=== PATIENT | female | born 1945 | race Caucasian/White ===

== ENCOUNTER 2021-01-21 18:52 | Emergency (ER) | payer OTHER, BC ==
[2021-01-21] MEDS ORDERED: ONDANSETRON 4 MG/2 ML VIAL ONE (20:16)
[2021-01-21] MEDS ORDERED: MORPHINE 4 MG/ML SYR ONE ×2 (20:16→21:05)
--- NOTE | 2021-01-21 20:55 | RAD REPORT ---
EXAM DESCRIPTION: RAD - Hip Left 2 View - 01/21/2021 8:44 pm CLINICAL HISTORY: PAIN COMPARISON: No comparisons FINDINGS: A left total hip arthroplasty is noted. No hardware loosening or infection. Several screws traverse the left SI joint.
--- NOTE | 2021-01-21 22:19 | EDPHYS ---
Physician Documentation [facility] Name: Catie Ojeda Age: 75 yrs Sex: Female : 1945 Arrival Date: 01/21/2021 Time: 18:53 Bed 18 Private MD: ED Physician Roly Collier HPI: 01/21 21:09 This 75 yrs old Female presents to ER via Wheelchair with complaints of Hip pm1 Pain. 21:09 The patient or guardian reports pain. sustained from recent surgery There is no obvious pm1 deformity, The patient is able to self ambulate. The patient is able to bear their full body weight. The complaints affect the left hip. Onset: The symptoms/episode began/occurred 8 day(s) ago. Modifying factors: The symptoms are alleviated by nothing, the symptoms are aggravated by any movement. Associated signs and symptoms: Pertinent positives: left lower leg pain. Severity of symptoms: in the emergency department the symptoms are actually worse. The patient has experienced similar episodes in the past, chronically, patient with history of chronic pain. The patient has been recently seen by a physician: with similar presenting complaints, surgery 8 days ago and has had follow up with visit with orthopedics. Patient is taking OxyContin for pain and patient is reporting concern for longer than allowed riding distance in vehicles. Historical: - Allergies: 19:31 No Known Allergies; lp1 - PMHx: 19:34 Hypertension; Chronic pain; Hyperlipidemia; GERD; lp1 - Immunization history:: Adult Immunizations. - Social history:: Smoking status: Patient denies any tobacco usage or history of. ROS: 21:09 Constitutional: Negative for fever, chills, and weight loss, Cardiovascular: Negative pm1 for chest pain, palpitations, and edema, Respiratory: Negative for shortness of breath, cough, wheezing, and pleuritic chest pain. 21:09 MS/extremity: Positive for pain, of the left leg and left hip, Negative for decreased range of motion, deformity. 21:09 All other systems are negative. Exam: 21:09 Constitutional: This is a well developed, well nourished patient who is awake, alert, pm1 and in no acute distress. Head/Face: Normocephalic, atraumatic. 21:09 Cardiovascular: 21:09 Cardiovascular: Rate: normal, Rhythm: regular, Pulses: no pulse deficits are appreciated, Edema: is not appreciated. 21:09 Respiratory: Exam negative for acute changes, respiratory distress, shortness of breath, Breath sounds: are clear throughout. 21:09 Abdomen/GI: Inspection: abdomen appears normal, Palpation: abdomen is soft and non-tender. 21:09 Back: pain, is absent, vertebral tenderness, is not appreciated, muscle spasm, is not present. 21:09 Musculoskeletal/extremity: Extremities: all appear grossly normal, with no appreciated pain with palpation, Calves: are non-tender, have equal circumference, left hip surgical site without any visible signs of infection. 21:09 Neuro: Exam negative for acute changes, Orientation: is normal, Mentation: is normal, Motor: is normal, moves all fours. Vital Signs: 19:21 BP 128 / 92; Pulse 100; Resp 20; Temp 98.4(TE); Pulse Ox 99% on R/A; Weight 63.5 kg lp1 (R); Height 5 ft. 6 in. (167.64 cm); Pain 9/10; 21:46 BP 152 / 73; Pulse 91; Resp 16; Pulse Ox 92% on R/A; Pain 7/10; fu 19:21 Body Mass Index 22.60 (63.50 kg, 167.64 cm) lp1 MDM: 19:49 Patient medically screened. pm1 22:16 ED course: Ultrasound negative for DVT. pm1 22:17 Data reviewed: vital signs. Data interpreted: Pulse oximetry: on room air is 99 %. pm1 Interpretation: normal. 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 01/21 19:49 Order name: Hip Left 2 View XRAY; Complete Time: 20:58 pm1 01/21 19:49 Order name: Extremity Venous Uni Ltd US; Complete Time: 23:02 pm1 01/21 19:49 Order name: IV Saline Lock; Complete Time: 20:06 pm1 Administered Medications: 20:06 Drug: Zofran (Ondansetron) 4 mg Route: IVP; Site: left forearm; fu 21:06 Follow up: Response: Nausea is decreased fu 20:06 Drug: morphine 4 mg Route: IVP; Site: left forearm; fu 20:36 Follow up: Response: Pain is unchanged, physician notified fu 21:19 Drug: morphine 4 mg Route: IVP; Site: right forearm; fu 21:49 Follow up: Response: Pain is decreased fu 22:38 Drug: fentaNYL (PF) 50 mcg Route: IVP; Site: right forearm; fu 23:08 Follow up: Response: Pain is decreased fu Disposition: 01/21/21 22:18 Discharged to Home. Impression: Pain in left hip. - Condition is Stable. - Discharge Instructions: Hip Pain. - Medication Reconciliation Form, Thank You Letter, Antibiotic Education, Prescription Opioid Use form. - Follow up: Emergency Department; When: As needed; Reason: Worsening of condition. Follow up: Private Physician; When: 2 - 3 days; Reason: Recheck today's complaints, Continuance of care, Re-evaluation by your physician. - Problem is new. - Symptoms have improved. Signatures: Dispatcher [employer] EDMS Catalina Warner RN RN lp1 Poncho Gardner NP GAS BLENDER pm1 Janes Arambula RN RN Chary Sosa mw2 Corrections: (The following items were deleted from the chart) 23:39 22:18 01/21/2021 22:18 Discharged to Home. Impression: Pain in left hip. Condition is mw2 Stable. Forms are Medication Reconciliation Form, Thank You Letter, Antibiotic Education, Prescription Opioid Use. Follow up: Emergency Department; When: As needed; Reason: Worsening of condition. Follow up: Private Physician; When: 2 - 3 days; Reason: Recheck today's complaints, Continuance of care, Re-evaluation by your physician. Problem is new. Symptoms have improved. pm1
--- NOTE | 2021-01-21 22:19 | ER ---
Nurse's Notes [facility] Name: Catie Ojeda Age: 75 yrs Sex: Female : 1945 Arrival Date: 01/21/2021 Time: 18:53 Bed 18 Private MD: Diagnosis: Pain in left hip Presentation: 01/21 19:21 Chief complaint: Patient states: Had left hip surgery about 8 days ago at [address] to reinforce some pins and screws; reports continued pain at 2 week check up; States she has been in a lot of long car drives recently and her doctor told her not to do that; No pain relief with Oxycodone prescribed by pain management; family member reports she is not able to walk very well since yesterday. Coronavirus screen: Client denies travel out of the [place] in the last 14 days. At this time, the client does not indicate any symptoms associated with coronavirus-19. Ebola Screen: No symptoms or risks identified at this time. Initial Sepsis Screen: Does the patient meet any 2 criteria? No. Patient's initial sepsis screen is negative. Does the patient have a suspected source of infection? No. Patient's initial sepsis screen is negative. Risk Assessment: Do you want to hurt yourself or someone else? Patient reports no desire to harm self or others. Onset of symptoms was January 21, 2021. 19:21 Method Of Arrival: Wheelchair lp1 19:21 Acuity: SAMANTHA 3 lp1 Historical: - Allergies: 19:31 No Known Allergies; lp1 - PMHx: 19:34 Hypertension; Chronic pain; Hyperlipidemia; GERD; lp1 - Immunization history:: Adult Immunizations. - Social history:: Smoking status: Patient denies any tobacco usage or history of. Screenin:31 Abuse screen: Denies threats or abuse. Denies injuries from another. Nutritional lp1 screening: No deficits noted. Tuberculosis screening: No symptoms or risk factors identified. 20:00 Fall Risk None identified. fu Assessment: 20:00 General: Appears uncomfortable, Behavior is crying. Pain: Complains of pain in left leg fu and left hip Pain radiates to left foot Pain currently is 10 out of 10 on a pain scale. Quality of pain is described as throbbing, Aggravated by movement. 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 Gait is unsteady, due to pain. Speech is normal, Facial symmetry appears normal. Cardiovascular: Denies. Respiratory: Respiratory effort is even, Respiratory pattern is regular. GI: No signs and/or symptoms were reported involving the gastrointestinal system. Derm: Bruising that is on left hip. Musculoskeletal: Reports Pain is 10 out of 10 on a pain scale. left hip surgery 8 days ago. 21:17 Reassessment: Patient complaining of pain, stating prior pain medication not effective, fu SOAKERS SUPERVISOR notified verbal order to give another dose of Morphine 4mg IVP now. 22:30 Reassessment: Patient and/or family updated on plan of care and expected duration. Pain fu level reassessed. Patient is alert, oriented x 3, equal unlabored respirations, skin warm/dry/pink. Patient states symptoms have improved. 23:00 Reassessment: patient for discharge, awaiting for her brother for the ride. fu 23:35 Reassessment: patient seen walking from bed to wheelchair. fu Vital Signs: 19:21 BP 128 / 92; Pulse 100; Resp 20; Temp 98.4(TE); Pulse Ox 99% on R/A; Weight 63.5 kg lp1 (R); Height 5 ft. 6 in. (167.64 cm); Pain 9/10; 21:46 BP 152 / 73; Pulse 91; Resp 16; Pulse Ox 92% on R/A; Pain 7/10; fu 19:21 Body Mass Index 22.60 (63.50 kg, 167.64 cm) lp1 ED Course: 18:53 Patient arrived in ED. am2 19:31 Triage completed. lp1 19:31 Arm band placed on left wrist. lp1 19:42 Poncho Gardner NP is PHCP. pm1 19:42 Roly Collier MD is Attending Physician. pm1 19:53 Janes Arambula RN is Primary Nurse. fu 20:00 Inserted saline lock: 22 gauge in right forearm, using aseptic technique. fu 20:44 Hip Left 2 View XRAY In Process Unspecified. EDMS 22:00 Patient has correct armband on for positive identification. Bed in low position. Side fu rails up X2. 22:17 Extremity Venous Uni Ltd US In Process Unspecified. EDMS 23:00 No provider procedures requiring assistance completed. fu 23:30 IV discontinued, bleeding controlled, Pressure dressing applied. fu Administered Medications: 20:06 Drug: Zofran (Ondansetron) 4 mg Route: IVP; Site: left forearm; fu 21:06 Follow up: Response: Nausea is decreased fu 20:06 Drug: morphine 4 mg Route: IVP; Site: left forearm; fu 20:36 Follow up: Response: Pain is unchanged, physician notified fu 21:19 Drug: morphine 4 mg Route: IVP; Site: right forearm; fu 21:49 Follow up: Response: Pain is decreased fu 22:38 Drug: fentaNYL (PF) 50 mcg Route: IVP; Site: right forearm; fu 23:08 Follow up: Response: Pain is decreased fu Outcome: 22:18 Discharge ordered by MD. pm1 23:30 Discharged to home via wheelchair. fu 23:30 Condition: stable 23:30 Discharge instructions given to patient, Instructed on discharge instructions, follow up and referral plans. Demonstrated understanding of instructions, Prescriptions given X 0 23:39 Patient left the ED. mw2 Signatures: Dispatcher [employer] EDMS Catalina Warner RN RN lp1 Poncho Gardner, MONIQUE SOAKERS SUPERVISOR pm1 Michelle Jackson am2 Janes Arambula RN RN fu [place], MyKena mw2
--- NOTE | 2021-01-21 22:38 | RAD REPORT ---
EXAM DESCRIPTION: US - Extremity Venous Uni Ltd - 01/21/2021 10:17 pm CLINICAL HISTORY: PAIN Leg swelling and edema. COMPARISON: No comparisons FINDINGS: Left lower extremity venous system was interrogated with Doppler technique. Normal flow, c ompressibility and augmentation was noted. There is no DVT present. IMPRESSION: No evidence of left lower extremity deep venous thrombosis.
[2021-01-21] MEDS ORDERED: FENTANYL CITR 100 MCG/2 ML ONE (22:54)
[2021-01-21 23:45] VITALS: TEMP 98.4
[2021-01-21 23:46] VITALS: BP 152/73; O2SAT 92
[2021-01-24] MEDS ORDERED: IBUPROFEN 200 MG TAB PO ONE (12:25)
== END 2021-01-21 23:39 | disposition home or self-care (01) ==
LOC: ER 18:52
DX: M25.552 Pain in left hip (principal); I10 Essential (primary) hypertension
CPT/HCPCS: 73502; 93971; J3010; J2405; 99284

== ENCOUNTER 2021-01-24 10:23 | Emergency (ER) | payer OTHER, BC ==
--- OUTSIDE RECORDS SUMMARY | 2021-01-24 10:27 | XMS REPORT | Continuity of Care Document ---
:1945 Author Organization [facility] t Address [address] [place] [address] Care Team Providers Name Role Phone Augie Cox Attending Clinician Roc Mart Attending Clinician Augie Cox Admitting Clinician Payers Payer Name Policy Type Policy Number Effective Date Expiration Date S ource Problems Condition Condition Condition Status Onset Resolution Last Treating Co mments Source Name Details Category Date Date Treatment Clinician Date BACK PAIN Diagnosis Active 2019-10-12 Memoria 3- 13:44:00 l BACK 08:00: Renan PAIN 00 Active 10/12/2019 [facility] [place] PAIN IN Diagnosis Active 2018-10-20 Me moria LEFT 3-11 10:35:00 l SHOULDER, PAIN IN 00:00: Herm bebo CERVICALGI LEFT 00 A SHOULDER, CERVICALGI A Active 10/19/2018 [facility] STENOSIS, Diagnosis Active 2017-09-01 Memoria SPONDYLOLI 1-03 15:16:00 l STHESIS 00:00: Renan STENOSIS, 00 SPONDYLOLI STHESIS Active 08/13/2017 [facility] Renan Anxiety Problem Active 2019-10-15 Gino barry (finding) 00:47:50 l Anxiety Renan (finding) Active Problem 10/15/2019 [facility] Constipati Problem Active 2019-10-15 M emoria on 00:47:50 l (disorder) Stephan n Constipati on (disorder) Active Problem 10/15/2019 [facility] Depressive Problem Active 2019-10-15 M emoria disorder 00:47:50 l (disorder) Stephan n Depressive disorder (disorder) Active Problem 10/15/2019 [facility] Hyperlipid Problem Active 2019-10-15 M emoria emia 00:47:50 l (disorder) Stephan n Hyperlipid emia (disorder) Active Problem 10/15/2019 [facility] Hypertensi Problem Active 2019-10-15 M emoria ve 00:47:50 l disorder, Renan systemic Hypertensi arterial ve (disorder) disorder, systemic arterial (disorder) Active Problem 10/15/2019 [facility] Osteoarthr Problem Active 2019-10-15 M emoria itis 00:47:50 l (disorder) Stephan n Osteoarthr itis (disorder) Active Problem 10/15/2019 [facility] Osteoporos Problem Active 2019-10-15 M emoria is 00:47:50 l (disorder) Stephan hsu Osteoporos is (disorder) Active Problem 10/15/2019 [facility] Pancreatic Problem Active 2019-10-15 M emoria insufficie 00:47:50 l ncy Renan (disorder) Pancreatic insufficie ncy (disorder) Active Problem 10/15/2019 [facility] Paresthesi Problem Active 2019-10-15 M emoria a of lower 00:47:50 l extremity [place] (finding) Paresthesi a of lower extremity (finding) Active Problem 10/15/2019 & BILATERAL FEET. [facility] Spinal Problem Active 2019-10-15 Memor ia stenosis 00:47:50 l of lumbar Spinal Ashley nn region stenosis (disorder) of lumbar region (disorder) Active Problem 10/15/2019 [facility] Spondyloli Problem Active 2019-10-15 M emoria sthesis 00:47:50 l (disorder) Stephan n Spondyloli sthesis (disorder) Active Problem 10/15/2019 [facility] PAIN IN Diagnosis Active 2018-10-20 Me moria LEFT 10:35:00 l SHOULDER PAIN IN Ashley nn LEFT SHOULDER Active [facility] CERVICALGI Diagnosis Active 2018-10-20 Memoria A 10:35:00 l [place] CERVICALGI A Active [facility] SPONDYLOLI Diagnosis Active 2019-10-12 Memoria STHESIS, 13:44:00 l LUMBAR [place] REGION SPONDYLOLI STHESIS, LUMBAR REGION Active [facility] SPINAL Diagnosis Active 2019-10-12 Mem oria STENOSIS, 13:44:00 l LUMBAR SPINAL [place] REGION STENOSIS, WITHOUT N LUMBAR REGION WITHOUT N Active [facility] Gastric Problem Resolve 2019-10-15 2019-10-15 Memoria ulcer d 08-11 00:47:50 00:47:50 l (disorder) Gastric 00:00: Her paz ulcer 00 (disorder) Resolved 08/11/2010 Problem 10/15/2019 [facility] Allergies, Adverse Reactions, Alerts Allergy Allergy Status Severity Reaction(s) Onset Inactive Treating Comm ents Source Name Type Date Date Clinician No Known DA Active [facility]ie 09[facility]01 [place] 00:[facility]: [facility] 00 [facility] No Known No Known Active Memori a Medicati Medicati l on on [place] Allergie Allergie s s Social History Social Habit Start Date Stop Date Quantity Comments Source Social History 2017-08-19 2017-08-19 [facility] Sil ermann 00:42:08 00:42:08 Medications This patient has no known medications. Procedures Procedure Date / Time Performed Performing Clinician Kirk mcnamara Hip arthroplasty 2013-08-11 00:00:00 [facility] Arik majano Discectomy for 1986-08-11 00:00:00 [facility] Her paz intervertebral herniated disc, nucleus pulposus Encounters Start End Encounter Admission Attending Care Care Encounter Source Date/Time Date/Time Type Type Clinicians Facility Department ID 2019-10-12 2019-10-12 Outpatient Kenny [facility] [id number] 11:09:00 23:59:00 [address] Augie 2019-10-12 2019-10-12 Outpatient [facility] [id number] 11:09:00 11:09:00 [facility] 2018-10-19 2018-10-19 Outpatient TESHA MartZaid [facility] [id number] 11:50:00 23:59:00 Saad 70 Roc Results Test Description Test Time Test Comments Results Result Tamar anders Comments - CT HEAD/BRAIN 2020-07-28 W/O CONT 14:46:00 [facility] 1945 Sex: F Jose sung Name: BRYANNA HERNANDEZ Unit No: [id number] EXAMS: CPT CODE: [id number] CT HEAD/BRAIN W/O CONT 79428 CT SCAN OF THE HEAD WITHOUT CONTRAST: DICTATION LOCATION: A1 HISTORY: Head injury. TECHNIQUE: Unenhanced axial images were obtained through the head. All CT scans are performed using radiation dose reduction techniques. Technical factors are evaluated and adjusted to ensure appropriate moderation of exposure. Automated dose management technology is applied to adjust the radiation dose to minimize exposure while achieving a diagnostic-quality image. No prior exams are available for comparison. FINDINGS: Mild to moderate chronic changes of cerebral atrophy and deep white matter small vessel ischemia are noted. No acute intra- or extraaxial mass, hemorrhage, fluid collection, midline shift, or evidence to suggest acute infarction is identified. The ventricular system is within normal limits. No acute soft tissue or bony calvarial abnormality is seen. IMPRESSION: Mild to moderate chronic changes of cerebral atrophy and deep white matter small vessel ischemia. No acute findings. at 1446 Reported and signed by: Moe Ambriz Jr, MD CC: Ankit Martin MD; Parvez Baez MD Technologist: KELBY Whiteside(Zaid)(CT) CTDI: 38.48 DLP: 707 [facility] Dt/Tm: 07/28/2020 (7229) by:Tanja Printed Date/Time: 07/28/2020 (4654) Name: BRYANNA HERNANDEZ [facility] Phys: Ankit Gibson MD [address] : 1945 Age: 75 Sex: [place] [id number] Loc: P.ERS Exam Date: 07/28/2020 Status: REG ER PH: FAX: PAGE 1 Signed Report - XR FOREARM 2 2020-07-28 VIEWS LT 14:32:00 [facility] : 1945 Sex: F Jose sung Name: BRYANNA HERNANDEZ Unit No: [id number] EXAMS: CPT CODE: [id number] XR [place] [address] [place] [address] Left forearm 2 views 07/28/2020 CLINICAL HISTORY: Trauma COMPARISON: None available LOCATION: W1 IMPRESSION: Cortical irregularity along the distal diaphysis of the left radius reflects an age-indeterminate buckle fracture. The remaining visualized cortices and joint spaces are intact. There are no osteolytic or osteoblastic lesions. There is soft tissue swelling about the wrist. at 1432 Reported and signed by: LOCO GUTIERREZ M.D. CC: Ankit Martin MD; Parvez Baez MD Technologist: Frederick Shay Time: DAP (Gy m2): Air Kerma (mGy): Trscr Dt/Tm: 07/28/2020 (1432) by:[email or web address] Printed Date/Time: 07/28/2020 (3415) Name: BRYANNA HERNANDEZ [facility] Phys: Ankit Gibson MD [address] : 1945 Age: 75 Sex: [place] [address] Loc: P.ERS Exam Date: 07/28/2020 Status: REG ER PH: FAX: PAGE 1 Signed Report CKMB 2020-06-28 16:20:00 Test Item Value Reference Range Interpretation Comme nts CKMB (test code = CKMBT) 1.21 ng/mL 0.97-3.77 N INT ERPRETATIVE DATA:Negative or inconclusive re sults do not exclude myocardialinfar ction. Serial tests at appropriate int ervals may benecessary. [id number] 12:44:00 Test Item Value Reference Range Interpretation Comments TROPONIN-I (test < 0.30 ng/mL 0.00-0.30 N INTERPRETAT VASU code = TROPI) DATA:Negative or inconclusive re uslts do not exclude myocardialinfar ction. Serial tests at appropriate int ervals may benecessary. - CTA CHEST FOR [id number] 21:15:00 [facility] : 1945 Sex: FPatient Name: BRYANNA HERNANDEZ Unit No: [id number] EXAMS: CPT CODE: [id number] [place] [address] LOCATION: R16 EXAM: CTA CHEST WITH CONTRAST, PE PROTOCOL INDICATION: chest pain COMPARISON: 06/27/2020 chest radiograph. TECHNIQUE: Helically acquired axial CT images of the chest were obtained with reconstructions in the coronal and sagittal planes without 3D reformations. Up-to-date CT equipment and radiation dose reduction techniques were utilized. Automatic exposure control was utilized. MIP coronal reformats provided. FINDINGS: Lines and Tubes: None Mediastinum and Vasculature: There are no intrathoracic lymph nodes meeting CT criteria for enlargement. The heart is not enlarged. There is no pericardial effusion.. The thoracic aorta and pulmonary artery are normal in size. No discrete filling defect is identified within the pulmonary arteries. Mild scattered arterial atherosclerotic calcifications are present. Airways/Pleura/Lungs: The trachea is patent.. The pleura is unremarkable.Linear atelectasis/scarring is appreciated at the lung bases. There is no focal consolidation. No pulmonary mass is present. There is no pleural effusion or pneumothorax.Bones: There is no acute osseous abnormality..There is a moderate anterosuperior compression deformity at T12 with 3.4 mm bony retropulsion. Abdomen: The visualized portions of the upper abdomen is unremarkable. IMPRESSION: No evidence for pulmonary artery embolism. Bibasilar subsegmental atelectasis/linear scarring. Chronic T12 compression deformity. at 2114 Reported and signed by: JOSE FELICIANO M.D. CC: Sang Figueroa MD; Parvez Baez MD Technologist: Stefanie Charlton (CT),(MR) CTDI: 19.54 DLP: 359.6 Trscr Dt/Tm: 06/27/2020 (2114) by:[email or web address] Printed Date/Time: 06/27/2020 (2118) Name: BRYANNA HERNANDEZ KELSIE [facility] Phys: Sang Martins MD [address] : 1945 Age: 75 Sex: F [place], [place] [id number] Loc: P.0733 1 Exam Date: 06/27/2020 Status: ADM IN PH: FAX: PAGE 1 Signed [id number] 19:54:00 Test Item Value Reference Range Interpretation Comments TROPONIN-I (test < 0.30 ng/mL 0.00-0.30 N INTERPRETAT VASU code = TROPI) DATA:Negative or inconclusive re uslts do not exclude myocardialinfar ction. Serial tests at appropriate int ervals may benecessary. [id number] 19:37:00 Test Item Value Reference Range Interpretation Comments D-DIMER (test 522 ng/mL 0-500 H THE DDIMER MET HOD IS USED IN code = DDIMER) THE EXCLUSION OF DEEP VEINTHROMBOSIS AND/OR PULMONARY EMBOL ISM AND THE CLINICAL CUT-OF F VALUE FOR EXCLUSION (500 NG/ML FEU) OF THESE CONDITION SIS VALIDATED BY THE MANUFACT URER OF THE METHOD. A NEGAT VASU DDIMER RESULT WHEN COM BINED WITH A CLINICALASSESSM ENT OF LOW PRETEST PROBABI LITY HAS BEEN SHOWN TO HAVEA HIGH NEGATIVE PREDICTIVE VALU E OF DVT OR PE. D-DIMER SERENITY UES >500 ng/mL ARE NOT DIAGNOS TIC FOR DVT,PEOR DIC WI THOUT OTHER CONFIRMATORY TE STS AND APPROPRIATECLIN ICAL EVALUATIONS. B-TYPE NATRIURETIC [id number] 19:27:00 Test Item Value Reference Range Interpretation Comments B-TYPE NATRIURETIC PEPTIDE (test 30.4 PG/ML 0-100 N code = BNP) COMPREHENSIVE METABOLIC [id number] 19:25:00 Test Item Value Reference Range Interpretation Comments SODIUM (test code = 138 MMOL/L 136-143 N NA) POTASSIUM (test 4.3 MMOL/L 3.5-5.1 N code = K) CHLORIDE (test code 97 MMOL/L 98-107 L = CL) CARBON DIOXIDE 29 mmol/L 24-31 N (test code = CO2) GLUCOSE (test code 106 mg/dL 70-104 H = GLU) BLOOD UREA NITROGEN 16.9 MG/DL 7.0-21.0 N (test code = BUN) GLOMERULAR >=60 max >60 The estimated FILTRATION RATE estimate glomerular (test code = GFR) filtration rate is computed usingpatient ra ce, age (>18), sex, and serum creatinin e. If anyof the ne eded data elements a re missing the Laboratory demetra ot compute an estimation of t he glomerular filtration rate . CREATININE (test 0.9 mg/dL 0.8-1.5 N code = CREAT) TOTAL PROTEIN (test 8.2 g/dL 6.3-8.3 N code = PROT) ALBUMIN (test code 5.2 G/DL 3.5-5.0 H = ALB) CALCIUM (test code 10.1 mg/dL 8.8-10.2 N = CA) BILIRUBIN TOTAL 0.5 mg/dL 0.2-1.0 N (test code = BILT) SGOT/AST (test code 19 IU/L 10-34 N = AST) SGPT/ALT (test code 9 U/L 10-36 L = ALT) ALKALINE 95 U/L 32-104 N PHOSPHATASE (test code = ALKP) CBC W/AUTO [id number] 18:57:00 Test Item Value Reference Range Interpretation Comments WHITE BLOOD CELL (test code = 10.3 x10 3/uL 4.8-10.8 N WBC) RED BLOOD CELL (test code = 4.70 x10 6/uL 4.20-5.40 N RBC) HEMOGLOBIN (test code = HGB) 14.0 g/dL 14.5-20 L HEMATOCRIT (test code = HCT) 44.5 % 37.0-47.0 N MEAN CELL VOLUME (test code = 94.7 fL 81.0-99.0 N MCV) MEAN CELL HGB (test code = MCH) 29.8 pg 27-31 N MEAN CELL HGB CONCENTRATION 31.5 G/DL 33-36.5 L (test code = MCHC) RED CELL DISTRIBUTION WIDTH 13.2 % 12.9-16.9 N (test code = RDW) PLATELET COUNT (test code = 428 150-440 N PLT) MEAN PLATELET VOLUME (test code 9.2 fL 8.9-12.4 N = MPV) NEUTROPHIL % (test code = NT%) 67.0 % 42.2-75.2 N LYMPHOCYTE % (test code = LY%) 24.8 % 20.5-51.1 N MONOCYTE % (test code = MO%) 7.3 % 1.7-9.3 N EOSINOPHIL % (test code = EO%) 0.4 % 0.0-7.0 N BASOPHIL % (test code = BA%) 0.3 % 0-2.5 N NEUTROPHIL # (test code = NT#) 6.94 x10 3/uL 1.80-7.70 N LYMPHOCYTE # (test code = LY#) 2.56 x10 3/uL 1.00-4.80 N MONOCYTE # (test code = MO#) 0.75 x10 3/uL 0.00-0.80 N EOSINOPHIL # (test code = EO#) 0.04 x10 3/uL 0.00-0.45 N BASOPHIL # (test code = BA#) 0.03 x10 3/uL 0.0-0.20 N - XR CHEST 1 [id number] 18:39:00 [facility] : 1945 Sex: FPatient Name: BRYANNA HERNANDEZ Unit No: [id number] EXAMS: CPT CODE: [id number] XR CHEST 1 V 19200 STUDY: Chest radiograph HISTORY: Chest pain COMPARISON: 1120 TECHNIQUE: Frontal view of the chest. SITE: R16 FINDINGS: The cardiac silhouette is unremarkable. The ascending aorta appears tortuous/ectatic. There is no focal consolidation, pleural effusion, or pneumothorax. No acute osseous abnormalities are identified. Plate and screw fixation of the right clavicle is noted. IMPRESSION: No radiographic evidence for acute pulmonary abnormality. at 1839 Reported and signed by: JOSE FELICIANO M.D. CC: Mina Del Valle MD; Parvez Baez MD Technologist: Jazmine Shay Time: DAP (Gy m2): Air Kerma (mGy): Trscr Dt/Tm: 06/27/2020 (183) by:Mercy [email or web address] Printed Date/Time: 06/27/2020 (184) Name: BRYANNA HERNANDEZ [facility] Phys: Mina Shah MD [address] : 1945 Age: 75 Sex: [place] [address] Loc: P.ERS Exam Date: 06/27/2020 Status: REG ER PH: FAX: PAGE 1 Signed Report- CT C-SPINE W/O [id number] 10:08:00Patient Name: BRYANNA HERNANDEZ Unit No: [id number] EXAMS: CPT CODE: [id number] CT C-SPINE W/O CONT 22681 CT cervical spine without contrast Location Code: B2 Clinicalhistory: fall, trauma COMPARISON: None. COMMENTS: Helical CT of the cervical spine was performed and submitted as thin section axial, coronal, and sagittally oriented images. CT imaging performed at this location utilizes radiation dose optimization techniques which include one or more of the following: - Automated exposure control -Adjustment of the mA and/or kV according to patient size -Use of iterative reconstruction technique CT Radiation Dose DLP mGy-cm FINDINGS: There is no acute fracture or malalignment of the cervical spine. The soft tissues are unremarkable. Multilevel degenerative disc, facet, and uncovertebral disease is noted throughout the cervical spine. Grade 1 anterolisthesis of C4 and C5. IMPRESSION: No acute abnormality. at 1008 Reported and signed by: QIANA OLMEDO M.D. CC: Sang Figueroa MD; Parvez Baez MD Technologist: Donny Acuna CTDI: 18.75 DLP: 423 Trscr Dt/Tm: 03/21/2020 (1008) by:[email or web address] Printed Date/Time: 03/21/2020 (1011) Name: BRYANNA HERNANDEZ [facility] Phys: Sang Martins MD [address] : 1945 Age: 74 Sex: [place] [address] Loc: P.ERS Exam Date: 03/21/2020 Status: REG ER PH: FAX: PAGE 1 Signed Report- XR SHOULDER 2 + V [id number] 09:45:00Patient Name: BRYANNA HERNANDEZ Unit No: [id number] EXAMS: CPT CODE: [id number] XR SHOULDER 2 + [place] [id number] Exam:Right shoulder x-rays 3 views Location: W1 Clinical Indication:74-year-old with fall injury and trauma Comparison:None Findings:3 views of the right shoulder were obtained. There is an acute displaced fracture through the mid right clavicle, with greater than a shaft width displacement. No shoulder dislocation. Soft tissues are unremarkable. Impression: Acute displaced fracture through the mid to distal right clavicle. at 0945 Reported and signed by: Jose Robb MD CC: Sang Figueroa MD; Parvez Baez MD Technologist: Gibbon Glade Isai Fluoro Time: DAP (Gy m2): Air Kerma (mGy): Trscr Dt/Tm: 03/21/2020 (0945) by:[email or web address] Printed Date/Time: 03/21/2020 (5349) Name: BRYANNA HERNANDEZ [facility] Phys: Sang Martins MD [address] DOB: 1945 Age: 74Sex: [place] [address] Loc: P.ERS Exam Date: 03/21/2020 Status: REG ER PH: FAX: PAGE 1 Signed Report- XR CHEST 1 [id number] 09:44:00Patient Name: BRYANNA HERNANDEZ Unit No: [id number] EXAMS: CPT CODE: [id number] XR CHEST 1 V [id number] EXAM: Portable chest one view. Location code:J9 HISTORY: Dyspnea COMPARISON: 09/26/2015 COMMENT: . The lungs and pleural spacesare clear. Lungs are normally expanded. The aorta, pulmonary vasculature and mediastinum are within normal limits. Cardiac silhouette is normal in size and contour. Visualized skeletal structures are unremarkable. IMPRESSION: No active disease in the chest. at 0944 Reported and signed by: QIANA OLMEDO M.D. CC: Sang Figueroa MD; Parvez Baez MD Te chnologist: Hipolito Alex Fluoro Time: DAP (Gy m2): Air Kerma (mGy): Trscr Dt/Tm: 03/21/2020 (44) by:[email or web address] Printed Date/Time: 03/21/2020 (1848) Name: BRYANNA HERNANDEZ [facility] Phys: Sang Martins MD [address] DOB: 1945 Age: 74 Sex: [place] [address] Loc: PBRYCE Exam Date: 03/21/2020 Status: REG ER PH: FAX: PAGE 1 Signed Report
--- NOTE | 2021-01-24 13:52 | RAD REPORT ---
EXAM DESCRIPTION: RAD - Ankle Left 3 View - 01/24/2021 1:44 pm CLINICAL HISTORY: PAIN COMPARISON: No comparisons FINDINGS: No acute fracture or dislocation seen. Small calcaneal spurs noted.
--- NOTE | 2021-01-24 14:06 | RAD REPORT ---
EXAM DESCRIPTION: RAD - Shoulder Right 2 View - 01/24/2021 1:59 pm CLINICAL HISTORY: PAIN COMPARISON: No comparisons FINDINGS: Right clavicular hardware is noted. Mild AC joint and glenohumeral joint arthritic changes are seen. No acute fracture evident.
--- NOTE | 2021-01-24 14:21 | EDPHYS ---
Physician Documentation [facility] Name: Catie Ojeda Age: 75 yrs Sex: Female : 1945 Arrival Date: 01/24/2021 Time: 10:25 Bed 17 Private MD: ED Physician Omega Morales Historical: - Allergies: 01/24 11:12 No Known Allergies; ca1 - PMHx: 11:12 Chronic pain; GERD; Hyperlipidemia; Hypertension; ca1 - PSHx: 11:12 Hip replacement; R shoulder surgery; ca1 - Immunization history:: Client reports receiving the 2nd dose of the Covid vaccine, Client reports receiving the 1st dose of the Covid vaccine, Pneumococcal vaccine is up to date, Flu vaccine is up to date. - Social history:: Smoking status: Patient denies any tobacco usage or history of. Vital Signs: 11:07 BP 152 / 92; Pulse 102; Resp 18 S; Temp 97.7(TE); Pulse Ox 100% on R/A; Weight 63.5 kg ca1 (R); Height 5 ft. 6 in. (167.64 cm) (R); Pain 9/10; 11:30 BP 137 / 69; Pulse 98; Resp 17; Pulse Ox 97% on R/A; Pain 8/10; ap3 12:23 BP 144 / 92; Pulse 102; Resp 16; Pulse Ox 98% on R/A; ap3 11:07 Body Mass Index 22.60 (63.50 kg, 167.64 cm) ca1 MDM: 14:20 Patient medically screened. kdr 01/24 12:01 Order name: Shoulder Right (2 View) XRAY; Complete Time: 14:18 kdr 01/24 12:01 Order name: Ankle Left 3 View XRAY; Complete Time: 14:18 kdr Administered Medications: 12:22 Drug: Ibuprofen 600 mg Route: PO; ap3 14:55 Follow up: Response: No adverse reaction; Pain is decreased ap3 Disposition: 01/24/21 14:20 Discharged to Home. Impression: Musculoskeletal Pain, Other slipping, tripping and stumbling and falls, Pain in right shoulder, Pain in ankle and joints of foot - left. - Condition is Stable. - Discharge Instructions: Joint Pain, Arthritis, Musculoskeletal Pain, Shoulder Pain, [id number]-[id number], Fall Prevention in the Home, [id number]. - Prescriptions for Ibuprofen 600 mg Oral Tablet - take 1 tablet by ORAL route every 6 hours As needed take with food; 15 tablet. - Medication Reconciliation Form, Thank You Letter form. - Follow up: Private Physician; When: 2 - 3 days; Reason: If symptoms return, Further diagnostic work-up, Recheck today's complaints, Continuance of care, Re-evaluation by your physician. - Problem is new. - Symptoms have improved. Signatures: Dispatcher [employer] EDWV Omega Morales MD MD kdr Michelle Lamb RN RN ap3 Gabi Howell RN RN ca1 Corrections: (The following items were deleted from the chart) 14:56 14:20 01/24/2021 14:20 Discharged to Home. Impression: Musculoskeletal Pain; Other ap3 slipping, tripping and stumbling and falls; Pain in right shoulder; Pain in ankle and joints of foot - left. Condition is Stable. Forms are Medication Reconciliation Form, Thank You Letter, Antibiotic Education, Prescription Opioid Use. Follow up: Private Physician; When: 2 - 3 days; Reason: If symptoms return, Further diagnostic work-up, Recheck today's complaints, Continuance of care, Re-evaluation by your physician. Problem is new. Symptoms have improved. kdr
--- NOTE | 2021-01-24 14:21 | ER ---
Nurse's Notes [facility] Name: Catie Ojeda Age: 75 yrs Sex: Female : 1945 Arrival Date: 01/24/2021 Time: 10:25 Bed 17 Private MD: Diagnosis: Musculoskeletal Pain;Other slipping, tripping and stumbling and falls;Pain in right shoulder;Pain in ankle and joints of foot-left Presentation: 01/24 11:07 Chief complaint: Patient states: Slipped and fell x 3x last night. Hit back of the ca1 head, denies LOC. Report pain on R shoulder, L leg, L hip. Coronavirus screen: Client denies travel out of the [place] in the last 14 days. At this time, the client does not indicate any symptoms associated with coronavirus-19. Ebola Screen: Patient negative for fever greater than or equal to 101.5 degrees Fahrenheit, and additional compatible Ebola Virus Disease symptoms Patient denies exposure to infectious person. Patient denies travel to an Ebola-affected area in the 21 days before illness onset. No symptoms or risks identified at this time. Initial Sepsis Screen: Does the patient meet any 2 criteria? No. Patient's initial sepsis screen is negative. Does the patient have a suspected source of infection? No. Patient's initial sepsis screen is negative. Risk Assessment: Do you want to hurt yourself or someone else? Patient reports no desire to harm self or others. Onset of symptoms was January 24, 2021. 11:07 Method Of Arrival: Wheelchair ca1 11:07 Acuity: SAMANTHA 4 ca1 Historical: - Allergies: 11:12 No Known Allergies; ca1 - PMHx: 11:12 Chronic pain; GERD; Hyperlipidemia; Hypertension; ca1 - PSHx: 11:12 Hip replacement; R shoulder surgery; ca1 - Immunization history:: Client reports receiving the 2nd dose of the Covid vaccine, Client reports receiving the 1st dose of the Covid vaccine, Pneumococcal vaccine is up to date, Flu vaccine is up to date. - Social history:: Smoking status: Patient denies any tobacco usage or history of. Screenin:17 Abuse screen: Denies threats or abuse. Nutritional screening: No deficits noted. tw2 Tuberculosis screening: No symptoms or risk factors identified. Fall Risk Secondary diagnosis (15 points) impaired mobility. Assessment: 11:23 Reassessment: pts son states "she is a what you call over the counter junkie, she takes tw2 muscle relaxers, hydrocodone and just whatever so that's probably why she is falling", provider and primary nurse notified. 11:28 General: Appears distressed, Behavior is cooperative, crying. General: patient states ap3 when she isn't having physical pain, she has "broken heart pain". Pain: Complains of pain in "all over". Neuro: Level of Consciousness is awake, alert, obeys commands, Oriented to person, place, time, situation, Speech is normal. Cardiovascular: Denies chest pain, shortness of breath, Capillary refill < 3 seconds. Respiratory: Airway is patent Respiratory effort is even, unlabored, Respiratory pattern is regular, symmetrical. GI: No signs and/or symptoms were reported involving the gastrointestinal system. : No signs and/or symptoms were reported regarding the genitourinary system. EENT: No signs and/or symptoms were reported regarding the EENT system. Derm: No signs and/or symptoms reported regarding the dermatologic system. Musculoskeletal: Reports pain in "all over". 12:24 Reassessment: Patient and/or family updated on plan of care and expected duration. Pain ap3 level reassessed. Patient is alert, oriented x 3, equal unlabored respirations, skin warm/dry/pink. Vital Signs: 11:07 BP 152 / 92; Pulse 102; Resp 18 S; Temp 97.7(TE); Pulse Ox 100% on R/A; Weight 63.5 kg ca1 (R); Height 5 ft. 6 in. (167.64 cm) (R); Pain 9/10; 11:30 BP 137 / 69; Pulse 98; Resp 17; Pulse Ox 97% on R/A; Pain 8/10; ap3 12:23 BP 144 / 92; Pulse 102; Resp 16; Pulse Ox 98% on R/A; ap3 11:07 Body Mass Index 22.60 (63.50 kg, 167.64 cm) ca1 ED Course: 10:25 Patient arrived in ED. as 10:47 Omega Morales MD is Attending Physician. kdr 11:11 Triage completed. ca1 11:12 Arm band placed on right wrist. ca1 11:15 Bed in low position. Call light in reach. Adult w/ patient. Pulse ox on. NIBP on. tw2 11:17 Michelle Lamb, RN is Primary Nurse. ap3 11:55 ED physician to see patient. ap3 13:43 Ankle Left 3 View XRAY In Process Unspecified. EDMS 13:58 Shoulder Right (2 View) XRAY In Process Unspecified. EDMS 14:54 No provider procedures requiring assistance completed. Patient did not have IV access ap3 during this emergency room visit. Administered Medications: 12:22 Drug: Ibuprofen 600 mg Route: PO; ap3 14:55 Follow up: Response: No adverse reaction; Pain is decreased ap3 Outcome: 14:20 Discharge ordered by . kdr 14:54 Discharged to home ambulatory, with family. ap3 14:54 Condition: good 14:54 Discharge instructions given to patient, Instructed on discharge instructions, follow up and referral plans. medication usage, Demonstrated understanding of instructions, follow-up care, medications, Prescriptions given X 1. 14:56 Patient left the ED. ap3 Signatures: Dispatcher [employer] EDNC Omega Morales MD MD kdr Martinez, Amelia as Wise, Tara, RN RN tw2 Michelle Lamb, RN RN ap3 Gabi Howell, RN RN ca1
[2021-01-24 15:12] VITALS: TEMP 97.7
[2021-01-24 15:15] VITALS: BP 144/92; O2SAT 98
== END 2021-01-24 14:56 | disposition home or self-care (01) ==
LOC: ER 10:23
DX: M25.572 Pain in left ankle and joints of left foot (principal); M79.18 Myalgia, other site; W01.0XXA Fall on same level from slipping, tripping and stumbling without subsequent striking against object, initial encounter; I10 Essential (primary) hypertension

== ENCOUNTER 2022-02-22 19:43 | Inpatient (IN) | payer OTHER, BC ==
--- NOTE | 2022-02-22 21:15 | RAD REPORT ---
EXAM DESCRIPTION: CT - Head C Spine Mpr Wo Con - 02/22/2022 9:04 pm CLINICAL HISTORY: Head and neck injury status post fall. Head and neck pain COMPARISON: None. TECHNIQUE: Computed axial tomography of the head and cervical spine was obtained. Sagittal and coronal reconstruction was performed. All CT scans are performed using dose optimization technique as appropriate and may include automated exposure control or mA/KV adjustment according to patient size. FINDINGS: An intracranial bleed is not seen. The ventricles are normal in caliber. An extra-axial fl uid collection is not noted.Fluid within the visualized sinuses and mastoids is not seen A cervical fracture is not visualized. No dislocation is noted. Mild posterior subluxation C2 on C3. Mild posterior subluxation C3 on C4 and C5 on C6. No significant soft tissue swelling seen. Presumably this is chronic IMPRESSION: No acute intracranial abnormality is seen. A cervical fracture is not visualized. If the patient continues to have symptoms to suggest intracranial /spinal cord/ligamentous pathology then MRI would be recommended
--- NOTE | 2022-02-22 21:41 | RAD REPORT ---
EXAM DESCRIPTION: Quinn Single View02/22/2022 9:32 pm CLINICAL HISTORY: Chest pain COMPARISON: none FINDINGS: Triangular opacities within lung bases may represent atelectasis or scarring. Upper lobes appear clear. Heart is normal size
--- NOTE | 2022-02-22 21:43 | RAD REPORT ---
EXAM DESCRIPTION: RAD - Pelvis - 02/22/2022 9:32 pm CLINICAL HISTORY: Pelvic pain status post injury FINDINGS: Screws fuse the left sacroiliac joint. Left hip arthroplasty is been performed. Bones are osteoporotic. No acute fracture or dislocation seen. Marked osteoarthritis right hip. If patient continues to have symptoms to suggest an occult fracture CT would be recommended
--- NOTE | 2022-02-22 21:47 | RAD REPORT ---
EXAM DESCRIPTION: RAD - Foot Left 3 View - 02/22/2022 9:32 pm CLINICAL HISTORY: Left Foot pain status post injury FINDINGS: Horizontal lucency is present within the medial malleolus. This may represent a the subacu te fracture and should be correlated clinically. Cortical regularity involving the base of metatarsal presumably a subacute or old fracture Osteoporosis No dislocation
[2022-02-22] MEDS ORDERED: NA CHLORIDE 0.9% 500 ML ONE (22:43)
[2022-02-22 23:18] LABS: Urine Blood Negative (Negative); Urine Glucose Negative (Negative); Urine Protein 1+ (Negative); Urine Specific Gravity 1.015 (1.005-1.030)
[2022-02-22 23:21] LABS: Absolute Lymphocytes (CBC) 1.9 K/uL (0.7-4.9); Hematocrit 23.3 % (36.0-45.0); Lymphocytes % 25.2 % (15.3-44.8); MCV 96.1 fL (80-100); MPV 7.7 fL (7.6-11.3); RBC Red Blood Cell Count 2.43 M/uL (3.86-4.86)
[2022-02-22 23:25] LABS: Protime INR 1.01
[2022-02-22 23:35] LABS: Barbiturates NEGATIVE (NEGATIVE); Benzodiazepines POSITIVE (NEGATIVE); Cocaine NEGATIVE (NEGATIVE); METHAMPHETAM NEGATIVE (NEGATIVE); Methadone NEGATIVE (NEGATIVE); Opiates NEGATIVE (NEGATIVE); Phencyclidine NEGATIVE (NEGATIVE); THC Cannibis NEGATIVE (NEGATIVE)
[2022-02-22 23:41] LABS: Albumin 3.2 g/dL (3.4-5.0); Bilirubin Direct 0.2 mg/dL (0-0.2); Magnesium 2.6 mg/dL (1.8-2.4); Potassium 4.2 mmol/L (3.5-5.1); Protein, Total 6.6 g/dL (6.4-8.2); Troponin High Sensitivity 6.7 pg/mL (<58.9)
--- NOTE | 2022-02-23 00:57 | ER ---
Nurse's Notes [facility] Name: Catie Ojeda Age: 76 yrs Sex: Female : 1945 Arrival Date: 02/22/2022 Time: 19:47 Bed 26 Private MD: Diagnosis: Syncope, multiple falls Presentation: 02/22 19:48 Chief complaint: EMS states: "She had surgery on Friday. Arthroplasty. She said she tw5 also broke her left foot three months ago. She said she had several falls and wants to be check. She is having pain everywhere." She report 3 falls today. 19:49 Care prior to arrival: IV initiated. 20 GA, in the left antecubital area. tw5 19:53 Coronavirus screen: Vaccine status: Patient reports receiving the 2nd dose of the covid tw5 vaccine. [employer] and [employer]. Ebola Screen: Patient negative for fever greater than or equal to 101.5 degrees Fahrenheit, and additional compatible Ebola Virus Disease symptoms Patient denies exposure to infectious person. Patient denies travel to an Ebola-affected area in the 21 days before illness onset. Initial Sepsis Screen: Does the patient meet any 2 criteria? No. Patient's initial sepsis screen is negative. Does the patient have a suspected source of infection? No. Patient's initial sepsis screen is negative. Risk Assessment: Do you want to hurt yourself or someone else? Patient reports no desire to harm self or others. Onset of symptoms is unknown. 19:53 Method Of Arrival: EMS: [facility] tw5 19:53 Acuity: SAMANTHA 3 tw5 19:59 Mechanism of Injury: Fall from standing position. Trauma event details: Injury occurred tw5 in the [facility], Injury occurred: at home. Injury occurred: February 22, 2022 Injury occurred at: 05:30. Historical: - Allergies: 19:49 No Known Allergies; tw5 - Home Meds: 19:49 amlodipine oral [Active]; "Several pillls for pain." [Active]; tw5 - PMHx: 19:49 Chronic pain; GERD; Hyperlipidemia; Hypertension; tw5 - Immunization history: Last tetanus immunization: - up to date. - Social history:: Smoking status: Patient denies any tobacco usage or history of. Screenin:56 Abuse screen: Denies threats or abuse. Denies injuries from another. Tuberculosis tw5 screening: No symptoms or risk factors identified. 22:44 Nutritional screening: No deficits noted. Fall Risk Fall in past 12 months (25 points). tw5 Primary Survey: 19:56 NO uncontrolled hemorrhage observed. A: The client responds to verbal stimuli. tw5 Breathing/Chest: Respiratory effort: spontaneous, Breath sounds: clear. Circulation: No external hemorrhage present. Regular and strong central pulse, skin warm/dry/normal color. Disability Pupils are equal, round, reactive to light and accommodation. Exposure/Environment: There is no evidence of uncontrolled external bleeding. Reassessment Alertness and Airway: Awake and alert. The airway is patent. Breathing: Spontaneous respiratory effort, equal unlabored respirations, breath sounds clear bilaterally, regular pattern with symmetrical chest rise and fall. Circulation: No external hemorrhage noted. Regular and strong central pulse, skin warm/dry/normal color. Disability: Pupils Pupils are equal, round, reactive to light and accomodation. Secondary Survey: 19:56 Gastrointestinal: No deficits noted. tw5 Assessment: 19:55 General: Appears in no apparent distress. Behavior is drowsy, Reports Patient falling tw5 alseep while answering questiosn. Pain: Pain currently is 7 out of 10 on a pain scale. 22:40 Reassessment: Patient appears in no apparent distress at this time. Patient and/or tw5 family updated on plan of care and expected duration. Pain level reassessed. Patient is alert, oriented x 3, equal unlabored respirations, skin warm/dry/pink. 22:44 Neuro: Level of Consciousness is awake, alert, obeys commands. tw5 02/23 00:30 Reassessment: Patient and/or family updated on plan of care and expected duration. Pain ll3 level reassessed. Patient is alert, oriented x 3, equal unlabored respirations, skin warm/dry/pink. 02:25 Reassessment: Patient and/or family updated on plan of care and expected duration. Pain ll3 level reassessed. Patient is alert, oriented x 3, equal unlabored respirations, skin warm/dry/pink. Vital Signs: 02/22 19:53 BP 105 / 52; Pulse 81; Resp 12; Temp 98; Pulse Ox 93% on R/A; Weight 64.41 kg; Height 5 tw5 ft. 6 in. (167.64 cm); Pain 7/10; 19:58 Pulse Ox 85% on R/A; tw5 22:44 Pulse 95; Resp 12; Pulse Ox 100% on R/A; Pain 8/10; tw5 02/23 00:29 BP 158 / 66; Pulse 99; Resp 13; Pulse Ox 97% ; ll3 02:25 BP 137 / 73; Pulse 103; Resp 12; Pulse Ox 100% ; ll3 02/22 19:53 Body Mass Index 22.92 (64.41 kg, 167.64 cm) tw5 Ihsan Coma Score: 02/22 19:56 Eye Response: spontaneous(4). Verbal Response: oriented(5). Motor Response: obeys tw5 commands(6). Total: 15. Trauma Score (Adult): 19:56 Eye Response: to voice(0); Verbal Response: oriented(1); Motor Response: obeys tw5 commands(2); Systolic BP: > 89 mm Hg(4); Respiratory Rate: 10 to 29 per min(4); Hayes Score: 14; Trauma Score: 11 ED Course: 19:47 Patient arrived in ED. tw5 19:53 Koki Langley is Primary Nurse. tw5 19:55 Triage completed. tw5 19:56 Side rails up X2. Oxygen administration via nasal cannula \\T\\ 2L/min. tw5 19:58 Response to oxygen therapy: symptoms improved. tw5 19:58 Arm band placed on. tw5 19:58 Maintain EMS IV. Dressing intact. Good blood return noted. Site clean \\T\\ dry. Gauge \\T\\ tw 5 site: 20 RAC. 19:59 Thermoregulation: warm blanket given to patient. tw5 20:05 Clive Bullock MD is Attending Physician. mh7 21:06 CT Head C Spine In Process Unspecified. EDMS 21:34 XRAY Chest (1 view) In Process Unspecified. EDMS 21:34 Pelvis XRAY In Process Unspecified. EDMS 21:34 Foot Left 3 View XRAY In Process Unspecified. EDMS 22:44 Pulse ox on. NIBP on. Door closed. Noise minimized. Moved to private room. Warm blanket tw5 given. Verbal reassurance given. 22:44 Initial lab(s) drawn, by me, sent to lab. Urine collected: straight cath specimen, tw5 clear, Amount Returned: 200mL COVID swab sent to lab. 23:10 UDS Sent. tw5 23:10 COVID-19 SARS RT PCR (Document "Date of Onset" if Symptomatic) Sent. tw5 23:10 Basic Metabolic Panel Sent. tw5 23:10 LFT's Sent. tw5 23:10 Magnesium Sent. tw5 23:10 CBC with Diff Sent. tw5 23:10 NT PRO-BNP Sent. tw5 23:10 Troponin HS Sent. tw5 23:10 PT-INR Sent. tw 23:30 Urine Dipstick-Ancillary Sent. tw5 23:30 COVID-19 SARS RT PCR (Document "Date of Onset" if Symptomatic) Sent. tw5 23:36 EKG done, by ED staff, reviewed by Clive Bullock MD. [facility] 02/23 00:56 Phuc Mcgee MD is Hospitalizing Provider[facility] Administered Medications: 02/22 23:09 Drug: NS 0.9% 500 ml Route: IV; Rate: bolus; Site: left antecubital; tw5 Medication: 19:59 VIS not applicable for this client. tw5 Intake: 19:56 PO: 0ml; Total: 0ml. tw5 Output: 19:56 Urine: 0ml; Total: 0ml. tw5 Outcome: 02/23 00:57 Decision to Hospitalize by Provider. [facility] 13:15 Patient left the ED. 6 Signatures: Dispatcher [employer] Rain Magallanes 5 Clive Bullock MD MD 7 Koki Langley 5 Terry Hernandez RN RN 3 Marlena Palacio RN RN 6 Corrections: (The following items were deleted from the chart) 02/22 19:50 19:48 Chief complaint: EMS states: "She had surgery on Friday. Arthroplasty. She said tw5 she also broke her left foot three months ago. She said she had several falls and wants to be check. She is having pain everywhere." tw5
--- NOTE | 2022-02-23 00:57 | EDPHYS ---
Physician Documentation [facility] Name: Catie Ojeda Age: 76 yrs Sex: Female : 1945 Arrival Date: 02/22/2022 Time: 19:47 Bed 26 Private MD: ED Physician Clive Bullock HPI: 02/22 20:15 This 76 yrs old Female presents to ER via EMS with complaints of Fall Injury. [facility] 20:15 Details of fall: The patient fell from an upright position, while standing. Onset: The [facility] symptoms/episode began/occurred today. 20:15 Associated injuries: The patient sustained injury to the head, contusion. [facility] 20:15 Severity of symptoms: At their worst the symptoms were moderate, earlier today, in the [facility] emergency department the symptoms have improved, mildly. Historical: - Allergies: 19:49 No Known Allergies; tw5 - Home Meds: 19:49 amlodipine oral [Active]; "Several pillls for pain." [Active]; tw5 - PMHx: 19:49 Chronic pain; GERD; Hyperlipidemia; Hypertension; tw5 - Immunization history: Last tetanus immunization: - up to date. - Social history:: Smoking status: Patient denies any tobacco usage or history of. ROS: 20:15 Constitutional: Negative for fever, chills, and weight loss, Eyes: Negative for injury, mh7 pain, redness, and discharge, ENT: Negative for injury, pain, and discharge, Neck: Negative for injury, pain, and swelling, Cardiovascular: Negative for chest pain, palpitations, and edema, Respiratory: Negative for shortness of breath, cough, wheezing, and pleuritic chest pain, Abdomen/GI: Negative for abdominal pain, nausea, vomiting, diarrhea, and constipation, Back: Negative for injury and pain, : Negative for injury, bleeding, discharge, and swelling, Skin: Negative for injury, rash, and discoloration, Neuro: Negative for headache, weakness, numbness, tingling, and seizure, Psych: Negative for depression, anxiety, suicide ideation, homicidal ideation, and hallucinations, Allergy/Immunology: Negative for hives, rash, and allergies, Endocrine: Negative for neck swelling, polydipsia, polyuria, polyphagia, and marked weight changes, Hematologic/Lymphatic: Negative for swollen nodes, abnormal bleeding, and unusual bruising. Exam: 20:15 Head/Face: Normocephalic, atraumatic. Eyes: Pupils equal round and reactive to light, mh7 extra-ocular motions intact. Lids and lashes normal. Conjunctiva and sclera are non-icteric and not injected. Cornea within normal limits. Periorbital areas with no swelling, redness, or edema. Neck: Trachea midline, no thyromegaly or masses palpated, and no cervical lymphadenopathy. Supple, full range of motion without nuchal rigidity, or vertebral point tenderness. No Meningismus. Chest/axilla: Normal chest wall appearance and motion. Nontender with no deformity. No lesions are appreciated. Cardiovascular: Regular rate and rhythm with a normal S1 and S2. No gallops, murmurs, or rubs. Normal PMI, no JVD. No pulse deficits. Respiratory: Lungs have equal breath sounds bilaterally, clear to auscultation and percussion. No rales, rhonchi or wheezes noted. No increased work of breathing, no retractions or nasal flaring. Abdomen/GI: Soft, non-tender, with normal bowel sounds. No distension or tympany. No guarding or rebound. No evidence of tenderness throughout. Back: No spinal tenderness. No costovertebral tenderness. Full range of motion. Skin: Warm, dry with normal turgor. Normal color with no rashes, no lesions, and no evidence of cellulitis. 20:15 Psych: Awake, alert, with orientation to person, place and time. Behavior, mood, and affect are within normal limits. 20:15 Constitutional: The patient appears in no acute distress, drowsy, but arousable 20:15 Musculoskeletal/extremity: Extremities: noted in the left shoulder: in post operative sling, noted in the left foot: swelling, ROM: no acute changes, Circulation is intact in all extremities. Sensation intact. Compartment Syndrome exam of affected extremity: is normal. no numbness, no tingling, no sensation deficit, no palor, no weak pulses, Tendon exam: specific tendon testing normal through active and passive range of motion 20:15 Neuro: Orientation: is normal, Mentation: is normal, Memory: is normal, Cranial nerves: grossly normal, Cerebellar function: is grossly normal, Motor: is normal, Sensation: is normal, Gait: not tested. seizure activity, is not displayed by the patient, Abnormal movements: there are no abnormal movements. Vital Signs: 19:53 BP 105 / 52; Pulse 81; Resp 12; Temp 98; Pulse Ox 93% on R/A; Weight 64.41 kg; Height 5 tw5 ft. 6 in. (167.64 cm); Pain 7/10; 19:58 Pulse Ox 85% on R/A; tw5 22:44 Pulse 95; Resp 12; Pulse Ox 100% on R/A; Pain 8/10; tw5 02/23 00:29 BP 158 / 66; Pulse 99; Resp 13; Pulse Ox 97% ; ll3 02:25 BP 137 / 73; Pulse 103; Resp 12; Pulse Ox 100% ; ll3 02/22 19:53 Body Mass Index 22.92 (64.41 kg, 167.64 cm) tw5 Ihsan Coma Score: 02/22 19:56 Eye Response: spontaneous(4). Verbal Response: oriented(5). Motor Response: obeys tw5 commands(6). Total: 15. Trauma Score (Adult): 19:56 Eye Response: to voice(0); Verbal Response: oriented(1); Motor Response: obeys tw5 commands(2); Systolic BP: > 89 mm Hg(4); Respiratory Rate: 10 to 29 per min(4); [place] Score: 14; Trauma Score: 11 MDM: 02/23 00:54 Differential diagnosis: abrasion, closed head injury, contusion, fracture, sprain, mh7 strain, syncope, near syncope. Data reviewed: vital signs, nurses notes, lab test result(s), cardiac enzymes, CBC, electrolytes, EKG, radiologic studies, CT scan, plain films. Data interpreted: Pulse oximetry: on room air is 97 %. Interpretation: normal. Counseling: I had a detailed discussion with the patient and/or guardian regarding: the historical points, exam findings, and any diagnostic results supporting the discharge/admit diagnosis, the presence of at least one elevated blood pressure reading (>120/80) during this emergency department visit, lab results, radiology results, the need for further work-up and treatment in the hospital. Response to treatment: the patient's symptoms have mildly improved after treatment. 00:57 Patient medically screened. [facility] 02/22 20:45 Order name: Basic Metabolic Panel; Complete Time: 00:04 [facility] 02/22 20:45 Order name: CBC with Diff; Complete Time: 00:04 [facility] 02/22 20:45 Order name: LFT's; Complete Time: 00:04 [facility] 02/22 20:45 Order name: Magnesium; Complete Time: 00:04 [facility] 02/22 20:45 Order name: NT PRO-BNP; Complete Time: 00:04 [facility] 02/22 20:45 Order name: PT-INR; Complete Time: 00:04 [facility] 02/22 20:45 Order name: Troponin HS; Complete Time: 00:04 [facility] 02/22 20:45 Order name: XRAY Chest (1 view); Complete Time: 22:43 [facility] 02/22 20:46 Order name: CT Head C Spine; Complete Time: 22:43 [facility] 02/22 20:47 Order name: UDS; Complete Time: 00:04 [facility] 02/22 21:10 Order name: COVID-19 SARS RT PCR (Document "Date of Onset" if Symptomatic); Complete [facility] Time: 00:13 02/22 23:20 Order name: Urine Dipstick-Ancillary EDMS 02/23 01:45 Order name: CBC with Automated Diff EDMS 02/23 01:45 Order name: CBC with Automated Diff EDMS 02/22 20:45 Order name: EKG; Complete Time: 20:46 02/22 20:45 Order name: Cardiac monitoring; Complete Time: 23:10 [facility] 02/22 20:45 Order name: EKG - Nurse/Tech; Complete Time: 23:30 [facility] 02/22 20:45 Order name: IV Saline Lock; Complete Time: 23:10 [facility] 02/22 20:45 Order name: Labs collected and sent; Complete Time: 23:10 [facility] 02/22 20:45 Order name: O2 Per Protocol; Complete Time: 23:10 [facility] 02/22 20:45 Order name: O2 Sat Monitoring; Complete Time: 23:10 02/22 20:45 Order name: Urine Dipstick-Ancillary (obtain specimen); Complete Time: 23:10 02/22 20:46 Order name: Pelvis XRAY; Complete Time: 22:43 [facility] 02/22 20:46 Order name: Foot Left 3 View XRAY; Complete Time: 22:43 02/23 01:45 Order name: Heart Healthy EDMS Administered Medications: 02/22 23:09 Drug: NS 0.9% 500 ml Route: IV; Rate: bolus; Site: left antecubital; tw5 Disposition Summary: 02/23/22 00:57 Hospitalization Ordered Hospitalization Status: Inpatient Admission [facility] Provider: Phuc Mcgee [facility] Condition: Stable [facility] Problem: new [facility] Symptoms: have improved [facility] Bed/Room Type: Standard [facility] Location: Telemetry/MedSurg (Inpatient)(02/23/22 12:37) dw Room Assignment: [facility](02/23/22 12:37) Diagnosis - Syncope, multiple falls [facility] Forms: - Medication Reconciliation Form [facility] - SBAR form [facility] Signatures: Dispatcher [employer] EDMS Briana Horn RN RN Denisha Granado RN RN Clive King MD MD Koki Brooks tw5 Corrections: (The following items were deleted from the chart) 02/23 01:10 00:57 Telemetry/MedSurg (Inpatient) [facility] mw 01:10 00:57 [facility] mw 12:37 01:10 [facility] ER HOLD mw dw 12:37 01:10 ERHOLD- mw dw
[2022-02-23] MEDS ORDERED: ONDANSETRON 4 MG/2 ML VIAL IV PRN (01:37)
--- NOTE | 2022-02-23 03:20 | P.HP ---
Certification for Inpatient Patient admitted to: Observation With expected LOS: <2 Midnights Practitioner: I am a practitioner with admitting privileges, knowledge of patient current condition, hospital course, and medical plan of care. Services: Services provided to patient in accordance with Admission requirements found in Title 42 Section 412.3 of the Code of Federal Regulations Patient History Date of Service: 02/23/22 Reason for admission: Fall, left foot pain. History of Present Illness: 76-year-old female patient with no significant medical history significant who also had issues with chronic falls and neck pain. She reported to the emergency room because she fell after she tripped due to pain in the left ankle. She had reported that she was injured while back and that she had significant issues with getting a left ankle injury taking care of by orthopedic surgeon/primary care doctor. She reported for today and which was snoring associated with dizzy spells or chest pain. 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 She denies overt episode of weakness in any lower extremity, inability to move any limb. She was admitted for observation and pain control. Allergies No Known Allergies Allergy (Unverified 02/23/22 01:25) Review of Systems General: Unremarkable Eyes: Unremarkable ENT: Unremarkable Respiratory: Unremarkable Cardiovascular: Unremarkable Gastrointestinal: Unremarkable Musculoskeletal: Neck Pain, Leg Pain Integumentary: Unremarkable Neurological: Unremarkable Physical Examination - Physical Exam General: Alert, Oriented x3 HEENT: Atraumatic, Normocephalic Neck: Supple Respiratory: Normal air movement Cardiovascular: Regular rate/rhythm, Normal S1 S2 Gastrointestinal: Soft and benign Musculoskeletal: Swelling (left ankle.) Neurological: Normal speech - Studies Laboratory Data (last 24 hrs) 02/22/22 22:51: PT 11.1, INR 1.01 02/22/22 22:51: WBC 7.5, Hgb 7.8 L, Hct 23.3 L, Plt Count 292 02/22/22 22:51: Sodium 137, Potassium 4.2, BUN 24 H, Creatinine 1.19, Glucose 87, Magnesium 2.6 H, Total Bilirubin 1.0, AST 26, ALT 19, Alkaline Phosphatase 69 Assessment and Plan - Plan Left ankle pain Neck pain Fall General body ache Plan: Patient had episode of fall secondary to a trip perhaps due to pain in the left ankle. Imaging study reviewed subacute fracture of malleolus of the left ankle but no new fracture. CT of the neck showed mild posterior subluxation of C2/C3 but no acute fractures. Will follow pain control and start on [place]. Will have patient evaluated for possible intervention. We will follow closely and evaluate for progression Prophylaxis: Lovenox for DVT prophylaxis. CODE STATUS: Full code Disposition: For possible discharge in next 24. - Advance Directives Does patient have a Living Will: No Does patient have a Durable POA for Healthcare: No
[2022-02-23 03:30] VITALS: BMI 24.2
[2022-02-23] MEDS ORDERED: HYDROCODONE/APAP 10/325 TAB ONE (03:48)
[2022-02-23] MEDS ORDERED: NA CHLORIDE 0.9% 1,000 ML ONE (03:49)
[2022-02-23] MEDS: NA CHLORIDE 0.9% 1,000 ML IV SCH ×3 (03:50→22:04)
[2022-02-23] MEDS: HYDROCODONE/APAP 10/325 TAB PO PRN ×4 (03:50→21:30)
[2022-02-23] MEDS ORDERED: ENOXAPARIN 40 MG/0.4 ML SQ ONE (07:40)
[2022-02-23] MEDS: ENOXAPARIN 40 MG/0.4 ML SQ SCH (08:22)
[2022-02-23 14:14] LABS: Absolute Lymphocytes (CBC) 2.2 K/uL (0.7-4.9); Lymphocytes % 27.8 % (15.3-44.8); MCV 94.7 fL (80-100); MPV 7.3 fL (7.6-11.3); RBC Red Blood Cell Count 2.96 M/uL (3.86-4.86)
--- NOTE | 2022-02-23 20:30 | P.PN ---
Subjective Date of Service: 02/23/22 Patient is still feeling really weak and lethargic. She still having episodes where she feels like she is going to fall. Will get physical therapy to work with her. Patient with some anemia but we will monitor her H&H. Review of Systems 10-point ROS is otherwise unremarkable Physical Examination - Vital Signs Temperature: 97.7 F Blood Pressure: 140/69 Pulse: 104 Respirations: 18 Pulse Ox (%): 99 - Physical Exam General: Alert, In no apparent distress HEENT: Atraumatic, PERRLA, EOMI Neck: Supple, JVD not distended Respiratory: Clear to auscultation bilaterally, Normal air movement Cardiovascular: Regular rate/rhythm, Normal S1 S2 Gastrointestinal: Normal bowel sounds, No tenderness Musculoskeletal: No tenderness Integumentary: No rashes Neurological: Normal speech, Normal tone, Normal affect Lymphatics: No axilla or inguinal lymphadenopathy - Studies Laboratory Data (last 24 hrs) 02/22/22 22:51: PT 11.1, INR 1.01 02/22/22 22:51: WBC 7.5, Hgb 7.8 L, Hct 23.3 L, Plt Count 292 02/22/22 22:51: Sodium 137, Potassium 4.2, BUN 24 H, Creatinine 1.19, Glucose 87, Magnesium 2.6 H, Total Bilirubin 1.0, AST 26, ALT 19, Alkaline Phosphatase 69 Medications List Reviewed: Yes Assessment & Plan - Problems (Diagnosis) (1) Status post fall Current Visit: Yes Status: Acute (2) Syncope Current Visit: Yes Status: Acute (3) Generalized weakness Current Visit: Yes Status: Acute - Plan Plan: 1. Continue working with physical therapy. Patient does not have the strength to stand at this time as she keeps falling. Work her up for a myopathy. 2. Anemia will be worked up; serial H and H 3. GI/DVT prophylaxis Discharge Plan: Home Plan to discharge in: Greater than 2 days - Advance Directives Does patient have a Living Will: No Does patient have a Durable POA for Healthcare: No - Code Status/Comfort Care Code Status Assessed: Yes Code Status: Full Code Critical Care: No Time Spent Managing PTS Care (In Minutes): 45
[2022-02-24] MEDS: HYDROCODONE/APAP 10/325 TAB PO PRN ×4 (04:02→21:10)
[2022-02-24 06:12] LABS: Absolute Lymphocytes (CBC) 2.2 K/uL (0.7-4.9); Hematocrit 25.2 % (36.0-45.0); MCV 95.1 fL (80-100); MPV 7.3 fL (7.6-11.3); RBC Red Blood Cell Count 2.66 M/uL (3.86-4.86)
[2022-02-24 06:51] LABS: Albumin 2.7 g/dL (3.4-5.0); Bilirubin Total 0.8 mg/dL (0.2-1.0); Folic Acid, (Folate) 18.4 ng/mL (3.1-17.5); Potassium 4.1 mmol/L (3.5-5.1)
[2022-02-24] MEDS: ENOXAPARIN 40 MG/0.4 ML SQ SCH (09:32)
[2022-02-24] MEDS: NA CHLORIDE 0.9% 1,000 ML IV SCH (09:32)
[2022-02-24] MEDS ORDERED: METOPROLOL TARTRATE 5 MG/5 ML INJ IV STA (12:09)
--- NOTE | 2022-02-24 12:11 | P.PN ---
Date of Service: 02/24/22 Subjective BP is still elevated; Still ambulating well. Occasionally getting lightheaded. Which his blood pressure medication. Awaiting for penitentiary facility placement. Review of Systems 10-point ROS is otherwise unremarkable Physical Examination - Vital Signs reviewed - Physical Exam General: Alert, In no apparent distress Respiratory: Clear to auscultation bilaterally, Normal air movement Cardiovascular: Regular rate/rhythm, Normal S1 S2 Gastrointestinal: Normal bowel sounds, No tenderness Neurological: Normal speech, Normal tone, Normal affect Assessment & Plan - Problems (Diagnosis) (1) Status post fall Current Visit: Yes Status: Acute (2) Syncope Current Visit: Yes Status: Acute (3) Generalized weakness Current Visit: Yes Status: Acute (4) Depression Current Visit: Yes Status: Acute - Plan Continue POC as mentioned below: 1. Continue working with physical therapy. Strength is with her. 2. Hemoglobin improved 3. Continue monitoring blood pressure 4. awaiting placement -penitentiary facility per patient request 5. GI/DVT prophylaxis Discharge Plan: SNF Plan to discharge in: Greater than 2 days - Advance Directives Does patient have a Living Will: No Does patient have a Durable POA for Healthcare: No - Code Status/Comfort Care Code Status Assessed: Yes Code Status: Full Code Critical Care: No Time Spent Managing PTS Care (In Minutes): 45
[2022-02-24] MEDS ORDERED: cloNIDine HCL 0.1 MG TAB PO ONE (16:34)
[2022-02-24] MEDS: METOPROLOL TARTRATE 5 MG/5 ML INJ IV PRN (16:56)
[2022-02-24] MEDS: METOPROLOL TAR 50 MG TAB PO SCH (18:00)
[2022-02-24] MEDS: LOSARTAN POTASSIUM 50 MG TABLET PO SCH (21:10)
[2022-02-25] MEDS: ZOLPIDEM TARTRATE 5 MG TABLET PO PRN ×2 (01:39→20:26)
[2022-02-25] MEDS: METOPROLOL TAR 50 MG TAB PO SCH ×2 (05:54→16:55)
[2022-02-25 07:49] LABS: Absolute Lymphocytes (CBC) 1.8 K/uL (0.7-4.9); Hematocrit 27.4 % (36.0-45.0); Lymphocytes % 17.6 % (15.3-44.8); MCV 94.2 fL (80-100); MPV 7.3 fL (7.6-11.3); RBC Red Blood Cell Count 2.91 M/uL (3.86-4.86)
--- NOTE | 2022-02-25 08:23 | P.PN ---
Date of Service: 02/24/22 Patient status post rotator cuff surgery on the left arm last week. she will give this for orthopedic surgeons information. May need to remove sutures. Also will get amount of mobility that we can do for her with physical therapy.
[2022-02-25] MEDS: HYDROCODONE/APAP 10/325 TAB PO PRN ×3 (08:54→20:26)
[2022-02-25] MEDS: LOSARTAN POTASSIUM 50 MG TABLET PO SCH ×2 (08:54→20:26)
[2022-02-25] MEDS: ESCITALOPRAM 20 MG TAB PO SCH (08:55)
[2022-02-25] MEDS: ENOXAPARIN 40 MG/0.4 ML SQ SCH (09:58)
--- NOTE | 2022-02-25 10:36 | P.PN ---
Subjective Date of Service: 02/25/22 Chief Complaint: Fall, left foot pain. This morning, she is very tearful. She states that she recently lost her and son, and this has caused her significant grief. She states that this has been particularly worse since her mobility and self-independence has been limited by her recent left shoulder surgery (performed by Dr. Lala in [place] on 02/18/2022). She states that she has had suicidal thoughts in the past following her 's , but currently denies any suicidal ideation, intention, or plan. Review of Systems Unremarkable General: Unremarkable Eyes: Unremarkable ENT: Unremarkable Respiratory: Unremarkable Cardiovascular: Unremarkable Gastrointestinal: Unremarkable Genitourinary: Unremarkable Musculoskeletal: Shoulder Pain (left shoulder - s/p surgery on 02/18/22), Foot Pain (left ) Integumentary: Unremarkable Neurological: Unremarkable Physical Examination - Vital Signs Temperature: 97.8 F Blood Pressure: 130/64 Pulse: 74 Respirations: 16 Pulse Ox (%): 96 - Physical Exam General: Alert, In no apparent distress, Oriented x3 HEENT: Atraumatic, Mucous membr. moist/pink, EOMI, Sclerae nonicteric Neck: Supple, JVD not distended Respiratory: Clear to auscultation bilaterally, Normal air movement Cardiovascular: Regular rate/rhythm, Normal S1 S2, Edema (trace, bilateral) Gastrointestinal: Normal bowel sounds, Soft and benign, No tenderness, No rebound, No guarding Musculoskeletal: Other (left shoulder in sling. left foot with FARSHAD wrap, tender to palpation.) Integumentary: No rashes Neurological: Normal speech, Normal affect - Studies Medications List Reviewed: Yes Assessment And Plan - Plan # Traumatic Ground-Level Fall with concern for Left Medial Malleolus Fracture # S/P Recent Left Rotator Cuff Surgery (02/18/[address] Lala in [place], [place]) # Osteoporosis # Deconditioning Although previously thought to have had a syncopal episode, she specifically reports enduring a mechanical ground-level fall due to limited mobility. She denies ever losing consciousness and denies any head trauma. - Evaluation thus far: - Left foot x-ray = "Horizontal lucency is present within the medial malleolus. This may represent a the subacute fracture and should be correlated clinically. Cortical regularity involving the base of metatarsal presumably a subacute or old fracture. Osteoporosis. No dislocation" - CT head/neck = "No acute intracranial abnormality is seen. A cervical fracture is not visualized." - Pelvic x-ray = "Screws fuse the left sacroiliac joint. Left hip arthroplasty is been performed. Bones are osteoporotic. No acute fracture or dislocation seen. Marked osteoarthritis right hip." - Management plan: - Consulted Orthopedic Surgery and spoke with Dr. Virgen's office staff - recommendations appreciated - Orthostatic vital signs Telemetry - For pain: - PRN acetaminophen, hydrocodone-acetaminophen - Appreciate PT/OT recs # Depression with Normal Grieving # History of Suicidal Ideation This morning, she was very tearful and endorsed that she has contemplated suicide in the past around the time of her 's . However, she reassures me that currently, she is not experiencing any suicidal ideation, intention, or plan. I offered a psychiatry consultation, and she was willing to speak with them. - Spoke with charge entry specialist, who has notified [facility] for Psychiatry evaluation - Continue escitalopram # Hypertension - Continue metoprolol, losartan Mikey Cornell MD
--- NOTE | 2022-02-25 12:47 | EKG ---
Test Date: 2022-02-22 Test Time: 23:25:34 Admission Specialist: KHOI MEASUREMENT RESULTS: Intervals: Rate: 87 FL: 154 QRSD: 80 QT: 314 QTc: 377 S[place]: P: 74 FL: 154 QRS: -19 T: 55 INTERPRETIVE STATEMENTS: Normal sinus rhythm Low voltage QRS Nonspecific T wave abnormality Abnormal ECG No previous ECG available for comparison Electronically Signed On 02-25-22 12:43:47 CDT by Raul Cristina
[2022-02-25] MEDS: ACETAMINOPHEN 500 MG TAB PO PRN ×2 (13:00→16:56)
[2022-02-26 04:00] LABS: Hematocrit 30.1 % (36.0-45.0); MCV 93.6 fL (80-100); MPV 7.5 fL (7.6-11.3); RBC Red Blood Cell Count 3.22 M/uL (3.86-4.86)
[2022-02-26 04:13] LABS: Potassium 4.1 mmol/L (3.5-5.1)
[2022-02-26] MEDS: METOPROLOL TAR 50 MG TAB PO SCH ×2 (06:20→17:14)
[2022-02-26] MEDS ORDERED: BUPROPION HCL XL 150 MG TAB PO SCH (09:00)
--- NOTE | 2022-02-26 09:55 | RAD REPORT ---
EXAM DESCRIPTION: RAD - Shoulder 1 View - 02/26/2022 9:49 am CLINICAL HISTORY: shoulder surgery FINDINGS: Frontal view of the shoulder was obtained. Left shoulder arthroplasty in good position. No fracture or dislocation
--- NOTE | 2022-02-26 09:58 | RAD REPORT ---
EXAM DESCRIPTION: RAD - Foot Left 3 View - 02/26/2022 9:49 am CLINICAL HISTORY: Left Foot pain FINDINGS: Cortical irregularity base of the fifth metatarsal unchanged from February 22, 2022. Presumabl y this is a subacute fracture. Avulsion fracture medial malleolus again demonstrated. The bones are osteoporotic. No dislocation
[2022-02-26] MEDS: ACETAMINOPHEN 500 MG TAB PO PRN (10:17)
[2022-02-26] MEDS: LOSARTAN POTASSIUM 50 MG TABLET PO SCH ×2 (10:19→21:23)
[2022-02-26] MEDS: ESCITALOPRAM 20 MG TAB PO SCH (10:20)
[2022-02-26] MEDS: ENOXAPARIN 40 MG/0.4 ML SQ SCH (10:20)
--- NOTE | 2022-02-26 12:45 | RAD REPORT ---
EXAM DESCRIPTION: RAD - Ankle Left 3 View - 02/26/2022 12:35 pm CLINICAL HISTORY: ankle fracture COMPARISON: Ankle Left 3 View dated 10/11/2021; Foot Left 3 View dated 02/26/2022 FINDINGS/IMPRESSION: Medial malleolar fracture which is better assessed on the left foot radiograph. No malalignment. No significant focal degenerative changes. Osteopenia.
[2022-02-26] MEDS: METOPROLOL TARTRATE 5 MG/5 ML INJ IV PRN (16:00)
--- NOTE | 2022-02-26 16:02 | P.PN ---
Subjective Date of Service: 02/26/22 Chief Complaint: Fall, left foot pain. This morning, she demonstrates tangential thoughts and delusions. It is unclear if she has a psychiatric condition at baseline, but it appears that she has been on aripiprazole and alprazolam at home. I have tried to reach her sister, Ms Cherry, three times today, without success. Will resume home medications and monitor her closely. Review of Systems is unable to be obtained Physical Examination - Vital Signs Temperature: 97.6 F Blood Pressure: 166/73 Pulse: 62 Respirations: 18 Pulse Ox (%): 97 - Physical Exam General: Alert, In no apparent distress, Oriented x1 HEENT: Atraumatic, Mucous membr. moist/pink, EOMI, Sclerae nonicteric Respiratory: Clear to auscultation bilaterally, Normal air movement Cardiovascular: Regular rate/rhythm, Normal S1 S2, No gallops, No rubs, No murmurs Gastrointestinal: Normal bowel sounds, Soft and benign, Non-distended, No tenderness, No rebound, No guarding Musculoskeletal: No clubbing Integumentary: No rashes Neurological: Other (Appears paranoid with delusions today (stating that we are recording her in the room)) - Studies Medications List Reviewed: Yes Assessment And Plan - Plan # Traumatic Ground-Level Fall with concern for Left Medial Malleolus Fracture # S/P Recent Left Rotator Cuff Surgery (02/18/[address] Lala in [place], [place]) # Osteoporosis # Deconditioning Although previously thought to have had a syncopal episode, she specifically reports enduring a mechanical ground-level fall due to limited mobility. She denies ever losing consciousness and denies any head trauma. - Evaluation thus far: - Left foot x-ray = "Horizontal lucency is present within the medial malleolus. This may represent a the subacute fracture and should be correlated clinically. Cortical regularity involving the base of metatarsal presumably a subacute or old fracture. Osteoporosis. No dislocation" - CT head/neck = "No acute intracranial abnormality is seen. A cervical fracture is not visualized." - Pelvic x-ray = "Screws fuse the left sacroiliac joint. Left hip arthroplasty is been performed. Bones are osteoporotic. No acute fracture or dislocation seen. Marked osteoarthritis right hip." - Repeat foot x-ray = "Cortical irregularity base of the fifth metatarsal unchanged from February 22, 2022. Presumably this is a subacute fracture. Avulsion fracture medial malleolus again demonstrated. The bones are osteoporotic. No dislocation." - Left shoulder x-ray = "Frontal view of the shoulder was obtained. Left shoulder arthroplasty in good position. No fracture or dislocation." - Left ankle x-ray = "Medial malleolar fracture which is better assessed on the left foot radiograph. No malalignment. No significant focal degenerative changes. Osteopenia." - Management plan: - Consulted Orthopedic Surgery and spoke with Dr. Virgen - recommendations appreciated - Orthostatic vital signs Telemetry - For pain: - PRN acetaminophen, hydrocodone-acetaminophen - Appreciate PT/OT recs # Paranoid Delusions, concern for Benzodiazepine Withdrawal # Depression with Grieving # History of Suicidal Ideation On 02/25/2022, she was very tearful and endorsed that she has contemplated suicide in the past around the time of her 's . However, she reassured me that, she was not experiencing any suicidal ideation, intention, or plan. I offered a psychiatry consultation, and she was willing to speak with them. - Dr. Lucio evaluated her and recommended buproprion + continue escitalopram This morning, she exhibited paranoid delusions. I have attempted to contact her sister, Ms. Cherry, three times without success. On review of previous records, it seems that she was on alprazolam and aripiprazole. Given that she tested positive for benzodiazepines on 02/22/2022, there is concern for medication withdrawal. Per [facility] aware, she was recently prescribed alprazolam 2 mg #30 tablets on 02/09/2022. - Will start clonazepam 1 mg PO BID for benzodiazepine withdrawal - Hold bupropion for now, appreciate Psychiatry recommendations - I have left a message with Dr. Lucio's office staff and am waiting for a call back # Hypertension - Continue metoprolol, losartan Mikey Cornell MD Plan to discharge in: Unknown
[2022-02-26] MEDS ORDERED: clonazePAM 1 MG TAB PO PRN (16:29)
[2022-02-26] MEDS: clonazePAM 1 MG TAB PO SCH ×2 (17:50→21:23)
[2022-02-26] MEDS ORDERED: BISACODYL E.C. 5 MG TAB PO PRN (20:41)
[2022-02-27] MEDS: ACETAMINOPHEN 500 MG TAB PO PRN ×3 (02:20→20:02)
[2022-02-27 05:14] LABS: Hematocrit 29.4 % (36.0-45.0); MCV 94.1 fL (80-100); MPV 7.6 fL (7.6-11.3); Potassium 3.6 mmol/L (3.5-5.1); RBC Red Blood Cell Count 3.12 M/uL (3.86-4.86)
[2022-02-27] MEDS: METOPROLOL TAR 50 MG TAB PO SCH ×2 (06:23→17:25)
--- NOTE | 2022-02-27 07:14 | CON ---
Date of Consultation: 02/25/2022 History Of Present Illness: I have seen this patient in the past, however, not for this problem. Grabiel mcnamara apparently is having issues with multiple falls and recently injured her left foot and ankle. She also has had a recent left shoulder reverse arthroplasty by another physician. She is admitted to [facility] for management under the care of the hospitalist. I am consulted to see her as she does h ave x-rays of her foot, which demonstrate, what appears to be, a healed fifth metatarsal fracture, al so appears to have a fracture of the medial malleolus, which is quite distal. On physical examination of her ankle and foot, which is what I am consulted, she has no pain at her f oot or metatarsals. She does have some bruising and pain at the medial aspect of the medial malleolu s. She says she has been up walking around and it is painful for her to do so. Yesterday, I spoke w ith the hospitalist and requested to go head and get some better x-rays of her left shoulder as she d oes have a history of falls, although I do not perform this procedure myself to see if there are any gross problems with it. I also asked for a three-view dedicated ankle view, which we did not have. Coming to the hospital today, she does have the x-ray of her shoulder, which does not demonstrate any gross abnormality to my visualization; however, I do not perform this procedure and probably be bett er followed up with her surgeon, who performed it or at least a surgeon who performs that particular procedure. With regard to her ankle, the x-rays were ordered again as a three-view foot and I await the three-view ankle x-rays and I have spoken with the hospitalist about this. It should also be not ed that today patient apparently had quite a bit of combativeness and delirium necessitating greater observation of her and I spoke with the hospitalist and he said seeing her today may possibly agitate her more, but at this point, it appears that we should continue with our plan, which is 3-view x-ray . The medial malleolus is most likely without operative intervention become a nonunion. However, is may become quite a bit less painful and given her state of confusion as well as her other issues, it may be better to have her mobilized as much as possible with a fracture boot to help with both her mentation as well as her overall recovery, taking her to the operating room for a formal open reduct ion and internal fixation of the medial malleolus and then placing her in a nonweightbearing splint o r cast could very well cause the significant problems with her recovery and hopefully the small media l malleolus fragment would not be continually painful. This was discussed with her daughter frank galdamez. However, this was prior to the episode of delirium and she said she understands things as present ed. 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 When she had her episode of delirium, the hospitalist attempted to contact her and was unfortunately not able to. I will continue to follow her, but I was supposed to discuss with the hospitalist and nurse the plan. I am definitely available if the sal y has any questions. SHILO Voice ID: [id number] Report ID: [id number]
[2022-02-27] MEDS ORDERED: POTASSIUM CL SA 10 MEQ TAB PO ONE (08:00)
[2022-02-27] MEDS: LOSARTAN POTASSIUM 50 MG TABLET PO SCH ×2 (08:14→20:02)
[2022-02-27] MEDS: ESCITALOPRAM 20 MG TAB PO SCH (08:14)
[2022-02-27] MEDS: ENOXAPARIN 40 MG/0.4 ML SQ SCH (08:15)
[2022-02-27] MEDS: clonazePAM 1 MG TAB PO SCH ×2 (08:15→20:03)
[2022-02-27] MEDS: HYDROCODONE/APAP 10/325 TAB PO PRN ×2 (15:26→21:31)
--- NOTE | 2022-02-27 18:37 | P.PN ---
Subjective Date of Service: 02/27/22 Chief Complaint: Fall, left foot pain. No acute events overnight. She is now alert and oriented x 4 to person, place, time, and situation. Orthopedic Surgery has recommended non-surgical management of her left ankle. Updated her and her brother, Mr. Albert Calvillo, on the plan of care. Review of Systems 10-point ROS is otherwise unremarkable Musculoskeletal: Shoulder Pain (left), Leg Pain (left ankle pain) Physical Examination - Vital Signs Temperature: 97.6 F Blood Pressure: 121/64 Pulse: 73 Respirations: 16 Pulse Ox (%): 92 - Studies Medications List Reviewed: Yes Assessment And Plan - Plan PHYSICAL EXAMINATION: General: Alert, In no apparent distress, Oriented x3 HEENT: Atraumatic, Mucous membr. moist/pink, EOMI, Sclerae nonicteric Neck: Supple, JVD not distended Respiratory: Clear to auscultation bilaterally, Normal air movement Cardiovascular: Regular rate/rhythm, Normal S1 S2, Edema (trace, bilateral) Gastrointestinal: Normal bowel sounds, Soft and benign, No tenderness, No rebound, No guarding Musculoskeletal: Other (left shoulder in sling. left foot with FARSHAD wrap, tender to palpation.) Integumentary: No rashes Neurological: Normal speech, Normal affect ASSESSMENT AND PLAN: # Traumatic Ground-Level Fall with concern for Left Medial Malleolus Fracture # Recurrent Falls suspect secondary to Polypharmacy # S/P Recent Left Rotator Cuff Surgery (02/18/[address] Lala in [place], [place]) # Osteoporosis # Deconditioning Although previously thought to have had a syncopal episode, she specifically reports enduring a mechanical ground-level fall due to limited mobility. She denies ever losing consciousness and denies any head trauma. - Evaluation thus far: - Left foot x-ray = "Horizontal lucency is present within the medial malleolus. This may represent a the subacute fracture and should be correlated clinically. Cortical regularity involving the base of metatarsal presumably a s ubacute or old fracture. Osteoporosis. No dislocation" - CT head/neck = "No acute intracranial abnormality is seen. A cervical fracture is not visualized." - Pelvic x-ray = "Screws fuse the left sacroiliac joint. Left hip arthroplasty is been performed. Bones are osteoporotic. No acute fracture or dislocation seen. Marked osteoarthritis right hip." - Repeat foot x-ray = "Cortical irregularity base of the fifth metatarsal unchanged from February 22, 2022. Presumably this is a subacute fracture. Avulsion fracture medial malleolus again demonstrated. The bones are osteoporotic. No dislocation." - Left shoulder x-ray = "Frontal view of the shoulder was obtained. Left shoulder arthroplasty in good position. No fracture or dislocation." - Left ankle x-ray = "Medial malleolar fracture which is better assessed on the left foot radiograph. No malalignment. No significant focal degenerative changes. Osteopenia." - Management plan: - Consulted Orthopedic Surgery and spoke with Dr. Virgen - recommendations appreciated - Recommends non-surgical management - Orthostatic vital signs Telemetry - For pain: - PRN acetaminophen, hydrocodone-acetaminophen - Appreciate PT/OT recs # Paranoid Delusions, concern for Benzodiazepine Withdrawal, Resolved # Depression with Grieving # History of Suicidal Ideation - Delusions have completely resolved with clonazepam # Hypertension - Continue metoprolol, losartan Mikey Cornell MD
[2022-02-28] MEDS: ZOLPIDEM TARTRATE 5 MG TABLET PO PRN (00:26)
[2022-02-28] MEDS: ACETAMINOPHEN 500 MG TAB PO PRN (00:28)
--- NOTE | 2022-02-28 04:08 | PN ---
Date of Progress Note: 02/27/2022 Subjective: I see Ms. Ojeda today and she is doing apparently, quite a bit better. She seems defini tely appropriate and seems to understand what I am explaining to her. Imaging: We have gotten x-rays, which were dedicated to her ankle, which demonstrate essentially chepe y difficult visualization of any medial malleolar pathology. I believe that the x-rays she had of he r foot do demonstrate a fracture of the medial malleolus; however, this fragment is very, very small. Assessment: Fracture of the medial malleolus, which has a very, very small fragment. Plan: Possible plan could be open reduction and internal fixation of this small fragment, perhaps us ing K-wires or screw, however, may not even be large enough for a screw fixation. There is a definit e drawback to this, in that most likely require nonweightbearing and casting as this heal. Given the patient's relative immobility as well as need for immobilization, I think it is a better option to a llow weightbearing as tolerated with a fracture boot. This has been explained to the patient. Hopef ully, she will understand things as presented. Hospitalist knows that I am available for any further explanation or discussion with him or the family. Otherwise, recommendation is a fracture boot, amado ghtbearing as tolerated and follow up with the physician who performed her reverse shoulder arthropla sty for care of that. /SYDNEY Voice ID: [id number] Report ID: [id number]
[2022-02-28] MEDS: METOPROLOL TAR 50 MG TAB PO SCH ×2 (06:10→17:54)
[2022-02-28 06:16] LABS: Hematocrit 29.1 % (36.0-45.0); MPV 7.2 fL (7.6-11.3); RBC Red Blood Cell Count 3.07 M/uL (3.86-4.86)
[2022-02-28] MEDS: HYDROCODONE/APAP 10/325 TAB PO PRN ×3 (06:28→17:54)
[2022-02-28 06:32] LABS: Potassium 3.5 mmol/L (3.5-5.1)
--- OUTSIDE RECORDS SUMMARY | 2022-02-28 07:37 | XMS REPORT | Continuity of Care Document ---
:1945 Author Organization [facility] t Address [address] [place] [address] Care Team Providers Name Role Phone GARLAND Attending Clinician Unavailable ANDRE CALDERÓN Attending Clinician Unavailable RECHTER Attending Clinician Unavailable Anna Gutierrez Attending Clinician NADIR SANTIAGO Attending Clinician Unavailable PETRONA Baez Admitting Clinician Unavailable RECHTER Admitting Clinician Unavailable NADIR SANTIAGO Admitting Clinician Unavailable Payers Payer Name Policy Type Policy Number Effective Date Expiration Date S richard MEDICARE PART A [id number] 2011 AND B 00:00:00 Problems This patient has no known problems. Allergies, Adverse Reactions, Alerts Allergy Allergy Status Severity Reaction(s) Onset Inactive Treating Comm ents Source Name Type Date Date Clinician No Known DA Active U 2018-0 [facility] 09[facility]01 [facility] 00:00: Health 00 [facility] No Known DA Active U 2019-0 [facility] Allergie 09-01 [facility] 00:00: Health 00 [facility] NO KNOWN Drug Active Univers ALLERGIE Class ity [facility] Social History Social Habit Start Date Stop Date Quantity Comments Source Exposure to Not sure [facility] SARS-CoV-2 (event) Medica l Branch Sex Assigned At [address] 1945 [facility] 00:00:00 00:00:00 Medical Branch Smoking Status Start Date Stop Date Source Unknown if ever smoked [facility] Medications Ordered Filled Start Stop Current Ordering Indication Dosage Frequency Signature Comments Components Source Medication Medication Date Date Medication? Clinician (SIG) Name Name predniSONE 40mg 40 mg, Univ ers (DELTASONE) 02-12 Oral, ity of tablet 40 21:15: 20:12 [place]CE, [place]00 dose, [facility] Medical 02/12/21 at Branch 1615, BALJINDER methylPREDN Yes [id number] Take by [facility] 02-12 mouth ity of (MEDROL, 00:00: SEE-INSTRU Roman as LISBET,) 4 mg 00 CTIONS. Medica l tablets follow Emmons package directions Vital Signs Vital Name Observation Time Observation Value Comments Source Systolic blood 2021-02-12 20:00:00 126 [facility] Diastolic blood 2021-02-12 20:00:00 64 mm[facility]Hg[facility] Heart rate 2021-02-12 20:00:00 88 /min [facility] Respiratory rate 2021-02-12 20:00:00 20 /min [facility] Oxygen saturation in 2021-02-12 20:00:00 94 /min [facility] Arterial blood by [facility] Pulse oximetry [facility] Body temperature 2021-02-12 17:38:00 36.67 Ember [facility] Body weight 2021-02-12 17:38:00 58.968 kg [facility] Procedures Procedure Date / Time Performed Performing Clinician Kirk e XR HIPS 3 VW LEFT 2021-02-12 18:33:20 Florentin Vo [facility] XR SHOULDER 2+ VW 2021-02-12 18:33:20 Florentin Vo [facility] RIGHT [facility] XR ANKLE 3+ VW LEFT 2021-02-12 18:33:20 Florentin Vo [facility] Encounters Start End Encounter Admission Attending Care Care Encounter Source Date/Time Date/Time Type Type Clinicians Facility Department ID 2022-02-20 Outpatient GARLAND [facility] [id number] [place] 10:23:56 CJ [id number] [facility] 2022-02-07 Outpatient [facility] [id number] [place] 11:19:32 [id number] [facility] 2022-01-04 Outpatient GARLAND [facility] [id number] [place] 09:44:27 CJ [id number] [facility] 2021-12-20 Outpatient STEPHANE [facility] [id number] [place] 16:31:51 , TOMASA [id number] [facility] 2021-11-20 Outpatient STLMLC [facility] [id number] Common 09:26:03 [facility] 2021-11-09 Outpatient [facility] [id number] [place] 11:58:18 [id number] [facility] 2021-11-05 Outpatient [facility]MLC [facility] [id number] Common 10:46:03 [facility] 2020-07-28 Inpatient [facility] J[facility]JO [id number] 13:32:00 [id number] [facility] 2020-06-27 Inpatient [facility] [id number] 18:06:00 [id number] [facility] 2020-03-21 Inpatient [facility] [id number] 08:57:00 [id number] [facility] 2022-02-18 2022-02-18 Outpatient RECHTER, [facility] [id number] [place] 00:00:00 00:00:00 JAMIL 819 Method i 2022-02-13 2022-02-13 Outpatient RECHTER, [facility] [id number] [place] 00:00:00 00:00:00 JAMIL 269 Method i 2022-01-17 2022-01-17 Outpatient RECHTER, [facility] [id number] [place] 00:00:00 00:00:00 JAMIL 137 Method i 2021-02-12 2021-02-12 Emergency Velma Loaiza [facility] [id number] [facility] 12:29:00 15:26:00 Anna Olmstead [id number] i ty of [place] [id number] [facility] [id number] [facility] akin 084 Branch 2021-02-12 2021-02-12 Emergency X [facility] ERT [id number] Univers 12:29:00 12[facility]29[facility]-10[facility]12 2019-10-12 Outpatient GISELA SANTIAGO [facility] [id number] 11:09:00 11:09:00 [facility] Results Test Description Test Time Test Comments Results Result Comments Source SARS-CoV-2 (COVID-19) RNA [Presence] in Respiratory sp ecimen by 2022-01-17 08:47:48 MARGARITA with probe detection Test Item Value Reference Range Interpretation Comme nts SARS-CoV-2 (COVID-19) RNA [Presence] in Respiratory specimen by MARGARITA Detected with probe detection (test code = 18790-9) Whether patient is employed in a healthcare setting (test code = Un known 58803-8) Whether the patient has symptoms related to condition of interest U nknown (test code = 95143-1) Whether the patient was hospitalized for condition of interest (yoselin t Unknown code = 44702-9) Whether the patient was admitted to intensive care unit (ICU) for U nknown condition of interest (test code = 93427-2) Whether patient resides in a congregate care setting (test code = U nknown 12572-0) status (test code = 85432-4) Unknown Date and time of symptom onset (test code = 04056-3) Unknown XR HIPS 3 VW [id number] 20:02:35 No acute bony abnormality. Total left hip arthroplasty changes as well as screw fixation at the leftsacroiliac joint without definite hardware complication. Severe right hip osteoarthrosis. Preliminary Report Dictated by Resident: Odette Flor MD., have reviewed this study and agree with the abovereport.EXAM: XR HIPS 3 VW LEFT HISTORY: hip pain COMPARISON: None. FINDINGS: Radiographs of the left hip demonstrate total hip arthroplasty changes aswell as screw fixation at the sa croiliac joint. Alignment of the hardwareappears appropriate without paralleling lucencies. No definite hardwarecomplication is seen. Severe right hip osteoarthrosis is partiallyvisualized. Diffuse osteopenia is seen. [facility], Radiant Results Inft User - 02/12/2021 3:03 PM CDT EXAM: XR HIPS 3 VW LEFTHISTORY: hip pain COMPARISON: None.FINDINGS:Radiographs of the left hip demonstrate total hip arthroplasty changes aswell as screw fixation at the sacroiliac joint. Alignment of the hardwareappears appropriate without paralleling lucencies. No definite hardwarecomplication is seen. Severe right hip osteoarthrosis is partiallyvisualized. Diffuseosteopenia is seen. IMPRESSIONNo acute bony abnormality.Total left hip arthroplasty changes as well as screw fixation at the leftsacroiliac joint without definite hardware complication.Severe right hip osteoarthrosis.Preliminary Report Dictated by Resident: Odette Tuttle MD., havereviewed this study and agree with the abovereport. [facility] VW [id number] 19:28:15 No acute fracture or malalignment of the left ankle. RL: 84976SHI: 24703 End of Report ORDERING PROVIDER: JERSEY VO HISTORY: ?ankle pain TECHNIQUE: AP, oblique, and lateral views left ankle Technical Quality: Adequate COMPARISON: None FINDINGS: Anatomic alignment is maintained. No acute fracture is identified. Thetalar dome appears intact. Soft tissues are within normal limits. Noevidence of tibiotalar joint effusion. [facility], Radiant Results Inft User - 02/12/2021 2:29 PM CDT ORDERING PROVIDER: FLORENTIN VOHISTORY: ankle pain TECHNIQUE: AP, oblique, and lateralviews left ankle Technical Quality: AdequateCOMPARISON: NoneFINDINGS: Anatomic alignment is maintained. No acute fracture is identified. Thetalar dome appears intact. Soft tissues are within normal limits. Noevidence of tibiotalar joint effusion.IMPRESSIONNo acute fracture or malalignment of the left a nkle.RL: 65998JWO: 56937Elc of Report [facility]+ VW RIGHT 2021-02-12 19:22:34 1. ?Degenerative changes. RL: 1105 HISTORY: ?shoulder pain COMPARISON: ?None FINDINGS: 2 views right shoulder. Prior screw and plate fixation of a mid clavicular fracture noted. The acromioclavicular joint shows osteophyte formation. Degenerative changes seen in the glenohumeral joint. There is narrowing ofsubacromial space consistent with a rotator cuff tear. [facility], Radiant Results Inft User - 02/12/2021 2:23 PM CDT HISTORY: shoulder pain COMPARISON: NoneFINDINGS:2 views right shoulder.Prior screw and plate fixation of a mid clavicular fracture noted.The acromioclavicular joint shows osteophyte formation.Degenerative changes seen in the glenohumeral joint. There is narrowing ofsubacromial space consistent with a rotator cuff tear.IMPRESSION1. Degenerative changes.RL: 1105 [facility] HEAD/BRAIN W/O [id number] 14:46:00 [facility] : 1945 Sex: FPatient Name: BRYANNA HERNANDEZ Unit No: [id number] EXAMS: CPT CODE: [id number] CT HEAD/BRAIN W/O CONT 53847 CT SCAN OF THE HEAD WITHOUT CONTRAST: DICTATION LOCATION: A1 HISTORY: Head injury. TECHNIQUE: Unenhanced axial images were obtained through the head. All CT scans areperformed using radiation dose reduction techniques. Technical factors are evaluated and adjusted to ensure appropriate moderation of exposure. Automated dose management technology isapplied to adjust the radiation dose to minimize exposure while achieving a diagnostic-qualityimage. No prior exams are available for comparison. FINDINGS: Mild to moderate chronic changes of cerebral atrophy and deep white matter small vessel ischemia arenoted. No acute intra- or extraaxial mass, hemorrhage, fluid collection, midline shift, or evidence to suggest acute infarction is identified. The ventricular system is within normal limits. No acute soft tissue or bony calvarial ab normality is seen.IMPRESSION: Mild to moderate chronic changes of cerebral atrophy and deep white matter smallvessel ischemia. No acute findings. at 1446 Reported and signed by: Moe Ambriz Jr, MD CC: Ankit Martin MD; Parvez Baez MD Technologist: KELBY Whiteside(R)(CT) CTDI: 38.48 DLP: 707 Trscr Dt/Tm: 07/28/2020 (0871) by:[facility] Printed Date/Time: 07/28/2020 (6307) Name: BRYANNA HERNANDEZ [facility] Phys: Ankit Gibson MD [address] : 1945 Age: 75 Sex: [place] [address] Loc: P.ERS Exam Date: 07/28/2020 Status: REG ER PH: FAX: PAGE 1 Signed Report- XR FOREARM 2 VIEWS [id number] 14:32:00 [facility] : 1945 Sex: FPatient Name: BRYANNA HERNANDEZ Unit No: [id number] EXAMS: CPT CODE: [id number] XR [place] [address] [place] [address] Left forearm 2 views 07/28/2020 CLINICAL HISTORY: Trauma COMPARISON: None available LOCATION: W1 IMPRESSION: Cortical irregularity along the distal diaphysis of the left radius r eflects an age-indeterminate buckle fracture. The remaining visualized cortices and joint spaces are intact. There are no osteolytic or osteoblastic lesions. There is soft tissue swelling about the wrist. at 1432 Reported and signed by: LOCO GUTIERREZ M.D. CC: Ankit Martin MD; Parvez Baez MD Technologist: Frederick Owens Fluoro Time: DAP (Gy m2): Air Kerma (mGy): Trscr Dt/Tm: 07/28/2020 (143) by:[email or web address] Printed Date/Time: 07/28/2020 (143) Name: BRYANNA HERNANDEZ [facility] Phys: Ankit Gibson MD [address] DOB: 1945 Age: 75 Sex: [place] [id number] Loc:P.ERS Exam Date: 07/28/2020 Status: REG ER PH: FAX: PAGE 1 Signed [id number] 16:20:00 Test Item Value Reference Range Interpretation Comments CKMB (test code = 1.21 ng/mL 0.97-3.77 N INTERPRETA TIVE CKMBT) DATA:Negative o r inconclusive re sults do not exclude myocardialinfar ction. Serial tests at appropriate int ervals may benecessary. [id number] 12:44:00 Test Item Value Reference Range Interpretation Comments TROPONIN-I (test < 0.30 ng/mL 0.00-0.30 N INTERPRETAT VASU code = TROPI) DATA:Negative or inconclusive re uslts do not exclude myocardialinfar ction. Serial tests at appropriate int ervals may benecessary. - CTA CHEST FOR [id number] 21:15:00 [facility] : 1945 Sex: FPatient Name: BRYANNA HERNANDEZ Unit No: [id number] EXAMS: CPT CODE: [id number] [place] [address] LOCATION: R16 EXAM: CTA CHEST WITH CONTRAST, [...] atelectasis/linear scarring. Chronic T12 compression deformity. at 2115 Reported and signed by: JOSE FELICIANO M.D. CC: Sang Figueroa MD; Parvez Baez MD Technologist: Stefanie Charlton (CT),(MR) CTDI: 19.54 DLP: 359.6 Trscr Dt/Tm: 06/27/2020 (2114) by:[email or web address] Printed Date/Time: 06/27/2020 (2118) Name: BRYANNA HERNANDEZ [facility] Phys: Sang Martins MD [address] : 1945 Age: 75 Sex: [place] [id number] Loc: P.0733 1 Exam Date: 06/27/2020 Status: ADM IN PH: FAX: PAGE 1 Signed [id number] 19:54:00 Test Item Value Reference Range Interpretation Comments TROPONIN-I (test < 0.30 ng/mL 0.00-0.30 N INTERPRETAT VASU code = TROPI) DATA:Negative or inconclusive re uslts do not exclude myocardialinfar ction. Serial tests at appropriate int ervals may benecessary. [id number] 19:37:00 Test Item Value Reference Range Interpretation [...] STS AND APPROPRIATECLIN ICAL EVALUATIONS. B-TYPE NATRIURETIC [id number] 19:27:00 Test Item Value Reference Range Interpretation Comments B-TYPE NATRIURETIC PEPTIDE (test 30.4 PG/ML 0-100 N code = BNP) COMPREHENSIVE METABOLIC [id number] 19:25:00 Test Item Value Reference Range Interpretation [...] PHOSPHATASE (test code = ALKP) CBC W/AUTO [id number] 18:57:00 Test Item Value Reference Range Interpretation [...] 3/uL 0.0-0.20 N - XR CHEST 1 [id number] 18:39:00 [facility] : 1945 Sex: FPatient Name: RBYANNA HERNANDEZ Unit No: [id number] EXAMS: CPT CODE: [id number] XR CHEST 1 V 02633 STUDY: Chest radiograph HISTORY: Chest pain COMPARISON: [...] Del Valle MD; Parvez Baez MD Technologist: Cj Shay Time: DAP (Gy m2): Air Kerma (mGy): Trscr Dt/Tm: 06/27/2020 (183) by:Mercy [email or web address] Printed Date/Time: 06/27/2020 (184) Name: BRYANNA HERNANDEZ Catina [facility] Phys: CHECH.Mina Brar MD [address] : 1945 Age: 75 Sex: [place] [id number] Loc: P.ERS Exam Date: 06/27/2020 Status: REG ER PH: FAX: PAGE 1 Signed Report- CT C-SPINE W/O [id number] 10:08:00Patient Name: BRYANNA HERNANEDZ Unit No: [id number] EXAMS: CPT CODE: [id number] CT C-SPINE W/O CONT 70489 CT cervical spine without contrast Location Code: B2 Clinicalhistory: fall, trauma COMPARISON: None. COMMENTS: Helical CT of the cervical spine was performed and submitted as thin section axial, coronal, and sagittally oriented images. CT imaging performed at this location utilizes radiation dose optimization techniques which include one or more of the following: -Automated exposure control -Adjustment of the mA and/or kV according to patient size -Use of iterative reconstruction technique CT Radiation Dose DLP mGy-cm FINDINGS: There is no acute fracture or malalignment of the cervical spine. The soft tissues are unremarkable. Multilevel degenerative disc, facet, and uncovertebral disease is noted throughout the cervical spine. Grade 1 anterolisthesis of C4 and C5. IMPRESSION: No acute abnormality. El ectronically Signed by QIANA OLMEDO M.D. on 03/21/2020 at 1008 Reported and signed by: QIANA OLMEDO M.D. CC: Sang Figueroa MD; Parvez Baez MD Technologist: Donny Acuna CTDI: 18.75 DLP: 423 [facility] Dt/Tm: (1008) by:[email or web address] Printed Date/Time: 03/21/2020 (1011) Name: BRYANNA HERNANDEZ [facility] Phys: Sang Martins MD [address] : 1945 Age: 74 Sex: F [place] [address] Loc: P.ERS Exam Date: 03/21/2020 Status: REG ER PH: FAX: PAGE 1 Signed Report- XR SHOULDER 2 + V [id number] 09:45:00Patient Name: BRYANNA HERNANDEZ Unit No: [id number] EXAMS: CPT CODE: [id number] XR SHOULDER 2 + V RT [id number] Exam:Right shoulder x-rays 3 views Location: W1 [...] Sang Figueroa MD; Parvez Baez MD Technologist: Hipolito Shay Time: DAP (Gy m2): Air Kerma (mGy): [facility] Dt/Tm: 03/21/2020 (0945) by:[email or web address] Printed Date/Time: 03/21/2020 (0949) Name: GERALDINE HERNANDEZTHIA Catina [facility] Phys: Sang Martins MD [address] : 1945 Age: 74Sex: F [place] [address] Loc: P.ERS Exam Date: 03/21/2020 Status: REG ER PH: FAX: PAGE 1 Signed Report- XR CHEST 1 [id number] 09:44:00Patient Name: BRYANNA HERNANDEZ Unit No: [id number] EXAMS: CPT CODE: [id number] XR CHEST 1 V 78794 EXAM: Portable chest one view. Location code:J9 [...] Sang Figueroa MD; Parvez Baez MD Technologist: Hipolito Shay Time: DAP (Gy m2): Air Kerma (mGy): Trscr Dt/Tm: 03/21/2020 (0944) by:[email or web address] Printed Date/Time: 03/21/2020 (0948) Name: DAVIDBRYANNA W [facility] Phys: Sang Martins MD [address] : 1945 Age: 74 Sex: [place] [address] Loc: P.ERS Exam Date: 03/21/2020 Status: REG ER PH: FAX: PAGE 1 Signed Report
[2022-02-28] MEDS ORDERED: POTASSIUM CL SA 10 MEQ TAB PO ONE (09:00)
[2022-02-28] MEDS: LOSARTAN POTASSIUM 50 MG TABLET PO SCH ×2 (10:16→20:56)
[2022-02-28] MEDS: ENOXAPARIN 40 MG/0.4 ML SQ SCH (10:16)
[2022-02-28] MEDS: ESCITALOPRAM 20 MG TAB PO SCH (10:16)
[2022-02-28] MEDS: clonazePAM 1 MG TAB PO SCH ×2 (10:16→20:56)
--- NOTE | 2022-02-28 18:24 | P.PN ---
Subjective Date of Service: 02/28/22 Chief Complaint: Fall, left foot pain. No acute events overnight. Doing well today. PT evaluated and recommended inpatient rehab. Awaiting placement. Review of Systems 10-point ROS is otherwise unremarkable Musculoskeletal: Shoulder Pain (left), Foot Pain (left) Physical Examination - Vital Signs Temperature: 97.9 F Blood Pressure: 135/62 Pulse: 64 Respirations: 16 Pulse Ox (%): 95 - Studies Medications List Reviewed: Yes Assessment And Plan - Plan PHYSICAL EXAMINATION: General: Alert, In no apparent distress, Oriented x3 HEENT: Atraumatic, Mucous membr. moist/pink, EOMI, Sclerae nonicteric Neck: Supple, JVD not distended Respiratory: Clear to auscultation bilaterally, Normal air movement Cardiovascular: Regular rate/rhythm, Normal S1 S2, Edema (trace, bilateral) Gastrointestinal: Normal bowel sounds, Soft and benign, No tenderness, No rebound, No guarding Musculoskeletal: Other (left shoulder in sling. left foot in boot, tender to palpation.) Integumentary: No rashes Neurological: Normal speech, Normal affect ASSESSMENT AND PLAN: # Traumatic Ground-Level Fall with concern for Left Medial Malleolus Fracture # Recurrent Falls suspect secondary to Polypharmacy # S/P Recent Left Rotator Cuff Surgery (02/18/[address] Lala in [place], [place]) # Osteoporosis # Deconditioning Although previously thought to have had a syncopal episode, she specifically reports enduring a mechanical ground-level fall due to limited mobility. She denies ever losing consciousness and denies any head trauma. - Evaluation thus far: - Left foot x-ray = "Horizontal lucency is present within the medial malleolus. This may represent a the subacute fracture and should be correlated clinically. Cortical regularity involving the base of metatarsal presumably a subacute or old fracture. Osteoporosis. No dislocation" - CT head/neck = "No acute intracranial abnormality is seen. A cervical fracture is not visualized." - Pelvic x-ray = "Screws fuse the left sacroiliac joint. Left hip arthroplasty is been performed. Bones are osteoporotic. No acute fracture or dislocation seen. Marked osteoarthritis right hip." - Repeat foot x-ray = "Cortical irregularity base of the fifth metatarsal unchanged from February 22, 2022. Presumably this is a subacute fracture. Avulsion fracture medial malleolus again demonstrated. The bones are osteoporotic. No dislocation." - Left shoulder x-ray = "Frontal view of the shoulder was obtained. Left shoulder arthroplasty in good position. No fracture or dislocation." - Left ankle x-ray = "Medial malleolar fracture which is better assessed on the left foot radiograph. No malalignment. No significant focal degenerative changes. Osteopenia." - Management plan: - Consulted Orthopedic Surgery and spoke with Dr. Virgen - recommendations appreciated - Recommends non-surgical management - Orthostatic vital signs Telemetry - For pain: - PRN acetaminophen, hydrocodone-acetaminophen - Appreciate PT/OT recs - recommended inpatient rehab - Appreciate case management assistance with placement # Paranoid Delusions, concern for Benzodiazepine Withdrawal, Resolved # Depression with Grieving # History of Suicidal Ideation - Delusions have completely resolved with clonazepam # Hypertension - Continue metoprolol, losartan Mikey Cornell MD
[2022-02-28] MEDS ORDERED: DIPHENHYDRAMINE 25 MG TAB/CAP PO ONE (21:15)
[2022-03-01 00:38] VITALS: O2SAT 96
[2022-03-01] MEDS: ACETAMINOPHEN 500 MG TAB PO PRN (04:44)
[2022-03-01] MEDS ORDERED: HYDROCODONE/APAP 5/325 MG TAB PO ONE (05:59)
[2022-03-01] MEDS: METOPROLOL TAR 50 MG TAB PO SCH ×2 (06:17→17:34)
[2022-03-01 08:11] LABS: Albumin 3.2 g/dL (3.4-5.0); Bilirubin Total 0.6 mg/dL (0.2-1.0); Potassium 3.9 mmol/L (3.5-5.1); Protein, Total 6.3 g/dL (6.4-8.2)
[2022-03-01] MEDS: clonazePAM 1 MG TAB PO SCH ×2 (08:41→19:43)
[2022-03-01] MEDS: ENOXAPARIN 40 MG/0.4 ML SQ SCH (08:41)
[2022-03-01] MEDS: LOSARTAN POTASSIUM 50 MG TABLET PO SCH ×2 (08:41→19:43)
[2022-03-01] MEDS: ESCITALOPRAM 20 MG TAB PO SCH (08:41)
[2022-03-01] MEDS: HYDROCODONE/APAP 5/325 MG TAB PO PRN ×2 (14:11→19:41)
--- NOTE | 2022-03-01 19:53 | P.PN ---
Subjective Date of Service: 03/01/22 Chief Complaint: Fall, left foot pain. No acute events overnight. Doing well today. No concerns this morning. Awaiting placement into acute rehab. Review of Systems 10-point ROS is otherwise unremarkable Musculoskeletal: Shoulder Pain (left), Foot Pain (left) Physical Examination - Vital Signs Temperature: 98.1 F Blood Pressure: 136/62 Pulse: 72 Respirations: 16 Pulse Ox (%): 97 - Studies Medications List Reviewed: Yes Assessment And Plan - Plan PHYSICAL EXAMINATION: General: Alert, In no apparent distress, Oriented x3 HEENT: Atraumatic, Mucous membr. moist/pink, EOMI, Sclerae nonicteric Neck: Supple, JVD not distended Respiratory: Clear to auscultation bilaterally, Normal air movement Cardiovascular: Regular rate/rhythm, Normal S1 S2, Edema (trace, bilateral) Gastrointestinal: Normal bowel sounds, Soft and benign, No tenderness, No rebound, No guarding Musculoskeletal: Other (left shoulder in sling. left foot in boot, tender to palpation.) Integumentary: No rashes Neurological: Normal speech, Normal affect ASSESSMENT AND PLAN: # Traumatic Ground-Level Fall with concern for Left Medial Malleolus Fracture # Recurrent Falls suspect secondary to Polypharmacy # S/P Recent Left Rotator Cuff Surgery (02/18/[address] Lala in [place], [place]) # Osteoporosis # Deconditioning Although previously thought to have had a syncopal episode, she specifically reports enduring a mechanical ground-level fall due to limited mobility. She denies ever losing consciousness and denies any head trauma. - Evaluation thus far: - Left foot x-ray = "Horizontal lucency is present within the medial malleolus. This may represent a the subacute fracture and should be correlated clinically. Cortical regularity involving the base of metatarsal presumably a subacute or old fracture. Osteoporosis. No dislocation" - CT head/neck = "No acute intracranial abnormality is seen. A cervical fracture is not visualized." - Pelvic x-ray = "Screws fuse the left sacroiliac joint. Left hip arthroplasty is been performed. Bones are osteoporotic. No acute fracture or dislocation seen. Marked osteoarthritis right hip." - Repeat foot x-ray = "Cortical irregularity base of the fifth metatarsal unchanged from February 22, 2022. Presumably this is a subacute fracture. Avulsion fracture medial malleolus again demonstrated. The bones are osteoporotic. No dislocation." - Left shoulder x-ray = "Frontal view of the shoulder was obtained. Left shoulder arthroplasty in good position. No fracture or dislocation." - Left ankle x-ray = "Medial malleolar fracture which is better assessed on the left foot radiograph. No malalignment. No significant focal degenerative changes. Osteopenia." - Management plan: - Consulted Orthopedic Surgery and spoke with Dr. Virgen - recommendations appreciated - Recommends non-surgical management - Orthostatic vital signs Telemetry - For pain: - PRN acetaminophen, hydrocodone-acetaminophen - Appreciate PT/OT recs - recommended inpatient rehab - Appreciate case management assistance with placement - Continue with current plan of care # Paranoid Delusions, concern for Benzodiazepine Withdrawal, Resolved # Depression with Grieving # History of Suicidal Ideation - Delusions have completely resolved with clonazepam # Hypertension - Continue metoprolol, losartan Mikey Cornell MD
[2022-03-02] MEDS: ZOLPIDEM TARTRATE 5 MG TABLET PO PRN (00:28)
[2022-03-02] MEDS: HYDROCODONE/APAP 5/325 MG TAB PO PRN ×2 (02:00→10:41)
[2022-03-02] MEDS: METOPROLOL TAR 50 MG TAB PO SCH (05:13)
--- NOTE | 2022-03-02 08:31 | P.DS ---
Admission Date: 02/23/22 Discharge Date: 03/02/22 Disposition: TRANSFER TO INPATIENT REHAB Discharge Condition: GOOD Reason for Admission: Fall, left foot pain. Consultations: 1. Orthopedic Surgery Hospital Course: DIAGNOSES: # Traumatic Ground-Level Fall with concern for Left Medial Malleolus Fracture # Suspected Acute Benzodiazepine Withdrawal, Resolved # Recurrent Falls suspect secondary to Polypharmacy # S/P Recent Left Rotator Cuff Surgery (02/18/[address] Lala in [place], [place]) # Osteoporosis # Deconditioning # Depression with Grieving # History of Suicidal Ideation # Hypertension HOSPITAL COURSE: Ms. Catie Ojeda is a pleasant 76-year-old female with a past medical history significant for hypertension, osteoporosis, and benzodiazepine dependence who was admitted to the [facility] on 02/23/2022 for recurrent falls. Upon further evaluation, she was found to have significant weakness and was requesting to be placed in a longterm facility for physical therapy. Initially, it was not known to the admitting team that she took benzodiazepines at home. Several days into her admission, she began experiencing paranoid delusions. PDMP search was completed which revealed that she took alprazolam at home. She was started on clonazepam, and within 24 to 48 hours, her mental status returned completely to baseline. In regards to the evaluation of her traumatic ground-level fall, she had several radiology studies. She had a left foot x-ray that revealed, "horizontal lucency is present within the medial malleolus. This may represent a the subacute fracture and should be correlated clinically. Cortical regularity involving the base of metatarsal presumably a subacute or old fracture. Osteoporosis. No dislocation," a CT head/neck that revealed, "no acute intracranial abnormality is seen. A cervical fracture is not visualized," a pelvic x-ray that revealed, "screws fuse the left sacroiliac joint. Left hip arthroplasty is been performed. Bones are osteoporotic. No acute fracture or dislocation seen. Marked osteoarthritis right hip," a repeat foot x- ray that revealed, "cortical irregularity base of the fifth metatarsal unchanged from February 22, 2022. Presumably this is a subacute fracture. Avulsion fracture medial malleolus again demonstrated. The bones are osteoporotic. No dislocation," a left shoulder x-ray that revealed, "frontal view of the shoulder was obtained. Left shoulder arthroplasty in good position. No fracture or dislocation," and a left ankle x-ray that revealed, "medial malleolar fracture which is better assessed on the left foot radiograph. No malalignment. No significant focal degenerative changes. Osteopenia." Orthopedic Surgery was cons ulted and she was evaluated by Dr. Virgen. He recommended non-surgical management with a boot on her left ankle. She was evaluated by Physical Therapy, and they recommended placement to an inpatient rehabilitation facility. With the assistance of Case Management, she was approved to go to [facility]. On 03/02/2022, she was seen on morning rounds and deemed medically stable for discharge. She was given the opportunity to ask questions and reported no further questions. Furthermore, all questions were answered to the best of my ability. Today, I personally spent 20 minutes on her case, of which greater than 50% of the time was spent in patient education, counseling, and coordination of care as described above. PHYSICAL EXAMINATION: General: Alert, In no apparent distress, Oriented x3 HEENT: Atraumatic, Mucous membr. moist/pink, EOMI, Sclerae nonicteric Neck: Supple, JVD not distended Respiratory: Clear to auscultation bilaterally, Normal air movement Cardiovascular: Regular rate/rhythm, Normal S1 S2, Edema (trace, bilateral) Gastrointestinal: Normal bowel sounds, Soft and benign, No tenderness, No rebound, No guarding Musculoskeletal: Other (left shoulder in sling. left foot in boot, slightly tender to palpation.) Integumentary: No rashes Neurological: Normal speech, Normal affect Vital Signs/Physical Exam: Temp Pulse Resp BP Pulse Ox 97.4 F 66 19 139/83 96 03/02/22 04:00 03/02/22 05:13 03/02/22 04:00 03/02/22 05:13 03/02/22 04:00 Laboratory Data at Discharge: WBC 10.1 K/uL (4.3-10.9) 02/28/22 05:33 Hgb 9.9 g/dL (12.0-15.0) L 02/28/22 05:33 Hct 29.1 % (36.0-45.0) L 02/28/22 05:33 Plt Count 557 K/uL (152-406) H 02/28/22 05:33 PT 11.1 SECONDS (9.5-12.5) 02/22/22 22:51 INR 1.01 02/22/22 22:51 Sodium 140 mmol/L (136-145) 03/01/22 07:42 Potassium 3.9 mmol/L (3.5-5.1) 03/01/22 07:42 BUN 22 mg/dL (7-18) H 03/01/22 07:42 Creatinine 0.82 mg/dL (0.55-1.3) 03/01/22 07:42 Glucose 115 mg/dL (74-106) H 03/01/22 07:42 Phosphorus 2.7 mg/dL (2.5-4.9) 02/24/22 05:37 Magnesium 2.0 mg/dL (1.8-2.4) D 02/24/22 05:37 Total Bilirubin 0.6 mg/dL (0.2-1.0) 03/01/22 07:42 AST 10 U/L (15-37) L 03/01/22 07:42 ALT 15 U/L (12-78) 03/01/22 07:42 Alkaline Phosphatase 77 U/L (45-117) 03/01/22 07:42 Home Medications: Alprazolam 0.5 tab PO TID 02/24/22 Omeprazole [Prilosec] 40 mg PO ACB 02/24/22 Oxycodone HCl/Acetaminophen [Oxycodone-Acetaminophn 7.5-325] 1 tab PO TIDP PRN 02/24/22 Rosuvastatin Calcium 20 mg PO DAILY 02/24/22 Zolpidem Tartrate 5 mg PO BEDTIME 02/24/22 Bisacodyl [Dulcolax] 1 tab PO BEDTIME 02/25/22 Escitalopram [Lexapro*] 10 mg PO DAILY tab 03/02/22 Losartan Potassium [Cozaar*] 50 mg PO BID tablet 03/02/22 Physician Discharge Instructions: - You are being discharged to [facility] After discharge from [facility]: 1. Please schedule a follow-up appointment with your PCP 3-5 days 2. Please schedule a follow-up with Orthopedic Surgery (Dr. Lala or Dr. Doan) in 1-2 weeks Diet: Regular Activity: Per PT Followup: Clark Virgen MD [ACTIVE - CAN ADMIT] - (Call to [facility] appointment ) Time spent managing pt's care (in minutes): 20
[2022-03-02] MEDS: LOSARTAN POTASSIUM 50 MG TABLET PO SCH (10:28)
[2022-03-02] MEDS: clonazePAM 1 MG TAB PO SCH (10:28)
[2022-03-02] MEDS: ESCITALOPRAM 20 MG TAB PO SCH (10:28)
[2022-03-02] MEDS: ENOXAPARIN 40 MG/0.4 ML SQ SCH (10:28)
[2022-03-02 13:20] VITALS: BP 123/72; TEMP 97
--- NOTE | 2022-03-05 15:20 | CON ---
Date of Consultation: 02/23/2022 Type Of Service: Psychiatric consult. Location: Med/surg floor. Reason For Consultation: Evaluate the patient for significant depression and make recommendations. History Of Present Illness: Mrs. Ojeda is a 76-year-old female who was admitted via the em ergency department following a fall, to which she fractured her left ankle and also her left shoulder . The patient was seen in the room with the presence of her niece whom she lives with who states that she has a chronic history of depression and anxiety, stated her current anxiety and depr ession are triggered by her recent fall and injuries. She states she always gets significantly depre ssed when she is in a situation where she becomes a burden on others and unable to care for herself. The patient describes her depressive symptoms are depressed mood for most part of the day, frequent crying spells, anhedonia and no motivation, poor appetite, and difficulty with sleep. she ever denies suicidal ideation. She said that she ruminates the loss about her late who 3 years ago and her only son who who is here for further evaluation. Her symone ce states that the patient that surgery is not always a solution. The patient admits to h ave anxiety, which she describes as excessive worrying, mostly about her medical issues and her late and son. She admits to racing thoughts, but denies panic attacks. No history of psychosis. No history of bipolar disorder. No history of chronic alcohol or substance abuse. No history of on going or past physical or emotional abuse. She states that prior to her medical challenges, she used to be very active, but now she daily ambulates with the aid of a walker mostly bedridden. Objective: Vital Signs: Blood pressure , temperature 96 degrees Fahrenheit, pulse rate is 60, respiratory rate . Mental Status Examination: The patient is clinically ill looking female, lying in bed, in hospital gown with left shoulder in a sling. The patient was tearful for most part of the interview. She is alert and oriented to person, place, and time. Not in any acute cardiorespiratory distress. Speech spontaneous. Normal rate, rhythm, and volume. thought process: Line ar, at times circumstantial. Thought content: Ruminates about her late and son. No suicida l ideation noted. No auditory or visual hallucination observed. Patient is not entirely preoccupied. Insight, judgment, impulse control are fair. Memory and concentration are limited. Fu nd of knowledge average. Language skills, fair. Impression: 76-year-old female with chronic history of depression, anxiety, chr onic pain syndrome, recent fall, and ruminates about the of her and son. no t suicidal. 1.Major depressive disorder, recurrent, severe without psychotic features. 2.Anxiety disorder, unspecified. 3.Insomnia. Recommendations: 1.Continue Lexapro 10 mg p.o. daily for depressive and anxiety symptoms. 2.We will recommend starting Wellbutrin 150 mg SR p.o. daily, take in the morning. 3.We will start Ambien 5 mg p.o. at bedtime for sleep. The patient does not meet criteria for psychiatric patient discharge from the hospital and also psychotherapist. JANET Voice ID: [id number] Report ID: [id number]
== END 2022-03-02 13:52 | DRG 563 ==
LOC: ER 19:43 → ERHOLD 02-23 01:46 → 2ND 02-23 12:54 → OBSVTOIN 02-23 13:33
PROVIDERS: ADMIT Internal Medicine Nephrology; ATTEND Internal Medicine
DX: S82.52XA Displaced fracture of medial malleolus of left tibia, initial encounter for closed fracture (principal); F13.239 Sedative, hypnotic or anxiolytic dependence with withdrawal, unspecified; F33.9 Major depressive disorder, recurrent, unspecified; M81.0 Age-related osteoporosis without current pathological fracture; R53.81 Other malaise; F43.21 Adjustment disorder with depressed mood; I10 Essential (primary) hypertension; K21.9 Gastro-esophageal reflux disease without esophagitis; E78.5 Hyperlipidemia, unspecified; F22 Delusional disorders; M43.5X2 Other recurrent vertebral dislocation, cervical region; R55 Syncope and collapse; Z91.81 History of falling; W18.30XA Fall on same level, unspecified, initial encounter; Y92.009 Unspecified place in unspecified non-institutional (private) residence as the place of occurrence of the external cause; Z91.51 Personal history of suicidal behavior; Z20.822 Contact with and (suspected) exposure to COVID-19; G47.00 Insomnia, unspecified
CPT/HCPCS: 36415; 70450; 71045; 72125; 72170; 73020; 80048; 80053; 80076; 80307; 81003; 82533; 82607; 82746; 82947; 83540; 83735; 83880; 84100; 84484; 85025; 85027; 85044; 85610; 93005; 97110; 97116; 97161; 97530; 99284; G0378; J1650; J2405; J7030; J7040; U0003

== ENCOUNTER 2022-12-27 12:52 | Emergency (ER) | payer OTHER, BC ==
--- OUTSIDE RECORDS SUMMARY | 2022-12-27 12:57 | XMS REPORT | Continuity of Care Document ---
:1945 Author Organization [facility] t Address [address] García. [address] [place] [address] Care Team Providers Name Role Phone Parvez Baez MD Primary Care Physician Whitney Resendiz Attending Clinician Unavailable ALFONZO DYE NATASHA Attending Clinician Unavailable JAZMINE HAQUE Attending Clinician Unavailable TOMASA CALDERÓN Attending Clinician Unavailable Parvez Baez X Attending Clinician Unavailable Raeann Canales RN Attending Clinician [phone] Leila Escalera RN Attending Clinician Unavailable Jamil Palacio MD Attending Clinician Bambi Cristina MD Attending Clinician Sherrie Velázquez Attending Clinician Provider, Unknown Attending Clinician Unavailable Marlena Morgan RN Attending Clinician Unavailable Matt Cheung MD Attending Clinician Velma Gutierrez Attending Clinician Pérez Santiago Attending Clinician PÉREZ SANTIAGO Attending Clinician Unavailable Saad Mart Attending Clinician ALFONZO DYE NATASHA Admitting Clinician Unavailable Parvez Baez Admitting Clinician Unavailable JAMIL PALACIO Admitting Clinician Unavailable Pérez Santiago Admitting Clinician PÉREZ SANTIAGO Admitting Clinician Unavailable Payers Payer Name Policy Type Policy Number Effective Date Expiration Date S richard [facility] M[facility] [id number] MEDICARE PART A [id number] 2011 AND B 00:00:00 Problems Condition Condition Condition Status Onset Resolution Last Treating Co mments Source Name Details Category Date Date Treatment Clinician Date BACK PAIN BACK PAIN Diagnosis Active 2019-10-12 Memoria Active 10-11 13:44:00 l 10/12/2019 08:00: Stephan hsu [facility] 00 Renan PAIN IN PAIN IN Diagnosis Active 2018-10-20 Memoria LEFT LEFT 10-19 10:35:00 l SHOULDER, SHOULDER, 00:00: Herm bebo CERVICALGI CERVICALGI 00 A A Active 10/19/2018 [facility] [place] STENOSIS, STENOSIS, Diagnosis Active 2017-09-01 Memoria SPONDYLOLI SPONDYLOLI 08-13 15:16:00 l STHESIS STHESIS 00:00: [place] Active 00 08/13/2017 [facility] Anxiety Anxiety Problem Active 2019-10-15 M emoria (finding) (finding) 00:47:50 l Active [place] Problem 10/15/2019 [facility] [place] Constipati Constipat Problem Active 2019-10-15 Memoria on ion 00:47:50 l (disorder) (disorder) [place] Active Problem 10/15/2019 [facility] [place] Depressive Depressiv Problem Active 2019-10-15 Memoria disorder e disorder 00:47:50 l (disorder) (disorder) He rmann Active Problem 10/15/2019 [facility] [place] Hyperlipid Hyperlipi Problem Active 2019-10-15 Memoria emia demia 00:47:50 l (disorder) (disorder) He [place] Active Problem 10/15/2019 [facility] [place] Hypertensi Hypertens Problem Active 2019-10-15 Memoria ve vasu 00:47:50 l disorder, disorder, Herm bebo systemic systemic arterial arterial (disorder) (disorder) Active Problem 10/15/2019 [facility] [place] Osteoarthr Osteoarth Problem Active 2019-10-15 Memoria itis ritis 00:47:50 l (disorder) (disorder) He rmann Active Problem 10/15/2019 [facility] [place] Osteoporos Problem Active 2019-10-15 M emoria is Osteoporos 00:47:50 l (disorder) is Stephan n (disorder) Active Problem 10/15/2019 [facility] [place] Pancreatic Pancreati Problem Active 2019-10-15 Memoria insufficie c 00:47:50 l ncy insufficie Stephan n (disorder) ncy (disorder) Active Problem 10/15/2019 [facility] Paresthesi Paresthes Problem Active 2019-10-15 Memoria a of lower [place] of 00:47:50 l extremity lower [place] (finding) extremity (finding) Active Problem 10/15/2019 & BILATERAL FEET. [facility] Spinal Spinal Problem Active 2019-10-15 Gino barry stenosis stenosis 00:47:50 l of lumbar of lumbar Herm bebo region region (disorder) (disorder) Active Problem 10/15/2019 [facility] Spondyloli Spondylol Problem Active 2019-10-15 Memoria sthesis isthesis 00:47:50 l (disorder) (disorder) He [place]mann Active Problem 10/15/2019 [facility] SPONDYLOLI SPONDYLOL Diagnosis Active 2019-10-12 Memoria STHESIS, ISTHESIS, 13:44:00 l LUMBAR LUMBAR Ren[facility] REGION REGION Active [facility] SPINAL SPINAL Diagnosis Active 2019-10-12 Me moria STENOSIS, STENOSIS, 13:44:00 l LUMBAR LUMBAR [place] REGION REGION WITHOUT N WITHOUT N Active [facility] PAIN IN PAIN IN Diagnosis Active 2018-10-20 Memoria LEFT LEFT 10:35:00 l SHOULDER SHOULDER Stephan n Active [facility] CERVICALGI CERVICALG Diagnosis Active 2018-10-20 Memoria A IA Active 10:35:00 l [facility] Gastric Gastric Problem Resolve 2019-10-15 2019-10-15 Memoria ulcer ulcer d 08-11 00:47:50 00:47:50 l (disorder) (disorder) 00:00: [place] Resolved 00 08/11/2010 Problem 10/15/2019 [facility] Allergies, Adverse Reactions, Alerts Allergy Allergy Status Severity Reaction(s) Onset Inactive Treating Comm ents Source Name Type Date Date Clinician No Known DA Active [facility] 09[facility]01 [facility] No Known DA Active [facility] Allergie 09-01 [facility] 00:[facility] NO KNOWN Drug Active Univers ALLERGIE Class ity of S [facility] No Known No Known Active Memori a Medicati Medicati l on on Renan Allergie Allergie s s Family History Family Member Diagnosis Comments Start Date Stop Date Source Natural father Old age [facility] Natural mother Old age [facility] Social History Social Habit Start Date Stop Date Quantity Comments Source Exposure to Not sure University of SARS-CoV-2 (event) [facility] Gender identity [facility] Alcohol intake 2022-02-20 2022-02-20 Ex-drinker [facility] 00:00:00 00:00:00 (finding) Hospital History of Social 2022-02-20 2022-02-[address] function 00:00:00 00:00:00 Hospital Tobacco use and 2022-01-16 2022-01-16 Smokeless [facility] exposure 00:00:00 00:00:00 tobacco non-user Hospital Social History 2017-08-19 2017-08-19 [facility] marshal 00:42:08 00:42:08 Sex Ass[birth year] [facility] 00:00:00 00:00:00 Hospital Smoking Status Start Date Stop Date Source Unknown if ever smoked [facility] Never smoked tobacco [facility] ospital Medications Ordered Filled Start Stop Current Ordering Indication Dosage Frequency Signature Comments Components Source Medication Medication Date Date Medication? Clinician (SIG) Name Name omeprazole Yes 40mg QD Take 40 mg M ethodi (PriLOSEC) 7-[address] 40 MG 18:35: daily. Hospita capsule 01 l acetaminoph 2022-0 Yes 500mg Q6H Take 500 M ethodi en 7-[address] (TYLENOL) 18:35: mouth Hospita 500 MG 01 every 6 l tablet (six) hours as needed for mild pain. melatonin 0 Yes 10mg QD Take 10 mg Me thodi 10 mg 7-[address] capsule 18:35: nightly. Hospit a 01 l senna Yes 1{tbl} QD Take 1 Methodi (SENOKOT) 7-[address] 8.6 mg 18:35: mouth Hospita tablet 01 nightly. l sennosides- Yes 1{tbl} QD Take 1 Me thodi docusate 7-[address] sodium 18:35: mouth Hospita (SENOKOT-S) 01 nightly. l 8.6-50 mg per tablet rosuvastati Yes 20mg QD Take 20 mg Methodi n (CRESTOR) 7-[address] 20 mg 18:35: every Hospita tablet 01 morning. l ARIPiprazol 0 Yes 5mg QD Take 5 mg M ethodi e (ABILIFY) 7-[address] 5 MG tablet 18:35: daily. Hosp luciana 01 l losartan 0 Yes 100mg QD Take 100 Meth vicenta (COZAAR) 7-[address] 100 MG 18:45: mouth Hospita tablet 55 daily. l esomeprazol 0 Yes 40mg QD Take 40 mg Methodi e (NexIUM) 7-[address] 40 MG 18:45: daily Hospita capsule 55 before l breakfast. ondansetron 0 Yes 4mg Q8H Take 4 mg M ethodi (ZOFRAN) 4 7-[address] MG tablet 18:45: every 8 Hospi ta 55 (eight) l hours as needed for nausea or vomiting. promethazin 0 Yes 25mg Q6H Take 25 mg Methodi e 7-[address] (PHENERGAN) 18:45: every 6 Hos shreyas 25 MG 55 (six) l tablet hours as needed for nausea or vomiting. tiZANidine 0 Yes 4mg Q8H Take 4 mg Me thodi (ZANAFLEX) 7-[address] 4 MG tablet 18:45: every 8 Hos shreyas 55 (eight) l hours as needed for muscle spasms. zolpidem Yes 5mg QD Take 5 mg Meth vicenta (AMBIEN) 5 7-[address] MG tablet 18:45: nightly as Ho spita 55 needed for l sleep. ALPRAZolam Yes 1mg Q.5D Take 1 mg Me thodi (XANAX) 2 7-[address] MG tablet 18:45: (two) Hospita 55 times a l day. oxyCODone-a Yes 1{tbl} Q4H Take 1 M ethodi cetaminophe 7-[address] n 18:45: mouth Hospita (PERCOCET) 55 every 4 l 7.5-325 mg (four) per tablet hours as needed for moderate pain .acute pain. amLODIPine Yes 10mg QD Take 10 mg M ethodi (NORVASC) [address] 10 mg 18:45: daily. Hospita tablet 55 l DULoxetine Yes 60mg QD Take 60 mg M ethodi (CYMBALTA) [address] 60 MG 18:45: daily. Hospita capsule 55 l lisinopriL 2021- No 10mg QD Take 10 mg Methodi (PRINIVIL) 01-[address] 10 mg 03:06: 00:00 daily. Hospita tablet 35 :00 l predniSONE 2020- No 40mg 40 mg, Univ ers (DELTASONE) 02-12 Oral, ity of tablet 40 21:15: 20:12 ONCE, [place] :00 dose, [facility] 02/12/21 at [facility] 1615, BALJINDER methylPREDN Yes [id number] Take by [facility] 02-12 mouth ity of (MEDROL, 00:00: SEE-INSTRU Roman as LISBET,) 4 mg 00 CTIONS. Medica l tablets follow [facility] package directions Immunizations Ordered Immunization Filled Immunization Date Status Commen ts Source Name Name [employer] READY TO USE 2022-01-24 Completed [facility] COVID-19 MRNA 00:00:00 Hospital VACCINATION MODERNA COVID-19 2020-11-15 Completed [facility] MRNA VACCINATION 00:00:00 Hospital MODERNA COVID-19 2020-10-16 Completed [facility] MRNA VACCINATION 00:00:00 Hospital Hx pneumococcal 2017-08-19 Completed [facility] vaccine<sup>1</sup> 00:55:00 Hx influenza 2017-05-17 Completed [facility] vaccine-unspecified 23:54:00 Vital Signs Vital Name Observation Time Observation Value Comments Source Systolic blood 2021-02-12 20:00:00 126 mm[Hg] [facility] Diastolic blood 2021-02-12 20:00:00 64 mm[Hg] [facility] Heart rate 2021-02-12 20:00:00 88 /min [facility] Respiratory rate 2021-02-12 20:00:00 20 /min [facility] O[facility] saturation in 2021-02-12 20:00:00 94 /min [facility] Arterial blood by [facility] [place] Pulse oximetry [place] Body temperature 2021-02-12 17:38:00 36.67 Ember [facility] Body weight 2021-02-12 17:38:00 58.968 kg [facility] Systolic blood 2022-02-18 22:55:00 151 mm[Hg] Method [facility] pressure Diastolic blood 2022-02-18 22:55:00 85 mm[Hg] [facility] pressure Heart rate 2022-02-18 22:55:00 99 /min [facility] Respiratory rate 2022-02-18 22:55:00 18 /min [facility] Oxygen saturation in 2022-02-18 22:55:00 92 /min [facility] Arterial blood by Pulse oximetry Body temperature 2022-02-18 22:25:00 36.61 Ember [facility] Body height 2022-02-18 17:16:00 167.6 cm [facility] Body weight 2022-02-18 17:16:00 69.4 kg [facility] BMI 2022-02-18 17:16:00 24.69 kg/m2 [facility] Procedures Procedure Date / Time Performing Clinician Source Performed SURGICAL PATHOLOGY 2022-02-18 19:48:00 Jamil Palacio [facility] REQUEST Tony AL AN ELECTIVE 2022-02-18 18:56:00 Bambi Cristina spital ENDOTRACHEAL AIRWAY Bituin ARTHROPLASTY, SHOULDER, 2022-02-18 18:42:00 [facility] TOTAL Tony HC NERVE BLOCK, 2022-02-18 17:45:34 Sherrie Magaña spital INTERSCALENE W IMG GUID ABO AND RH CONFIRMATION 2022-02-18 17:37:00 [facility] BY PROTOCOL URINE CULTURE 2022-02-13 19:24:00 [facility] spital TYPE AND SCREEN 2022-02-13 18:19:00 [facility] Orthodoxy Ho spital CBC WITH PLATELET AND 2022-02-13 18:19:00 [facility] DIFFERENTIAL URINALYSIS SCREEN AND 2022-02-13 18:19:00 [facility] MICROSCOPY, WITH REFLEX TO CULTURE BASIC METABOLIC PANEL 2022-02-13 18:19:00 [facility] ESTIMATED GFR 2022-02-13 18:19:00 [facility] Orthodoxy spital ECG 12-LEAD 2022-02-13 18:18:46 [facility] spital COVID-19 QUALITATIVE 2022-01-17 12:36:00 [facility] RT-PCR Tony COVID-19 OMICRON VARIANT 2022-01-17 12:36:00 [facility] QUALITATIVE RT-PCR Tony XR ANKLE 3+ VW LEFT 2021-02-12 18:33:20 Florentin Vo [facility] XR HIPS 3 VW LEFT 2021-02-12 18:33:20 Florentin Vo [facility] XR SHOULDER 2+ VW RIGHT 2021-02-12 18:33:20 Florentin Vo [facility] Hip arthroplasty 2013-08-11 00:00:00 Ryan majano Discectomy for 1986-08-11 00:00:00 [facility] Her paz intervertebral herniated disc, nucleus pulposus Plan of Care Planned Activity Planned Date Details Comments Source Future Scheduled 2022-12-27 Hepatitis C screening [facility] Test 09:11:24 (procedure) [code = 807434357] Future Scheduled 2022-12-27 COLONOSCOPY SCREENING [facility] Test 09:11:24 [code = COLONOSCOPY SCREENING] Future Scheduled 2022-12-27 SHINGLES VACCINES (1 [facility] Test 09:11:24 of 2) [code = SHINGLES VACCINES (1 of 2)] Future Scheduled 2022-12-27 65+ PNEUMOCOCCAL [facility] Test 09:11:24 VACCINE (1 - PCV) [code = 65+ PNEUMOCOCCAL VACCINE (1 - PCV)] Future Scheduled 2022-12-27 COVID-19 VACCINE (4 - Me [facility] Test 09:11:24 Booster for Moderna series) [code = COVID-19 VACCINE (4 - Booster for Moderna series)] Future Scheduled 2022-12-27 INFLUENZA VACCINE [facility] Test 09:11:24 [code = INFLUENZA VACCINE] Encounters Start End Encounter Admission Attending Care Care Encounter Source Date/Time Date/Time Type Type Clinicians Facility Department ID 2022-11-22 Outpatient Resendiz, [facility]ED[facility] [id number] Common 13:35:01 Avnee [id number] [facility] 2022-11-19 [facility] [id number] Common 10:48:00 Avnee [id number] [facility] 2022-11-14 Outpatient [facility] [id number] Common 13:57:01 [id number] [facility] 2022-11-13 Outpatient [facility] [id number] Common 13:22:01 [id number] [facility] 2022-03-01 Outpatient 3 HARDIK, ENCPL HEDY [id number] [facility] 14:35:12 ALFONZO 0722 [facility] [place] 2022-02-20 Outpatient [facility] [id number] [id number] [place] 10:23:56 JAZMINE [id number] [facility] 2022-02-07 Outpatient [facility] [id number] [place] 11:19:32 [id number] [facility] 2022-01-04 Outpatient [facility] [id number] 67-2 [place] 09:44:27 JAZMINE [id number] [facility] 2021-12-20 Outpatient MCALEXANDER [facility] [id number] 67-2 [place] 16:31:51 , TOMASA [id number] [facility] 2021-11-20 [facility] [id number] Common 09:26:03 [facility] 2021-11-09 Outpatient [facility] [id number] [place] 11:58:18 [id number] [facility] 2021-11-05 [facility] [id number] Common 10:46:03 [facility] 2020-07-28 Inpatient [facility] JUANJO [id number] H[facility] 13:32:00 66 [facility] 2020-06-27 Inpatient [facility] JUANJO [id number] [facility] 18:06:00 33 [facility] 2020-03-21 Inpatient [facility] JUANJO [id number] [facility] 08:57:00 79 [facility] 2022-12-27 2022-12-27 Travel 1.2.840.1 [id number] [id number] Methodi 00:00:00 00:00:[address] 3.430.2.7 0.2.7.3.698 Ho spita .3.785358 084.8 l .8 2022-11-02 2022-11-04 Inpatient LO Baez [facility] MED [id number] [facility] 14:42:00 12:41:00 Parvez Ernandez [facility] 2022-03-02 2022-03-15 Inpatient 3 HARDIK, ENCPL LISETH [id number] [facility] 15:08:00 14:30:00 ALFONZO 0723 ss [facility] [place] 2022-02-25 2022-02-25 Outpatient [facility] PDPFEQP [facility]JM [facility] 00:00:00 00:00:00 [id number] 2022-02-21 2022-02-21 Telephone Parker 1.2.840.1 [id number] [id number] Methodi 00:00:00 00:00:[address] Allysse 3.430.2.7 Hospit a .3.159935 l .8 2022-02-19 2022-02-19 Telephone Escalera, 1.2.840.1 [id number] Methodi 00:00:00 00:00:[address] 3.430.2.7 Hospit a .3.189896 l .8 2022-02-18 2022-02-18 Hospital Rechter, 1.2.840.1 [id number] 2100 [id number] Methodi 10:56:00 18:35:00 Encounter Jamil 10847.1.[address] Tony 3.430.2.7 Hospit a .3.185741 l .8 2022-02-18 2022-02-18 Anesthesia Bambi Cristina 1.2.840.1 [id number] Methodi 13:42:00 15:49:00 Event Sherrie Magaña 27867.1.1 779 s t 3.430.2.7 Hospit a .3.962031 l .8 2022-02-18 2022-02-18 Surgery Rechter, 1.2.840.1 [id number] Methodi 13:05:00 14:35:[address] Tony 3.430.2.7 Hospit a .3.972309 l .8 2022-02-18 2022-02-18 Outpatient RECHTER, [place] [id number] [place] 00:00:00 00:00:[address] JAMIL [address] 2022-02-13 2022-02-13 Pre-Admiss Rechter, 1.2.840.1 [id number] Methodi 12:30:00 13:00:00 ion Jamil 68613.1.[address] Testing Tony 3.430.2.7 Hospit a .3.144424 l .8 2022-02-13 2022-02-13 Outpatient RECHTER, [facility] [id number] Rosser 00:00:00 00:00:00 JAMIL [address] 2022-02-13 2022-02-13 Documentat Provider, 1.2.840.1 [id number] Methodi 00:00:00 00:00:00 ion Unknown 78385.1.[address] 3.430.2.7 Hospit a .3.452267 l .8 2022-02-13 2022-02-13 Orders [facility][Note 3]zhang, 1.2.840.1 [id number] Methodi 00:00:00 00:00:00 Only Marlena 80603.1.[address] 3.430.2.7 Hospit a .3.552391 l .8 2022-02-13 2022-02-13 Travel 1.2.840.1 1.2.089.200 [id number] Methodi 00:00:00 00:00:[address] 3.430.2.7 0.2.7.3.698 Ho spita .3.796178 084.8 l .8 2022-01-17 2022-01-17 [facility] 1.2.840.1 [id number] 2100 [id number] Methodi 06:25:00 23:59:00 Encounter Jamil 01357.1.[address] [place] 3.430.2.7 Hospit a .3.004307 l .8 2022-01-17 2022-01-17 Anesthesia Matt Cheung 1.2.840.1 [id number] Methodi 09:20:00 09:20:00 Event Sherrie Magaña 03589.1.1 280 s t 3.430.2.7 Hospit a .3.366839 l .8 2022-01-17 2022-01-17 [facility] 021 [id number] Ross[place] 00:00:00 00:00:00 JAMIL [address] 2022-01-17 2022-01-17 Travel 1.2.840.1 1.2.129.890 [id number] Methodi 00:00:00 00:00:[address] 3.430.2.7 0.2.7.3.698 Ho spita .3.201767 084.8 l .8 2021-02-12 2021-02-12 Emergency Josse, K RUST 1.2.840.114 [id number] Univers 12:29:00 15:26:00 Anna [place] 350.1.13.10 i [place] 4.2.7.2.686 [facility] [id number] [place] [id number] [place] 2021-02-12 2021-02-12 Emergency X [place] ERT [id number] Univers 12:29:00 12:29:00 ity of [facility] 2019-10-12 2019-10-13 Outpatient [facility] [id number] Memoria 17:09:00 05:59:00 jonh Urrutia 64 l Orthopedic [facility] 2019-10-12 2019-10-12 Outpatient Kenny [facility] [id number] 11:09:00 23:59:00 Pérez 64 Augie 2019-10-12 2019-10-12 Outpatient KENNY [facility] [id number] 11:09:00 11:09:00 PÉREZ [facility] 2018-10-19 2018-10-20 Outpatient [facility] [id number] Memoria 16:50:00 04:59:00 jonh Urrutia 71 l [facility] 2018-10-19 2018-10-19 [facility] [id number] 11:50:00 23:59:00 Saadreta Brian Results Test Description Test Time Test Comments Results Result Comments Source IRON 2022-11-03 11:12:00 Test Item Value Reference Range Interpretation Comme nts IRON (test code = IRON) 43 mcg/dL 50-175 L [id number] 11:12:00 Test Item Value Reference Range Interpretation Comments FERRITIN (test code = JULIET) 18.9 ng/mL 10.0-291.0 N BASIC METABOLIC [id number] 11:09:00 Test Item Value Reference Range Interpretation Comments SODIUM (test code 142 mmol/L 136-145 N = NA) POTASSIUM (test 3.7 mmol/L 3.5-5.1 code = K) CHLORIDE (test 106 code = CL) CARBON DIOXIDE 30 mmol/L 20-31 N (test code = CO2) GLUCOSE (test code 104 ng/dL 74-106 N = GLU) BLOOD UREA 9 mg/dL 9-23 N NITROGEN (test code = BUN) GLOMERULAR >=60 max >60 The Glomerular FILTRATION RATE estimate mL/min Filtratio n Rate is a (test code = GFR) calculated parameterbased on serum Creatinin e, patient age and sex. GFR valuesless than 60 mL/min/1.73 square meters are lisette cative ofChronic Kidne y Disease. Values less than 15 mL/min/1.73squa re meters indicate Kidney failure. The calculation for GFR is based on the CK D-EPI (2020) calculat ion. This formulais race indifferent and is the recommended formula for GFR by the National Kidney Foundation for Adults.The GFR will not calculate i f the sex is unknown or if thepatient's ag e is <18 years. CREATININE (test 0.70 mg/dL 0.55-1.02 N code = CREAT) CALCIUM (test code 9.1 mg/dL 8.7-10.4 N = CA) [id number] 11:09:00 Test Item Value Reference Range Interpretation Comments PHOSPHOROUS (test code = PHOS) 3.5 mg/dL 2.4-5.1 N CBC W/AUTO [id number] 10:54:00 Test Item Value Reference Range Interpretation Comments WHITE BLOOD CELL (test code = 6.1 x10 3/uL 4.8-10.8 N WBC) RED BLOOD CELL (test code = 4.26 x10 6/uL 4.20-5.40 N RBC) HEMOGLOBIN (test code = HGB) 13.0 g/dL 12.0-16.0 N HEMATOCRIT (test code = HCT) 41.3 % 37.0-47.0 N MEAN CELL VOLUME (test code = 96.9 fL 81.0-99.0 N MCV) MEAN CELL HGB (test code = MCH) 30.5 pg 27-31 N MEAN CELL HGB CONCENTRATION 31.5 G/DL 33-36.5 L (test code = MCHC) RED CELL DISTRIBUTION WIDTH 13.1 % 12.9-16.9 N (test code = RDW) PLATELET COUNT (test code = 313 x10 3/uL 150-440 N PLT) MEAN PLATELET VOLUME (test code 9.4 fL 8.9-12.4 N = MPV) NEUTROPHIL % (test code = NT%) 57.2 % 42.2-75.2 N LYMPHOCYTE % (test code = LY%) 30.0 % 20.5-51.1 N MONOCYTE % (test code = MO%) 9.0 % 1.7-9.3 N EOSINOPHIL % (test code = EO%) 3.3 % 0.0-7.0 N BASOPHIL % (test code = BA%) 0.5 % 0-2.5 N NEUTROPHIL # (test code = NT#) 3.52 x10 3/uL 1.80-7.70 N LYMPHOCYTE # (test code = LY#) 1.84 x10 3/uL 1.00-4.80 N MONOCYTE # (test code = MO#) 0.55 x10 3/uL 0.00-0.80 N EOSINOPHIL # (test code = EO#) 0.20 x10 3/uL 0.00-0.45 N BASOPHIL # (test code = BA#) 0.03 x10 3/uL 0.0-0.20 N CBC W/AUTO [id number] 16:37:00 Test Item Value Reference Range Interpretation Comments WHITE BLOOD CELL (test code = 7.3 x10 3/uL 4.8-10.8 N WBC) RED BLOOD CELL (test code = 4.14 x10 6/uL 4.20-5.40 L RBC) HEMOGLOBIN (test code = HGB) 12.9 g/dL 12.0-16.0 N HEMATOCRIT (test code = HCT) 39.9 % 37.0-47.0 N MEAN CELL VOLUME (test code = 96.4 fL 81.0-99.0 N MCV) MEAN CELL HGB (test code = MCH) 31.2 pg 27-31 H MEAN CELL HGB CONCENTRATION 32.3 G/DL 33-36.5 L (test code = MCHC) RED CELL DISTRIBUTION WIDTH 13.1 % 12.9-16.9 N (test code = RDW) PLATELET COUNT (test code = 304 x10 3/uL 150-440 N PLT) MEAN PLATELET VOLUME (test code 10.5 fL 8.9-12.4 N = MPV) NEUTROPHIL % (test code = NT%) 59.0 % 42.2-75.2 N LYMPHOCYTE % (test code = LY%) 28.5 % 20.5-51.1 N MONOCYTE % (test code = MO%) 9.8 % 1.7-9.3 H EOSINOPHIL % (test code = EO%) 1.9 % 0.0-7.0 N BASOPHIL % (test code = BA%) 0.5 % 0-2.5 N NEUTROPHIL # (test code = NT#) 4.31 x10 3/uL 1.80-7.70 N LYMPHOCYTE # (test code = LY#) 2.08 x10 3/uL 1.00-4.80 N MONOCYTE # (test code = MO#) 0.72 x10 3/uL 0.00-0.80 N EOSINOPHIL # (test code = EO#) 0.14 x10 3/uL 0.00-0.45 N BASOPHIL # (test code = BA#) 0.04 x10 3/uL 0.0-0.20 N BASIC METABOLIC [id number] 16:10:00 Test Item Value Reference Range Interpretation Comments SODIUM (test code 140 mmol/L 136-145 N = NA) POTASSIUM (test 5.4 mmol/L 3.5-5.1 H code = K) CHLORIDE (test 105 code = CL) CARBON DIOXIDE 27 mmol/L 20-31 N (test code = CO2) GLUCOSE (test code 100 ng/dL 74-106 N = GLU) BLOOD UREA 8 mg/dL 9-23 L NITROGEN (test code = BUN) GLOMERULAR >=60 max >60 The Glomerular FILTRATION RATE estimate mL/min Filtratio n Rate is a (test code = GFR) calculated parameterbased on serum Creatinin e, patient age and sex. GFR valuesless than 60 mL/min/1.73 square meters are lisette cative ofChronic Kidne y Disease. Values less than 15 mL/min/1.73squa re meters indicate Kidney failure. The calculation for GFR is based on the CK D-EPI (2020) calculat ion. This formulais race indifferent and is the recommended formula for GFR by the National Kidney Foundation for Adults.The GFR will not calculate i f the sex is unknown or if thepatient's ag e is <18 years. CREATININE (test 0.70 mg/dL 0.55-1.02 N code = CREAT) CALCIUM (test code 8.9 mg/dL 8.7-10.4 N = CA) - XR ABDOMEN [id number] 15:25:00 [facility] : 1945 Sex: FPatient Name: BRYANNA HERNANDEZ Unit No: [id number] EXAMS: CPT CODE: [id number] XR ABDOM EN 1V 57795 EXAMINATION: - XR ABDOMEN 1V. LOCATION: H39. HISTORY: constipation, discomfort. COMPARISON: None. TECHNIQUE: Single AP view of the abdomen was obtained. FINDINGS: Bowel gas pattern is normal. Multiple pelvic phleboliths are present. Left hip arthroplasty is seen. There has been prior left SI joint fusion. Severe joint space narrowing and marginal osteophyte formation are seen at the right femoroacetabular joint. Remote T12 compression fracture is present. IMPRESSION: No acute abdominalabnormality is identified. at 1525 Reported and signed by: MEME CASTILLO M.D. CC: Sang Figueroa MD; Parvez Baez MD Technologist: Reza Shay Time: DAP (Gy m2): Air Kerma (mGy): Trscr Dt/Tm: 11/02/2022 (1525) by:[email or web address] Printed Date/Time: 11/02/2022 (1528) Name: BRYANNA HERNANDEZ [facility] Phys: COFST - Sang Figueroa MD [address] : 1945 Age: 77 Sex: [place] [address] Loc: P.ERS Exam Date: 11/02/2022 Status: REG ER PH: FAX: PAGE 1 Signed ReportSurgical pathology [id number] 22:44:49 Test Item Value Reference Range Interpretation Comments Case number (test code = [id number]) Surgical pathology See link below for report (test code = PDF Lab Report [id number]) Result status (test code This is Final Report = [id number]) [id number] [facility] [id number] 02:26:00 Test Item Value Reference Range Interpretation Comments Urine culture Mixed moira Specimen isolate (test <=10-3 col/cc InformationSp ecimen code = 21461-6) Source: Urin eSpecimen Site: Clean cat [facility] [id number] 22:46:25 Test Item Value Reference Range Interpretation Comments Ventricular rate (test 84 code = 253) Atrial rate (test code = 84 255) AL interval (test code = 176 266) QRSD interval (test code 86 = 260) QT interval (test code = 378 264) QTC interval (test code 446 = 265) P axis 1 (test code = 60 267) QRS axis 1 (test code = -43 268) T wave axis (test code = 41 270) EKG impression (test Normal sinus code = 273) rhythm-Left axis deviation-Low voltage QRS-RSR' pattern in V1--No previous ECGs available-Electronica lly Signed By Alka Gregory MD ([id number]) on 02/13/2022 5:46:22 PM [facility] ([facility]OVID-19) RNA [Presence] in Respiratory specimen by MARGARITA with probe [id number] 08:47:48 Test Item Value Reference Range Interpretation Comments SARS-CoV-2 (COVID-19) RNA [Presence] Detected in Respiratory specimen by MARGARITA with probe detection (test code = 71060-3) Whether patient is employed in a Unknown healthcare setting (test code = 08297-5) Whether the patient has symptoms Unknown related to condition of interest (test code = 66567-6) Whether the patient was hospitalized Unknown for condition of interest (test code = 35756-2) Whether the patient was admitted to Unknown intensive care unit (ICU) for condition of interest (test code = 03685-8) Whether patient resides in a Unknown congregate care setting (test code = 61341-3) status (test code = Unknown 89520-9) Date and time of symptom onset (test Unknown code = 89534-5) [facility] H[facility] 3 VW [id number] 20:02:35 No acute bony abnormality. Total left [...] Results Inft User - 02/12/2021 3:03 PM CDTFormatting of this note mightbe different from the original.EXAM: XR HIPS 3 VW LEFTHISTORY: hip pain COMPARISON: None.FINDINGS:Rad iographs of the left hip demonstrate total hip arthroplasty changes aswell as screw fixation at the sacroiliac joint. Alignment of the hardwareappears appropriate without paralleling lucencies. No definite hardwarecomplication is seen. Severe right hip osteoarthrosis is partiallyvisualized. Diffuse osteopenia is seen. IMPRESSIONNo acute bony abnormality.Total left hip arthroplasty changes as well as screw fixation at the leftsacroiliac joint without definite hardware complication.Severe right hip osteoarthrosis.Preliminary Report Dictated by Resident: Odette Tuttle MD., have reviewed this study and agree with the abovereport.[facility]LE 3+ VW [id number] 19:28:15 No acute fracture or malalignment of the left ankle. RL: 53094UUJ: 06574 End of Report ORDERING PROVIDER: JERSEY VO HISTORY: ?anklepain TECHNIQUE: AP, oblique, and lateral views left ankle Technical Quality: Adequate COMPARISON: None FINDINGS: Anatomic alignment is maintained. No acute fracture is identified. Thetalar dome appearsintact. Soft tissues are within normal limits. Noevidence of tibiotalar joint effusion. [facility], Radiant Results Inft User - 02/12/2021 2:29 PM CDT ORDERING PROVIDER: FLORENTIN VOHISTORY: ankle pain TECHNIQUE: AP, oblique, and lateral views left ankle Technical Quality: AdequateCOMPARISON: NoneFINDINGS: Anatomic alignment is maintained. No acute fracture is identified. Thetalar dome appears intact. Soft tissues are within normal limits. Noevidence of tibiotalar joint effusion.IMPRESSIONNo acute fracture or malalignment of the left ankle.RL:44157HHQ: 81055Xth of Report UnCHRISTUS [facility] BeevilleXR SHOULDER 2+ VW [id number] 19:22:34 1. ?Degenerative changes. RL: 1105 HISTORY: ?shoulder pain COMPARISON: ?None FINDINGS: 2 views right shoulder. Prior screw and plate fixationof a mid clavicular fracture noted. The acromioclavicular joint shows osteophyte formation. Degenerative changes seen in the glenohumeral joint. There is narrowing ofsubacromial space consistent with arotator cuff tear. [facility], Radiant Results Inft User - 02/12/2021 2:23 PM CDT HISTORY: shoulder pain COMPARISON: NoneFINDINGS:2 views right shou lder.Prior screw and plate fixation of a mid clavicular fracture noted.The acromioclavicular joint shows osteophyte formation.Degenerative changes seen in the glenohumeral joint. There is narrowing ofsubacromial space consistent with a rotator cuff tear.IMPRESSION1. Degenerative changes.RL: 1105 [facility] HEAD/BRAIN W/O [id number] 14:46:00 [facility] : 1945 Sex: FPatient Name: BRYANNA HERNANDEZ Unit No: [id number] EXAMS: CPT CODE: [id number] CT HEAD/ BRAIN W/O CONT 10922 CT SCAN OF THE HEAD WITHOUT CONTRAST: DICTATION LOCATION: A1 HISTORY: Head injury. TECHNIQUE: Unenhanced axial images were obtained through the head. All CT scans are performed using radiation dose reduction techniques. Technical factors are evaluated and adjusted to ensure appropriate moderation of exposure. Automated dose management technology is applied to adjust the radiationdose to minimize exposure while achieving a diagnostic- quality image. No prior exams are available for [...] CTDI: 38.48 DLP: 707 Trscr Dt/Tm: 07/28/2020 (8476) by:Tanja Printed Date/Time: 07/28/2020 (6596) Name: BRYANNA HERNANDEZ [facility] Phys: Ankit Gibson MD [address] : 1945 Age: 75 Sex: [place] [address] Loc: P.ERS Exam Date: 07/28/2020 Status: REG ER PH: FAX: PAGE 1 Signed Report- XR FOREARM 2 VIEWS [id number] 14:32:00 [facility] : 1945 Sex: FPatient Name: BRYANNA HERNANDEZ Unit No: [id number] EXAMS: CPT CODE: [id number] XR FOREA RM [address] [place] [address] Left forearm 2 views 07/28/2020 CLINICAL HISTORY: [...] Trscr Dt/Tm: 07/28/2020 (1432) by:[email or web address] Printed Date/Time: 07/11 (4814) Name: BRYANNA HERNANDEZ [facility] Phys: Ankit Gibson MD [address] : 1945 Age: 75 Sex: [place] [address] Loc: P.ERS Exam Date: 07/28/2020 Status: REG ER PH: FAX: PAGE 1 Signed [id number] 16:20:00 Test Item Value Reference Range Interpretation Comments CKMB (test code = 1.21 ng/mL 0.97-3.77 N INTERPRETA TIVE CKMBT) DATA:Negative o r inconclusive re sults do not exclude myocardialinfar ction. Serial tests at appropriate int ervals may benecessary. [id number] 12:44:00 Test Item Value Reference Range Interpretation Comments TROPONIN-I (test < 0.30 ng/mL 0.00-0.30 N INTERPRETAT VASU code = TROPI) DATA:Negative or inconclusive re uslts do not exclude myocardialinfar ction. Serial tests at appropriate int ervals may benecessary. - CTA CHEST FOR [id number] 21:15:00 [facility] : 1945 Sex: FPatient Name: BRYANNA HERNANDEZ Unit No: [id number] EXAMS: CPT CODE: [id number] [place] [address] LOCATION: R16 EXAM: CTA CHEST WITH CONTRAST, [...] The trachea is patent.. The pleura is unremar kable. Linear atelectasis/scarring is appreciated at the lung bases. There is no focal consolidation. No pulmonary mass is present. There is no pleural effusion or pneumothorax. Bones: There is no acute osseous abnormality..There is a moderate anterosuperior compression deformity at T12 with 3.4 mm bony retropulsion. Abdomen: The visualized portions of the upper abdomen is unremarkable. IMPRESSION: No evidence for pulmonary artery embolism. Bibasilar subsegmental atelectasis/linear scarring. FfoawyiS81 compression deformity. at 2114 Reported and signed by: JOSE FELICIANO M.D. CC: Sang Figueroa MD; Parvez Baez MD Technologist: Stefanie Charlton (CT),(MR) CTDI: 19.54 DLP: 359.6 Trscr Dt/Tm: 06/27/2020 (2114) by:[email or web address] Printed Date/Time: 06/27/2020 (2118) Name: DAVIDBRYANNA KELSIE [facility] Phys: Sagn Martins MD [address] : 1945 Age: 75 Sex: [place] [address] Loc: P.0733 1 Exam Date: 06/27/2020 Status: ADM IN PH: FAX: PAGE 1 Signed [id number] 19:54:00 Test Item Value Reference Range Interpretation Comments TROPONIN-I (test < 0.30 ng/mL 0.00-0.30 N INTERPRETAT VASU code = TROPI) DATA:Negative or inconclusive re uslts do not exclude myocardialinfar ction. Serial tests at appropriate int ervals may benecessary. [id number] 19:37:00 Test Item Value Reference Range Interpretation [...] STS AND APPROPRIATECLIN ICAL EVALUATIONS. B-TYPE NATRIURETIC [id number] 19:27:00 Test Item Value Reference Range Interpretation Comments B-TYPE NATRIURETIC PEPTIDE (test 30.4 PG/ML 0-100 N code = BNP) COMPREHENSIVE METABOLIC [id number] 19:25:00 Test Item Value Reference Range Interpretation [...] PHOSPHATASE (test code = ALKP) CBC W/AUTO [id number] 18:57:00 Test Item Value Reference Range Interpretation [...] 3/uL 0.0-0.20 N - XR CHEST 1 [id number] 18:39:00 [facility] : 1945 Sex: FPatient Name: BRYANNA HERNANDEZ Unit No: [id number] EXAMS: CPT CODE: [id number] XR CHEST 1 V 70930 STUDY: Chest radiograph HISTORY: Chest pain COMPARISON: 1120 TECHNIQUE: Frontal view of the chest. SITE: R16 FINDINGS: The cardiac silhouette is unremarkable. The ascending aorta appears tortuous/ectatic.There is no focal consolidation, pleural effusion, or pneumothorax. No acute osseous abnormalities are identified. Plate and screw fixation of the right clavicle is noted. IMPRESSION: No radiographic evidence for acute pulmonary abnormality. at 1839 Reported and signed by: JOSE FELICIANO M.D. CC: Mina Del Valle MD; Parvez Baez MD Technolo gist: Jazmine Monterroso Fluoro Time: DAP (Gy m2): Air Kerma (mGy): Trscr Dt/Tm: 06/27/2020 (183) by:[email or web address] Printed Date/Time: 06/27/2020 (184) Name: BRYANNA HERNANDEZ [facility] Phys: CHECH.Mina Brar MD [address] : 1945 Age: 75 Sex: [place] [address] Acct No: [id number] Loc: P.ERS Exam Date: 06/27/2020 Status: REG ER PH: FAX: PAGE 1 Signed Report- CT C-SPINE W/O [id number] 10:08:00Patient Name: BRYANNA HERNANDEZ Unit No: [id number] EXAMS: CPT CODE: [id number] CT C-SPINE W/O CONT 72235 CT cervical spine without contrast Location Code: B2 Clinical history: fall, trauma COMPARISON: None. COMMENTS: Helical CT of the cervical spine was performed and submitted as thin section axial, coronal, and sagittally oriented images. CT imaging performed at this location utilizes radiation doseoptimization techniques which include one or more of [...] Printed Date/Time: 03/21/2020 (1011) Name: BRYANNA HERNANDEZ [facility] Phys: Sang Martins MD [address] : 1945 Age: 74 Sex: [place] [address] Loc: P.ERS Exam Date: 03/21/2020 Status: REG ER PH: FAX: PAGE 1 Signed Report- XR SHOULDER 2 + V [id number] 09:45:00Patient Name: BRYANNA HERNANDEZ Unit No: [id number] EXAMS: CPT CODE: [id number] XR SHOULDER 2 + V RT [address]679 Exam:Right shoulder x-rays 3 views Location: W1 Clinical Indication:74-year-old with fall injuryand trauma Comparison:None Findings:3 views of the right [...] Air Kerma (mGy): Trscr Dt/Tm: 03/21/2020 (0945) by:[email or web address] Date/Time: 03/21/2020 (49) Name: DAVIDBRYANNA [facility] Phys: WEN Sang Figueroa MD [address] : 1945 Age: 74 Sex: [place] [address] : P.ERS Exam Date: 03/21/2020 Status: REG ER PH: FAX: PAGE 1 Signed Report- XR CHEST 1 V 2020-03-21 09:44:00Patient Name: BRYANNA HERNANDEZ Unit No: [id number] EXAMS: CPT CODE: [id number] XR CHEST 1 V 95088 EXAM: Portable chest one view. Location code:J9 HISTORY: Dyspnea COMPARISON: 09/26/2015 COMMENT: . The lungs and pleural spaces are clear. Lungs are normally expanded. The aorta, pulmonary vasculature and mediastinum are within normal limits. Cardiac silhouette is normal in size and contour. Visualized skeletal structures are unremarkable. IMPRESSION: No active disease in the chest. at 0944 Reported and signed by: QIANA OLMEDO M.D. CC: Sang augustin MD; Parvez Baez MD Technologist: Hipolito Shay Time: DAP (Gy m2): Air Kerma (mGy): Trscr Dt/Tm: 03/21/2020 (0944) by:[email or web address] Printed Date/Time: 03/21/2020 (48) Name: MINESH HERNANDEZ [facility] Phys: Sang Martins MD [address] : 1945 Age: 74 Sex: [place] [address] Loc: HerlindaERS Exam Date: 03/21/2020 Status: REG ER PH: FAX:PAGE 1 Signed Report Notes Date/Time Note Provider Source 2022-11-04 11:00:00-00:00 [facility] ([facility]) Internal Med. D/C Summary REPORT #: [id number] REPORT STATUS: Signed DATE: 11/04/22 TIME: 1100 PATIENT: BRYANNA HERNANDEZ UNIT #: [id number] ROOM #: P.0618 BED: 1 : 46 AGE: 77 SEX: F ATTEND: Galileo Baez MD ADM AUTHOR: Parvez Baez MD ATTENTION *EDITS and/or ADDENDA must be made in Patient Ke eper for this note. * * Edits and ammendments created in [facility] are not visible * * in Patient Keeper or the legal medical record (HPF). * -- PROBLEMS/PROCEDURES -- ADMISSION DATE: 11/02/22 ADMITTING DIAGNOSES: - Constipation - Gait instability - GERD (gastroesophageal reflux disease) - Hyperkalemia - Iron deficiency - Lumbar stenosis DISCHARGE DATE: 11/04/22 DISCHARGE DIAGNOSES: - Constipation - Gait instability - GERD (gastroesophageal reflux disease) - Hyperkalemia - Iron deficiency - Lumbar stenosis -- HOSPITAL COURSE -- HOSPITAL COURSE: Patient reports of severe ab dominal pain. She has not had a bowel movement in a week time. History of back/ hip pain on chronic opiod therapy. She feels mildly nauseated, poor appetite. Patient was admitted, enema was performed and patient nausea subsided. Patient was noted to have low iron levels and wa s given IV iron infusion. -- DISCHARGE MEDICATIONS -- ALLERGIES: No Known Allergies (UNKNOWN - Allergy) DISCHARGE MEDICATIONS: Please refer to Discharge Medication list for a complete list of discharge medications Aller-Chlor tablet (chlorpheniramine maleate) 4 MG PO Q6H PRN allergies HYDROmorphone tablet 4 MG PO Q8H PRN pain Losartan Tab (Cozaar Tab) 100 MG PO DAILY Nystatin Powder (Mycostatin Powder) 1 APPLIC Top ical BID Omeprazole 20 MG PO DAILY Pravastatin Tab (Pravachol Tab) 40 MG PO DAILY Senna/Docusate Tab (Senokot S Tab) 1TAB PO BID, Disp: 60 tablet, Refills: 0 tiZANidine tablet 4 MG PO Q6H Xanax tablet (alprazolam) 2 MG PO BEDTIME Zolpidem Tab (Ambien Tab) 5 MG PO BEDTIME -- DISCHARGE INSTRUCTIONS -- PK DISCHARGE ORDERS: DC - ALL eCQMS Details: Order number: [id number] Category: PKDC - PK DISCHARGE ORDERS Order status: Transmitted Details: Does patient have any of the following condition s at discharge? None Ordered by: Parvez Baez MD Nov 03, 2022 5:00 pm Entered by: Parvez Baez MD Service date: Nov 03, 2022 4:59pm Details: Order number: [id number] Category: PKDC - PK DISCHARGE ORDERS Order status: Transmitted Details: Discharge Parameters: Procedures Procedure: Therapy complete/arranged Discharge order with parameter: Yes Notify attending when discharge parameter met: N o Discharge to: Home Health wPlan of Care Diet: Resume Home Diet/Feeds PCP: VIJAY:Parvez Baez MD PCP follow up timeframe: In 1-2 weeks Additional Discharge Routines: PCP Follow-Up Ordered by: Parvez Baez MD Nov 03, 2022 5:00 pm Entered by: Parvez Baez MD Service date: Nov 03, 2022 4:59pm Discharge Sd w/instruction:PKDC - PK DISCHARG E ORDERS ADDTIONAL DISCHARGE INSTRUCTIONS: Emergency Instructions: The patient was instruct ed to present to the nearest Emergency Department or call 911 should their sy mptoms return or worsen.; -- OBJECTIVE -- VITALS (11/04 07:48 - 11/05 07:48): Temperature C: 37.1 Temperature source: Oral Pulse Rate 86 (84 - 86) Respiratory rate: 18 BP: 147/81 I/Os (11/04 07:00 - 11/05 07:00): Net 420 Intake 420 -EXAM- GENERAL: chronically ill looking HEAD: Normocephalic, atraumatic. NOSE: No deformity, no discharge, no inflammatio n, no lesions. MOUTH: Oropharynx without deformities or lesions , normal mucosa.. LUNGS: Clear bilaterally with normal respirator y effort. HEART: Regular rate and rhythm, normal S1, S2, n o murmurs, no rubs, no gallops, no clicks. ABDOMEN: Soft, non-tender, no organomegaly, no m asses noted. MUSCULOSKELETAL: tender back EXTREMITIES: No clubbing, no cyanosis, no edema. NEUROLOGICAL: gait poor, slow -- ATTESTATION -- TIME SPENT ON PATIENT CARE: - Direct 35 minutes - Coordination of care - > 50% of time spent on Counseling/Care Coordi nation CARE ACTIVITIES / CARE COORDINATION: - I have seen and examined this patient - I have reviewed the progress in the clinical course since the last examination - I have discussed the cody ent's condition with other members of the care team Signed in PatientKeeper by Parvez Baez MD o n 11/05/22 at 07:50 at 0750 ATTENTION *EDITS and/or ADDENDA must be made in Patient Ke eper for this note. * * Edits and ammendments created in [facility] are not visible * * in Patient Keeper or the legal medical record (HPF). * [facility] #: [id number] END OF REPORT 2022-11-03 16:59:00-00:00 [facility] ([facility]) Med Order Sheet REPORT #: [id number] REPORT STATUS: Signed DATE: 11/03/22 TIME: 1658 PATIENT: BRYANNA HERNANDEZ UNIT #: [id number] ROOM #: P.0618 BED: 1 : 46 AGE: 77 SEX: F ATTEND: Galileo Baez in Albert HINDS ADM AUTHOR: Parvez Baez MD ATTENTION *EDITS and/or ADDENDA must be made in Patient Ke eper for this note. * * Edits and ammendments created in [facility] are not visible * * in Patient Keeper or the legal medical record (HPF). * Discharge Medication Reconciliation DISCHARGE MEDICATION LIST Aller-Chlor tablet (chlorpheniramine maleate) Dose: 4 MG PO Q6H PRN allergies HYDROmorphone tablet Dose: 4 MG PO Q8H PRN pain Losartan Tab (Cozaar Tab) Dose: 100 MG PO DAILY Nystatin Powder (Mycostatin Powder) Dose: 1 APPLIC Topical BID Omeprazole Dose: 20 MG PO DAILY Pravastatin Tab (Pravachol Tab) Dose: 40 MG PO DAILY tiZANidine tablet Dose: 4 MG PO Q6H Xanax tablet (alprazolam) Dose: 2 MG PO BEDTIME Zolpidem Tab (Ambien Tab) Dose: 5 MG PO BEDTIME Senna/Docusate Tab (Senokot S Tab) Dose: 1TAB PO BID, Disp: 60 tablet, Refills: 0 STOPPED HOSPITAL MEDICATIONS Dc'd: Acetaminophen Tab (Tylenol Tab) 650MG PO Q 6H PRN temp greater than 100.5f/38.1cDc'd: DULoxetine DR Cap (Cymbalta Ca p) 30MG PO BEDTIMEDc'd: DULoxetine DR Cap (Cymbalta Cap) 60MG PO DAILYDc 'd: guaiFENesin Oral Liquid (Robitussin Oral Liquid) 100MG PO Q4H PRN coughD c'd: hydrALAZINE Inj (Apresoline Inj) 5MG IV Q2H PRN sbp greater than 150Dc'd: Mag/Al/Simeth Oral Liquid (Maalox Max Oral Liquid) 30ML PO Q4H PRN indigestion/heartburnDc'd: Nitroglycerin SL Tab (Nitrostat SL Tab) 0.4MG SL Q5M PRN chest painDc'd: Ondansetron Inj (Zofran Inj) 4MG IV Q6H PRN naus ea and vomitingDc'd: Psyllium Packet (Metamucil Packet) 1PKT PO BIDDc'd: Simet hicone Chew Tab (Mylanta Gas Chew Tab) 160MG PO Q6H PRN gasDc'd: Sodium Kaushik c Gluconate Inj (Nulecit Inj) 250MG 125 MLS/HR IV DAILY X 1 dosesin sodiu m chloride 0.9 % intravenous solution 250ML at 1659 ATTENTION *EDITS and/or ADDENDA must be made in Patient Ke [facility] for this note. * * Edits and ammendments created in [facility] are not visible * * in Patient Keeper or the legal medical record ([facility]). * RPT #: [id number] END OF REPORT 2022-11-03 16:54:00-00:00 [facility] ([facility]) Internal Med. Progress Note REPORT #: [id number] REPORT STATUS: Signed DATE: 11/03/22 TIME: 1653 PATIENT: BRYANNA HERNANDEZ UNIT #: [id number] ROOM #: P.[id number] BED: 1 : 46 AGE: 77 SEX: F ATTEND: Galileo Baez MD ADM AUTHOR: Parvez Baez MD ATTENTION *EDITS and/or ADDENDA must be made in Patient [facility] for this note. * * Edits and ammendments created in [facility] are not visible * * in Patient Keeper or the legal medical record ([facility]). * -- ASSESSMENT AND PLAN -- PROBLEMS: 1: Iron deficiency A/P: ferrlicit infusion 2: Gait instability A/P: PT home health SN 3: Constipation A/P: better 4: Hyperkalemia A/P: recheck is better d/c IV hydration 5: Lumbar stenosis A/P: PT/ OT oxycodone 6: GERD (gastroesophageal reflux disease) A/P: PPI -- SUBJECTIVE -- HPI: iron low PATIENT NARRATIVE: + BM -- OBJECTIVE -- VITALS (11/02 16:54 - 11/03 16:54): Temperature F: 98.8 Temperature C: 36.7 (36.4 - 37.0) Temperature source: Oral Pulse Rate 83 (67 - 96) Respiratory rate: 17 (12 - 17) BP: 131/79 (123/70 - 162/86) -EXAM- GENERAL: chronically ill looking HEAD: Normocephalic, atraumatic. NOSE: No deformity, no discharge, no inflammatio n, no lesions. MOUTH: Oropharynx without deformities or lesions , normal mucosa.. LUNGS: Clear bilaterally with normal respiratory effort. HEART: Regular rate and rhythm, normal S1, S2, n o murmurs, no rubs, no gallops, no clicks. ABDOMEN: Soft, non-tender, no organomegaly, no m asses noted. MUSCULOSKELETAL: tender back EXTREMITIES: No clubbing, no cyanosis, no edema. NEUROLOGICAL: gait poor, slow REASON RAYMOND CONTINUED: to facilitate nursing care -- DATA -- MEDICATIONS NITROGLYCERIN 0.4 MG SL Q5M PRN diphenhydrAMINE HCL 25 MG IV Q6H PRN hydrALAZINE HCL 5 MG IV Q2H PRN ONDANSETRON HCL/PF 4 MG IV Q6H PRN PSYLLIUM 1 PKT PO BID PRAVASTATIN SODIUM 40 MG PO DAILY guaiFENesin 100 MG PO Q4H PRN ZOLPIDEM TARTRATE 5 MG PO BEDTIME SENNA/DOCUSATE SODIUM 1 TAB PO BID LOSARTAN POTASSIUM 50 MG PO DAILY HYDROmorphone HCL 4 MG PO Q4H PRN MAG HYDROX/AL HYDROX/SIMETH 30 ML PO Q4H PRN SIMETHICONE 160 MG PO Q6H PRN ACETAMINOPHEN 650 MG PO Q6H PRN PANTOPRAZOLE 40 MG PO DAILY CYCLOBENZAPRINE HCL 10 MG PO TID (PRN) ALPRAZolam 1 MG PO BID PRN DULoxetine HCL 60 MG PO DAILY SOD FERRIC GLUC COMPLX/SUCROSE with/in SODIUM CH LORIDE 0.9% 250 MG IV DAILY DULoxetine HCL 30 MG PO BEDTIME LABS CBC W/AUTO DIFF (11/03/22 10:18) WHITE BLOOD CELL 6.1 RED BLOOD CELL 4.26 HEMOGLOBIN 13.0 HEMATOCRIT 41.3 MEAN CELL VOLUME 96.9 MEAN CELL HGB 30.5 MEAN CELL HGB CONCENTRATION 31.5 L RED CELL DISTRIBUTION WIDTH 13.1 PLATELET COUNT 313 MEAN PLATELET VOLUME 9.4 NEUTROPHIL % 57.2 LYMPHOCYTE % 30.0 MONOCYTE % 9.0 EOSINOPHIL % 3.3 BASOPHIL % 0.5 NEUTROPHIL # 3.52 LYMPHOCYTE # 1.84 MONOCYTE # 0.55 EOSINOPHIL # 0.20 BASOPHIL # 0.03 BASIC METABOLIC PANEL (11/03/22 10:18) SODIUM 142 POTASSIUM 3.7D D CHLORIDE 106 CARBON DIOXIDE 30 GLUCOSE 104 BLOOD UREA NITROGEN 9 GLOMERULAR FILTRATION RATE >=60 max estimate CREATININE 0.70 CALCIUM 9.1 PHOS (11/03/22 10:18) PHOSPHOROUS 3.5 IRON (11/03/22 10:18) IRON 43 L FERRITIN (11/03/22 10:18) FERRITIN 18.9 -- ATTESTATION -- TIME SPENT ON PATIENT CARE: - Direct 35 minutes - Coordination of Care - > 50% of time spent on Counseling/Care Coordi nation CARE ACTIVITIES / CARE COORDINATION: - I have seen and examined this patient - I have reviewed the progress in the clinical course since the last examination - I have discussed the cody ent's condition with other members of the care team Signed in PatientKeeper by Parvez Baez MD 11/03/22 at 16:57 at 1657 ATTENTION *EDITS and/or ADDENDA must be made in Patient Ke eper for this note. * * Edits and ammendments created in Leo are not visible * * in Patient Keeper or the legal medical record (HPF). * [facility] #: [id number] END OF REPORT 2022-11-02 21:32:00-00:00 [facility] ([facility]) Med Order Sheet REPORT #: [id number] REPORT STATUS: Signed DATE: 11/02/22 TIME: 2131 PATIENT: BRYANNA HERNANDEZ UNIT #: [id number] ROOM #: [facility] BED: 3 : 46 AGE: 77 SEX: F ATTEND: Galileo Baez MD ADM AUTHOR: Parvez Baez MD ATTENTION *EDITS and/or ADDENDA must be made in Patient Ke eper for this note. * * Edits and ammendments created in Leo are not visible * * in Patient Keeper or the legal medical record (HPF). * Admission Medication Reconciliation -- CONTINUED / CHANGED HOME MEDICATIONS -- Home: HYDROmorphone tablet 4 MG PO Q4H PRN pain Hosp: HYDROmorphone Tab (Dilaudid Tab) 4 MG PO Q 4H PRN pain 7-10 FOLLOWING MEDICATIONS WERE PREVIOUSLY RECONC ILED ON 11/02/22 17:34 by Parvez Baez MD -- CONTINUED / CHANGED HOME MEDICATIONS -- Home: DULoxetine Cap.DR (Cymbalta Cap) 60 MG PO DAILY (30 MG BEDTIME) Hosp: Existing: DULoxetine DR Cap (Cymbalta Cap) 60 MG PO DAILY - 30 MG BEDTIME Home: Losartan Tab (Cozaar Tab) 50 MG PO DAILY Hosp: Existing: Losartan Tab (Cozaar Tab) 50 MG PO DAILY Home: Nexium cpDR (esomeprazole magnesium) 40 MG PO DAILY Hosp: Existing: Nexium cpDR (esomeprazole magnes ium) 40 MG PO DAILY Home: oxyCODONE/APAP 5/325 Tab (Percocet 5/325 T ab) 2 TAB PO Q6H PRN pain Hosp: Existing: oxyCODONE/APAP 5/325 Tab (Percoc et 5/325 Tab) 1 TAB PO Q6H PRN pain 7-10 Home: Pravastatin Tab (Pravachol Tab) 40 MG PO D AILY Hosp: Existing: Pravastatin Tab (Pravachol Tab) 40 MG PO DAILY Home: tiZANidine tablet 4 MG PO Q6H Hosp: Existing: tiZANidine tablet 4 MG PO Q6H AL N muscle spasms Home: Xanax tablet (alprazolam) 2 MG PO BEDTIME Hosp: Existing: ALPRAZolam Tab (Xanax Tab) 1MG P O BID PRN anxiety Home: Zolpidem Tab (Ambien Tab) 5 MG PO BEDTIME Hosp: Existing: Zolpidem Tab (Ambien Tab) 5 MG P O BEDTIME at 2132 ATTENTION *EDITS and/or ADDENDA must be made in Patient Ke eper for this note. * * Edits and ammendments created in [facility] are not visible * * in Patient Keeper or the legal medical record (HPF). * RPT #: [id number] END OF REPORT 2022-11-02 17:37:00-00:00 [facility] ([facility]) Med Order Sheet REPORT #: [id number] REPORT STATUS: Signed DATE: 11/02/22 TIME: 1737 PATIENT: BRYANNA HERNANDEZ UNIT #: [id number] [facility] : 46 AGE: 77 SEX: F ATTEND: Galileo Baez in X ADM AUTHOR: Parvez Baez MD ATTENTION *EDITS and/or ADDENDA must be made in Patient Ke eper for this note. * * Edits and ammendments created in Leo are not visible * * in Patient Keeper or the legal medical record (HPF). * Admission Medication Reconciliation -- CONTINUED / CHANGED HOME MEDICATIONS -- Home: DULoxetine Cap.DR (Cymbalta Cap) 60 MG PO DAILY (30 MG BEDTIME) Hosp: DULoxetine DR Cap (Cymbalta Cap) 60 MG PO DAILY - 30 MG BEDTIME Home: Losartan Tab (Cozaar Tab) 50 MG PO DAILY Hosp: Losartan Tab (Cozaar Tab) 50 MG PO DAILY Home: Nexium cpDR (esomeprazole magnesium) 40 MG PO DAILY Hosp: Nexium cpDR (esomeprazole magnesium) 40 MG PO DAILY Home: oxyCODONE/APAP 5/325 Tab (Percocet 5/325 T ab) 2 TAB PO Q6H PRN pain Hosp: oxyCODONE/APAP 5/325 Tab (Percocet 5/325 T ab) 1 TAB PO Q6H PRN pain 7-10 Home: Pravastatin Tab (Pravachol Tab) 40 MG PO D AILY Hosp: Pravastatin Tab (Pravachol Tab) 40 MG PO D AILY Home: tiZANidine tablet 4 MG PO Q6H Hosp: tiZANidine tablet 4 MG PO Q6H PRN muscle s pasms Home: Xanax tablet (alprazolam) 2 MG PO BEDTIME Hosp: ALPRAZolam Tab (Xanax Tab) 1MG PO BID PRN anxiety Home: Zolpidem Tab (Ambien Tab) 5 MG PO BEDTIME Hosp: Zolpidem Tab (Ambien Tab) 5 MG PO BEDTIME at 1737 ATTENTION *EDITS and/or ADDENDA must be made in Patient Ke eper for this note. * * Edits and ammendments created in [facility] are not visible * * in Patient Keeper or the legal medical record (HPF). * RPT #: [id number] END OF REPORT 2022-11-02 17:37:00-00:00 [facility] ([facility] Internal Med. H P REPORT #: [id number] REPORT STATUS: Signed DATE: 11/02/22 TIME: 1736 PATIENT: BRYANNA HERNANDEZ UNIT #: [id number] ROOM #: [facility] BED: 3 : 46 AGE: 77 SEX: F ATTEND: Galileo Baez MD ADM AUTHOR: Parvez Baez MD ATTENTION *EDITS and/or ADDENDA must be made in Patient Ke eper for this note. * * Edits and ammendments created in [facility] are not visible * * in Patient Keeper or the legal medical record (HPF). * -- HISTORY -- ADMISSION DATE: 2022-11-02 PRIMARY CARE PROVIDER: Parvez Baez MD CHIEF COMPLAINT: abdominal pain HPI: Patient reports of severe abdominal pain. She mendez s not had a bowel movement in a week time. History of back/ hip pain on chroni c opiod therapy. She feels mildly nauseated, poor appetite. On OP labs she had low iron stores and we starte d PO iron which she says is constitpating for her. PAST MEDICAL HISTORY: 1. Hypertension. 2. Hypercholesterolemia. 3. Gastroesophageal reflux disease. 4. Chronic back pain. 5. Anxiety and depression. 6. Arthritis. 7. anemia 8. iron deficiency PAST SURGICAL HISTORY: Lower back surgery. hip surgery FAMILY HISTORY: NC -SOCIAL HISTORY- ADDITIONAL SOCIAL HISTORY: Nonsmoker, nonalcoholic beverage drinker. -- ALLERGIES/HOME MEDS -- ALLERGIES: No Known Allergies (UNKNOWN - Allergy) HOME MEDICATIONS: DULoxetine Cap.DR (Cymbalta Cap) 60 MG PO DAILY Losartan Tab (Cozaar Tab) 50 MG PO DAILY Nexium cpDR (esomeprazole magnesium) 40 MG PO DA KATY oxyCODONE/APAP 5/325 Tab (Percocet 5/325 Tab) 2 TAB PO Q6H Pravastatin Tab (Pravachol Tab) 40 MG PO DAILY tiZANidine tablet 4 MG PO Q6H Xanax tablet (alprazolam) 2 MG PO BEDTIME Zolpidem Tab (Ambien Tab) 5 MG PO BEDTIME -- SUBJECTIVE -- -REVIEW OF SYSTEMS- GENERAL: frail, old EYES: Negative for blurry vision. No diplopia. RESPIRATORY: Negative for dyspnea or wheeze. No cough. CARDIOVASCULAR: Negative for chest pain or palpi tations. No extremity swelling. MUSCULOSKELETAL: Negative for joint stiffness, p ain, or arthralgias. SKIN: Negative for rashes. No pruritus. NEUROLOGICAL: Negative for headache. No vertigo. Denies paresthesias. PSYCHIATRIC: Negative for specific complaints. ENDOCRINE: Negative for cold intolerance, heat i ntolerance, polyphagia, polydipsia, polyuria, weight change , fatigue. -- OBJECTIVE -- VITALS (11/01 17:37 - 11/02 17:37): Temperature F: 98.2 Temperature source: Oral Pulse Rate 78 (78 - 94) Respiratory rate: 18 BP: 146/71 (137/71 - 146/85) Blood pressure source: Monitor -EXAM- GENERAL: chronically ill looking HEAD: Normocephalic, atraumatic. NOSE: No deformity, no discharge, no inflammatio n, no lesions. MOUTH: Oropharynx without deformities or lesions , normal mucosa.. LUNGS: Clear bilaterally with normal respiratory effort. HEART: Regular rate and rhythm, normal S1, S2, n o murmurs, no rubs, no gallops, no clicks. ABDOMEN: Soft, non-tender, no organomegaly, no m asses noted. MUSCULOSKELETAL: tender back EXTREMITIES: No clubbing, no cyanosis, no edema. NEUROLOGICAL: gait poor, slow -- DATA -- LABS CBC W/AUTO DIFF (11/02/22 15:35) WHITE BLOOD CELL 7.3 RED BLOOD CELL 4.14 L HEMOGLOBIN 12.9 HEMATOCRIT 39.9 MEAN CELL VOLUME 96.4 MEAN CELL HGB 31.2 H MEAN CELL HGB CONCENTRATION 32.3 L RED CELL DISTRIBUTION WIDTH 13.1 PLATELET COUNT 304 MEAN PLATELET VOLUME 10.5 NEUTROPHIL % 59.0 LYMPHOCYTE % 28.5 MONOCYTE % 9.8 H EOSINOPHIL % 1.9 BASOPHIL % 0.5 NEUTROPHIL # 4.31 LYMPHOCYTE # 2.08 MONOCYTE # 0.72 EOSINOPHIL # 0.14 BASOPHIL # 0.04 BASIC METABOLIC PANEL (11/02/22 15:35) SODIUM 140 POTASSIUM 5.4H H CHLORIDE 105 CARBON DIOXIDE 27 GLUCOSE 100 BLOOD UREA NITROGEN 8L L GLOMERULAR FILTRATION RATE >=60 max estimate CREATININE 0.70 CALCIUM 8.9 -- ASSESSMENT AND PLAN -- PROBLEMS: 1: Constipation A/P: fleet enema tap water enema 2: Hyperkalemia A/P: recheck in am IV hydration for now 3: Iron deficiency A/P: recheck iron levels in am 4: Lumbar stenosis A/P: PT/ OT oxycodone 5: GERD (gastroesophageal reflux disease) A/P: PPI 6: Gait instability A/P: PT -- ATTESTATION -- TIME SPENT ON PATIENT CARE: - Coordination of Care - > 50% of time spent on Counseling/Care Coordi nation CARE ACTIVITIES / CARE COORDINATION: - I have discussed the cody ent's condition with other members of the care team Signed in PatientKeeper by Parvez Baez MD o n 11/02/22 at 17:44 at 1744 ATTENTION *EDITS and/or ADDENDA must be made in Patient Ke eper for this note. * * Edits and ammendments created in [facility] are not visible * * in Patient Keeper or the legal medical record (HPF). * [facility] #: [id number] END OF REPORT 2022-11-02 15:53:00-00:00 [facility] EMERGENCY PROVIDER REPORT REPORT#:[id number] REPORT STATUS: Signed DATE:11/02/22 TIME: 1553 PATIENT: BRYANNA HERNANDEZ UNIT #: [id number] ROOM: [facility] BED: 3 AGE: 77 SEX: F PCP PHYS: Parvez Baez MD SERVICE AUTHOR: Sang Figueroa * ALL edits or amendments must be made on the el ectronic/computer document * HPI-General Illness Free Text HPI Notes Free Text HPI Notes PMH as documented. Includes anemia (on iron supplementation) and chronic pain ( prescribed hydromorphone). Referred to the ED by Dr. Baez, her PCP. Evaluation for anemia with need for iron transfu michelle and constipation. States her last good BM was one week ago. No reported a bdominal pain. General Initial Greet Date/Time 11/02/[address] Parvez Baez Presentation Chief Complaint __ (Need iron transfusion) Hx Obtained From Patient Review of Systems ROS Statements All systems rev neg except as marked. Past Medical History - Adult Stated Complaint "SENT BY [facility] TO GET AN INFU MICHELLE" Allergies Coded Allergies: No Known Allergies (09/01/18) Home Medications Reported Medications Pravastatin (Pravachol) 40 MG PO DAILY Esomeprazole Mag Dr (Nexium) 40 MG PO DAILY Tizanidine 4 MG PO Q6H Oxycodone Hcl/Acetaminophen (Percocet 5/325 Mg) 2 TAB PO Q6H PRN PAIN Alprazolam (Xanax) 2 MG PO BEDTIME Losartan (Cozaar) 50 MG PO DAILY Duloxetine Dr (Cymbalta) 60 MG PO DAILY Zolpidem (Ambien) 5 MG PO BEDTIME Past Medical History: Reports: Arthritis (osteo), Hypertension, Dyslip idemia. Additional Surgical History Hip surgery, lower back surgery Pt reports no Fam Hx pert to chief complaint. Alcohol Use Denies EtOH use Drug Use Denies recreational drugs Smoking status for patients 13 years old or olde r: Unknown,if ever smoked Physical Exam Vital Signs Vital Signs First Documented: Result Date Time Pulse Ox 95 11/02 1443 B/P 137/85 11/02 1443 B/P Mean 102 11/02 144 O2 Delivery Room air 11/02 1442 Temp 36.8 11/02 144 Pulse 94 11/02 1442 Resp 18 11/02 1442 Last Documented: Result Date Time Pulse Ox 95 11/02 144 B/P 137/85 11/02 1442 B/P Mean 102 11/02 144 O2 Delivery Room air 11/02 1442 Temp 36.8 11/02 1442 Pulse 94 11/02 144 Resp 18 11/02 144 Review of Vital Signs Reviewed Physical Exam General/Const General/Const Awake, Alert, No acute distress, Cooperative, Not toxic appearing Ears/Nose/Throat Ears/Nose/Throat Airway patent MS Neck Neck Supple Resp/Chest Respiratory/Chest No respiratory distress Cardiovascular Cardiovascular Regular rhythm, Peripheral circu lation NL Abdomen/GI Abdomen/GI Soft, Non-tender, No distention Skin Skin Color NL, Warm, Dry Neurologic Neurologic Oriented X3, Speech NL, No motor def icits, No sensory deficits Interpretation Diagnostics Lab Results Interpretation Results Laboratory Tests 11/02/22 153: [Embedded Image Not Available] Laboratory Tests: 11/02 1534 Chemistry Sodium (136 - 145 mmol/L) 140 Potassium (3.5 - 5.1 mmol/L) 5.4 H Chloride 105 Carbon Dioxide (20 - 31 mmol/L) 27 BUN (9 - 23 mg/dL) 8 L Creatinine (0.55 - 1.02 mg/dL) 0.70 Glomerular Filtr Rate (>60 mL/min) >=60 max est imate Glucose (74 - 106 ng/dL) 100 Calcium (8.7 - 10.4 mg/dL) 8.9 Hematology WBC (4.8 - 10.8 x10 3/uL) 7.3 RBC (4.20 - 5.40 x10 6/uL) 4.14 L Hgb (12.0 - 16.0 g/dL) 12.9 Hct (37.0 - 47.0 %) 39.9 MCV (81.0 - 99.0 fL) 96.4 MCH (27 - 31 pg) 31.2 H MCHC (33 - 36.5 G/DL) 32.3 L RDW (12.9 - 16.9 %) 13.1 Plt Count (150 - 440 x10 3/uL) 304 MPV (8.9 - 12.4 fL) 10.5 Neut % (Auto) (42.2 - 75.2 %) 59.0 Lymph % (Auto) (20.5 - 51.1 %) 28.5 [place] % (Auto) (1.7 - 9.3 %) 9.8 H Eos % (Auto) (0.0 - 7.0 %) 1.9 Baso % (Auto) (0 - 2.5 %) 0.5 Neut # (Auto) (1.80 - 7.70 x10 3/uL) 4.31 Lymph # (Auto) (1.00 - 4.80 x10 3/uL) 2.08 [place] # (Auto) (0.00 - 0.80 x10 3/uL) 0.72 Eos # (Auto) (0.00 - 0.45 x10 3/uL) 0.14 Baso # (Auto) (0.0 - 0.20 x10 3/uL) 0.04 Recent Impressions: RADIOLOGY - XR ABDOMEN 1V 11/02 1430 Report Impression - Status: SIGNED Entered: 11/02/2022 1528 IMPRESSION: No acute abdominal abnormality is identified. Impression By: Teri CASTILLO M.D. Lab Imaging Statement Laboratory radiographic studies reviewed and con sidered in the medical decision-making. Re-Evaluation MDM Free Text MDM Notes Free Text MDM Notes Case d/w Dr. Baez. Will place in observation to manage her anemia and for inpatient bowel regimen give n concern for worsening constipation and history of chronic pain with significant opiate prescriptio ns. Patient Discharge Departure Vital Signs/Condition Vital Signs First Documented: Result Date Time Pulse Ox 95 11/02 144 B/P 137/85 11/02 1443 B/P Mean 102 11/02 144 O2 Delivery Room air 11/02 1442 Temp 36.8 11/02 144 Pulse 94 11/02 144 Resp 11/02 144 Last Documented: Result Date Time Pulse Ox 95 11/02 1443 B/P 137/85 11/02 144 B/P Mean 102 11/02 1442 O2 Delivery Room air 11/02 1442 Temp 36.8 11/02 144 Pulse 94 11/02 144 Resp 18 11/02 1443 All vital signs available at the time of this en try have been reviewed. Clinical Impression Clinical Impression Primary Impression: Symptomatic anemia Secondary Impressions: Constipation Disposition Decision Admit Admit Physician Name Parvez Baez MD Request Time 1557 Request Date 11/02/22 )( Admission Accepts Yes )( Accepted Time 1557 )( Accepted Date 11/02/22 Discharge/Care Plan Counseled Regarding Diagnosi s, Lab results, Imaging studies, Need for admission at 1807 RPT #:[id number] END OF REPORT 2022-11-02 14:58:00-00:00 [id number] [place] [address] PATIENT NAME: BRYANNA HERNANDEZ ADMIT DATE : 11/02/22 ACCOUNT NO: [id number] ROOM NO: 0618 AGE: 77 REPORT TYPE: eELECTROCARDIOGRAM SEX: F ADMITTING PHYSICIAN: Parvez Baez MD ATTENDING PHYSICIAN: Parvez Baez MD Order: [id number] Test Reason : EVALU Test Date/Time Stamp: FriNov 02 2022 14:58:36 Blood Pressure : / mmHG Vent. Rate : 085 BPM Atrial Rate : 085 BPM P-R Int : 158 ms QRS Dur : 082 ms QT Int : 362 ms P-R-T Axes : 055 -32 056 degree s QTc Int : 430 ms Normal sinus rhythm Left axis deviation Low voltage QRS Nonspecific T wave abnormality Abnormal ECG When compared with ECG of 28-JUN-2020 14:36, Vent. rate has decreased BY 43 BPM Confirmed by EDY VEGA MD ([id number]) on 11/06/19 6:03:48 PM Referred By: Parvez Baez Confirmed by:EDY VEGA MD Electronically Signed by Edy Vega MD on 0 11/05/22 at 1803 PATIENT NAME: BRYANNA HERNANDEZ 2019-07-28 15:28:00-00:00 [id number] [place] [address] PATIENT NAME: BRYANNA HERNANDEZ ADMIT DATE : 07/28/20 ACCOUNT NO: [id number] ROOM NO: AGE: 75 REPORT TYPE: CONSULTATION SEX: F ADMITTING PHYSICIAN: ATTENDING PHYSICIAN: CONSULTATION DATE: 07/28/2020 CONSULTING PHYSICIAN: Parvez Baez MD REASON FOR CONSULTATION: ER visit. HISTORY OF PRESENT ILLNESS: The patient is a 75-year-old female who was trying to move a garbage can last week and had trouble. She fell back causing her to injure her back and the back of her head and lef t forearm. She did not loose any consciousness or vomiting. Her headache was persistent for the past week, prompting concerned, came to the Emergency Room for further management. PAST MEDICAL HISTORY: 1. Hypertension. 2. Hypercholesterolemia. 3. Gastroesophageal reflux disease. 4. Chronic back pain. 5. Anxiety and depression. 6. Arthritis. PAST SURGICAL HISTORY: Lower back surgery. PERSONAL AND SOCIAL HISTORY: Alcohol history, de nies alcohol abuse. Previous smoker. FAMILY HISTORY: Noncontributory. ALLERGIES: NO KNOWN DRUG ALLERGIES. MEDICATIONS: See MAR. REVIEW OF SYSTEMS: Denies fever, cough, cold, ch est pain, palpitations, PND, orthopnea, abdominal pain, d iarrhea, constipation, polydipsia, polyphagia, heat or cold intolerance, bleedin g tendencies, hearing impairment, vision impairment, loss of consciousness, depression, prior to admi ssion. PHYSICAL EXAMINATION: GENERAL: The patient is awake, alert, oriented x 3, not in acute distress. VITAL SIGNS: Blood pressure 116/43, RR 20, pulse 98, and temperature 98.4. HEENT: Normocephalic. [place] conjunctivae. Anicter ic sclerae. Nasal septum midline. Moist buccal mucosa. NECK: Supple. No thyromegaly. CHEST: Symmetric expansion. Clear breath sounds. PATIENT NAME: BRYANNA HERNANDEZ CARDIOVASCULAR: S1, S2. No gallop noted. ABDOMEN: Flat, soft, nontender. EXTREMITIES: No clubbing, cyanosis. NEUROLOGIC: Cranial nerves II through XI I intact. Able to move all extremities equally. Romberg test is negative. IMPRESSION: 1. Head contusion secondary to fall. Continue mo nitoring. Request for CT scan of the head; if this is negative, can continue o utpatient management. 2. Hypercholesterolemia. Continue pravastatin. 3. Gastroesophageal reflux disease, Nexium 40 mg daily. 4. Plan of care discussed with the patient and E R doctor. We will see our patient as outpatient. Dictated By: Parvez Baez MD WT: CON:P.HIM/ТАТЬЯНАIR/NTS Conf#: [id number]#: [id number] Authenticated by Parvez Baez MD On 07/30/2020 10:43:29 PM at 2243 PATIENT NAME: BRYANNA HERNANDEZ 2019-07-28 13:42:00-00:00 [facility] ([facility]) EMERGENCY PROVIDER REPORT REPORT#:[id number] REPORT STATUS: Signed DATE:07/28/20 TIME: 1341 PATIENT: BRYANNA HERNANDEZ UNIT #: [id number] ROOM: BED: AGE: 75 SEX: F PCP PHYS: Parvez Baez MD SERVICE AUTHOR: Ankit Martin MD * ALL edits or amendments must be made on the el [employer]/computer document * HPI-General Illness Free Text HPI Notes Free Text HPI Notes Patient was trying to push a garbage can last week in the garbage can was having fell back into her causing her to injure the amparo k of her head and her left forearm. She denies any loss of consciousness na usea or vomiting but her head is still hurting so she came here. She denies an y other complaints. General Initial Greet Date/Time 07/28/20 1342 Presentation Chief Complaint Trauma Review of Systems Free Text ROS Notes Free Text ROS Notes Review of Systems All systems reviewed and negative except as grant ed. GEN: Reports no fever, reports no malaise, repor ts no gen weakness EYES: Reports no blurred vision, reports no eye pain, reports no visual loss EAR: Reports no ear pain, reports no hearing los s, reports no tinnitus NOSE: Reports no bleeding, reports no nasal jaye estion THROAT: Reports no pain, reports no swelling, re ports no toothache RESP: Reports no cough, reports no SOB, reports no wheezing CV: Reports no CP, reports no SA[place]RIA, reports no pa lpitations GI: Reports no abd pain, reports no diarrhea, re ports no vomiting : Reports no dysuria, reports no lesions, repo rts no discharge MS: Reports no back pain, reports no neck pain, reports extremity pain HEME: Reports no bleeding, reports no bruising ENDO: Reports no wt change, reports no polyuria, reports no polydipsia SKIN: Reports no abrasions, reports no contusion s, reports no rash ALLERGY: Reports no itching, reports no allergic reaction NEURO: Reports no focal weakness, reports MENDEZ, re ports no SZ PSYCH: Reports no anxiety, reports no delusions, reports no hallucinations Past Medical History - Adult Stated Complaint INJURY-ACCIDENT Allergies Coded Allergies: No Known Allergies (09/01/18) Home Medications Reported Medications Pravastatin (Pravachol) 40 MG PO DAILY Esomeprazole Mag Dr (Nexium) 40 MG PO DAILY Tizanidine 4 MG PO Q6H Oxycodone Hcl/Acetaminophen (Percocet 5/325 Mg) 2 TAB PO Q6H PRN PAIN Alprazolam (Xanax) 2 MG PO BEDTIME Losartan (Cozaar) 50 MG PO DAILY Duloxetine Dr (Cymbalta) 60 MG PO DAILY Zolpidem (Ambien) 5 MG PO BEDTIME Past Medical History: Reports: Arthritis (osteo), Hypertension, Dyslip idemia. Additional Surgical History Hip surgery, lower back surgery Alcohol Use Denies EtOH use Drug Use Denies recreational drugs Physical Exam Vital Signs Vital Signs First Documented: Result Date Time Pulse Ox 99 07/28 1340 B/P 145/92 07/28 1340 B/P Mean 109 07/28 1340 O2 Delivery Room air 07/28 1340 Temp 36.6 07/28 1340 Pulse 89 07/28 1340 Resp 16 07/28 1340 Last Documented: Result Date Time Pulse Ox 97 07/28 1538 B/P 143/83 07/28 1538 B/P Mean 103 07/28 1538 O2 Delivery Room air 07/28 1538 Pulse 74 07/28 1538 Resp 16 07/28 1538 Temp 36.6 07/28 1340 General: Well-appearing, well-nourished no appar ent distress Head: Normocephalic tenderness to palpat ion back of head otherwise no evidence of head trauma Eyes: EOMI, PERRLA, normal conjunctiva, no scler al icterus, HEENT: Airway patent, mucous membranes moist, ph arynx normal. Respiratory/chest: Breath sounds normal, breath sounds equal bilaterally, no respiratory distress, no rales, no rhonchi, no w heezing Cardiovascular: Heart rate normal, regular rhyth m, heart sounds normal, peripheral circulation normal Abdomen/GI: Soft, no guardin g, no rebound, no distention, no hernia, no palpable mass, no pulsatile mass, nontender, MS back: Normal inspection, non-tender, no costo vertebral angle tenderness. Skin: Color normal, warm, dry, normal turgor. Extremities: No edema, full range of motion, neurovascularly intact. left distal forearm tendnerness and mild swelling Neuro: Alert and oriented x3, cranial ne rves II through XII grossly intact, no motor deficit, no sensory deficit, no cerebellar signs, normal gait. Psych: Normal affect, normal mood, normal concen tration, normal insight, Review of Vital Signs Reviewed Interpretation Diagnostics Lab Results Interpretation Results Recent Impressions: RADIOLOGY - XR FOREARM 2 VIEWS LT 07/28 1400 Report Impression - Status: SIGNED Entered: 07/28/2020 1435 IMPRESSION: Cortical irregularity along the distal diaphysis of the left radius reflects an age-indeterminate buckle fracture. T he remaining visualized cortices and joint spaces are intact. There are no osteolytic or osteoblastic lesions. There is sof t tissue swelling about the wrist. Impression By: [email or web address] - LOCO GUTIERREZ M.D. CAT SCAN - CT HEAD/BRAIN W/O CONT 07/28 1430 Report Impression - Status: SIGNED Entered: 07/28/2020 1449 IMPRESSION: Mild to moderate chronic changes of cerebral atrophy and deep white matter small vessel ischemia. No acut e findings. Impression By: Tanja - Moe Ambriz Jr, MD Re-Evaluation MDM Re-Evaluation/Progress #1 Text/Dict Note Stable NAD, aware of results will follow up with orthopedics and PCP and return immediately if worse. Re-Eval Status Unchanged ED Course Medication(s) Ordered Medication(s) Ordered: Serums, Toxoids, And Vaccines Sig/Delvin Start time Last Medication Dose Route Stop Time Status Admin Tetanus/Diphtheria 0.5 ML X1ED STA 07/28 1351 D C 07/28 Toxoids IM 07/28 1352 1409 Patient Discharge Departure Vital Signs/Condition Vital Signs First Documented: Result Date Time Pulse Ox 99 07/28 1340 B/P 145/92 07/28 1340 B/P Mean 109 07/28 1340 O2 Delivery Room air 07/28 1340 Temp 36.6 07/28 1340 Pulse 89 07/28 1340 Resp 16 07/28 1340 Last Documented: Result Date Time Pulse Ox 97 07/28 1538 B/P 143/83 07/28 1538 B/P Mean 103 07/28 1538 O2 Delivery Room air 07/28 1538 Pulse 74 07/28 1538 Resp 16 07/28 1538 Temp 36.6 07/28 1340 All vital signs available at the time of this en try have been reviewed. Clinical Impression Clinical Impression Primary Impression: Concussion Secondary Impressions: Buckle fracture of radius Disposition Decision Discharge )( Discharged to Home Yes )( Time 1508 )( Date 07/28/20 Discharge/Care Plan Patient Instructions ED Concussion, ED Torus Fra cture, Upper Extremity Additional Instructions Return immediately for any new or worsening symp chetna Referrals Yajaira Celis MD Electronically Signed by Ankit Martin MD on 07/12 08/30 at 2104 RPT #:[id number] END OF REPORT 2020-06-28 14:36:00-00:00 [id number] [address] PATIENT NAME: BRYANNA HERNANDEZ ADMIT DATE : 06/27/20 ACCOUNT NO: [id number] ROOM NO: P.[id number] AGE: 75 REPORT TYPE: eELECTROCARDIOGRAM SEX: F ADMITTING PHYSICIAN: Parvez Baez MD ATTENDING PHYSICIAN: Parvez Baez MD Order: [id number] Test Reason : EKG Test Date/Time Stamp: FriJun 28 2020 14:36:51 Blood Pressure : / mmHG Vent. Rate : 128 BPM Atrial Rate : 128 BPM P-R Int : 142 ms QRS Dur : 078 ms QT Int : 318 ms P-R-T Axes : 068 -50 067 degree s QTc Int : 464 ms Sinus tachycardia Possible Left atrial enlargement Left anterior fascicular block Cannot rule out Anterior infarct (cited on or be fore 27-JUN-2020) Abnormal ECG When compared with ECG of 27-JUN-2020 18:16, (Un confirmed) Vent. rate has increased BY 46 BPM Left anterior fascicular block is now present Questionable change in initial forces of Septal leads Confirmed by ESTHER GONZALES ([id number]) on 07/14/2020 1 0:33:57 AM Referred By: Self Referred Confirmed by:ESTHER MENEZES Electronically Signed by Esther Gonzales MD on at 1034 PATIENT NAME: BRYANNA HERNANDEZ 2020-06-27 21:28:00-00:00 [id number] [place] [address] PATIENT NAME: BRYANNA HERNANDEZ ADMIT DATE : 06/27/20 ACCOUNT NO: [id number] ROOM NO: P.[id number] AGE: 75 REPORT TYPE: HISTORY AND PHYSICAL SEX: F ADMITTING PHYSICIAN:Parvez Baez MD ATTENDING PHYSICIAN:Parvez Baez MD ADMISSION DATE: 06/27/2020 CHIEF COMPLAINT: Chest pain. HISTORY OF PRESENT ILLNESS: The patient is a 75-year-old female who is known to me. She reports that one day prior to admission at 6:00 in the morning, she woke up with chest pain with radiation of pain t owards her shoulders and left arm. She described it as dull and accomp anied by shortness of breath. She says that the pain has been worse with exerti on over the past 24 hours. The patient has had persistent pain throughout the next 24 h ours and subsequently came to [facility] for furthe r evaluation and management. The patient does admit to a lot of stress lately as her has just passed in April. The patient also had history of he art disease in the family. Father of a massive heart attack. The patient does report of some leg discomfort o n the left side. PAST MEDICAL HISTORY: Biliary dyskinesia, cervic al radiculopathy, major depression, bronchial asthma, allergic rhinitis, osteoporosis, vitamin D deficiency, insomnia, atopic vaginitis, hypercholesterolemia, chronic back pain, midline cystocele prolapse, H. pylori infection, hypertension. PAST SURGICAL HISTORY: Multiple back surgeries. FAMILY HISTORY: Father of heart attack. PERSONAL AND SOCIAL HISTORY: Denies smoking. Den ies illegal drug use. ALLERGIES: NO KNOWN DRUG ALLERGIES. MEDICATIONS: See MAR. REVIEW OF SYSTEMS: Denies fever, cough, colds, a bdominal pain, diarrhea, constipation, polydipsia, polyphagia, heat or co ld intolerance, bleeding tendencies, hearing impairment, vision i mpairment, loss of consciousness, skin rash, depression, prior to admission. PHYSICAL EXAMINATION: GENERAL: The patient is awake, alert, oriented x 3, not in acute distress. VITAL SIGNS: Blood pressure 118/63, RR 22, pulse 79, and temperature 98.4. HEENT: Normocephalic. [place] conjunctivae. Anicter ic sclerae. Nasal septum midline. Moist buccal mucosa. NECK: Supple. No thyromegaly. PATIENT NAME: BRYANNA HERNANDEZ CHEST: Symmetric expansion. Clear breath sounds. CARDIOVASCULAR: S1, S2. No gallop noted. ABDOMEN: Mildly obese, soft, and nontender. EXTREMITIES: No clubbing, cyanosis. IMPRESSION: 1. Chest pain, rule out acute coronary syndrome, serial CK-MB, troponin. Rule out pulmonary embolism, check for D-dimer, monit or on telemetry. 2. Hypertension. Losartan 50 mg tablet daily. 3. Hypercholesterolemia, Pravachol 40 mg daily. 4. Depression, Cymbalta 60 mg daily. 5. Gastroesophageal reflux disease, Nexium 40 mg tablet daily. 6. Chronic back pain. Percocet 5/325 mg tab 2 ta bs p.o. q. 6 hours p.r.n. for pain. 7. Deep breathing exercise to prevent atelectasi s. 8. Lovenox 40 mg subcutaneous daily for DVT prop hylaxis. Dictated By: Parvez Baez MD WT: HP:VIKAS/VIJAY/HAILEE Conf#: [id number]/DID#: [id number] Authenticated by Parvez Baez MD On 06/29/2020 12:50:14 AM at 0050 PATIENT NAME: BRYANNA HERNANDEZ 2020-06-27 18:22:00-00:00 [facility] ([facility]) EMERGENCY PROVIDER REPORT REPORT#:[id number] REPORT STATUS: Signed DATE:06/27/20 TIME: 1821 PATIENT: BRYANNA HERNANDEZ UNIT #: [id number] ROOM: [facility] BED: 2 AGE: 75 SEX: F PCP PHYS: Parvez Baez MD SERVICE AUTHOR: Mina Del Valle MD * ALL edits or amendments must be made on the [employer]/computer document * HPI-General Illness Free Text HPI Notes Free Text HPI Notes 75-year-old female with prior medical history hy pertension, hyperlipidemia, family history of cardiac disease presen ts to the the [facility] emergency department for evaluation of chest pain. Patient states kristal t she has noticed a dull, currently 4/10, substernal chest pain with radia tion to her shoulders since waking up yesterday at 6 AM. She states that varinder etimes the pain is associated with "light sweating" as well as shortne ss of breath. She states that the pain is worse with exertion. She states that she typically does not call ambulance, but was concerned due to the persistent pain. Grabiel mcnamara has been under increased stress recently due to her passing in [facility], as well as her son passing last year. She denies any rhinorrhea, co ngestion, fevers, abdominal pain, leg pain, or other com plaints at this. She did take 325 mg of ASA at home this morning. General Initial Greet Date/Time 06/27/201815 Presentation Chief Complaint Chest pain Review of Systems ROS Statements All systems rev neg except as marked. Free Text ROS Notes Free Text ROS Notes Constitutional: Denies: Chills, Fatigue. Eyes: Denies: Blurry Vision ENT: Denies: Sinus problem, Sore throat. Respiratory: Denies: Cough, non-productive, Shortness of hero th. Cardiovascular: + Chest pain. GI: Denies: Abdominal pain, Nausea, Vomiting. : Denies: Dysuria, Flank pain. Musculoskeletal: Denies: Extremity Pain. Hematologic Denies: Bleeding Neurologic Denies: Change LOC, Confusion, Slurred speech. Past Medical History - Adult Stated Complaint CHEST PAIN Allergies Coded Allergies: No Known Allergies (09/01/18) Home Medications Reported Medications Pravastatin (Pravachol) 40 MG PO DAILY Esomeprazole Mag Dr (Nexium) 40 MG PO DAILY Duloxetine Dr (Cymbalta) 60 MG PO DAILY Tizanidine 4 MG PO Q6H Oxycodone Hcl/Acetaminophen (Percocet 5/325 Mg) 2 TAB PO Q6H PRN PRN PAIN Duloxetine Dr 30 MG PO DAILY Alprazolam (Xanax) 2 MG PO BEDTIME Zolpidem (Ambien) 10 MG PO BEDTIME Losartan (Cozaar) 50 MG PO DAILY Past Medical History: Reports: Arthritis (osteo), Hypertension, Dyslip idemia. Additional Surgical History Hip surgery, lower back surgery Alcohol Use Denies EtOH use Drug Use Denies recreational drugs Smoking status for patients 13 years old or olde r: Never Smoker Physical Exam Vital Signs Vital Signs First Documented: Result Date Time Pulse Ox 98 06/27 1814 B/P 116/43 06/27 181 B/P Mean 67 06/27 1814 O2 Delivery Room air 06/27 1814 Temp 36.9 06/27 1814 Pulse 98 06/27 181 Resp 24 06/27 1814 Last Documented: Result Date Time Pulse Ox 98 06/27 181 B/P 116/43 06/27 181 B/P Mean 67 06/27 1814 O2 Delivery Room air 06/27 1814 Temp 36.9 06/27 1814 Pulse 98 06/27 181 Resp 24 06/27 1814 Review of Vital Signs Reviewed Free Text PE Notes Free Text PE Notes General/Const: Awake, Alert, No acute distress Head: Atrauamtic, Normocephalic Eyes: EOMI. Anicteric sclerae. ENT: Airway patent. Atraumatic. Resp/Chest: Breath sounds normal. Good air movement bilater ally. Normal respiratory effort. No acute respiratory distress. Cardiovascular: Heart rate NL, Regular rhythm, No gallops/rubs appreciated. Abdomen/GI: Non-tender in all abdominal quadrants. No guard ing, No rebound, BS normoactive. No distention Skin: Warm, Dry Extremities: No significant erythema, swelling, or tendernes s to palpation of bilateral lower extremities which appear symmetric Neurologic: Alert Oriented X3, Speech normal. Interpretation Diagnostics Lab Results Interpretation Results Laboratory Tests 06/27/201831: [Embedded Image Not Available] Laboratory Tests: 06/27 Chemistry Sodium (136 - 143 MMOL/L) 138 Potassium (3.5 - 5.1 MMOL/L) 4.3 Chloride (98 - 107 MMOL/L) 97 L Carbon Dioxide (24 - 31 mmol/L) 29 BUN (7.0 - 21.0 MG/DL) 16.9 Creatinine (0.8 - 1.5 mg/dL) 0.9 Glomerular Filtr Rate (>60) >=60 max estimate Glucose (70 - 104 mg/dL) 106 H Calcium (8.8 - 10.2 mg/dL) 10.1 Total Bilirubin (0.2 - 1.0 mg/dL) 0.5 AST (10 - 34 IU/L) 19 ALT (10 - 36 U/L) 9 L Total Alk Phosphatase (32 - 104 U/L) 95 B-Natriuretic Peptide (0 - 100 PG/ML) 30.4 Total Protein (6.3 - 8.3 g/dL) 8.2 Albumin (3.5 - 5.0 G/DL) 5.2 H Hematology WBC (4.8 - 10.8 x10 3/uL) 10.3 RBC (4.20 - 5.40 x10 6/uL) 4.70 Hgb (14.5 - 20 g/dL) 14.0 L Hct (37.0 - 47.0 %) 44.5 MCV (81.0 - 99.0 fL) 94.7 MCH (27 - 31 pg) 29.8 MCHC (33 - 36.5 G/DL) 31.5 L RDW (12.9 - 16.9 %) 13.2 Plt Count (150 - 440) 428 MPV (8.9 - 12.4 fL) 9.2 Neut % (Auto) (42.2 - 75.2 %) 67.0 Lymph % (Auto) (20.5 - 51.1 %) 24.8 [place] % (Auto) (1.7 - 9.3 %) 7.3 Eos % (Auto) (0.0 - 7.0 %) 0.4 Baso % (Auto) (0 - 2.5 %) 0.3 Neut # (Auto) (1.80 - 7.70 x10 3/uL) 6.94 Lymph # (Auto) (1.00 - 4.80 x10 3/uL) 2.56 [place] # (Auto) (0.00 - 0.80 x10 3/uL) 0.75 Eos # (Auto) (0.00 - 0.45 x10 3/uL) 0.04 Baso # (Auto) (0.0 - 0.20 x10 3/uL) 0.03 Recent Impressions: RADIOLOGY - XR CHEST 1 V 06/27 1825 Report Impression - Status: SIGNED Entered: 06/27/20201841 IMPRESSION: No radiographic evidence for acute pulmonary abn ormality. Impression By: [email or web address] - JOSE FELICIANO M.D. ECG #1 Interpretation Text/Dict Note EKG interpretation performed at 1817: Rate 82, normal sinus rhythm, normal axis, normal intervals, no signifi cant ST segment or T wave abnormality concerning for acute ischemia Re-Evaluation MDM Free Text MDM Notes Free Text MDM Notes Physical examination as above. The patient's HEART Score is 5 with troponin sti ll pending. The patient receives: 1 point for history. 0 point for EKG. 2 point for age. 2 point for risk factors. Pending point for the initial troponin. Admitted to Dr. Baze for further management/w ork-up. He did request a D- dimer, which I did order on his behalf. Signed o ut to oncoming ED physician, Dr. Figueroa, regarding patient and pending labs. ED Course Medication(s) Ordered Medication(s) Ordered: Cardiovascular Drugs Sig/Delvin Start time Last Medication Dose Route Stop Time Status Admin Nitroglycerin 0.4 MG X1ED PRN PRN 06/27 1830 AC 06/27 SL 07/27 1831 184 Central Nervous System Agents Sig/Delvin Start time Last Medication Dose Route Stop Time Status Admin Aspirin 324 MG X1ED STA 06/27 1817 CAN PO 06/27 1818 Patient Discharge Departure Vital Signs/Condition Vital Signs First Documented: Result Date Time Pulse Ox 98 06/27 1814 B/P 116/43 06/27 1814 B/P Mean 67 06/27 1814 O2 Delivery Room air 06/27 1814 Temp 36.9 06/27 1814 Pulse 98 06/27 1814 Resp 24 06/27 1814 Last Documented: Result Date Time Pulse Ox 98 06/27 1814 B/P 116/43 06/27 1814 B/P Mean 67 06/27 1814 O2 Delivery Room air 06/27 1814 Temp 36.9 06/27 1814 Pulse 98 06/27 1814 Resp 24 06/27 1814 All vital signs available at the time of this en try have been reviewed. Clinical Impression Clinical Impression Primary Impression: Chest pain Disposition Decision Admit Admit Physician Name Parvez Baez MD )( Admission Accepts Yes )( Accepted Time 1854 )( Accepted Date 06/27/20 Electronically Signed by Mina Del Valle MD on at 1935 RPT #:[id number] END OF REPORT 2020-06-27 18:16:00-00:00 [id number] [place] [address] PATIENT NAME: BRYANNA HERNANDEZ ADMIT DATE : 06/27/20 ACCOUNT NO: [id number] ROOM NO: P.0733 AGE: 75 REPORT TYPE: eELECTROCARDIOGRAM SEX: F ADMITTING PHYSICIAN: Parvez Baez MD ATTENDING PHYSICIAN: Parvez Baez MD Order: [id number] Test Reason : Test Date/Time Stamp: FriJun 27 2020 18:16:56 Blood Pressure : / mmHG Vent. Rate : 082 BPM Atrial Rate : 082 BPM P-R Int : 152 ms QRS Dur : 086 ms QT Int : 368 ms P-R-T Axes : 075 000 064 degree s QTc Int : 429 ms Normal sinus rhythm Normal ECG No previous ECGs available Confirmed by MAURO GIBBS MD ([id number]) on 06/11 7:31:18 PM Referred By: Self Referred Confirmed by:MAURO GIBBS MD at 1931 PATIENT NAME: BRYANNA HERNANDEZ 2020-03-21 09:13:00-00:00 [facility] ([facility]) EMERGENCY PROVIDER REPORT REPORT#:[id number] REPORT STATUS: Signed DATE:03/21/20 TIME: 912 PATIENT: BRYANNA HERNANDEZ UNIT #: [id number] ROOM: BED: AGE: 74 SEX: F PCP PHYS: Parvez Baez MD SERVICE AUTHOR: Sang Figueroa * ALL edits or amendments must be made on the [employer]/computer document * HPI-Trauma Minor/Fall General Initial Greet Date/Time 03/21/[address] Baez Presentation Chief Complaint Fall, right shoulder pain Hx Obtained From Patient, EMS Free Text HPI Notes Free Text HPI Notes PMH of HTN, HLD, arthritis, and chronic pain. Br ought to the ED by EMS for evaluation of right shoulder pain s/p reported f all. Patient states she fell around 03:00 am this morning while trying to get out of bed. States she does not recall exactly what caused her to fall but think s she tripped on the carpet. Reports she hit her right sh oulder on the bed. Reported immediated pain that was worse with movement of her right shoulder. Also noted mild neck pain but that has been ongoing for several years. Note s she was able to stand and walk after her fall. Denies head injury or LOC. Denies chest pain, sob. Denies hip/leg pain , focal numbness/weakness/paresthesias. Of note patient states she takes ambien sometime s to help her sleep, took one last night. Also has prescriptions for alprazola m and oxycodone. Risk-Trauma Minor/Fall Risk Stratification [place] Coma Score > Age 5 [place] Coma Score > Age 5 Response Value Eye Opening Open spontaneously (4) 4 Verbal Response Oriented (5) 5 Motor Response Obeys commands (6) 6 Total 15 Review of Systems ROS Statements All systems rev neg except as marked. Past Medical History - Adult Stated Complaint RIGHT SHOULDER PAIN, POSTFALL T HIS AM Allergies Coded Allergies: No Known Allergies (09/01/18) Home Medications Reported Medications Pravastatin (Pravachol) 40 MG PO DAILY Esomeprazole Mag Dr (Nexium) 40 MG PO DAILY Duloxetine Dr (Cymbalta) 60 MG PO DAILY Tizanidine (Zanaflex) 4 MG PO Q6H Oxycodone Hcl/Acetaminophen (Percocet 5/325 Mg) 2 TAB PO Q6H PRN PRN PAIN Duloxetine Dr (Cymbalta) 30 MG PO DAILY Alprazolam (Xanax) 2 MG PO BEDTIME Zolpidem (Ambien) 10 MG PO BEDTIME Losartan (Cozaar) 50 MG PO DAILY Past Medical History: Reports: Arthritis (osteo), Hypertension, Dyslip idemia. Additional Surgical History Hip surgery, lower back surgery Smoking status for patients 13 years old or olde r: Never Smoker Physical Exam Vital Signs Vital Signs First Documented: Result Date Time Pulse Ox 98 03/21 0900 B/P 190/86 03/21 0900 B/P Mean 120 03/21 0900 O2 Delivery Room air 03/21 0900 Temp 36.6 03/21 0900 Pulse 88 03/21 0900 Resp 18 03/21 0900 Last Documented: Result Date Time Pulse Ox 98 03/21 1010 B/P 179/80 / 1010 B/P Mean 113 / 1010 O2 Delivery Room air 03/21 1010 Pulse 80 08/ 1010 Resp 18 03/21 1010 Temp 36.6 03/21 0900 Review of Vital Signs Reviewed Focused PE General/Const General/Const Awake, Alert, Cooperative, Not to xic appearing, in mild distress due to right shoulder pain MS Head Head Atraumatic, Normocephalic Eyes Eyes Atraumatic, PERRL (5mm b/l), EOMI MS Neck Neck Supple, Non-tender, No midline vertebral t end, No crepitus, no stepoffs or deformities noted Resp/Chest Respiratory/Chest No respiratory distre ss, No chest tenderness, No chest wall deformity, palpable deformity mid right clavicle with overlying TTP and mild ecchymosis Cardiovascular Cardiovascular Heart rate NL, Regular rhythm, C ap refill not delayed, Peripheral circulation NL Abdomen/GI Abdomen/GI Soft, Non-tender, No distention MS Back Back Non-tender, No midline vertebral tend, No paraspinal tenderness MS Upper Extrem Upper Extremity/MS weakness in abducting right shoulder due to pain, no apparent dislocation based on palpation and exam . RUE NV intact distally MS Lower Extrem Lower Ext/Pelvis/MS Pelvis stable, Pelvis non-t timothy Skin Skin Warm, Dry, Intact Neurologic Neurologic Oriented X3, Speech NL, No motor def icits, No sensory deficits Interpretation Diagnostics Lab Results Interpretation Results Recent Impressions: RADIOLOGY - XR CHEST 1 V 03/21 930 Report Impression - Status: SIGNED Entered: 03/21/2020 0948 IMPRESSION: No active disease in the chest. Impression By: Mary OLMEDO M.D. RADIOLOGY - XR SHOULDER 2 + V RT 03/21 930 Report Impression - Status: SIGNED Entered: 03/21/2020 0949 Impression: Acute displaced fracture through the mid to dist al right clavicle. Impression By: [email or web address] Jose Kaplan MD CAT SCAN - CT C-SPINE W/O CONT 03/21 945 Report Impression - Status: SIGNED Entered: 03/21/2020 1011 IMPRESSION: No acute abnormality. Impression By: Mary OLMEDO M.D. Imaging Statement Radiographic studies reviewed and considered in the medical decision-making. Point of Care Testing Pulse Oximetry Pulse Ox % 98 On: Room air Interpretation Interpreted by , Pulse oximet ry normal Time 0900 Re-Evaluation MDM Free Text MDM Notes Free Text MDM Notes Imaging revealed a right mid /distal clavicular fracture, closed. No skin tenting noted. Patient given IM dose of morphine, report ed significant improvement in pain. Placed in sling for co mfort. Called patient's orthopedic surgeon's office. Spoke with school psychologist assistant and advised patient can f/u in 2 days in clinic (03/23/20, at 10:100am). Patient states that should be fine. Arranging transportation home. ED Course Medication(s) Ordered Medication(s) Ordered: Central Nervous System Agents Sig/Delvin Start time Last Medication Dose Route Stop Time Status Admin Morphine Sulfate 4 MG X1ED STA 03/21 911 DC IM 03/21 912 0916 Patient Discharge Departure Vital Signs/Condition Vital Signs First Documented: Result Date Time Pulse Ox 98 03/21 900 B/P 190/86 03/21 900 B/P Mean 120 03/21 900 O2 Delivery Room air 03/21 900 Temp 36.6 03/21 0900 Pulse 88 03/21 0900 Resp 18 03/21 0900 Last Documented: Result Date Time Pulse Ox 98 03/21 1010 B/P 179/80 03/21 1010 B/P Mean 113 03/21 1010 O2 Delivery Room air 03/21 1010 Pulse 80 03/21 1010 Resp 18 03/21 1010 Temp 36.6 03/21 0900 All vital signs available at the time of this en try have been reviewed. Clinical Impression Clinical Impression Primary Impression: Fall from standing Secondary Impressions: Closed right clavicular f racture Disposition Decision Discharge )( Discharged to Home Yes )( Time 1041 )( Date 03/21/20 Discharge/Care Plan Rx Drug Database Reviewed Yes, OD risk score 620 . Patient with recurrent prescriptions for oxycodone, ambien, and alprazo pr[place] by pain management specialists. Referrals Parvez Baez MD (PCP/Family) at [address] [facility] #:[id number] END OF REPORT
[2022-12-27 15:18] LABS: Hematocrit 43.6 % (36.0-45.0); Lymphocytes % 25.1 % (15.3-44.8); MCV 94.4 fL (80-100); MPV 7.8 fL (7.6-11.3); RBC Red Blood Cell Count 4.62 M/uL (3.86-4.86)
[2022-12-27 15:21] LABS: Specific Gravity 1.013 (1.005-1.030); Urine Bacteria <20 /HPF (<20); Urine Bilirubin NEGATIVE (Negative); Urine Blood Negative (Negative); Urine Clarity Clear (Clear); Urine Color Light-Yellow (Yellow); Urine Glucose NEGATIVE (Negative); Urine Mucus Slight /HPF (None Seen); Urine Protein NEGATIVE (Negative); Urine RBC <5 /HPF (None Seen); Urine Urobilinogen Normal (Normal); Urine pH 5.5 (5.0-7.0)
[2022-12-27 16:36] LABS: Bilirubin Total 0.5 mg/dL (0.2-1.0); Potassium 3.8 mEq/L (3.5-5.1); Protein, Total 7.5 g/dL (6.4-8.2)
--- NOTE | 2022-12-27 17:12 | ER ---
Nurse's Notes [facility] Name: Catie Ojeda Age: 77 yrs Sex: Female : 1945 Arrival Date: 12/27/2022 Time: 12:52 Bed 20 Private MD: Diagnosis: Myalgia Presentation: 12/27 13:08 Chief complaint: EMS states: Toned out for pain all over, pt requested transport to [address] and EMS unable to go that far out of the area. Pt requesting to be transferred from this facility to [facility] for testing from chronic pain all over. Coronavirus screen: At this time, the client does not indicate any symptoms associated with coronavirus-19. Ebola Screen: No symptoms or risks identified at this time. Initial Sepsis Screen: Does the patient meet any 2 criteria? No. Patient's initial sepsis screen is negative. Does the patient have a suspected source of infection? No. Patient's initial sepsis screen is negative. Risk Assessment: Do you want to hurt yourself or someone else? Patient reports no desire to harm self or others. Onset of symptoms is unknown. Care prior to arrival: None. 13:08 Method Of Arrival: EMS: [place] [address] 13:08 Acuity: SAMANTHA 3 [facility] Triage Assessment: 13:14 General: Appears in no apparent distress. uncomfortable, Behavior is anxious. Pain: [facility] Complains of pain in "Everything". Neuro: Level of Consciousness is awake, alert, obeys commands, Oriented to person, place, time, situation. Cardiovascular: Patient's skin is warm and dry. Respiratory: Airway is patent Respiratory effort is even, unlabored, Respiratory pattern is regular, symmetrical. Derm: Skin is pink, warm \\T\\ dry. Historical: - Allergies: 13:14 No Known Allergies; jl7 - PMHx: 13:14 Chronic pain; GERD; Hyperlipidemia; Hypertension; jl7 - Immunization history:: Adult Immunizations unknown. - Social history:: Smoking status: Patient denies any tobacco usage or history of. Screenin:15 [facility] ED Fall Risk Assessment (Adult) History of falling in the last 3 months, ld1 including since admission No falls in past 3 months (0 pts). Abuse screen: Denies threats or abuse. Denies injuries from another. Nutritional screening: No deficits noted. Tuberculosis screening: No symptoms or risk factors identified. Assessment: 16:15 General: Appears in no apparent distress. comfortable, Behavior is calm, cooperative, ld1 appropriate for age. Pain: Pain does not radiate. Pain currently is 8 out of 10 on a pain scale. Quality of pain is described as throbbing. Neuro: Level of Consciousness is awake, alert, obeys commands, Oriented to person, place, time, situation. Cardiovascular: Capillary refill < 3 seconds Patient's skin is warm and dry. Respiratory: Airway is patent Respiratory effort is even, unlabored. GI: Abdomen is flat, non-distended. : No signs and/or symptoms were reported regarding the genitourinary system. EENT: No signs and/or symptoms were reported regarding the EENT system. Derm: No signs and/or symptoms reported regarding the dermatologic system. Musculoskeletal: No signs and/or symptoms reported regarding the musculoskeletal system. 17:44 Reassessment: Patient appears in no apparent distress at this time. No changes from ld1 previously documented assessment. Patient and/or family updated on plan of care and expected duration. Pain level reassessed. Patient is alert, oriented x 3, equal unlabored respirations, skin warm/dry/pink. Vital Signs: 13:08 BP 141 / 80; Pulse 110; Resp 15; Temp 98.7; Pulse Ox 100% ; jl7 16:15 BP 95 / 65; Pulse 85; Resp 14; Pulse Ox 96% on R/A; ld1 ED Course: 12:54 Patient arrived in ED. mr 12:57 Haylee Rivera FNP-C [facility]. kb 12:57 Kevyn Landaverde MD is Attending Physician. kb 13:14 Triage completed. jl7 13:14 Arm band placed on right wrist. jl7 15:06 CMP Sent. rs5 15:06 CBC with Diff Sent. rs5 15:06 Urinalysis w/ reflexes Sent. rs5 15:06 CK Sent. rs5 16:04 Miroslava Do, ALEXIS is Primary Nurse. ld1 16:15 Patient has correct armband on for positive identification. Placed in gown. Bed in low ld1 position. Call light in reach. Side rails up X2. manager monitoring on. Pulse ox on. NIBP on. Door closed. Noise minimized. Warm blanket given. 16:15 No provider procedures requiring assistance completed. ld1 16:15 Inserted saline lock:. ld1 16:16 Inserted saline lock: 22 gauge in right in left antecubital area, using aseptic rs5 technique. 17:44 IV discontinued, intact, bleeding controlled, No redness/swelling at site. ld1 Administered Medications: No medications were administered Medication: 16:15 VIS not applicable for this client. ld1 Outcome: 17:11 Discharge ordered by MD. rivas 17:44 Discharged to home via wheelchair, with family. ld1 17:44 Condition: stable 17:44 Discharge instructions given to patient, family, Instructed on discharge instructions, follow up and referral plans. Demonstrated understanding of instructions, follow-up care. 17:44 Patient left the ED. ld1 Signatures: Haylee Rivera, MSW-C MSW-Roseanne Ochoa Jahala RN RN jl7 Miroslava Do RN RN ld1 Chepe Lynn rs5
--- NOTE | 2022-12-27 17:12 | EDPHYS ---
Physician Documentation [facility] Name: Catie Ojeda Age: 77 yrs Sex: Female : 1945 Arrival Date: 12/27/2022 Time: 12:52 Bed 20 Private MD: ED Physician Kevyn Landaverde HPI: 12/27 17:27 This 77 yrs old Female presents to ER via EMS with complaints of Pain All Over. kb 17:27 Pt reports she has been having increased pain to joints for the past 2 months. States kb she stopped driving and can only walk for a few minutes before having to take a break. Called her dr today and was told to come to the [facility] at [facility] so he could run some tests. States she did not have a ride there so they told her she could call an ambulance to bring her to [place]. She called 911 and was brought here because they wouldn't take her up there. States she wants to be transferred to [facility] to be seen by her PCP.. Onset: The symptoms/episode began/occurred 2 month(s) ago. Severity of symptoms: At their worst the symptoms were moderate in the emergency department the symptoms are unchanged. The patient has not experienced similar symptoms in the past. The patient has not recently seen a physician. Historical: - Allergies: 13:14 No Known Allergies; jl7 - PMHx: 13:14 Chronic pain; GERD; Hyperlipidemia; Hypertension; jl7 - Immunization history:: Adult Immunizations unknown. - Social history:: Smoking status: Patient denies any tobacco usage or history of. ROS: 17:26 Respiratory: Negative for shortness of breath, cough, wheezing, and pleuritic chest kb pain. 17:26 Constitutional: Positive for malaise. 17:26 MS/extremity: Positive for pain. 17:26 All other systems are negative. Exam: 17:26 Constitutional: This is a well developed, well nourished patient who is awake, alert, kb and in no acute distress. Head/Face: Normocephalic, atraumatic. ENT: Moist Mucous membranes Cardiovascular: Regular rate and rhythm with a normal S1 and S2. No gallops, murmurs, or rubs. No pulse deficits. Respiratory: Respirations even and unlabored. No increased work of breathing. Talking in full sentences Abdomen/GI: Soft, non-tender. No distention Skin: Warm, dry with normal turgor. Normal color. MS/ Extremity: Pulses equal, no cyanosis. Neurovascular intact. Full, normal range of motion. Neuro: Awake and alert, GCS 15, oriented to person, place, time, and situation. Moves all extremities. Vital Signs: 13:08 BP 141 / 80; Pulse 110; Resp 15; Temp 98.7; Pulse Ox 100% ; jl7 16:15 BP 95 / 65; Pulse 85; Resp 14; Pulse Ox 96% on R/A; ld1 MDM: 12:59 Patient medically screened. kb 13:38 Management of patient was discussed with the following: Primary Care Provider: Dr rob Baez MD in [place]. Recommends basic blood work with CK. If normal, discharge home to follow up in his office. 17:26 Data reviewed: vital signs, nurses notes. kb 17:26 Differential Diagnosis arthritis, malaise, myopathy. Historians other than the Patient: rob EMS: [facility]. Counseling: I had a detailed discussion with the patient and/or guardian regarding: the historical points, exam findings, and any diagnostic results supporting the discharge/admit diagnosis, lab results, the need for outpatient follow up, a family practitioner, to return to the emergency department if symptoms worsen or persist or if there are any questions or concerns that arise at home. 12/27 13:21 Order name: CBC with Diff; Complete Time: 15:24 kb 12/27 13:21 Order name: CMP; Complete Time: 16:37 kb 12/27 13:21 Order name: Urinalysis w/ reflexes; Complete Time: 15:24 kb 12/27 13:21 Order name: CK; Complete Time: 16:37 kb 12/27 13:21 Order name: IV Start; Complete Time: 15:09 kb 12/27 15:19 Order name: Labs - recollect needed: recollect labs hemolyzed per Jurgen; Complete Time: eb 16:06 Administered Medications: No medications were administered Disposition Summary: 12/27/22 17:11 Discharge Ordered Location: Home kb Condition: Stable kb Diagnosis - Myalgia kb Followup: kb - With: Emergency Department - When: As needed - Reason: Worsening of condition Followup: kb - With: Private Physician - When: 2 - 3 days - Reason: Recheck today's complaints, Continuance of care, Re-evaluation by your physician Discharge Instructions: - Discharge Summary Sheet kb - Musculoskeletal Pain kb Forms: - Medication Reconciliation Form kb - Thank You Letter kb - Antibiotic Education kb - Prescription Opioid Use kb Signatures: Dispatcher [employer] EDHaylee Lmab, GLORIA CAGE-Oneida Gusman, RN RN jl7 Sarah Galvan
[2022-12-27 18:02] VITALS: TEMP 98.7
[2022-12-27 18:08] VITALS: BP 95/65; O2SAT 96
== END 2022-12-27 17:44 | disposition home or self-care (01) ==
LOC: ER 12:52
DX: M79.10 Myalgia, unspecified site (principal); I10 Essential (primary) hypertension
CPT/HCPCS: 36415; 80053; 81001; 82550; 85025

== ENCOUNTER 2023-05-28 06:30 | Day surgery (SDC) | payer OTHER, BC ==
[2023-05-27 13:36] LABS: Absolute Lymphocytes (CBC) 2.4 K/uL (0.7-4.9); Hematocrit 42.1 % (36.0-45.0); Lymphocytes % 35.6 % (15.3-44.8); MCV 98.1 fL (80-100); MPV 7.8 fL (7.6-11.3); Platelets 367 thou/uL (152-406); RBC Red Blood Cell Count 4.29 M/uL (3.86-4.86)
[2023-05-27 13:47] LABS: Protime INR 0.93
--- NOTE | 2023-05-27 14:24 | RAD REPORT ---
EXAM DESCRIPTION: RAD - Chest Pa And Lat (2 Views) - 05/27/2023 1:38 pm CLINICAL HISTORY: preprocedure screening. Hypertension COMPARISON: Chest Single View dated 02/22/2022 TECHNIQUE: PA and lateral views of the chest were obtained. FINDINGS: The lungs are clear. Mild left basilar atelectasis is stable. Heart size is normal and michael tral vasculature is within normal limits. No pleural effusion or pneumothorax seen. Lower thoracic, p robably T12, moderate anterior wedge compression deformity, of indeterminate age. IMPRESSION: No acute cardiopulmonary process. Lower thoracic mild anterior wedge compression deformity of indeterminate age.
[2023-05-28] MEDS ORDERED: HEPA 1000U/500MLS 2,000 UNIT/1,000 ML BAG IV ONE (07:17)
[2023-05-28] MEDS ORDERED: LIDOCAINE 1% 20 ML MDV ONE (07:17)
[2023-05-28] MEDS ORDERED: NA CHLORIDE 0.9% 500 ML ONE (07:22)
[2023-05-28] MEDS ORDERED: FENTANYL CITR 100 MCG/2 ML ONE (07:36)
[2023-05-28] MEDS ORDERED: ATROPINE SULF 1 MG/10 ML SYR IV ONE (07:37)
[2023-05-28] MEDS ORDERED: NITROGLYCERIN 100 MCG/ML SYR (for cath lab use only) IV ONE (07:37)
[2023-05-28] MEDS ORDERED: VERAPAMIL HCL 10 MG/4 ML VIAL IV ONE (07:37)
[2023-05-28] MEDS ORDERED: MIDAZOLAM HCL 2 MG/2 ML INJ ONE (07:37)
[2023-05-28] MEDS ORDERED: HEPARIN 10,000 UNIT/10 ML VIAL IV ONE (07:38)
[2023-05-28] MEDS ORDERED: HEPARIN 5000 UNIT/ML 1 ML VIAL ONE (07:38)
[2023-05-28] MEDS ORDERED: HEPA 1000U/500MLS 1,000 UNIT/500 ML BAG IV ONE (08:04)
[2023-05-28] MEDS ORDERED: REGADENOSON 0.4 MG/5 ML SYR IV ONE (08:06)
--- NOTE | 2023-05-28 09:35 | OP ---
Date of Procedure: 05/28/2023 Surgeon: LUDA BROUSSARD Procedure Performed: 1.Selective coronary angiogram. 2.Left heart catheterization. 3.FFR of distal RCA moderate stenosis, insignificant value of 0.97. Indication: Abnormal stress test and preop cardiac risk stratification. Access: Right femoral artery 6-Argentine, closed with 6-Argentine Angio-Seal. Complications: None. Bleeding: Less than 20 mL. Anesthesia: Total sedation time was 30 minutes. Description Of Procedure: After risks, benefits, and symptoms were explained, patient agreed to proc edure and signed informal consent. Patient was brought into the cardiac catheterization laboratory, prepped and draped in usual sterile fashion. Accessed right femoral artery using the micropuncture k it, ultrasound guidance and fluoroscopy and placed a 6-Argentine [place] sheath, took 6-Argentine JL4 cath eter into the aortic root, engaged the left main and took standard views and then exchanged for a 6-F rench JR4 catheter across the aortic valve over the wire and measured LVEDP. Pullback not recorded. Gradient engaged RCA, took standard views, and then gave systemic heparin to assure ACT level above 250 and then took the FFR wire into the aortic root. Pressures were equalized. Then, I send the FFR wire to the RCA distally and performed FFR using Lexiscan and it was insignificant at 0.97. Pullbac k did not show any drift. Final angiogram was satisfactory, and then removed the wire and the cathet er and the sheath, and then 6-Argentine Angio-Seal with good hemostasis. Findings: 1.Left main; it is normal. 2.LAD; large, proximal 20%, mid 10% to 20%, and distal 30%. Diagonal branches are normal. 3.Left circumflex is normal. 4.RCA; large and dominant with distal 60% and negative FFR of 0.97. 5.LVEDP borderline at 11 mmHg. Conclusion: Moderate coronary artery disease. Plan: Proceed with surgery as planned. SR/MODL Voice ID: [id number] Report ID: [id number]
[2023-05-28 11:16] VITALS: BP 133/77; O2SAT 99
== END 2023-05-28 11:10 | disposition home or self-care (01) ==
LOC: CCL 06:30
PROVIDERS: ATTEND Internal Medicine
DX: I25.10 Atherosclerotic heart disease of native coronary artery without angina pectoris (principal); I10 Essential (primary) hypertension; E78.5 Hyperlipidemia, unspecified; Z79.899 Other long term (current) drug therapy; Z01.810 Encounter for preprocedural cardiovascular examination
CPT/HCPCS: 85025; 80048; 36415; 83721; 85610; 85730; 71046; 93458; 76937; 93571; C1893; Q9966; C1760; G0269; J2785; J2001; J7040; J0461; J1644; J2250; J3010

== ENCOUNTER 2023-06-28 14:01 | Emergency (ER) | payer OTHER, BC ==
--- OUTSIDE RECORDS SUMMARY | 2023-06-28 14:06 | XMS REPORT | Continuity of Care Document ---
:1945 Author Organization [facility] t Address [address] [facility]. [address] [place] [address] Care Team Providers Name Role Phone Parvez Baez MD Primary Care Physician Lillie Reeves Attending Clinician Unavailable Whitney Resendiz Attending Clinician Unavailable ALFONZO DYE NATASHA Attending Clinician Unavailable JAZMINE HAQUE Attending Clinician Unavailable TOMASA CALDERÓN Attending Clinician Unavailable ANN BOGGS Attending Clinician Unavailable Ambrose HINDS, Ann Calvin Attending Clinician [phone] Dai HINDS, Jamil Jimenez Attending Clinician Terry Montoya MD Attending Clinician [phone] Sherrie Velázquez Attending Clinician Provider, Unknown Attending Clinician Unavailable Doctor Unassigned, [place] Attending Clinician Unavailable Parvez Baez X Attending Clinician Unavailable Parker ESPINOZA, Raeann Dickerson Attending Clinician [phone] Jw ESPINOZA, Leila Attending Clinician Unavailable Jonnie HINDS, Bambi Giles Attending Clinician Marlena Morgan RN Attending Clinician Unavailable Matt Cheung MD Attending Clinician Velma Gutierrez Attending Clinician Pérez Cox Attending Clinician Saad Mart Attending Clinician LILLIE REEVES Admitting Clinician Unavailable ALFONZO DYE NATASHA Admitting Clinician Unavailable Parvez Baez Admitting Clinician Unavailable JAMIL PALACIO Admitting Clinician Unavailable ANN BOGGS Admitting Clinician Unavailable Ann Boggs MD Admitting Clinician [phone] Pérez Cox Admitting Clinician Payers Payer Name Policy Type Policy Number Effective Date Expiration Date 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-relate age[place]rel[place] cataract d cataract 00 Me dical of both of both Branch eyes eyes Pain of Pain of Disease Active Univers right hip right hip 1-30 ity of joint joint 00:00: [place] 00 Medical Branch Pain in Pain in Disease Active 2022-0 Univers left foot left foot 9-06 ity of 00:00: [place] 00 Medical Branch Arthralgia Arthralgia Disease Active U nivers of left of left 8-08 ity of ankle ankle 00:00: [place] 00 Medical Branch Osteoarthr Osteoarthr Disease Active U nivers itis of itis of 6-08 ity of left left 00:00: [place] shoulder shoulder 00 Medica l Branch Pain in Pain in Disease Active Univers joint of joint of 5-12 ity of right right 00:00: [place] shoulder shoulder 00 Medica l Branch Pain in Pain in Disease Active Univers joint of joint of 5-12 ity of left left 00:00: [place] shoulder shoulder 00 Medica l Branch Inflammati Inflammati Disease Active Overview : Univers on of on of 16 Formattin ity of sacroiliac sacroiliac 00:00: g of this [place] joint joint 00 note Medical might be Branch different from the original. Sacroilii tis BACK PAIN BACK PAIN Diagnosis Active 2019-10-12 Memoria Active 10-11 13:44:00 l 10/12/2019 08:00: Stephan hsu [facility] 00 [place] Spinal Spinal Disease Active Overview: Univer s stenosis stenosis 10-10 Formattin ity of in in 00:00: g of this [place] cervical cervical 00 note Medica l region region might be Branch different from the original. Cervical spine stenosis PAIN IN PAIN IN Diagnosis Active 2018-10-20 Memoria LEFT LEFT 3-11 10:35:00 l SHOULDER, SHOULDER, 00:00: Herm bebo CERVICALGI CERVICALGI 00 A A Active 10/19/2018 [facility] STENOSIS, STENOSIS, Diagnosis Active 2017-09-01 Memoria SPONDYLOLI SPONDYLOLI 1- 15:16:00 l STHESIS STHESIS 00:00: Renan Active 00 08/13/2017 [facility] Sprain of Sprain of Disease Active Overview: Univers rotator rotator 08-11 Formattin ity o f cuff cuff 00:00: g of this [place] capsule capsule 00 note Medical might be Branch different from the original. Sprain of left rotator cuff capsule, initial encounter Spondyloli Spondyloli Disease Active Overview : Univers sthesis of sthesis of 08-11 Formattin ity of lumbar lumbar 00:00: g of this [facility] region 00 note Medical might be Branch different from the original. Acquired lumbar spondylol isthesis Spinal Spinal Disease Active 2016-08 Overview: Univer s stenosis stenosis 2-04 Formattin ity of of lumbar of lumbar 00:00: g of this [facility] region region 00 note Medical might be Branch different from the original. Spinal stenosis, lumbar region (not billable after 05/11/2017 ) Recorded Date: 7 | Recorded by: Manuela Thomas | Signed On: 7 | Signed By: Manuela Thomas | Status: Inactive | Stop Reason: ChangedSp inal stenosis, lumbar region (not billable after 05/11/2017 ) | Stop Reason: Changed Iron Iron Disease Active Univers deficiency deficiency 12-12 it y of anemia anemia 00:00: [place] 00 Medical Branch Anxiety Anxiety Problem Active 2019-10-15 Me moria (finding) (finding) 00:47:50 l Active [place] Problem 10/15/2019 [facility] [place] [facility] Constipati Constipat Problem Active 2019-10-15 Memoria on ion 00:47:50 l (disorder) (disorder) He rmann Active Problem 10/15/2019 [facility] Depressive Depressiv Problem Active 2019-10-15 Memoria disorder e disorder 00:47:50 l (disorder) (disorder) [place] Active Problem 10/15/2019 [facility] Hyperlipid Hyperlipi Problem Active 2019-10-15 Memoria emia demia 00:47:50 l (disorder) (disorder) [place] Active Problem 10/15/2019 [facility] [place] [facility] Hypertensi Hypertens Problem Active 2019-10-15 Memoria ve vasu 00:47:50 l disorder, disorder, Herm bebo systemic systemic arterial arterial (disorder) (disorder) Active Problem 10/15/2019 [facility] [place] [facility] Osteoarthr Osteoarth Problem Active 2019-10-15 Memoria itis ritis 00:47:50 l (disorder) (disorder) [place] r[place] Active Problem 10/15/2019 [facility] [place] [facility] Osteoporos Osteoporo Problem Active 2019-10-15 Memoria is sis 00:47:50 l (disorder) (disorder) [place] Active Problem 10/15/2019 [facility] Pancreatic Pancreati Problem Active 2019-10-15 Memoria insufficie c 00:47:50 l ncy insufficie Stephan n (disorder) ncy (disorder) Active Problem 10/15/2019 [facility] Paresthesi Problem Active 2019-10-15 M emoria a of lower Paresthesi 00:47:50 l extremity a of lower Her paz (finding) extremity (finding) Active Problem 10/15/2019 & BILATERAL FEET. [facility] Spondyloli Problem Active 2019-10-15 M emoria sthesis Spondyloli 00:47:50 l (disorder) sthesis Ashley nn (disorder) Active Problem 10/15/2019 [facility] SPONDYLOLI SPONDYLOL Diagnosis Active 2019-10-12 Memoria STHESIS, ISTHESIS, 13:44:00 l LUMBAR LUMBAR [place] [facility]ION REGION Active [facility] SPINAL SPINAL Diagnosis Active 2019-10-12 Me moria STENOSIS, STENOSIS, 13:44:00 l LUMBAR LUMBAR [place] [facility] REGION WITHOUT N WITHOUT N Active [facility] PAIN IN PAIN IN Diagnosis Active 2018-10-20 Memoria LEFT LEFT 10:35:00 l SHOULDER SHOULDER Stephan n Active [facility] CERVICALGI CERVICALG Diagnosis Active 2018-10-20 Memoria A IA Active 10:35:[address] [facility] [place], [place] [id number] Primary Problem Common insomnia Spirit - [facility] Mixed Hyperlipem Problem Commo n hyperlipid ia, mixed Spi rit emia - [facility] Essential Essential Problem Com mon hypertensi hypertensi Sp masha on on - [facility] [id number] Closed Problem Common nondisplac Spirit ed - [facility] fracture [facility] metatarsal Medica l bone of Center left foot, initial encounter [id number] Moderate Problem Comm on recurrent Spirit major - [facility] depression [facility] [id number] Pain in Problem Comm on 9108 left ankle Spirit and joints - [facility] of left [facility] [id number] Primary Problem Comm on osteoarthr Spirit itis of - [facility] right hip [facility] [id number] Other Problem Common chronic Spirit pain - [facility] [id number] Anxiety Problem Commo n with Spirit depression - [facility] [id number] Gastroesop Problem Co mmon hageal Spirit reflux - CH[facility] disease [facility] esophagiti Medica [facility] [id number] Benzodiaze Problem Co mmon pine Spirit dependence - [facility] [id number] Opiate Problem Common dependence Spirit , - [facility] continuous [facility] Gastric Gastric Problem Resolve 2019-10-15 2019-10-15 Memoria ulcer ulcer d 08-11 00:47:50 00:47:50 l (disorder) (disorder) 00:00: [place] Resolved 00 08/11/2010 Problem 10/15/2019 [facility] Allergies, Adverse Reactions, Alerts Allergy Allergy Status Severity Reaction(s) Onset Inactive Treating Comm ents Source Name Type Date Date Clinician No Known DA Active [facility]01 [facility] No Known DA Active [facility] Allergie 09-01 [facility]: [facility] No Known No Known Active Memori a Medicati Medicati l on on [place] Allergie Allergie s s NO KNOWN Drug Active Univers ALLERGIE Class ity of S [facility] Family History Family Member Diagnosis Comments Start Date Stop Date Source Natural father Old age Spiritism [facility] Natural mother Old age Spiritism [facility] Social History Social Habit Start Date Stop Date Quantity Comments Source Sexual orientation [facility] Hospital History of Tobacco Common Spirit - Use [facility] Exposure to Not sure University of SARS-CoV-2 (event) [facility] Gender identity Universit y of [facility] Alcohol intake 2023-06-04 2023-06-04 Lifetime Spiritism 00:00:00 00:00:00 non-drinker Hospital (finding) History of Social 2023-06-04 2023-06-[address] function 00:00:00 00:00:00 Hospital Tobacco use and 2023-05-28 2023-05-28 Smokeless Spiritism exposure 00:00:00 00:00:00 tobacco non-user Hospital Social History 2017-08-19 2017-08-19 [facility] 00:42:08 00:42:08 Sex [birth year] Spiritism 00:00:00 00:00:00 Hospital Smoking Status Start Date Stop Date Source Unknown if ever smoked [facility] Never Smoker Common [facility] Medications Ordered Filled Start Stop Current Ordering Indication Dosage Frequency Signature Comments Components Source Medication Medication Date Date Medication? Clinician (SIG) Name Name zolpidem 2022-08 Yes 5mg QD Take 1 Methodi (AMBIEN) 5 0-24 tablet (5 st MG tablet 22:02: mg total) Hos shreyas 09 by mouth l nightly as needed for sleep. ALPRAZolam 2022-08 Yes 1mg Q.5D Take 0.5 Met hodi (XANAX) 2 0-24 tablets (1 st MG tablet 22:02: mg total) Hos shreyas 09 by mouth 2 l (two) times a day. oxyCODone-a 2022-08 Yes 1{tbl} Q4H Take 1 M ethodi cetaminophe 0-[address] n 22:02: mouth Hospita (PERCOCET) 09 every 4 l 7.5-325 mg (four) per tablet hours as needed for moderate pain .acute pain. amLODIPine 2022-08 Yes 10mg QD Take 1 Metho di (NORVASC) 0-24 tablet (10 st 10 mg 22:02: mg total) Hospita tablet 09 by mouth l daily. duloxetine 2022-08 Yes 120mg QD Take 120 Me thodi HCl 0-[address] (DULOXETINE 22:02: mouth Hospi ta ORAL) 09 daily. l omeprazole 2022-08 Yes 40mg QD Take 1 Metho di (PriLOSEC) 0-[address] 40 MG 22:02: (40 mg Hospita capsule 09 total) by l mouth daily. acetaminoph 2022-08 Yes 500mg Q6H Take 1 Met hodi en 0-[address] (TYLENOL) 22:02: (500 mg Hospi ta 500 MG 09 total) by l tablet mouth every 6 (six) hours as needed for mild pain. melatonin 2022-08 Yes 10mg QD Take 1 Method i 10 mg 0-[address] capsule 22:02: (10 mg Hospita 09 total) by l mouth nightly. senna 2022-08 Yes 1{tbl} QD Take 1 Methodi (SENOKOT) 0-[address] 8.6 mg 22:02: mouth Hospita tablet 09 nightly. l sennosides- 2022-08 Yes 1{tbl} QD Take 1 Me thodi docusate 0-[address] sodium 22:02: mouth Hospita (SENOKOT-S) 09 nightly. l 8.6-50 mg per tablet rosuvastati 2022-08 Yes 20mg QD Take 1 Meth vicenta n (CRESTOR) 0-24 tablet (20 st 20 mg 22:02: mg total) Hospita tablet 09 by mouth l every morning. losartan 2022-08 Yes 100mg QD Take 1 Method i (COZAAR) 0-[address] 100 MG 22:02: (100 mg Hospita tablet 09 total) by l mouth daily. tiZANidine 2022-08 Yes 4mg Q8H Take 1 Metho di (ZANAFLEX) 0-24 tablet (4 st 4 MG tablet 22:02: mg total) H ospita 09 by mouth l every 8 (eight) hours as needed for muscle spasms. promethazin 2022-08- No 25mg Q6H Take 25 mg Methodi e 0-23 10-[address] (PHENERGAN) 11:03: 00:00 every 6 Ho spita 25 MG 41 :00 (six) l tablet hours as needed for nausea or vomiting. ondansetron 2022-08 No 4mg Q8H Take 4 mg Methodi (ZOFRAN) 4 0-23 10-[address] MG tablet 11:03: 00:00 every 8 Hosp luciana 09 :00 (eight) l hours as needed for nausea or vomiting. esomeprazol 2022-08 No 40mg QD Take 1 Met hodi e (NexIUM) 0-23 10-[address] 40 MG 11:03: 00:00 (40 mg Hospita capsule 01 :00 total) by l mouth daily before breakfast. ARIPiprazol 2022-08 No 5mg QD Take 5 mg Methodi e (ABILIFY) 0-23 10-[address] 5 MG tablet 11:01: 00:00 daily. Hos shreyas 28 :00 l lactated Yes 1000mL at 75 Univer s ringers IV 9-19 mL/hr, ity of infusion 18:30: 1,000 [place] 1[place]000 [place] 00 IV Medical Infusion, Branch CONTINUOUS , Starting on Fri04/29/23 at 1330, Until Discontinu ed, Routine, PACU lactated 2022- No 1000mL at 75 Unive rs ringers IV 04-29 mL/hr, ity of infusion 18:30: 21:18 1,000 mL, Roman as 1,000 mL 00 :17 IV Medical Infusion, Branch CONTINUOUS , Starting on Fri04/29/23 at 1330, Until Fri04/29/23 at 1618, Routine, PACU HYDROcodone 2022-0 Yes 1{tbl} 1 tablet, Univers -acetaminop 04-29 Oral, PRN, it y of hen (NORCO 18:25: 1 dose, [place] 5) 5-325 mg 39 Starting Medi akin tablet 1 on Fri Branch tablet 04/29/23 at 1325, Until Discontinu ed, Routine, Pain (scale 7-10), DSU Recovery acetaminoph Yes 1{tbl} 1 tablet, Univers en-codeine 04-29 Oral, PRN, ity of (TYLENOL 18:25: 1 dose, [place] #3) 300-30 39 Starting Medic al mg tablet 1 on Fri Branch tablet 04/29/23 at 1325, Until Discontinu ed, Routine, Pain (scale 4-6), DSU Recovery HYDROcodone 2022- No 1{tbl} 1 tablet, Univers -acetaminop 04-29 Oral, PRN, i ty of hen (NORCO 18:25: 21:18 1 dose, Roman as 5) 5-325 mg 39 :17 Starting Medi akin tablet 1 on e Branch tablet 04/29/23 at 1325, Until Fri04/29/23 at 1618, Routine, Pain (scale 7-10), DSU Recovery acetaminoph 2022- No 1{tbl} 1 tablet, Univers en-codeine 04-29 Oral, PRN, it y of (TYLENOL 18:25: 21:18 1 dose, [place] #3) 300-30 39 :17 Starting Medic al mg tablet 1 on e Branch tablet 04/29/23 at 1325, Until Fri04/29/23 at 1618, Routine, Pain (scale 4-6), DSU Recovery acetaminoph 2022-0 Yes 500mg 500 mg, Un misty en 04-29 Oral, PRN, ity of (TYLENOL) 18:25: 1 dose, [place] tablet 500 38 Starting Medic al mg on Fri Branch 04/29/23 at 1325, Until Discontinu ed, Routine, Pain (scale 1-3), DSU Recovery acetaminoph 0 2022- No 500mg 500 mg, U nivers en 04-29 Oral, PRN, ity of (TYLENOL) 18:25: 21:18 1 dose, [place] tablet 500 38 :17 Starting Medic al mg on Fri04/29/23 at 1325, Until Fri04/29/23 at 1618, Routine, Pain (scale 1-3), DSU Recovery meperidine 2022-0 Yes 12.5mg 12.5 mg, U nivers (DEMEROL) 04-29 Slow IV ity of injection 18:25: Push, [place]N, [place] 12.5 mg 34 1 dose, Medical Starting Branch on Fri04/29/23 at 1325, Until Discontinu ed, Routine, Shivering, PACU
En ter indication for use: Reduce postoperat vasu shivering< br>geology faculty member approving Restricted medication : ANESTHESIO LOGY ondansetron 2022-0 Yes 4mg 4 mg, Slow Univers (ZOFRAN 04-29 IV Push, ity of (PF)) 18:25: PRN, 1 [place] injection 4 34 dose, Medical mg Starting Branch on Fri04/29/23 at 1325, Until Discontinu ed, Routine, Nausea and Vomiting (N/V), PACU meperidine 0 2022- No 12.5mg 12.5 mg, Univers (DEMEROL) 04-29 Slow IV ity of injection 18:25: 21:18 Push, PRN, [place] 12.5 mg 34 :17 1 dose, Medical Starting Branch on Fri04/29/23 at 1325, Until Fri04/29/23 at 1618, Routine, Shivering, PACU
En ter indication for use: Reduce postoperat vasu shivering< br>geology faculty member approving Restricted medication : ANESTHESIO LOGY ondansetron 2022- No 4mg 4 mg, Slow Univers (ZOFRAN 04-29 IV Push, ity of (PF)) 18:25: 21:18 PRN, 1 [place] injection 4 34 :17 dose, Medical mg Starting Branch on Fri04/29/23 at 1325, Until Fri04/29/23 at 1618, Routine, Nausea and Vomiting (N/V), PACU timolol 2022- No PRN, Univers (TIMOPTIC) 04-29 Starting ity of 0.5 % 17:30: 18:25 on Fri [place] ophthalmic 00 :22 04/29/23 at [facility] ical solution 1230, Branch Until Fri04/29/23 at 1325, Routine, Intra-op tetracaine 2022- No PRN, Univer s (PONTOCAINE 04-29 Starting ity of ) 0.5 % 17:30: 18:25 on [facility] ophthalmic 00 :22 04/29/23 at [facility] ical drops 1230, Branch Until Fri04/29/23 at 1325, Routine, Intra-op prednisoLON 2022- No PRN, Unive rs E acetate 04-29 Starting ity o f (PRED-FORTE 17:30: 18:25 on Fri [facility] as ) 1 % 00 :22 04/29/23 at [facility] ophthalmic [facility], Branch suspension Until Fri drops 04/29/23 at 1325, Routine, Intra-op povidone-io 2022- No PRN, Unive rs dine 04-29 Starting ity of (BETADINE) 17:30: [facility] 04/29/23 at [facility] ophthalmic 1230, Branch drops Until Fri04/29/23 at 1325, Routine, Intra-op moxifloxaci 2022- No PRN, Unive rs n (VIGAMOX) 04-29 Starting ity of 0.5 % 17:30: 18:25 on Tue [place] ophthalmic 00 :22 04/29/23 at Med ical drops 1230, Branch Until 04/29/23 at 1325, Routine, Intra-op lidocaine 2022- No PRN, Univers 1% (PF) 04-29 Starting ity of (XYLOCAINE) 17:30: 18:25 on Tue [place] as injection 00 :22 04/29/23 at [facility] akin 1230, Branch Until 04/29/23 at 1325, Routine, Intra-op EPINEPHrine 2022- No PRN, Unive rs (PF) 04-29 Starting ity of 1:1,000 (1 17:30: 18:25 on Tue [place] mg/mL) 00 :22 04/29/23 at [facility] (ADRENALIN 1230, Branch (PF)) Until Tue injection 04/29/23 at 1325, Routine, Intra-op Lidocaine 2022- No PRN, Univers (PF) (AKTEN 04-29 Starting ity of (PF)) 3.5 % 17:30: 18:25 on Tue [place] as ophthalmic 00 :22 04/29/23 at [facility] ica gel 1230, Branch Until 04/29/23 at 1325, Routine, Intra-op chondroitin 2022- No PRN, Univ rs sulf-sod 04-29 Starting ity of hyaluronate 17:30: 18:25 on Tue [place] as (DUOVISC 00 :22 04/29/23 at Medic al VISCO 1230, Branch ELASTIC) Until Tue intraocular 04/29/23 at injection 1325, Routine, Intra-op balanced 2022- No PRN, Univers salt irrig 04-29 Starting ity of soln comb1 17:30: 18:25 on e [place] (BSS PLUS) 00 :22 04/29/23 at Med ica ophthalmic 1230, Branch solution Until Tue 500 mL bag 04/29/23 at 1325, Routine, Intra-op lactated 2022- No 1000mL at 42 [facility] rs ringers IV 04-29 mL/hr, ity of infusion 17:15: 17:39 1,000 mL, [place] as 1,000 mL 00 :00 IV Medical Infusion, Branch ONCE, 1 dose, On Fri04/29/23 at 1215, Routine, DSU Pre-op lactated 2022- No 1000mL at 42 Unive rs ringers IV 04-29 mL/hr, ity of infusion 17:15: 17:39 1,000 mL, Roman as 1,000 mL 00 :00 IV Medical Infusion, Branch ONCE, 1 dose, On Fri04/29/23 at 1215, Routine, DSU Pre-op tetracaine 2022- No 1[drp] 1 Drop, U nivers (PONTOCAINE 04-29 Right Eye, i ty of ) 0.5 % 17:07: 18:00 PRN - [place] ophthalmic 02 :39 INSTRUCTIO Med ical drops 1 NS, Branch Drop Starting on Fri04/29/23 at 1207, Until Fri04/29/23 at 1300, Routine, Surgery/Pr ocedure, DSU Pre-op cyclopent 2022- No .25mL 0.25 mL, Un misty 1%-tropic 04-29 Right Eye, ity of 1%-phenyl 17:07: 17:30 [place]N [place] 2.5%-ketor 02 :00 INSTRUCTIO Med ical 0.5% NS, 2 Branch (MYDRIATIC doses, #5) Starting ophthalmic on Fri04/29/23 at syringe 1207, 0.25 mL Until Fri04/29/23 at 1230, Routine, Surgery/Pr ocedure, DSU Pre-op tetracaine 2022- No 1[drp] 1 Drop, U nivers (PONTOCAINE 04-29 Right Eye, i ty of ) 0.5 % 17:07: 18:00 PRN - [place] ophthalmic 02 :39 INSTRUCTIO Med ical drops 1 NS, Branch Drop Starting on Fri04/29/23 at 1207, Until Fri04/29/23 at 1300, Routine, Surgery/Pr ocedure, DSU Pre-op cyclopent 2022- No .25mL 0.25 mL, Un misty 1%-tropic 04-29 Right Eye, ity of 1%-phenyl 17:07: 17:30 PRN - [place] 2.5%-ketor 02 :00 INSTRUCTIO Med ical 0.5% NS, 2 Branch (MYDRIATIC doses, #5) Starting ophthalmic on Tue solution 04/29/23 at syringe 1207, 0.25 mL Until 04/29/23 at 1230, Routine, Surgery/Pr ocedure, DSU Pre-op amLODIPine Yes TAKE 1 Unive rs 10 mg 9-19 TABLET BY ity of tablet 14:18: MOUTH [place] 15 EVERY DAY Medical FOR 90 Branch DAYS losartan 0 Yes 100mg Take 1 Univer s 100 mg 9-19 tablet by ity of tablet 14:18: mouth in [place] 15 the Medical morning. Branch ARIPiprazol Yes TAKE 1 Univ ers e 5 mg 9-19 TABLET BY ity of tablet 14:18: MOUTH [place] 15 EVERY DAY Medical FOR 90 Branch DAYS rosuvastati Yes TAKE 1 Univ ers n 20 mg 9-19 TABLET BY ity of tablet 14:18: MOUTH [place] 15 EVERY DAY Medical FOR 90 Branch DAYS ORALLY ONCE A DAY 90 DAYS DULoxetine 0 Yes Univers 30 mg 9-19 ity of capsule 14:18: [place] 15 Medical Branch ALPRAZolam Yes TAKE 1 Unive rs 0.5 mg 9-19 TABLET BY ity of tablet 14:18: MOUTH [place] 15 TWICE Medical DAILY Branch NEEDED acetaminoph 0 Yes 500mg Take 1 Uni vers en 500 mg 9-19 tablet by ity o f tablet 14:18: mouth. [place] 15 Medical Branch omeprazole Yes TAKE 1 Unive rs 40 mg 9-19 CAPSULE BY ity of capsule 14:18: MOUTH 30 [place] 15 MINUTES Medical BEFORE Branch MORNING MEAL nystatin Yes APPLY Univers (NYSTOP) 9-19 POWDER ity of 100,000 14:18: TOPICALLY [place] unit/gram 15 TO Medical powder AFFECTED Branch AREA TWICE DAILY 30 DAYS ondansetron Yes TAKE 1 Univ ers 4 mg tablet 9-19 TABLET BY ity of 14:18: MOUTH [place] 15 EVERY 4 Medical HOURS Branch NEEDED FOR NAUSEA AND VOMITING melatonin Yes 10mg Take 10 mg Un misty 10 mg Cap 9-19 by mouth. ity o f 14:18: [place] [address] Medical Branch lactulose Yes 30mL Take 30 mL Un misty 10 gram/15 9-19 by mouth. ity of mL solution 14:18: [address] Branch sennosides Yes 8.6mg Take 1 Univ ers 8.6 mg 9-19 tablet by ity of tablet 14:18: mouth. [address] Branch amLODIPine Yes TAKE 1 Unive rs 10 mg 9-19 TABLET BY ity of tablet 14:18: MOUTH [place] 15 EVERY DAY Medical FOR 90 Branch DAYS losartan 0 Yes 100mg Take 1 Univer s 100 mg 9-19 tablet by ity of tablet 14:18: mouth in [place] 15 the Medical morning. Branch ARIPiprazol Yes TAKE 1 Univ ers e 5 mg 9-19 TABLET BY ity of tablet 14:18: MOUTH [place] 15 EVERY DAY Medical FOR 90 Branch DAYS rosuvastati Yes TAKE 1 Univ ers n 20 mg 9-19 TABLET BY ity of tablet 14:18: MOUTH [place] 15 EVERY DAY Medical FOR 90 Branch DAYS ORALLY ONCE A DAY 90 DAYS DULoxetine 0 Yes Univers 30 mg 9-19 ity of capsule 14:18: [address] Branch ALPRAZolam Yes TAKE 1 Unive rs 0.5 mg 9-19 TABLET BY ity of tablet 14:18: MOUTH [place] 15 TWICE Medical DAILY Branch NEEDED acetaminoph 0 Yes 500mg Take 1 Uni vers en 500 mg 9-19 tablet by ity o f tablet 14:18: mouth. [address] Branch omeprazole Yes TAKE 1 Unive rs 40 mg 9-19 CAPSULE BY ity of capsule 14:18: MOUTH 30 [place] 15 MINUTES Medical BEFORE Branch MORNING MEAL nystatin Yes APPLY Univers (NYSTOP) 9-19 POWDER ity of 100,000 14:18: TOPICALLY [place] unit/gram 15 TO Medical powder AFFECTED Branch AREA TWICE DAILY 30 DAYS ondansetron 0 Yes TAKE 1 Univ ers 4 mg tablet 9-19 TABLET BY ity of 14:18: MOUTH [place] 15 EVERY 4 Medical HOURS Branch NEEDED FOR NAUSEA AND VOMITING melatonin 2023-0 Yes 10mg Take 10 mg Un misty 10 mg Cap 9-19 by mouth. ity o f 14:18: [place] [address] Medical Branch lactulose 0 Yes 30mL Take 30 mL Un misty 10 gram/15 9-19 by mouth. ity of mL solution 14:18: [address] Branch sennosides 0 Yes 8.6mg Take 1 Univ ers 8.6 mg 9-19 tablet by ity of tablet 14:18: mouth. [address] Branch amLODIPine Yes TAKE 1 Unive rs 10 mg 9-19 TABLET BY ity of tablet 14:18: MOUTH [place] 15 EVERY DAY Medical FOR 90 Branch DAYS losartan 0 Yes 100mg Take 1 Univer s 100 mg 9-19 tablet by ity of tablet 14:18: mouth in [place] 15 the Medical morning. Branch ARIPiprazol Yes TAKE 1 Univ ers e 5 mg 9-19 TABLET BY ity of tablet 14:18: MOUTH [place] 15 EVERY DAY Medical FOR 90 Branch DAYS rosuvastati Yes TAKE 1 Univ ers n 20 mg 9-19 TABLET BY ity of tablet 14:18: MOUTH [place] 15 EVERY DAY Medical FOR 90 Branch DAYS ORALLY ONCE A DAY 90 DAYS DULoxetine 0 Yes [facility] 30 mg 9-19 ity of capsule 14:18: [address] Branch ALPRAZolam Yes TAKE 1 Unive rs 0.5 mg 9-19 TABLET BY ity of tablet 14:18: MOUTH [place] 15 TWICE Medical DAILY Branch NEEDED acetaminoph 0 Yes 500mg Take 1 Uni vers en 500 mg 9-19 tablet by ity o f tablet 14:18: mouth. [address] Branch omeprazole Yes TAKE 1 Unive rs 40 mg 9-19 CAPSULE BY ity of capsule 14:18: MOUTH 30 [place] 15 MINUTES Medical BEFORE Branch MORNING MEAL nystatin Yes APPLY Univers (NYSTOP) 9-19 POWDER ity of 100,000 14:18: TOPICALLY [place] unit/gram 15 TO Medical powder AFFECTED Branch AREA TWICE DAILY 30 DAYS ondansetron 0 Yes TAKE 1 Univ ers 4 mg tablet 9-19 TABLET BY ity of 14:18: MOUTH [place] 15 EVERY 4 Medical HOURS Branch NEEDED FOR NAUSEA AND VOMITING melatonin 2023-0 Yes 10mg Take 10 mg Un misty 10 mg Cap 9-19 by mouth. ity o f 14:18: [place] [address] Medical Branch lactulose Yes 30mL Take 30 mL Un misty 10 gram/15 9-19 by mouth. ity of mL solution 14:18: [address] Branch sennosides 0 Yes 8.6mg Take 1 Univ ers 8.6 mg 9-19 tablet by ity of tablet 14:18: mouth. [address] Branch amLODIPine Yes TAKE 1 Unive rs 10 mg 9-19 TABLET BY ity of tablet 14:18: MOUTH [place] 15 EVERY DAY Medical FOR 90 Branch DAYS losartan 0 Yes 100mg Take 1 Univer s 100 mg 9-19 tablet by ity of tablet 14:18: mouth in [place] 15 the Medical morning. Branch ARIPiprazol Yes TAKE 1 Univ ers e 5 mg 9-19 TABLET BY ity of tablet 14:18: MOUTH [place] 15 EVERY DAY Medical FOR 90 Branch DAYS rosuvastati Yes TAKE 1 [facility] ers n 20 mg 9-19 TABLET BY ity of tablet 14:18: MOUTH [place] 15 EVERY DAY Medical FOR 90 Branch DAYS ORALLY ONCE A DAY 90 DAYS DULoxetine 0 Yes [facility] 30 mg 9-19 ity of capsule 14:18: [address] Branch ALPRAZolam Yes TAKE 1 Unive rs 0.5 mg 9-19 TABLET BY ity of tablet 14:18: MOUTH [place] 15 TWICE Medical DAILY Branch NEEDED acetaminoph 0 Yes 500mg Take 1 Uni vers en 500 mg 9-19 tablet by ity o f tablet 14:18: mouth. [address] Branch omeprazole Yes TAKE 1 Unive rs 40 mg 9-19 CAPSULE BY ity of capsule 14:18: MOUTH 30 [place] 15 MINUTES Medical BEFORE Branch MORNING MEAL nystatin 0 Yes APPLY [facility] (NYSTOP) 9-19 POWDER ity of 100,000 14:18: TOPICALLY [place] unit/gram 15 TO Medical powder AFFECTED Branch AREA TWICE DAILY 30 DAYS ondansetron 0 Yes TAKE 1 Univ ers 4 mg tablet 9-19 TABLET BY ity of 14:18: MOUTH [place] 15 EVERY 4 Medical HOURS Branch NEEDED FOR NAUSEA AND VOMITING melatonin Yes 10mg Take 10 mg Un misty 10 mg Cap 9-19 by mouth. ity o f 14:18: [place] 15 Medical Branch lactulose 0 Yes 30mL Take 30 mL Un misty 10 gram/15 9-19 by mouth. ity of mL solution 14:18: [place] 15 Medical Branch sennosides 0 Yes 8.6mg Take 1 [facility] ers 8.6 mg 9-19 tablet by ity of tablet 14:18: mouth. [place] [address] Medical Branch amLODIPine Yes TAKE 1 Unive rs 10 mg 9-19 TABLET BY ity of tablet 14:18: MOUTH [place] 15 EVERY DAY Medical FOR 90 Branch DAYS losartan 0 Yes 100mg Take 1 Univer s 100 mg 9-19 tablet by ity of tablet 14:18: mouth in [place] 15 the Medical morning. Branch ARIPiprazol Yes TAKE 1 Univ ers e 5 mg 9-19 TABLET BY ity of tablet 14:18: MOUTH [place] 15 EVERY DAY Medical FOR 90 Branch DAYS rosuvastati Yes TAKE 1 [facility] ers n 20 mg 9-19 TABLET BY ity of tablet 14:18: MOUTH [place] 15 EVERY DAY Medical FOR 90 Branch DAYS ORALLY ONCE A DAY 90 DAYS DULoxetine 0 Yes [facility] 30 mg 9-19 ity of capsule 14:18: [address] Branch ALPRAZolam Yes TAKE 1 Unive rs 0.5 mg 9-19 TABLET BY ity of tablet 14:18: MOUTH [place] 15 TWICE Medical DAILY Branch NEEDED acetaminoph 0 Yes 500mg Take 1 Uni vers en 500 mg 9-19 tablet by ity o f tablet 14:18: mouth. [place] [address] Medical Branch omeprazole Yes TAKE 1 Unive rs 40 mg 9-19 CAPSULE BY ity of capsule 14:18: MOUTH 30 [place] 15 MINUTES Medical BEFORE Branch MORNING MEAL nystatin Yes APPLY [facility] (NYSTOP) 9-19 POWDER ity of 100,000 14:18: TOPICALLY [place] unit/gram 15 TO Medical powder AFFECTED Branch AREA TWICE DAILY 30 DAYS ondansetron 0 Yes TAKE 1 Univ ers 4 mg tablet 9-19 TABLET BY ity of 14:18: MOUTH [place] 15 EVERY 4 Medical HOURS Branch NEEDED FOR NAUSEA AND VOMITING melatonin Yes 10mg Take 10 mg Un misty 10 mg Cap 9-19 by mouth. ity o f 14:18: [place] [address] Medical Branch lactulose 0 Yes 30mL Take 30 mL Un misty 10 gram/15 9-19 by mouth. ity of mL solution 14:18: [place] [address] Medical Branch sennosides Yes 8.6mg Take 1 Univ ers 8.6 mg 9-19 tablet by ity of tablet 14:18: mouth. [place] [address] Medical Branch amLODIPine Yes TAKE 1 Unive rs 10 mg 9-19 TABLET BY ity of tablet 14:18: MOUTH [place] 15 EVERY DAY Medical FOR 90 Branch DAYS losartan 0 Yes 100mg Take 1 Univer s 100 mg 9-19 tablet by ity of tablet 14:18: mouth in [place] 15 the Medical morning. Branch ARIPiprazol Yes TAKE 1 Univ ers e 5 mg 9-19 TABLET BY ity of tablet 14:18: MOUTH [place] 15 EVERY DAY Medical FOR 90 Branch DAYS rosuvastati Yes TAKE 1 [facility] ers n 20 mg 9-19 TABLET BY ity of tablet 14:18: MOUTH [place] 15 EVERY DAY Medical FOR 90 Branch DAYS ORALLY ONCE A DAY 90 DAYS DULoxetine 0 Yes [facility] 30 mg 9-19 ity of capsule 14:18: [address] Branch ALPRAZolam Yes TAKE 1 Unive rs 0.5 mg 9-19 TABLET BY ity of tablet 14:18: MOUTH [place] 15 TWICE Medical DAILY Branch NEEDED acetaminoph 2022-0 Yes 500mg Take 1 Uni vers en 500 mg 9-19 tablet by ity o f tablet 14:18: mouth. [place] [address] Medical Branch omeprazole Yes TAKE 1 Unive rs 40 mg 9-19 CAPSULE BY ity of capsule 14:18: MOUTH 30 [place] 15 MINUTES Medical BEFORE Branch MORNING MEAL nystatin Yes APPLY [facility] (NYSTOP) 9-19 POWDER ity of 100,000 14:18: TOPICALLY [place] unit/gram 15 TO Medical powder AFFECTED Branch AREA TWICE DAILY 30 DAYS ondansetron 0 Yes TAKE 1 [facility] ers 4 mg tablet 9-19 TABLET BY ity of 14:18: MOUTH [place] 15 EVERY 4 Medical HOURS Branch NEEDED FOR NAUSEA AND VOMITING melatonin Yes 10mg Take 10 mg Un misty 10 mg Cap 9-19 by mouth. ity o f 14:18: [place] [address] Medical Branch lactulose Yes 30mL Take 30 mL Un misty 10 gram/15 9-19 by mouth. ity of mL solution 14:18: [address] Branch sennosides Yes 8.6mg Take 1 Univ ers 8.6 mg 9-19 tablet by ity of tablet 14:18: mouth. [place] [address] Medical Branch amLODIPine Yes TAKE 1 Unive rs 10 mg 9-19 TABLET BY ity of tablet 14:18: MOUTH [place] 15 EVERY DAY Medical FOR 90 Branch DAYS losartan 0 Yes 100mg Take 1 Univer s 100 mg 9-19 tablet by ity of tablet 14:18: mouth in [place] 15 the Medical morning. Branch ARIPiprazol Yes TAKE 1 Univ ers e 5 mg 9-19 TABLET BY ity of tablet 14:18: MOUTH [place] 15 EVERY DAY Medical FOR 90 Branch DAYS rosuvastati Yes TAKE 1 [facility] ers n 20 mg 9-19 TABLET BY ity of tablet 14:18: MOUTH [place] 15 EVERY DAY Medical FOR 90 Branch DAYS ORALLY ONCE A DAY 90 DAYS DULoxetine 0 Yes [facility] 30 mg 9-19 ity of capsule 14:18: [address] Branch ALPRAZolam Yes TAKE 1 Unive rs 0.5 mg 9-19 TABLET BY ity of tablet 14:18: MOUTH [place] 15 TWICE Medical DAILY Branch NEEDED acetaminoph 0 Yes 500mg Take 1 Uni vers en 500 mg 9-19 tablet by ity o f tablet 14:18: mouth. [address] Branch omeprazole Yes TAKE 1 Unive rs 40 mg 9-19 CAPSULE BY ity of capsule 14:18: MOUTH 30 [place] 15 MINUTES Medical BEFORE Branch MORNING MEAL nystatin Yes APPLY [facility] (NYSTOP) 9-19 POWDER ity of 100,000 14:18: TOPICALLY [place] unit/gram 15 TO Medical powder AFFECTED Branch AREA TWICE DAILY 30 DAYS ondansetron 0 Yes TAKE 1 [facility] ers 4 mg tablet 9-19 TABLET BY ity of 14:18: MOUTH [place] 15 EVERY 4 Medical HOURS Branch NEEDED FOR NAUSEA AND VOMITING melatonin Yes 10mg Take 10 mg Un misty 10 mg Cap 9-19 by mouth. ity o f 14:18: [place] 15 [facility] Branch lactulose 0 Yes 30mL Take 30 mL Un misty 10 gram/15 9-19 by mouth. ity of mL solution 14:18: [place] [facility] sennosides 0 Yes 8.6mg Take 1 Univ ers 8.6 mg 9-19 tablet by ity of tablet 14:18: mouth. [place] [facility] sennosides Yes 8.6mg Take 1 Univ ers 8.6 mg 9-14 tablet by ity of tablet 10:08: mouth. [address] ARIPiprazol Yes TAKE 1 Univ ers e 5 mg 9-14 TABLET BY ity of tablet 10:07: MOUTH [place] [address] EVERY DAY Medical FOR 90 Branch DAYS rosuvastati Yes TAKE 1 Univ ers n 20 mg 9-14 TABLET BY ity of tablet 10:07: MOUTH [place] [address] EVERY DAY Medical FOR 90 Branch DAYS ORALLY ONCE A DAY 90 DAYS DULoxetine Yes [facility] 30 mg 9-14 ity of capsule 10:07: [address] ALPRAZolam Yes TAKE 1 Unive rs 0.5 mg 9-14 TABLET BY ity of tablet 10:07: MOUTH [place] TWICE Medical DAILY Branch NEEDED acetaminoph Yes 500mg Take 1 Uni vers en 500 mg 9-14 tablet by ity o f tablet 10:07: mouth. [address] omeprazole Yes TAKE 1 Unive rs 40 mg 9-14 CAPSULE BY ity of capsule 10:07: MOUTH 30 [place] 23 MINUTES Medical BEFORE Branch MORNING MEAL nystatin Yes APPLY [facility] (NYSTOP) 9-14 POWDER ity of 100,000 10:07: TOPICALLY [place] unit/gram 23 TO Medical powder AFFECTED Branch AREA TWICE DAILY 30 DAYS ondansetron Yes TAKE 1 Univ ers 4 mg tablet 9-14 TABLET BY ity of 10:07: MOUTH [place] 23 EVERY 4 Medical HOURS Branch NEEDED FOR NAUSEA AND VOMITING melatonin Yes 10mg Take 10 mg Un misty 10 mg Cap 9-14 by mouth. ity o f 10:07: [address] lactulose Yes 30mL Take 30 mL Un misty 10 gram/15 9-14 by mouth. ity of mL solution 10:07: [place] 23 Medical Branch amLODIPine 3-0 Yes TAKE 1 Unive rs 10 mg 9-14 TABLET BY ity of tablet 09:55: MOUTH [place] 47 EVERY DAY Medical FOR 90 Branch DAYS losartan 2023-0 Yes 100mg Take 1 Univer s 100 mg 9-14 tablet by ity of tablet 09:55: mouth in [place] [address] the Medical morning. Branch losartan 2023-0 Yes 100mg Take 1 Univer s 100 mg 8-28 tablet by ity of tablet 11:35: mouth in [place] [address] the Medical morning. Branch losartan 2023-0 Yes 100mg Take 1 Univer s 100 mg 8-28 tablet by ity of tablet 11:35: mouth in [place] [address] the Medical morning. Branch losartan 2023-0 Yes 100mg Take 1 Univer s 100 mg 8-28 tablet by ity of tablet 11:35: mouth in [place] [address] the Medical morning. Branch losartan 2023-0 Yes 100mg Take 1 Univer s 100 mg 8-28 tablet by ity of tablet 11:35: mouth in [place] [address] the Medical morning. Branch losartan 2023-0 Yes 100mg Take 1 Univer s 100 mg 8-28 tablet by ity of tablet 11:35: mouth in [place] [address] the Medical morning. Branch amLODIPine 3-0 Yes TAKE 1 Unive rs 10 mg 8-28 TABLET BY ity of tablet 11:35: MOUTH [place] 33 EVERY DAY Medical FOR 90 Branch DAYS amLODIPine 3-0 Yes TAKE 1 Unive rs 10 mg 8-28 TABLET BY ity of tablet 11:35: MOUTH [place] 33 EVERY DAY Medical FOR 90 Branch DAYS amLODIPine 2023-0 Yes TAKE 1 Unive rs 10 mg 8-28 TABLET BY ity of tablet 11:35: MOUTH [place] 33 EVERY DAY Medical FOR 90 Branch DAYS amLODIPine 3-0 Yes TAKE 1 Unive rs 10 mg 8-28 TABLET BY ity of tablet 11:35: MOUTH [place] 33 EVERY DAY Medical FOR 90 Branch DAYS amLODIPine 3-0 Yes TAKE 1 Unive rs 10 mg 8-28 TABLET BY ity of tablet 11:35: MOUTH [place] 33 EVERY DAY Medical FOR 90 Branch DAYS prednisoLON 3-0 Yes [id number] 1[drp] Place 1 Univers E acetate 1 8- 9108 Drop in ity o f % 00:00: right eye [place] ophthalmic 00 4 (four) Medic al suspension times Branch drops daily. ketorolac 3-0 Yes [id number] 1[drp] Place 1 Univers (ACULAR) 8-28 9108 Drop in ity of 0.5 % 00:00: right eye [place] ophthalmic 00 4 (four) Medic al solution times Branch daily. moxifloxaci 2022-0 Yes [id number] 1[drp] Place 1 Univers n (VIGAMOX) 8-28 9108 Drop in ity o f 0.5 % 00:00: right eye [place] ophthalmic 00 4 (four) Medic al drops times Branch daily. prednisoLON 2022-0 Yes [id number] 1[drp] Place 1 Univers E acetate 1 8-28 9108 Drop in ity o f % 00:00: right eye [place] ophthalmic 00 4 (four) Medic al suspension times Branch drops daily. ketorolac 3-0 Yes [id number] 1[drp] Place 1 Univers (ACULAR) 8-28 9108 Drop in ity of 0.5 % 00:00: right eye [place] ophthalmic 00 4 (four) Medic al solution times Branch daily. moxifloxaci 2022-0 Yes [id number] 1[drp] Place 1 Univers n (VIGAMOX) 8-28 9108 Drop in ity o f 0.5 % 00:00: right eye [place] ophthalmic 00 4 (four) Medic al drops times Branch daily. prednisoLON 2022-0 Yes [id number] 1[drp] Place 1 Univers E acetate 1 8-28 9108 Drop in ity o f % 00:00: right eye [place] ophthalmic 00 4 (four) Medic al suspension times Branch drops daily. ketorolac 3-0 Yes [id number] 1[drp] Place 1 Univers (ACULAR) 8-28 9108 Drop in ity of 0.5 % 00:00: right eye [place] ophthalmic 00 4 (four) Medic al solution times Branch daily. moxifloxaci 3-0 Yes [id number] 1[drp] Place 1 Univers n (VIGAMOX) 8-28 9108 Drop in ity o f 0.5 % 00:00: right eye [place] ophthalmic 00 4 (four) Medic al drops times Branch daily. prednisoLON 3-0 Yes [id number] 1[drp] Place 1 [facility] E acetate 1 8-28 9108 Drop in ity o f % 00:00: right eye [place] ophthalmic 00 4 (four) Medic al suspension times Branch drops daily. ketorolac 2022-0 Yes [id number] 1[drp] Place 1 Univers (ACULAR) 8-28 9108 Drop in ity of 0.5 % 00:00: right eye [place] ophthalmic 00 4 (four) Medic al solution times Branch daily. moxifloxaci 2022-0 Yes [id number] 1[drp] Place 1 Univers n (VIGAMOX) 8-28 9108 Drop in ity o f 0.5 % 00:00: right eye [place] ophthalmic 00 4 (four) Medic al drops times Branch daily. prednisoLON 2022-0 Yes [id number] 1[drp] Place 1 [facility] E acetate 1 8-28 9108 Drop in ity o f % 00:00: right eye [place] ophthalmic 00 4 (four) Medic al suspension times Branch drops daily. ketorolac 2022-0 Yes [id number] 1[drp] Place 1 Univers (ACULAR) 8-28 9108 Drop in ity of 0.5 % 00:00: right eye [place] ophthalmic 00 4 (four) Medic al solution times Branch daily. moxifloxaci 2022-0 Yes [id number] 1[drp] Place 1 Univers n (VIGAMOX) 8-28 9108 Drop in ity o f 0.5 % 00:00: right eye [place] ophthalmic 00 4 (four) Medic al drops times Branch daily. prednisoLON 2022-0 Yes [id number] 1[drp] Place 1 [facility] E acetate 1 8-28 9108 Drop in ity o f % 00:00: right eye [place] ophthalmic 00 4 (four) Medic al suspension times Branch drops daily. ketorolac 2022-0 Yes [id number] 1[drp] Place 1 Univers (ACULAR) 8-28 9108 Drop in ity of 0.5 % 00:00: right eye [place] ophthalmic 00 4 (four) Medic al solution times Branch daily. moxifloxaci 2022-0 Yes [id number] 1[drp] Place 1 Univers n (VIGAMOX) 8-28 9108 Drop in ity o f 0.5 % 00:00: right eye [place] ophthalmic 00 4 (four) Medic al drops times Branch daily. prednisoLON 3-0 Yes [id number] 1[drp] Place 1 [facility] E acetate 1 8-28 9108 Drop in ity o f % 00:00: right eye [place] ophthalmic 00 4 (four) Medic al suspension times Branch drops daily. ketorolac 3-0 Yes [id number] 1[drp] Place 1 Univers (ACULAR) 8-28 9108 Drop in ity of 0.5 % 00:00: right eye [place] ophthalmic 00 4 (four) Medic al solution times Branch daily. moxifloxaci 2022-0 Yes [id number] 1[drp] Place 1 Univers n (VIGAMOX) 8-28 9108 Drop in ity o f 0.5 % 00:00: right eye [place] ophthalmic 00 4 (four) Medic al drops times Branch daily. prednisoLON 3-0 Yes [id number] 1[drp] Place 1 Univers E acetate 1 8-28 9108 Drop in ity o f % 00:00: right eye [place] ophthalmic 00 4 (four) Medic al suspension times Branch drops daily. ketorolac 3-0 Yes [id number] 1[drp] Place 1 Univers (ACULAR) 8-28 9108 Drop in ity of 0.5 % 00:00: right eye [place] ophthalmic 00 4 (four) Medic al solution times Branch daily. moxifloxaci 2022-0 Yes [id number] 1[drp] Place 1 Univers n (VIGAMOX) 8-28 9108 Drop in ity o f 0.5 % 00:00: right eye [place] ophthalmic 00 4 (four) Medic al drops times Branch daily. prednisoLON 3-0 Yes [id number] 1[drp] Place 1 [facility] E acetate 1 8-28 9108 Drop in ity o f % 00:00: right eye [place] ophthalmic 00 4 (four) Medic al suspension times Branch drops daily. ketorolac 2023-0 Yes [id number] 1[drp] Place 1 Univers (ACULAR) 8-28 9108 Drop in ity of 0.5 % 00:00: right eye [place] ophthalmic 00 4 (four) Medic al solution times Branch daily. moxifloxaci 2022-0 Yes [id number] 1[drp] Place 1 Univers n (VIGAMOX) 8-28 9108 Drop in ity o f 0.5 % 00:00: right eye [place] ophthalmic 00 4 (four) Medic al drops times Branch daily. prednisoLON 2022-0 Yes [id number] 1[drp] Place 1 Univers E acetate 1 8-28 9108 Drop in ity o f % 00:00: right eye [place] ophthalmic 00 4 (four) Medic al suspension times Branch drops daily. ketorolac 2022-0 Yes [id number] 1[drp] Place 1 Univers (ACULAR) 8-28 9108 Drop in ity of 0.5 % 00:00: right eye [place] ophthalmic 00 4 (four) Medic al solution times Branch daily. moxifloxaci 2022-0 Yes [id number] 1[drp] Place 1 Univers n (VIGAMOX) 8-28 9108 Drop in ity o f 0.5 % 00:00: right eye [place] ophthalmic 00 4 (four) Medic al drops times Branch daily. prednisoLON 2022-0 Yes [id number] 1[drp] Place 1 Univers E acetate 1 8-28 9108 Drop in ity o f % 00:00: right eye [place] ophthalmic 00 4 (four) Medic al suspension times Branch drops daily. ketorolac 2022-0 Yes [id number] 1[drp] Place 1 Univers (ACULAR) 8-28 9108 Drop in ity of 0.5 % 00:00: right eye [place] ophthalmic 00 4 (four) Medic al solution times Branch daily. moxifloxaci 2022-0 Yes [id number] 1[drp] Place 1 Univers n (VIGAMOX) 8-28 9108 Drop in ity o f 0.5 % 00:00: right eye [place] ophthalmic 00 4 (four) Medic al drops times Branch daily. prednisoLON 2022-0 Yes [id number] 1[drp] Place 1 Univers E acetate 1 8-28 9108 Drop in ity o f % 00:00: right eye [place] ophthalmic 00 4 (four) Medic al suspension times Branch drops daily. ketorolac 2022-0 Yes [id number] 1[drp] Place 1 Univers (ACULAR) 8-28 9108 Drop in ity of 0.5 % 00:00: right eye [place] ophthalmic 00 4 (four) Medic al solution times Branch daily. moxifloxaci 2023-0 Yes [id number] 1[drp] Place 1 Univers n (VIGAMOX) 8-28 9108 Drop in ity o f 0.5 % 00:00: right eye [place] ophthalmic 00 4 (four) Medic al drops times Branch daily. prednisoLON 2023-0 Yes [id number] 1[drp] Place 1 Univers E acetate 1 8- 9108 Drop in ity o f % 00:00: right eye [place] ophthalmic 00 4 (four) Medic al suspension times Branch drops daily. ketorolac 3-0 Yes [id number] 1[drp] Place 1 Univers (ACULAR) 8- 9108 Drop in ity of 0.5 % 00:00: right eye [place] ophthalmic 00 4 (four) Medic al solution times Branch daily. moxifloxaci 2022-0 Yes [id number] 1[drp] Place 1 Univers n (VIGAMOX) 8- 9108 Drop in ity o f 0.5 % 00:00: right eye [place] ophthalmic 00 4 (four) Medic al drops times Branch daily. busPIRone 2023-0 Yes 7.5mg Take 1 Unive rs 7.5 mg 8-24 tablet by ity of tablet 00:00: mouth in [place] [address] the Medical morning Branch and 1 tablet in the evening. busPIRone 2023-0 Yes 7.5mg Take 1 Unive rs 7.5 mg 8-24 tablet by ity of tablet 00:00: mouth in [place] [address] the Medical morning Branch and 1 tablet in the evening. busPIRone 2023-0 Yes 7.5mg Take 1 Unive rs 7.5 mg 8-24 tablet by ity of tablet 00:00: mouth in [place] [address] the Medical morning Branch and 1 tablet in the evening. busPIRone 2023-0 Yes 7.5mg Take 1 Unive rs 7.5 mg 8-24 tablet by ity of tablet 00:00: mouth in [place] [address] the Medical morning Branch and 1 tablet in the evening. busPIRone 2023-0 Yes 7.5mg Take 1 Unive rs 7.5 mg 8-24 tablet by ity of tablet 00:00: mouth in [place] [address] the Medical morning Branch and 1 tablet in the evening. busPIRone 2023-0 Yes 7.5mg Take 1 Unive rs 7.5 mg 8-24 tablet by ity of tablet 00:00: mouth in [place] 00 the Medical morning Branch and 1 tablet in the evening. busPIRone 0 Yes 7.5mg Take 1 Unive rs 7.5 mg 8-24 tablet by ity of tablet 00:00: mouth in [place] 00 the Medical morning Branch and 1 tablet in the evening. busPIRone 0 Yes 7.5mg Take 1 Unive rs 7.5 mg 8-24 tablet by ity of tablet 00:00: mouth in [place] 00 the Medical morning Branch and 1 tablet in the evening. oxyCODONE-a Yes 1{tbl} Take 1 Un misty cetaminophe 8-23 tablet by ity of n 10-325 mg 00:00: mouth in [place] per tablet 00 the Medical morning Branch and 1 tablet at noon and 1 tablet in the evening. oxyCODONE-a Yes 1{tbl} Take 1 Un misty cetaminophe 8-23 tablet by ity of n 10-325 mg 00:00: mouth in [place] per tablet 00 the Medical morning Branch and 1 tablet at noon and 1 tablet in the evening. oxyCODONE-a Yes 1{tbl} Take 1 Un [place] cetaminophe 8-23 tablet by ity of n 10-325 mg 00:00: mouth in [place] per tablet 00 the Medical morning Branch and 1 tablet at noon and 1 tablet in the evening. oxyCODONE-a Yes 1{tbl} Take 1 Un misty cetaminophe 8-23 tablet by ity of n 10-325 mg 00:00: mouth in [place] per tablet 00 the Medical morning Branch and 1 tablet at noon and 1 tablet in the evening. oxyCODONE-a Yes 1{tbl} Take 1 Un misty cetaminophe 8-23 tablet by ity of n 10-325 mg 00:00: mouth in [place] per tablet 00 the Medical morning Branch and 1 tablet at noon and 1 tablet in the evening. oxyCODONE-a Yes 1{tbl} Take 1 Un misty cetaminophe 8-23 tablet by ity of n 10-325 mg 00:00: mouth in [place] per tablet 00 the Medical morning Branch and 1 tablet at noon and 1 tablet in the evening. oxyCODONE-a 3-0 Yes 1{tbl} Take 1 Un misty cetaminophe 8-23 tablet by ity of n 10-325 mg 00:00: mouth in [place] per tablet 00 the Medical morning Branch and 1 tablet at noon and 1 tablet in the evening. oxyCODONE-a 3-0 Yes 1{tbl} Take 1 Un misty cetaminophe 8-23 tablet by ity of n 10-325 mg 00:00: mouth in [place] per tablet 00 the Medical morning Branch and 1 tablet at noon and 1 tablet in the evening. zolpidem 2022-0 Yes TAKE ONE Unive rs 12.5 mg CR 8-22 (1) ity of tablet 00:00: TABLET(S) [place] 00 BY MOUTH Medical AT BEDTIME [place] NEEDED. zolpidem 3-0 Yes TAKE ONE Unive rs 12.5 mg CR 8-22 (1) ity of tablet 00:00: TABLET(S) [place] 00 BY MOUTH Medical AT BEDTIME [place] NEEDED. zolpidem 3-0 Yes TAKE ONE Unive rs 12.5 mg CR 8-22 (1) ity of tablet 00:00: TABLET(S) [place] 00 BY MOUTH Medical AT BEDTIME [place] NEEDED. zolpidem 3-0 Yes TAKE ONE Unive rs 12.5 mg CR 8-22 (1) ity of tablet 00:00: TABLET(S) [place] 00 BY MOUTH Medical AT BEDTIME [place] NEEDED. zolpidem 3-0 Yes TAKE ONE Unive rs 12.5 mg CR 8-22 (1) ity of tablet 00:00: TABLET(S) [place] 00 BY MOUTH Medical AT BEDTIME [place] NEEDED. zolpidem 2023-0 Yes TAKE ONE Unive rs 12.5 mg CR 8-22 (1) ity of tablet 00:00: TABLET(S) [place] 00 BY MOUTH Medical AT BEDTIME [place] NEEDED. zolpidem 3-0 Yes TAKE ONE Unive rs 12.5 mg CR 8-22 (1) ity of tablet 00:00: TABLET(S) [place] 00 BY [facility] Medical AT BEDTIME Branch NEEDED. zolpidem 3-0 Yes TAKE ONE Unive rs 12.5 mg CR 8-22 (1) ity of tablet 00:00: TABLET(S) BY [facility] Medical AT BEDTIME Branch NEEDED. tiZANidine 3-0 Yes TAKE 1 Unive rs 4 mg tablet 7-12 TABLET BY ity of 00:00: [facility] THREE Medical TIMES A Branch DAY NEEDED tiZANidine 2023-0 Yes TAKE 1 Unive rs 4 mg tablet 7-12 TABLET BY ity of 00:00: [facility] THREE Medical TIMES A Branch DAY NEEDED tiZANidine 3-0 Yes TAKE 1 Unive rs 4 mg tablet 7-12 TABLET BY ity of 00:00: [facility] THREE Medical TIMES A Branch DAY NEEDED tiZANidine 2023-0 Yes TAKE 1 Unive rs 4 mg tablet 7-12 TABLET BY ity of 00:00: THREE Medical TIMES A Branch DAY NEEDED tiZANidine 3-0 Yes TAKE 1 Unive rs 4 mg tablet 7-12 TABLET BY ity of 00:00: THREE Medical TIMES A Branch DAY NEEDED tiZANidine 3-0 Yes TAKE 1 Unive rs 4 mg tablet 7-12 TABLET BY ity of 00:00: [facility] THREE Medical TIMES A Branch DAY NEEDED tiZANidine 2023-0 Yes TAKE 1 Unive rs 4 mg tablet 7-12 TABLET BY ity of 00:00: THREE Medical TIMES A Branch DAY NEEDED tiZANidine 3-0 Yes TAKE 1 Unive rs 4 mg tablet 7-12 TABLET BY ity of 00:00: THREE Medical TIMES A Branch DAY NEEDED omeprazole 2-0 Yes 40mg QD Take 40 mg M ethodi (PriLOSEC) 7-[address] 40 MG 18:35: [facility]. [facility] capsule 01 l acetaminoph 2-0 Yes 500mg Q6H Take 500 M ethodi en 7-[address] (TYLENOL) 18:35: mouth Hospita 500 MG 01 every 6 l tablet (six) hours as needed for mild pain. melatonin 2-0 Yes 10mg QD Take 10 mg Me thodi 10 mg 7-[address] capsule 18:35: nightly. Hospit a 01 l senna 2021-0 Yes 1{tbl} QD Take 1 Methodi (SENOKOT) 7-[address] 8.6 mg 18:35: mouth Hospita tablet 01 nightly. l sennosides- 2021-0 Yes 1{tbl} QD Take 1 Me thodi docusate 7-[address] sodium 18:35: mouth Hospita (SENOKOT-S) 01 nightly. l 8.6-50 mg per tablet rosuvastati 2021-0 Yes 20mg QD Take 20 mg Methodi n (CRESTOR) 7-[address] 20 mg 18:35: every Hospita tablet 01 morning. l ARIPiprazol 2021-0 Yes 5mg QD Take 5 mg M ethodi e (ABILIFY) 7-[address] 5 MG tablet 18:35: daily. Hosp luciana l losartan 0 Yes 100mg QD Take 100 Meth vicenta (COZAAR) 7-[address] 100 MG 18:45: mouth Hospita tablet 55 daily. l esomeprazol 0 Yes 40mg QD Take 40 mg Methodi e (NexIUM) 7-[address] 40 MG 18:45: daily Hospita capsule 55 before l breakfast. ondansetron 2021-0 Yes 4mg Q8H Take 4 mg M ethodi (ZOFRAN) 4 7-[address] MG tablet 18:45: every 8 Hospi ta 55 (eight) l hours as needed for nausea or vomiting. promethazin 2-0 Yes 25mg Q6H Take 25 mg Methodi e 7-[address] (PHENERGAN) 18:45: every 6 Hos shreyas 25 MG 55 (six) l tablet hours as needed for nausea or vomiting. tiZANidine 2021-0 Yes 4mg Q8H Take 4 mg Me thodi (ZANAFLEX) 7-[address] 4 MG tablet 18:45: every 8 Hos shreyas 55 (eight) l hours as needed for muscle spasms. zolpidem 2-0 Yes 5mg QD Take 5 mg Meth vicenta (AMBIEN) 5 7-[address] MG tablet 18:45: nightly as Ho spita 55 needed for l sleep. ALPRAZolam Yes 1mg Q.5D Take 1 mg Me thodi (XANAX) 2 7-[address] MG tablet 18:45: (two) Hospita 55 times a l day. oxyCODone-a Yes [id number] 1{tbl} Q4H Take 1 M ethodi cetaminophe [...] QD Take 60 mg M ethodi (CYMBALTA) [address] 60 MG 18:45: daily. Hospita capsule 55 l lisinopriL 2021- No 10mg QD Take 10 mg Methodi (PRINIVIL) 01-[address] 10 mg 03:06: 00:00 daily. Hospita tablet 35 :00 l predniSONE 2020-2020- No 40mg 40 mg, Univ ers (DELTASONE) 02-12 0705 Oral, ity of tablet 40 21:15: 20:12 ONCE, 1 [place] mg [place] :00 dose, [facility] 02/12/21 at Branch 1615, BALJINDER methylPREDN 2020-0 Yes [id number] Take by [facility] 02-12 mouth ity of (MEDROL, 00:00: SEE-INSTRU [place] LISBET,) 4 mg 00 CTIONS. Medica l tablets follow Branch package directions methylPREDN 2020-0 Yes [id number] Take by [facility] 02-12 mouth ity of (MEDROL, 00:00: SEE-INSTRU [place] as LISBET,) 4 mg 00 CTIONS. Medica l tablets follow Branch package directions methylPREDN 2020-0 Yes [id number] Take by [facility] 02-12 mouth ity of (MEDROL, 00:00: SEE-INSTRU [place] as LISBET,) 4 mg 00 CTIONS. Medica l tablets follow Branch package directions methylPREDN 2020-0 [id number] Take by [facility] 02-12 mouth ity of (MEDROL, 00:00: SEE-INSTRU [place] LISBET,) 4 mg 00 CTIONS. Medica l tablets follow Branch package directions methylPREDN 2020-0 Yes [id number] Take by [facility] 02-12 mouth ity of (MEDROL, 00:00: SEE-INSTRU [place] LISBET,) 4 mg 00 CTIONS. Medica l tablets follow Branch package directions methylPREDN 2020-0 Yes [id number] Take by [facility] 02-12 mouth ity of (MEDROL, 00:00: SEE-INSTRU [place] LISBET,) 4 mg 00 CTIONS. Medica l tablets follow Branch package directions methylPREDN 0 3- No [id number] Take by [place] [id number] mouth ity of (MEDROL, 00:00: [place]ET[place] 4 mg 00 :00 CTIONS. Medica l tablets follow Branch package directions methylPREDN 2022- No [id number] Take by [place] [address] 04-24 mouth ity of (MEDROL, 00:00: 00:00 [place] LIS[place]ET,) 4 mg 00 :00 CTIONS. Medica l tablets follow Branch package directions Zolpidem Zolpidem No 1{table QD Zolpidem Tartrate ER Tartrate ER t_at_be Tartrate 12.5 MG 12.5 MG dtime_a ER 12.5 MG s_neede d} HYDROmorpho HYDROmorpho No 1{table QID HYDROmorph ne HCl 4 MG ne HCl 4 MG t_as_ne one HCl 4 eded} MG Rosuvastati Rosuvastati No 1{table QD Rosuvastat n Calcium n Calcium t} in Calcium 20 MG 20 MG 20 MG DULoxetine DULoxetine No 1{capsu QD DULoxetine HCl 30 MG HCl 30 MG le} HCl 30 MG busPIRone busPIRone No busPIRone HCl HCl HCl tiZANidine tiZANidine No 1{table TID tiZANidine HCl 4 MG HCl 4 MG t_as_ne HCl 4 MG eded} Omeprazole Omeprazole No QD Omeprazole 40 MG 40 MG 40 MG Losartan Losartan No 1{table QD Losartan Potassium Potassium t} Potassium 100 MG 100 MG 100 MG DULoxetine DULoxetine No 1{capsu QD DULoxetine HCl 60 MG HCl 60 MG le} HCl 60 MG Vitamin D3 Vitamin D3 No 1{table QD Vitamin D3 25 MCG 25 MCG t} 25 MCG (1000 UT) (1000 UT) (1000 UT) Docusate Docusate No 1{capsu QD Docusate Sodium 100 Sodium 100 le_as_n Sodium 100 MG MG eeded} MG Multivitami Multivitami No Multivitam n Adults n Adults in Adults 50+ - 50+ - 50+ - Omeprazole Omeprazole No QD Omeprazole 40 MG 40 MG 40 MG ARIPiprazol ARIPiprazol No ARIPiprazo e e le oxyCODONE oxyCODONE No 1{table QID oxyCODONE HCl 10 MG HCl 10 MG t_as_ne HCl 10 MG eded} ALPRAZolam ALPRAZolam No 1{table BID ALPRAZolam 0.5 MG 0.5 MG t} 0.5 MG Immunizations Ordered Filled Immunization Date Status Comments Sour e Immunization Name Name PFIZER READY TO USE 2022-01-24 Completed [facility]o dist COVID-19 MRNA 00:00:00 Hospital [facility] Completed Methodis t [facility] 00:00[facility] 2020-[facility]16 Completed Methodis t MRNA VACCINATION 00:00:00 [place] [address] Unknown Completed Methodis t MRNA VACCINATION Hospital [place] [address] Unknown Completed Methodis t MRNA VACCINATION Hospital [facility] READY TO USE Unknown Completed [facility] dist COVID-19 MRNA Hospital VACCINATION Hx pneumococcal Unknown Completed [facility] vaccine<sup>1</sup> [facility] nn Hx influenza Unknown Completed [facility] vaccine-unspecified [place] nn Vital Signs Vital Name Observation Time Observation Value Comments Source Body weight 2023-04-30 15:43:00 66.679 kg [facility] BMI 2023-04-30 15:43:00 26.04 kg/m2 [facility] Heart rate 2023-04-29 18:35:00 71 /min [facility] Oxygen saturation in 2023-04-29 18:35:00 98 /min [facility] blood by [facility] Pulse oximetry Branch Systolic blood 2023-04-29 18:30:00 139 mm[Hg] Univer sity of pressure [facility] Diastolic blood 2023-04-29 18:30:00 76 mm[Hg] Unive rsity of pressure [facility] Respiratory rate 2023-04-29 18:30:00 19 /min [facility] Body temperature 2023-04-29 18:22:00 36.33 Ember [facility] Body height 2023-04-29 17:01:00 160 cm [facility] Body weight 2023-04-29 17:01:00 66.679 kg [facility] BMI 2023-04-29 17:01:00 26.04 kg/m2 [facility] Systolic blood 2023-04-29 17:40:00 121 mm[Hg] Univer sity of pressure [facility] Diastolic blood 2023-04-29 17:40:00 77 mm[Hg] Unive rsity of pressure [facility] Heart rate 2023-04-29 17:40:00 88 /min [facility] Body temperature 2023-04-29 17:01:00 36.06 Ember [facility] Respiratory rate 2023-04-29 17:01:00 14 /min [facility] Body height 2023-04-29 17:01:00 160 cm [facility] Body weight 2023-04-29 17:01:00 66.679 kg [facility] BMI 2023-04-29 17:01:00 26.04 kg/m2 [facility] Oxygen saturation in 2023-04-29 17:01:00 97 /min [facility] Arterial blood by [facility] Pulse oximetry Branch Body weight 2023-04-07 16:02:00 58.968 kg [facility] Systolic blood 2021-02-12 20:00:00 126 mm[Hg] Univer sity of pressure [facility] Diastolic blood 2021-02-12 20:00:00 64 mm[Hg] Unive rsity of pressure [facility] Heart rate 2021-02-12 20:00:00 88 /min [facility] Respiratory rate 2021-02-12 20:00:00 20 /min [facility] Oxygen saturation in 2021-02-12 20:00:00 94 /min University of Arterial blood by [facility] Pulse oximetry Branch Body temperature 2021-02-12 17:38:00 36.67 Ember [facility] Body weight 2021-02-12 17:38:00 58.968 kg [facility] Systolic blood 2023-06-04 00:43:08 136 mm[Hg] Method ist Hospital pressure Diastolic blood 2023-06-04 00:43:08 67 mm[Hg] [facility] Hospital pressure Heart rate 2023-06-04 00:43:08 91 /min [facility] Body temperature 2023-06-04 00:43:08 37.06 Ember [facility] Respiratory rate 2023-06-04 00:43:08 18 /min [facility] Oxygen saturation in 2023-06-04 00:43:08 93 /min [facility] Arterial blood by Pulse oximetry Body height 2023-06-02 16:08:00 165.1 cm [facility] Body weight 2023-06-02 16:08:00 64.864 kg [facility] BMI 2023-06-02 16:08:00 23.80 kg/m2 [facility] Systolic blood 2022-02-18 22:55:00 151 mm[Hg] Method [facility] pressure Diastolic blood 2022-02-18 22:55:00 85 mm[Hg] [facility] Hospital pressure Heart rate 2022-02-18 22:55:00 99 /min [facility] Respiratory rate 2022-02-18 22:55:00 18 /min [facility] Oxygen saturation in 2022-02-18 22:55:00 92 /min [facility] Arterial blood by Pulse oximetry Body temperature 2022-02-18 22:25:00 36.61 Ember [facility] Body height 2022-02-18 17:16:00 167.6 cm [facility] Body weight 2022-02-18 17:16:00 69.4 kg [facility] BMI 2022-02-18 17:16:00 24.69 kg/m2 [facility] Procedures Procedure Date / Time Performing Source Performed Clinician CBC WITH PLATELET AND 2023-06-03 [facility] DIFFERENTIAL 22:37:00 Tony BASIC METABOLIC PANEL 2023-06-03 [facility] 22:37:00 Tony ESTIMATED GFR 2023-06-03 [facility] 22:37:00 Tony XR PELVIS 1 OR 2 VW [facility]23[facility]06-[facility] 20:06:04 Tony NC AN ELECTIVE ENDOTRACHEAL 2023-06-02 Javi Oreilly Brice [facility] AIRWAY 18:51:00 ARTHROPLASTY, HIP, TOTAL, 2023-06-02 [facility] ANTERIOR APPROACH 18:43:00 Tony HC NERVE BLOCK INJ OTHER 2023-06-02 [facility] PERIPHERAL 18:30:46 Gintel TYPE AND SCREEN 2023-06-02 [facility] 16:34:00 Tony POC GLUCOSE [facility]23[facility]06-[facility] 16:28:00 Tony IOL BIOMETRY - OS - LEFT EYE 2023-04-30 [facility] 15:59:08 [facility] DSU PRE-OP 2023-04-30 Doctor Unassigned, [facility] 05:01:00 [facility] PHACOEMULSIFICATION OF 2023-04-29 [facility] CATARACT WITH INTRAOCULAR 17:55:00 [facility] Medica Branch LENS IMPLANT CONSENT/REFUSAL FOR DIAGNOSIS 2023-04-29 Doctor Unassigned, [facility] AND TREATMENT 16:48:33 [facility] IOL BIOMETRY - OU - BOTH EYES 2023-04-07 [facility] 16:44:05 [facility] OPHTHALMOLOGY DIAGNOSTIC TEST 2023-04-07 Doctor Unassigned, [facility] 05:01:00 [facility] SURGICAL PATHOLOGY REQUEST 2022-02-18 Jamil Palacio [facility] 19:48:00 Tony NC AN ELECTIVE ENDOTRACHEAL 2022-02-18 Bambi Cristina [facility] AIRWAY 18:56:00 Bituin ARTHROPLASTY, SHOULDER, TOTAL 2022-02-18 Jamil [facility] 18:42:00 Tony HC NERVE BLOCK, INTERSCALENE 2022-02-18 Sherrie Magaña [facility] W IMG GUID 17:45:34 ABO AND RH CONFIRMATION BY 2022-02-18 [facility] PROTOCOL 17:37:00 URINE CULTURE 2022-02-13 [facility] 19[facility]00 TYPE AND SCREEN 2022-02-13 [facility] 18:19:00 CBC WITH PLATELET AND 2022-02-13 [facility] DIFFERENTIAL 18:19:00 URINALYSIS SCREEN AND 2022-02-13 [facility] MICROSCOPY, WITH REFLEX TO 18:19:00 CULTURE BASIC METABOLIC PANEL 2022-02-13 [facility] 18:19:00 ESTIMATED GFR 2022-02-13 [facility] 18:19:00 ECG 12-LEAD 2022-02-13 [facility] 18:18:46 COVID-19 QUALITATIVE RT-PCR 2022-01-17 [facility] 12:36:00 Tony COVID-19 OMICRON VARIANT 2022-01-17 [facility] QUALITATIVE RT-PCR 12:36:00 Tony XR ANKLE 3+ VW LEFT 2021-02-12 Florentin Vo [facility] 18:33:20 Medical Branch XR HIPS 3 VW LEFT 2021-02-12 Tavo [facility] 18:33:20 Medical Branch XR SHOULDER 2+ VW RIGHT 2021-02-12 Florentin Vo [facility] 18:33:20 Medical Branch Hip arthroplasty 2013-08-11 Ryan Rothman n 00:00:00 Discectomy for intervertebral 1986-08-11 [facility] herniated disc, nucleus 00:00:00 pulposus Plan of Care Planned Activity Planned Date Details Comments Source Future Scheduled 2023-06-23 [facility] Test 12:00:05 (procedure) [code = 263310744] Future Scheduled 2023-06-23 SHINGLES VACCINES (1 [facility] Test 12:00:05 of 2) [code = SHINGLES VACCINES (1 of 2)] Future Scheduled 2023-06-23 65+ PNEUMOCOCCAL Methodi [facility] Test 12:00:05 VACCINE (1 - PCV) [code = 65+ PNEUMOCOCCAL VACCINE (1 - PCV)] Future Scheduled 2023-06-23 COVID-19 VACCINE (4 - [facility] Test 12:00:05 season) [code = COVID-19 VACCINE (4 - season)] Future Scheduled 2023-06-23 INFLUENZA VACCINE (#1) M [facility] Test 12:00:05 [code = INFLUENZA VACCINE (#1)] Future Scheduled 2022-12-27 [facility] Test 09:11:24 (procedure) [code = 395876425] Future Scheduled 2022-12-27 COLONOSCOPY SCREENING [facility] Test 09:11:24 [code = COLONOSCOPY SCREENING] Future Scheduled 2022-12-27 SHINGLES VACCINES (1 Met [facility] Hospital Test 09:11:24 of 2) [code = SHINGLES VACCINES (1 of 2)] Future Scheduled 2022-12-27 65+ PNEUMOCOCCAL Methodi [facility] Test 09:11:24 VACCINE (1 - PCV) [code = 65+ PNEUMOCOCCAL VACCINE (1 - PCV)] Future Scheduled 2022-12-27 COVID-19 VACCINE (4 - [facility] Test 09:11:24 Booster for Moderna series) [code = COVID-19 VACCINE (4 - Booster for Moderna series)] Future Scheduled 2022-12-27 INFLUENZA VACCINE Method [facility] Hospital Test 09:11:24 [code = INFLUENZA VACCINE] Encounters Start End Encounter Admission Attending Care Care Encounter Source Date/Time Date/Time Type Type Clinicians Facility Department ID 2023-06-17 Outpatient Reeves, [facility] [id number] Common 14:37:01 Lillie [id number] [facility] 2023-05-22 Outpatient Reeves, [facility] [id number] Common 09:41:00 Lillie [id number] [facility] 2023-04-10 Outpatient Reeves, [facility] [id number] Common 16:36:00 Lillie [id number] [facility] 2023-04-09 Outpatient Reeves, STLMLC STLMLC [id number] Common 10:45:00 [facility] [id number] [facility] 2023-03-26 Outpatient Reeves, STLMLC STLMLC [id number] Common 14:21:00 [facility] [id number] [facility] 2023-02-20 Outpatient Reeves, STLMLC STLMLC [id number] Common 09:33:01 [facility] [id number] [facility] 2022-11-22 Outpatient Resendiz, STLMLC STLMLC [id number] Common 13:35:01 Avnee [id number] [facility] 2022-11-19 Outpatient Ersendiz, STLMLC STLMLC [id number] Common 10:48:00 Avnee 90044 [facility] 2022-11-14 Outpatient STLMLC STLMLC [id number] Common 13:57:01 [id number] [facility] 2022-11-13 Outpatient STLMLC STLMLC [id number] Common 13:22:01 [id number] [facility] 2022-03-01 Outpatient 3 HARDIK, ENCPL HEDY [id number] [facility] 14:35:12 ALFONZO 0722 [facility] [place] 2022-02-20 Outpatient [place] [facility] [id number] MS 10:23:56 JAZMINE [id number] [facility] 2022-02-07 Outpatient [facility] [id number] MS 11:19:32 [id number] [facility] 2022-01-04 Outpatient [place] [facility] [id number] [place] 09:44:27 JAZMINE [id number] [facility] 2021-12-20 Outpatient STEPHANE [facility] [id number] [place] 16:31:51 , TOMASA [id number] [facility] 2021-11-20 Outpatient STLMLC STLMLC [id number] Common 09:26:03 [facility] 2021-11-09 Outpatient [facility] [id number] [place] 11:58:18 [id number] [facility] 2021-11-05 Outpatient STLMLC STLMLC [id number] Common 10:46:03 [id number] [facility] 2020-07-28 Inpatient [facility] JUANJO [id number] [facility] 13:32:00 66 [facility] 2020-06-27 Inpatient [facility] JUANJO [id number] [facility] 18:06:[address] [facility] [place] are [facility] 2020-03-21 Inpatient [facility] JUANJO [id number] [facility] 08:57:00 79 [facility] 2023-06-03 2023-06-17 Inpatient 3 DONNA DYE ORMaribel [id number] [facility] 22:40:00 11:50:00 ALFONZO 1024 ss [facility] [place] 2023-06-10 2023-06-10 Refill Ambrose [facility] 1.2.840.114 [id number] Univers 00:00:00 00:00:00 Aishat MULTISPEC 350.1.13.10 ity of [place] IALTY 4.2.7.2.686 Roman as CENTER [id number] [address] [facility] 2023-06-02 2023-06-03 [facility], 1.2.840.1 [id number] Methodi 10:10:00 21:58:00 Encounter Jamil [id number] Tony 3.430.2.7 Hospit a .3.947950 l .8 2023-06-02 2023-06-03 Outpatient [facility] [id number] [place] 00:00:00 00:00:00 JAMIL [address] 2023-06-02 2023-06-02 Anesthesia Terry Motnoya 1.2.840. 1 [id number] Methodi 13:43:00 15:48:00 Event Sherrie Magaña 23578.1.1 425 s t 3.430.2.7 Hospit a .3.999412 l .8 2023-06-02 2023-06-02 Surgery [facility], 1.2.840.1 [id number] Methodi 13:00:00 14:30:[address] Tony 3.430.2.7 Hospit a .3.359639 l .8 2023-06-02 2023-06-02 Hospital Rechter, 1.2.840.1 [id number] 2100 [id number] Methodi 07:06:28 10:09:00 Encounter Jamil [id number] [facility] 3.430.2.7 Hospit a .3.749736 l .8 2023-06-02 2023-06-02 Outpatient [facility] [id number] [place] 00:00:00 00:00:[address]AMIL [address] 2023-05-27 2023-05-27 Documentat Provider, 1.2.840.1 [id number] Methodi 00:00:00 00:00:00 ion Unknown 03424.1.1 628 3.430.2.7 Hospit a .3.561335 l .8 2023-05-23 2023-05-23 Telephone [facility] 1.2.840.114 [id number] Univers 00:00:00 00:00:00 Aist MULTISPEC 350.1.13.10 ity of [place] 4.2.7.2.686 Roman as CENTER [id number] [address] [facility] 2023-05-14 2023-05-14 Outpatient R [facility] [id number] Univers 15:30:00 15:30:00 [facility] 2023-05-07 2023-05-07 Outpatient R [facility] [id number] Univers 15:30:00 15:30:00 [facility] 2023-04-30 2023-04-30 Outpatient R [facility] [id number] Univers 11:00:00 11:00:00 [facility] 2023-04-30 2023-04-30 Office [facility] 1.2.840.114 [id number] Univers 10:30:00 10:45:[address] MULTISPEC 350.1.13.10 ity of [place] IAL[place] 4.2.7.2.686 Roman as CENTER [id number] [address] [facility] 2023-04-30 2023-04-30 Orders Doctor ANTONI 1.2.840.114 [id number] Univers 00:00:00 00:00:00 Only Unassigned, SHAE 350.1.13.10 ity of [place] [facility] 4.2.7.2.686 Roman as [id number] [address] 2023-04-29 2023-04-29 Outpatient R [facility] OPH [id number] Univers 11:49:00 13:53:00 AISHAT ity of [facility] 2023-04-29 2023-04-29 [facility] 1.2.440.731 [id number] Univers 11:49:00 13:53:00 Encounter Aishat HEALTH 350.1.13.10 ity of [place] 4.2.7.2.686 Roman as [place] [id number] [address] ([facility]) 2023-04-29 2023-04-29 Surgery [facility] 1.2.840.114 [id number] Univers 12:33:00 13:13:00 Aishat HEALTH 350.1.13.10 it y of [place] 4.2.7.2.686 Roman as CITY [id number] [address] ([facility]) 2023-04-29 2023-04-29 Orders Doctor ANTONI 1.2.840.114 [id number] Univers 00:00:00 00:00:00 Only Unassigned, SHAE 350.1.13.10 ity of [place] [facility] 4.2.7.2.686 Roman as [id number] [address] 2023-04-09 2023-04-09 Telephone [facility] 1.2.840.114 [id number] Univers 00:00:00 00:00:00 Aishat MULTISPEC 350.1.13.10 ity of [place] IALTY 4.2.7.2.686 Roman as CENTER [id number] [address] [facility] 2023-04-07 2023-04-07 Outpatient R AMBROSE MSZITA [facility] [id number] Univers 08:00:00 11:54:46 AISHAT ity of [facility] 2023-04-07 2023-04-07 Office Ambrose [facility] 1.2.840.114 [id number] Univers 08:00:00 11:54:46 Visit Aishat MULTISPEC 350.1.13.10 ity of [facility] 4.2.7.2.686 Roman as CENTER [id number] [facility] AND [address] DIABETES [facility]IC 2023-04-07 2023-04-07 Orders Doctor ANTNOI 1.2.840.114 [id number] Univers 00:00:00 00:00:00 Only Unassigned, SHAE 350.1.13.10 ity of [place] [facility] 4.2.7.2.686 Roman as [id number] [place] [address] Branch 2022-12-27 2022-12-27 Travel 1.2.840.1 1.2.366.980 [id number] Methodi 00:00:00 00:00:[address] 3.430.2.7 0.2.7.3.698 Ho spita .3.411163 084.8 l .8 2022-12-27 2022-12-27 Travel 1.2.840.1 1.2.987.925 [id number] Methodi 00:00:00 00:00:[address] 3.430.2.7 0.2.7.3.698 Ho spita .3.978571 084.8 l .8 2022-11-19 2022-11-19 (TEL) STLMLC STLMLC [id number] mmon 00:00:00 00:00:00 [facility] 2022-11-02 2022-11-04 Inpatient LO Baez [facility] MED [id number] [facility] 14:42:00 12:41:00 Parvez Ernandez [facility] 2022-03-02 2022-03-15 Inpatient 3 DONNA DYE [id number] [facility] 15:08:00 14:30:00 ALFONZO 0723 Health Rehabil itation Mari hernandez 2022-02-25 2022-02-25 Outpatient [facility] PDPFEQP [facility] 00:00:00 00:00:00 [id number] 2022-02-21 2022-02-21 Telephone [place], 1.2.840.1 [id number] 2100 [id number] Methodi 00:00:00 00:00:[address] [place] 3.430.2.7 Hospit a .3.363556 l .8 2022-02-19 2022-02-19 Telephone Escalera, 1.2.840.1 [id number] Methodi 00:00:00 00:00:[address] 3.430.2.7 Hospit a .3.724289 l .8 2022-02-18 2022-02-18 [facility], 1.2.840.1 [id number] 2100 [id number] Methodi 10:56:00 18:35:00 Encounter Jamil 26522.1.[address] Tony 3.430.2.7 Hospit a .3.178091 l .8 2022-02-18 2022-02-18 Anesthesia Bambi Cristina 1.2.840.1 [id number] Methodi 13:42:00 15:49:00 Event Sherrie Magaña 88333.1.1 779 s t 3.430.2.7 Hospit a .3.538566 l .8 2022-02-18 2022-02-18 Surgery [facility], 1.2.840.1 [id number] Methodi 13:05:00 14:35:[address] Tony 3.430.2.7 Hospit a .3.613573 l .8 2022-02-13 2022-02-13 Pre-Admiss [facility], 1.2.840.1 [id number] 21 [id number] Methodi 12:30:00 13:00:00 ion Jamil 37735.1.[address] Testing Tony 3.430.2.7 Hospit a .3.994240 l .8 2022-02-13 2022-02-13 Travel 1.2.840.1 1.2.898.502 1105 [id number] Methodi 00:00:00 00:00:[address] 3.430.2.7 0.2.7.3.698 Ho spita .3.803028 084.8 l .8 2022-02-13 2022-02-13 Documentat Provider, 1.2.840.1 [id number] 2 [id number] Methodi 00:00:00 00:00:00 ion Aida 68279.1.[address] 3.430.2.7 Hospit a .3.641740 l .8 2022-02-13 2022-02-13 Orders Cathy, 1.2.840.1 [id number] 625106 3837 Methodi 00:00:00 00:00:00 Only Marlena 29875.1.[address] 3.430.2.7 Hospit a .3.430997 l .8 2022-01-17 2022-01-17 Hospital [facility], 1.2.840.1 [id number] 2100 789184 Methodi 06:25:00 23:59:00 Encounter Jamil 07275.1.[address] Tony 3.430.2.7 Hospit a .3.408046 l .8 2022-01-17 2022-01-17 Anesthesia Matt Cheung 1.2.840.1 918223 012 [id number] Methodi 09:20:00 09:20:00 Event Sherrie Magaña 30230.1.1 280 s t 3.430.2.7 Hospit a .3.053222 l .8 2022-01-17 2022-01-17 Travel 1.2.840.1 1.2.871.418 5068 300369 Methodi 00:00:00 00:00:[address] 3.430.2.7 0.2.7.3.698 Ho spita .3.162459 084.8 l .8 2021-02-12 2021-02-12 Emergency Velma Loaiza [facility] 1.2.840.114 85 130245 Univers 12:29:00 15:26:00 Anna Olmstead 350.1.13.10 i ty of [place] 4.2.7.2.686 [facility] [address]198 [facility] 084 Branch 2021-02-12 2021-02-12 Emergency X [facility] ERT [id number] Univers 12:29:00 12:29:00 ity of [facility] 2019-10-12 2019-10-13 Outpatient [facility] 8505 [id number] Memoria 17:09:00 05:59:00 zaid Urrutia 64 l Orthopedic [facility] 2019-10-12 2019-10-12 Outpatient Kenny ROSA [facility] 53819 53586 11:09:00 23:59:00 Pérez Rich Augie 2018-10-19 2018-10-20 Outpatient [facility] 8505 [id number] Memoria 16:50:00 04:59:00 zaid Urrutia 71 l [facility] 2018-10-19 2018-10-19 [facility] 63754 87215 11:50:00 23:59:00 Saad Brian Results Test Description Test Time Test Comments Results Result Comments Source POC glucose 2023-06-02 16:29:00 Test Item Value Reference Range Interpretation Comme [facility] POC glucose (test code = 87 mg/dL 65-99 Ope rator Name: Angela Pearce [id number]) ID: [id number] [place] [id number] 11:12:00 Test Item Value Reference Range Interpretation Comments IRON (test code = IRON) 43 mcg/dL 50-175 L [id number] 11:12:00 Test Item Value Reference Range Interpretation Comments FERRITIN (test code = JULIET) 18.9 ng/mL 10.0-291.0 N BASIC METABOLIC [id number] 11:09:00 Test Item Value Reference Range Interpretation [...] code 9.1 mg/dL 8.7-10.4 N = CA) [id number] 11:09:00 Test Item Value Reference Range Interpretation Comments PHOSPHOROUS (test code = PHOS) 3.5 mg/dL 2.4-5.1 N CBC W/AUTO [id number] 10:54:00 Test Item Value Reference Range Interpretation [...] 0.03 x10 3/uL 0.0-0.20 N CBC W/AUTO [id number] 16:37:00 Test Item Value Reference Range Interpretation [...] 0.04 x10 3/uL 0.0-0.20 N BASIC METABOLIC [id number] 16:10:00 Test Item Value Reference Range Interpretation [...] 8.7-10.4 N = CA) - XR ABDOMEN [id number] 15:25:00 [facility] 1945 Sex: FPatient Name: BRYANNA HERNANDEZ Unit No: [id number] EXAMS: CPT CODE: [id number] XR ABDOM EN 1V 13411 EXAMINATION: - XR ABDOMEN 1V. LOCATION: H39. HISTORY: constipation, discomfort. COMPARISON: None. TECHNIQUE: Single AP view of the abdomen was obtained. FINDINGS: Bowel gas pattern is normal. Multiple pelvic phleboliths are present. Left hip arthroplasty is seen. There has been prior leftSI joint fusion. Severe joint space narrowing and marginal osteophyte formation are seen at the right femoroacetabular joint. Remote T12 compression fracture is present. IMPRESSION: No acute abdominal abnormality is identified. at 1525 Reported and signed by: MEME CASTILLO M.D. CC: Sang Figueroa MD; Parvez Baez MD Technologist: JAMES RODRIGUES; Frannie Shay Time: DAP (Gy m2): Air Kerma (mGy): Trscr Dt/Tm: 11/02/2022 (1525) by:[email or web address] Printed Date/Time: 11/02/2022 (1528) Name: BRYANNA HERNANDEZ [facility] Phys: Sang Martins MD [address] : 1945 Age: 77 Sex: [place] [address] Loc: PLiorERS Exam Date: 11/02/2022 Status: REG ER PH: FAX: PAGE 1 SignedReportSurgical pathology [id number] 22:44:49 Test Item Value Reference Range Interpretation Comments Case number (test code = [id number]) Surgical pathology See link below for report (test code = PDF Lab Report [id number]) Result status (test code This is Final Report = [id number]) [id number] [facility] [id number] 02:26:00 Test Item Value Reference Range Interpretation Comments Urine culture Mixed moira Specimen isolate (test <=10-3 col/cc InformationSp ecimen code = 66594-5) Source: Urin eSpecimen Site: [facility] [id number] 22:46:25 Test Item Value Reference Range Interpretation Comments Ventricular rate (test 84 code = 253) Atrial rate (test code = 84 255) NC interval (test code = 176 266) QRSD [...] V1--No previous ECGs available-Electronica lly Signed By Colt HINDS, Alka Bennett (1015) on 02/13/2022 5:46:22 PM [facility] RNA [Presence] in Respiratory specimen by MARGARITA with probe [id number] 08:47:48 Test Item Value Reference Range Interpretation Comments SARS-CoV-2 (COVID-19) RNA [Presence] Detected in Respiratory specimen by MARGARITA with probe detection (test code = 67907-8) Whether patient is employed in a Unknown healthcare setting (test code = 81924-1) Whether the patient has symptoms Unknown related to condition of interest (test code = 40808-7) Whether the patient was hospitalized Unknown for condition of interest (test code = 54110-4) Whether the patient was admitted to Unknown intensive care unit (ICU) for condition of interest (test code = 37782-9) Whether patient resides in a Unknown congregate care setting (test code = 89965-2) status (test code = Unknown 53925-7) Date and time of symptom onset (test Unknown code = 82959-9) [facility] VW [id number] 20:02:35 No acute bony abnormality. Total left [...] HIPS 3 VW LEFTHISTORY: hip pain COMPARISON: None.FINDINGS:Ra diographs of the left hip demonstrate total hip arthroplasty changes aswell as screw fixation at thesacroiliac joint. Alignment of the hardwareappears appropriate without paralleling lucencies. No definite hardwarecomplication is seen. Severe right hip osteoarthrosis is partiallyvisualized. Diffuse osteopenia is seen. IMPRESSIONNo acute bony abnormality.Total left hip arthroplasty changes as well asscrew fixation at the leftsacroiliac joint without definite hardware complication.Severe right hip osteoarthrosis.Preliminary Report Dictated by Resident: Odette Tuttle MD., have reviewed this study and agree with the abovereport.[facility] ANKLE 3+ VW [id number] 19:28:15 No acute fracture or malalignment of the left ankle. RL: 84311PJB: 32855 End of Report ORDERING PROVIDER: JERSEY VO [...] acute fracture or malalignment of the left ankle.RL:81450GCM: 28935Woj of Report UnLas [facility]mas Medical CenterXR SHOULDER 2+ VW [id number] 19:22:34 1. ?Degenerative changes. RL: 1105 HISTORY: ?shoulder pain COMPARISON: ?None FINDINGS: 2 views right shoulder. Prior screw and plate fixationof a mid clavicular fracture noted. The acromioclavicular joint shows osteophyte formation. Degenerative changes seen in the glenohumeral joint. There is narrowing ofsubacromial space consistent with arotator cuff tear. [facility], Radiant Results Inft User - 02/12/2021 2:23 PM CDT HISTORY: shoulder pain COMPARISON: NoneFINDINGS:2 views right shou lder.Prior screw and plate fixation of a mid clavicular fracture noted.The acromioclavicular joint shows osteophyte formation.Degenerative changes seen in the glenohumeral joint. There is narrowing ofsubacromial space consistent with a rotator cuff tear.IMPRESSION1. Degenerative changes.RL: 1105 [facility] HEAD/BRAIN W/O [id number] 14:46:00 [facility] : 1945 Sex: FPatient Name: BRYANNA HERNANDEZ Unit No: [id number] EXAMS: CPT CODE: [id number] CT HEAD/ BRAIN W/O CONT 30572 CT SCAN OF THE HEAD WITHOUT CONTRAST: DICTATION LOCATION: A1 HISTORY: Head injury. TECHNIQUE: Unenhanced axial images were obtained through the head. All CT scans are performed using radiation dose reduction techniques. Technical factors are evaluated and adjusted to ensure appropriate moderation of exposure. Automated dose management technology is applied to adjust the radiation dose to minimize exposure while achieving a diagnostic- [...] No acute findings. at 1446 Reported and signedby: Moe Ambriz Jr, MD CC: Ankit Martin MD; Parvez Baez MD Technologist: KELBY Whiteside(R)(CT) CTDI: 38.48 DLP: 707 Trscr Dt/Tm: 07/28/2020 (2303) by:Tanja Printed Date/Time: 07/28/2020 (6143) Name: BRYANNA HERNANDEZ [facility] Phys: Ankit Gibson MD [address] : 1945 Age: 75 Sex: [place] [address] Loc: P.ERS Exam Date: 07/28/2020 Status: REG ER PH: FAX: PAGE 1 Signed Report- XR FOREARM 2 VIEWS [id number] 14:32:00 [facility] : 1945 Sex: FPatient Name: BRYANNA HERNANDEZ Unit No: [id number] EXAMS: CPT CODE: [id number] XR FOREA RM [address] [place] [address] Left forearm 2 views 07/28/2020 CLINICAL HISTORY: [...] m2): Air Kerma (mGy): Trscr Dt/Tm: 07/28/2020 (1904) by:[email or web address] Printed Date/Time: (5960) Name: BRYANNA HERNANDEZ [facility] Phys: Ankit Gibson MD [address] : 1945 Age: 75 Sex: [place] [address] Loc: P.ERS Exam Date: 07/28/2020 Status: REG ER PH: FAX: PAGE 1 Signed [id number] 16:20:00 Test Item Value Reference Range Interpretation Comments CKMB (test code = 1.21 ng/mL 0.97-3.77 N INTERPRETA TIVE CKMBT) DATA:Negative o r inconclusive re sults do not exclude myocardialinfar ction. Serial tests at appropriate int ervals may benecessary. [id number] 12:44:00 Test Item Value Reference Range Interpretation Comments TROPONIN-I (test < 0.30 ng/mL 0.00-0.30 N INTERPRETAT VASU code = TROPI) DATA:Negative or inconclusive re uslts do not exclude myocardialinfar ction. Serial tests at appropriate int ervals may benecessary. - CTA CHEST FOR [id number] 21:15:00 [facility] : 1945 Sex: FPatient Name: BRYANNA HERNANDEZ Unit No: [id number] EXAMS: CPT CODE: [id number] [address] [address] [place] [address] LOCATION: R16 EXAM: CTA CHEST WITH CONTRAST, [...] pulmonary artery embolism. Bibasilar subsegmental atelectasis/linear scarring. HjrtukeV13 compression deformity. at 2114 Reported and signed by: JOSE FELICIANO M.D. CC: Sang Figueroa MD; Parvez Baez MD Technologist: Stefanie Charlton (CT),(MR) CTDI: 19.54 DLP: 359.6 Trscr Dt/Tm: 06/27/2020 (2114) by:[email or web address] Printed Date/Time: 06/27/2020 (2118) Name: BRYANNA HERNANDEZ KELSIE [facility] Phys: Sang Martins MD [address] : 1945 Age: 75 Sex: [place] [address] Loc: P.0733 1 Exam Date: 06/27/2020 Status: ADM IN PH: FAX: PAGE 1 Signed [id number] 19:54:00 Test Item Value Reference Range Interpretation Comments TROPONIN-I (test < 0.30 ng/mL 0.00-0.30 N INTERPRETAT VASU code = TROPI) DATA:Negative or inconclusive re uslts do not exclude myocardialinfar ction. Serial tests at appropriate int ervals may benecessary. [id number] 19:37:00 Test Item Value Reference Range Interpretation [...] STS AND APPROPRIATECLIN ICAL EVALUATIONS. B-TYPE NATRIURETIC [id number] 19:27:00 Test Item Value Reference Range Interpretation Comments B-TYPE NATRIURETIC PEPTIDE (test 30.4 PG/ML 0-100 N code = BNP) COMPREHENSIVE METABOLIC [id number] 19:25:00 Test Item Value Reference Range Interpretation [...] PHOSPHATASE (test code = ALKP) CBC W/AUTO [id number] 18:57:00 Test Item Value Reference Range Interpretation [...] 3/uL 0.0-0.20 N - XR CHEST 1 [id number] 18:39:00 [facility] : 1945 Sex: FPatient Name: BRYANNA HERNANDEZ Unit No: [id number] EXAMS: CPT CODE: [id number] XR CHEST 1 V 34719 STUDY: Chest radiograph HISTORY: Chest pain COMPARISON: 1120 TECHNIQUE: Frontal view of the chest. SITE:R16 FINDINGS: The cardiac silhouette is unremarkable. The ascending aorta appears tortuous/ectatic. There is no focal consolidation, pleural effusion, or pneumothorax. No acute osseous abnormalities are identified. Plate and screw fixation of the right clavicle is noted. IMPRESSION: No radiographic evidence for acute pulmonary abnormality. fo1956 Reported and signed by: JOSE FELICIANO M.D. CC: Mina Del Valle MD; Parvez Baez MD Technolog ist: Jazmine Shay Time: DAP (Gy m2): Air Kerma (mGy): Trscr Dt/Tm: 06/27/2020 (183) by:[email or web address] Printed Date/Time: 06/27/2020 (372) Name: BRYANNA HERNANDEZ [facility] Phys: CHECH.- Mina Del Valle MD [address] : 1945 Age: 75 Sex: F [place] [id number] Loc: P.ERS Exam Date: 06/27/2020 Status: REG ER PH: FAX: PAGE 1 Signed Report- CT C-SPINE W/O [id number] 10:08:00Patient Name: BRYANNA HERNANDEZ Unit No: [id number] EXAMS: CPT CODE: [id number] CT C-SPINE W/O CONT 71142 CT cervical spine without contrast Location Code: [...] Printed Date/Time: 03/21/2020 (1011) Name: BRYANNA HERNANDEZ [facility] Phys: Sang Martins MD [address] : 1945 Age: 74 Sex: F [place] [address] Loc: P.ERS Exam Date: 03/21/2020 Status: REG ER PH: FAX: PAGE 1 Signed Report- XR SHOULDER 2 + V [id number] 09:45:00Patient Name: BRYANNA HERNANDEZ Unit No: [id number] EXAMS: CPT CODE: [id number] XR SHOULDER 2 + V RT [address] Exam:Right shoulder x-rays 3 views Location: W1 [...] Figueroa MD; Parvez Baez MD Technologist: Hipolito Kiraner Fluoro Time: DAP (Gy m2): Air Kerma (mGy): Trscr Dt/Tm: 03/21/2020 (0945) by:[email or web address] Printed Date/Time: 03/21/2020 (9922) Name: DAVIDBRYANNA Dominique [facility] Phys: Sang Martins MD [address] : 1945 Age: 74 Sex: [place] [address] Loc: P.ERS Exam Date: 03/21/2020 Status: REG ER PH: FAX: PAGE 1 Signed Report- XR CHEST 1 V 2020-03-21 09:44:00Patient Name: BRYANNA HERNANDEZ Unit No: [id number] EXAMS: CPT CODE: [id number] XR CHEST 1 V 29668 EXAM: Portable chest one view. Location code:J9 [...] signed by: QIANA OLMEDO M.D. CC: Sang benton MD; Parvez Baez MD Technologist: Hipolito Isai Fluoro Time: DAP (Gy m2): Air Kerma (mGy):Trscr Dt/Tm: 03/21/2020 (0944) by:[email or web address] Printed Date/Time: 03/21/2020 (0948) Name: BRYANNA HERNANDEZ [facility] Phys: Sang Martins MD [address] : 1945 Age: 74 Sex: [place] [address] Loc: P.ERS Exam Date: 03/21/2020 Status: REG ER PH: FAX:PAGE 1 Signed Report History and Physical Notes Date/Time Note Provider Source 2023-04-29 12:09:55 7503-84-70V53:09:55Formatting of this note [facility] is different from the original.Outpatient Surgery History & PhysicalCynthia Kelsie Hernandez 1945, 78 year old, /White, female [id number] type: DSU Attending Surgeon: Ann Boggs Resident Surgeon: None Beeper/Cell: NoneChief Complaint: Blurry vision: OD with glareHistory of Present Illness: Causing difficulty Driving, Reading, Watching TV No past medical history on file.No past surgical history on file.No family history on file.Social History Socioeconomic History Marital status: Tobacco Use Smoking status: Never Smokeless tobacco: Never Current Facility-Administered Medications Medication Dose Route Frequency Last Rate Last Admin balanced salt irrig soln comb1 (BSS PLUS) ophthalmic solution 500 mL bag PRN 500 mL at 04/29/23 1230 chondroitin sulf-sod hyaluronate (DUOVISC VISCO ELASTIC) intraocular injection PRN 1 Kit at 04/29/23 1230 cyclopent 1%-tropic 1%-phenyl 2.5%-ketor 0.5% (MYDRIATIC #5) ophthalmic solution syringe 0.25 mL 0.25 mL Right Eye PRN - SEE INSTRUCTIONS EPINEPHrine (PF) 1:1,000 (1 mg/mL) (ADRENALIN (PF)) injection PRN 0.1 mL at 04/29/23 1230 lactated ringers IV infusion 1,000 mL 1,000 mL IV Infusion ONCE Lidocaine (PF) (AKTEN (PF)) 3.5 % ophthalmic gel PRN 1 Drop at 04/29/23 1230 lidocaine 1% (PF) (XYLOCAINE) injection PRN 0.9 mL at 04/29/23 1230 moxifloxacin (VIGAMOX) 0.5 % ophthalmic drops PRN 1 Drop at 04/29/23 1230 povidone-iodine (BETADINE) 5 % ophthalmic drops PRN 1 Drop at 04/29/23 1230 prednisoLONE acetate (PRED-FORTE) 1 % ophthalmic suspension drops PRN 1 Drop at 04/29/23 1230 tetracaine (PONTOCAINE) 0.5 % ophthalmic drops 1 Drop 1 Drop Right Eye PRN - SEE INSTRUCTIONS tetracaine (PONTOCAINE) 0.5 % ophthalmic drops PRN 1 Drop at 04/29/23 1230 timolol (TIMOPTIC) 0.5 % ophthalmic solution PRN 1 Drop at 04/29/23 1230 Patient has no known allergies.Review of SystemsBlurry visionPhysical examHEENT: Brightness Acuity Test medium 20/40 ODHeart: WNL Lungs: WNL Abdomen: WNL Blood pressure (!) 167/102, pulse 98, temperature 36.1 ?C (96.9 ?F), resp. rate 14, height 5' 3" (1.6 m), weight 147 lb (66.7 kg), SpO2 97 %. Bleeding tendencies: No Pertinent Lab Data: No results found for: "HGB"Pertinent physical abnormalities: NoneImpression/Diagnosis: Visually significant Nuclear sclerotic and Cortical cataract ODTreatment Plan/Procedure: Phacoemulsification with SN60WF IOL ODRisks, benefits, and alternatives discussed with patient who voices understanding and wishes to proceed.Consent obtained: Written consent was obtained from patientPhysician: [place] [address]-1Frtvnsa and physical tyegNE0899-78-16U88:10:03History and physical noteTXT1.2.840.102862.1.13.104.2.7.2.87282 9|[id number] for patient curf94845-4Cvkgdpz and physical noteLN[address] LebmPkqtdwhtpOctumeyioYIKS7779563818YAMRQF OXXOETFWBBHMPFMJ9728-30-69T16:10:031.2.840 .451770.1.72.3.15|1.2.840.908092.1.13.104. 2.7.2.727879_1903924930 2023-04-07 08:00:00 0510-88-70E32:00:00Formatting of this note [facility] is different from the original.Outpatient Surgery History & PhysicalCynthia Kelsie Hernandez 1945, 78 year old, /White, female [id number] type: DSU Attending Surgeon: Ann Boggs Resident Surgeon: Celine Beeper/Cell: NoneChief Complaint: Blurry vision: OD with glareHistory of Present Illness: Causing difficulty Driving, Reading, Watching TV History reviewed. No pertinent past medical history.History reviewed. No pertinent surgical history.History reviewed. No pertinent family history.Social History Socioeconomic History Marital status: Tobacco Use Smoking status: Never Smokeless tobacco: Never Current Outpatient Medications Medication Sig Dispense Refill amLODIPine 10 mg tablet TAKE 1 TABLET BY MOUTH EVERY DAY FOR 90 DAYS losartan 100 mg tablet Take 1 tablet by mouth in the morning. methylPREDNISolone (MEDROL, LISBET,) 4 mg tablets Take by mouth SEE-INSTRUCTIONS. follow package directions 21 Each 0 No current facility-administered medications for this visit. Patient has no known allergies.Review of SystemsBlurry visionPhysical examHEENT: Brightness Acuity Test medium 20/40 ODHeart: WNL Lungs: WNL Abdomen: WNL Weight 130 lb (59 kg). Bleeding tendencies: No Pertinent Lab Data: No results found for: "HGB"Pertinent physical abnormalities: NoneImpression/Diagnosis: Visually significant Nuclear sclerotic and Cortical cataract ODTreatment Plan/Procedure: Phacoemulsification with SN60WF IOL ODRisks, benefits, and alternatives discussed with patient who voices understanding and wishes to proceed.Consent obtained: Written consent was obtained from patientPhysician: [place] [address]-9Adluzcq and physical vxuoAU0967-99-29A44:52:16History and physical noteTXT1.2.840.136342.1.13.104.2.7.2.94138 9|[id number] for patient mnec71057-5Yaoqldc and physical noteLNUT[address] IgpoOljygvbgvKzwemujewBKCK1286870780WJZOBF RBBAOWSPUGAPHHUM8768-95-32B23:52:161.2.840 .796739.1.72.3.15|1.2.840.317207.1.13.104. 2.7.2.727879_[id number] Procedure Notes Date/Time Note Provider Source 2023-04-29 12:54:49 4351-65-63P33:54:49Procedure(s): NC XCAPSL [facility] CTRC RMVL INSJ IO LENS PROSTH W/O ECPPre-Procedure Diagnose(s): Combined forms of age-related cataract of right eyePost-Procedure Diagnose(s): Combined forms of age-related cataract of right eye Date of Service: 04/29/2023Faculty Surgeon: Flavia Rees Surgeon: NoneAssistant or Teaching Resident: NonePreoperative Diagnosis: Right combined age-related cataractPostoperative Diagnosis: Right combined age-related cataractProcedure: Right Cataract extraction with intraocular lens implantationIndications: Blurred visionImplant: Williams Clareon CNA0T0 23.0D, SN: [id number]: After appropriate intravenous lines and monitors were placed, the patient was brought to the operating room. The patient's eye was then prepped and draped in the usual sterile ophthalmologic fashion.After placing a lid speculum in the eye, 2% lidocaine jelly was placed on the eye. A paracentesis placed near the limbus. Intracameral lidocaine was placed in the anterior chamber. The anterior chamber was then filled with Viscoelastic. A keratome was then used to fashion a standard, clear cornea incision near the limbus. An anterior curvilinear capsulorrhexis was performed using a cystotome and Utrata forceps. The lens was then hydrodissected without difficulty. The lens nucleus was quartered and removed with the phacoemulsification device. Any remaining cortex was removed using the irrigation/aspiration device.The anterior chamber and capsular bag were filled with viscoelastic and folded 23.0 diopter CNA0T0 posterior chamber intraocular lens was inserted into the capsular bag and rotated into position using the sinskey hook. Any remaining viscoelastic was removed using the irrigation/aspiration device. The wounds were checked. Intracameral vigamox was injected into the anterior chamber. The wounds were again checked and found to be water tight. The lid speculum was removed. Vigamox, pred forte, and timolol drops were placed on the eye and the eye was shielded.Complications: NoneThe patient tolerated the procedure well and left the operating room in stable condition. 41423-9Csvucdjqt fztnCG3169-90-15F06:17:17Procedure noteTXT1.2.840.975567.1.13.104.2.7.2.09777 9|[id number] for patient jvqt79331-4Oqbsbodrc noteLNUT[address] EmdnJlscvikffZeaoxoodcZSVF7544051683HFQNKP XDZMLZBKXGUOGXNH6802-04-27X52:17:171.2.840 .307701.1.72.3.15|1.2.840.106550.1.13.104. 2.7.2.727879_1903968937
[2023-06-28] MEDS ORDERED: CEFAZOLIN SODIUM 1 GM/VIAL ONE (14:47)
[2023-06-28] MEDS ORDERED: ONDANSETRON 4 MG/2 ML VIAL ONE (14:47)
[2023-06-28] MEDS ORDERED: NA CHLORIDE 0.9% 50 ML ONE (14:47)
[2023-06-28] MEDS ORDERED: FENTANYL CITR 100 MCG/2 ML ONE ×2 (14:47→16:01)
--- NOTE | 2023-06-28 15:46 | RAD REPORT ---
EXAM DESCRIPTION: CT - Head C Spine Cap Wo Con - 06/28/2023 3:08 pm CLINICAL HISTORY: Head and neck injury with chest and abdominal pain status post fall TECHNIQUE: Computed axial tomography of head, neck, chest, abdomen and pelvis obtained. IV and oral contrast not requested. Coronal and sagittal reconstruction performed. All CT scans are performed using dose optimization technique as appropriate and may include automated exposure control or mA/KV adjustment according to patient size. COMPARISON: CT head and neck 2021 FINDINGS: An intracranial bleed is not seen. The ventricles are normal in caliber. An extra-axial fluid collection is not noted. Fluid within the sinuses/mastoids is not seen. A cervical fracture is not seen. No dislocation is noted. Mild chronic posterior subluxation C2 on C3 The evaluation of mediastinum, grover, vessels, solid organs and bowel are limited secondary to the lac k of contrast administration. A mediastinal hematoma is not noted. A pleural effusion is not seen. A lung contusion is not present. A few areas of subsegmental atelectasis are present within the right lung Bilateral hip arthroplasties The liver,spleen, pancreas, adrenals,kidneys and bladder do not demonstrate an acute traumatic injury Gallbladder is mildly distended Moderate compression deformity T12 vertebral body. Mild compression deformity L1 vertebral body. Thes e were present on May 27, 2023 x-ray IMPRESSION: No acute intracranial abnormality is seen. A cervical fracture is not visualized. If the patient continues to have symptoms to suggest intracran ial/spinal cord pathology MRI be recommended No acute traumatic abnormality involving the chest. Moderate compression deformity T12 vertebral body. Mild compression deformity L1 vertebral body. Thes e most likely are late subacute or chronic. The should be correlated clinically Mild gallbladder distention
--- NOTE | 2023-06-28 15:55 | RAD REPORT ---
EXAM DESCRIPTION: RAD - Wrist Left 3 View - 06/28/2023 3:21 pm CLINICAL HISTORY: Left wrist pain status post injury FINDINGS: No fracture or dislocation is seen. Osteoporosis. Soft tissue laceration If the patient continues to have symptoms to suggest an occult fracture then a followup plain film se miguel in 7 days would be recommended
--- NOTE | 2023-06-28 15:56 | RAD REPORT ---
EXAM DESCRIPTION: RAD - Forearm Left - 06/28/2023 3:21 pm CLINICAL HISTORY: Left forearm pain status post injury FINDINGS: No fracture is seen
[2023-06-28] MEDS ORDERED: TDAP (DIPHTH,PERTUSS(ACELL),TET VAC) 0.5 ML VIAL IMVAC ONE (16:01)
[2023-06-28] MEDS ORDERED: LIDOCAINE 1% MPF 30 ML VIAL ONE (16:01)
--- NOTE | 2023-06-28 17:15 | EDPHYS ---
Physician Documentation [facility] Name: Catie Ojeda Age: 78 yrs Sex: Female : 1945 Arrival Date: 06/28/2023 Time: 14:01 Bed 7 Private MD: ED Physician Kevyn Landaverde HPI: 06/28 14:07 This 78 yrs old Female presents to ER via EMS with complaints of Fall Injury. jh7 14:07 Details of fall: The patient fell from an upright position, while walking. Onset: The jh7 symptoms/episode began/occurred acutely. Associated injuries: The patient sustained laceration, 6 cm(s), right hip, painful injury. Patient reports that she slipped and fell at home and sustained a large avulsion laceration to her left forearm. She states that she landed on her right hip and is concerned due to a hip replacement 3 weeks ago. Reports that she was taken off blood thinners 1 week ago.. Historical: - Allergies: 14:10 No Known Allergies; ko1 - PMHx: 14:10 Chronic pain; GERD; Hyperlipidemia; Hypertension; ko1 - PSHx: 14:10 right hip replacement (Hypertension); ko1 - Immunization history:: Adult Immunizations unknown. - Social history:: Smoking status: Patient denies any tobacco usage or history of. ROS: 14:07 Constitutional: Negative for fever, chills, and weight loss, Eyes: Negative for injury, jh7 pain, redness, and discharge, ENT: Negative for injury, pain, and discharge, Neck: Negative for injury, pain, and swelling, Cardiovascular: Negative for chest pain, palpitations, and edema, Respiratory: Negative for shortness of breath, cough, wheezing, and pleuritic chest pain, Abdomen/GI: Negative for abdominal pain, nausea, vomiting, diarrhea, and constipation, Back: Negative for injury and pain, Neuro: Negative for headache, weakness, numbness, tingling, and seizure, 14:07 MS/extremity: Positive for pain, of the right hip, 14:07 Skin: Positive for avulsion, laceration(s), of the left arm, 14:07 All other systems are negative, Exam: 14:07 Constitutional: This is a well developed, well nourished patient who is awake, alert, jh7 and in no acute distress. Head/Face: Normocephalic, atraumatic. Eyes: Pupils equal round and reactive to light, extra-ocular motions intact. Lids and lashes normal. Conjunctiva and sclera are non-icteric and not injected. Cornea within normal limits. Periorbital areas with no swelling, redness, or edema. Neck: Trachea midline, no thyromegaly or masses palpated, and no cervical lymphadenopathy. Supple, full range of motion without nuchal rigidity, or vertebral point tenderness. No Meningismus. Cardiovascular: Regular rate and rhythm with a normal S1 and S2. No gallops, murmurs, or rubs. Normal PMI, no JVD. No pulse deficits. Respiratory: Lungs have equal breath sounds bilaterally, clear to auscultation and percussion. No rales, rhonchi or wheezes noted. No increased work of breathing, no retractions or nasal flaring. Abdomen/GI: Soft, non-tender, with normal bowel sounds. No distension or tympany. No guarding or rebound. No evidence of tenderness throughout. Back: No spinal tenderness. No costovertebral tenderness. Full range of motion. Neuro: Awake and alert, GCS 15, oriented to person, place, time, and situation. Motor strength 5/5 in all extremities. Sensory grossly intact. Normal gait. 14:07 Musculoskeletal/extremity: ROM: intact in all extremities, Circulation is intact in all extremities. Pulses: Perfusion: the extremity is normally perfused throughout, pink, warm, with brisk capillary refill, Sensation intact. 14:07 Skin: injury, avulsion(s), a large 6 cm(s), of the left forearm, Large, avulsion laceration, extending to the bone with subcutaneous fat exposure noted on the left lateral forearm., Vital Signs: 14:07 BP 125 / 64; Pulse 92; Resp 16; Temp 98; Pulse Ox 97% ; ko1 15:17 BP 108 / 66; Pulse 86; Resp 18; Pulse Ox 98% ; ko1 17:44 BP 112 / 74; Pulse 80; Pulse Ox 99% ; ko1 Laceration: 16:05 Wound Repair of 8cm ( 3.1in ) avulsed laceration to left forearm. Distal jh7 neuro/vascular/tendon intact. Anesthesia: Local anesthetic administered with 10 mls of 1% lidocaine. Wound prep: Extensive cleansing by me. Skin closed with 10 5-0 Prolene using vertical mattress sutures and sterile technique. Dressed with non-adherent dressing. Patient tolerated well. MDM: 14:11 Patient medically screened. [facility] 17:20 Differential diagnosis: contusion, fracture, laceration, multiple trauma. Data [facility] reviewed: vital signs, nurses notes, radiologic studies, CT scan, plain films. I considered the following discharge prescriptions or medication management in the emergency department Medications were administered in the Emergency Department. See MAR. Care significantly affected by the following chronic conditions: Hypertension. Counseling: I had a detailed discussion with the patient and/or guardian regarding the historical points, exam findings, and any diagnostic results supporting the discharge/admit diagnosis, the need for outpatient follow up, for suture removal, to return to the emergency department if symptoms worsen or persist or if there are any questions or concerns that arise at home. Response to treatment: the patient's symptoms have markedly improved after treatment. 06/28 14:16 Order name: CT Traumagram (Head C Spine CAP wo con); Complete Time: 17:14 [facility] 06/28 14:16 Order name: XRAY Forearm LEFT; Complete Time: 17:14 [facility] 06/28 14:27 Order name: XRAY Wrist LEFT 3 view; Complete Time: 17:14 [facility] 06/28 14:32 Order name: IV Start; Complete Time: 14:54 [facility] 06/28 15:31 Order name: Dressing - Wound; Complete Time: 15:48 [facility] 06/28 15:31 Order name: Gloves, Sterile; Complete Time: 15:48 [facility] 06/28 15:31 Order name: Prolene, Sutures; Complete Time: 15:48 [facility] 06/28 15:31 Order name: Setup Suture Tray; Complete Time: 15:48 [facility] 06/28 15:41 Order name: Wound Care; Complete Time: 17:31 [facility] Administered Medications: 14:50 Drug: Ondansetron IVP 4 mg IVP once; over 2 minutes Route: IVP; Site: right forearm; ko1 15:55 Follow up: Response: No adverse reaction hb 14:54 Drug: fentaNYL (PF) IVP 25 mcg IVP once Route: IVP; Site: right forearm; ko1 15:30 Follow up: Response: No adverse reaction hb 14:54 Drug: ceFAZolin IVPB 1 grams IVPB once Route: IVPB; Site: right forearm; ko1 15:54 Drug: Tetanus-Diphtheria Toxoid IM Adult 0.5 ml IM once; Provide Vaccine Information hb Statement (VIS). {[employer]: [employer]; Exp: Sat Jan 01 2025; Lot #: [id number]; Series: 1 of 1; Patient Consent: Obtained; Date/Time: ; Source Name: Catie Ojeda; Source Relationship: Self; Address Information: [address] [place] [id number]; ; Education: Provided; VIS Presented Date: ; VIS Publication: Tetanus/Diphtheria (Td) Vaccine VIS 11/19/2016 (historic)} Route: IM; Site: right deltoid; 15:55 Drug: fentaNYL (PF) IVP 25 mcg IVP once Route: IVP; Site: right antecubital; hb 16:03 Drug: Lidocaine Infiltration (1 %) 20 ml 20 ml Infiltration once; to bedside Volume: 20 hb ml; Route: Infiltration; Disposition Summary: 06/28/23 17:15 Discharge Ordered Notes: Location: Home [facility] Problem: new [facility] Symptoms: have improved [facility] Condition: Stable [facility] Diagnosis - Arm Laceration Left/ Open wound of forearm [facility] - Fall on same level, unspecified [facility] Followup: [facility] - With: Private Physician - When: 7 - 10 days - Reason: Staple/Suture removal Discharge Instructions: - Discharge Summary Sheet [facility] - Laceration Care, Adult [facility] - Deep Skin Avulsion [facility] Forms: - Medication Reconciliation Form [facility] - Thank You Letter [facility] - Antibiotic Education [facility] - Patient Portal Instructions [facility] - Leadership Thank You Letter [facility] Prescriptions: - Cephalexin 500 mg Oral Capsule - take 1 capsule ORAL route every 12 hours for 10 days; 20 capsule; Refills: 0, jh7 Product Selection Permitted Signatures: Dispatcher [employer] Temitope Farley, RN RN Marlena Uriostegui, PSYCHIATRIC AIDE [place] [id number] Sanaz Azul RN RN ko1
--- NOTE | 2023-06-28 17:15 | ER ---
Nurse's Notes [facility] Name: Catie Ojeda Age: 78 yrs Sex: Female : 1945 Arrival Date: 06/28/2023 Time: 14:01 Bed 7 Private MD: Diagnosis: Arm Laceration Left/ Open wound of forearm;Fall on same level, unspecified Presentation: 06/28 14:07 Chief complaint: EMS states: called for patient fall, sustained injury to left arm ko1 (avulsion). Patient is not on blood thinners, she had a recent right hip replacement that she is concerned about. Coronavirus screen: At this time, the client does not indicate any symptoms associated with coronavirus-19. Ebola Screen: No symptoms or risks identified at this time. Initial Sepsis Screen: Does the patient meet any 2 criteria? No. Patient's initial sepsis screen is negative. Does the patient have a suspected source of infection? No. Patient's initial sepsis screen is negative. Risk Assessment: Do you want to hurt yourself or someone else? Patient reports no desire to harm self or others. Onset of symptoms was June 28, 2023. Care prior to arrival: Bleeding of injury controlled. Injury dressed. Mechanism of Injury: Fall from standing position. 14:07 Method Of Arrival: EMS: [facility] ko1 14:07 Acuity: SAMANTHA 2 ko1 Triage Assessment: 14:10 General: Appears in no apparent distress. uncomfortable, Behavior is calm, cooperative, ko1 appropriate for age. Pain: Complains of pain in left arm. Historical: - Allergies: 14:10 No Known Allergies; ko1 - PMHx: 14:10 Chronic pain; GERD; Hyperlipidemia; Hypertension; ko1 - PSHx: 14:10 right hip replacement (Hypertension); ko1 Historical Immunization: - Administered Vaccines 16:03 Lidocaine Infiltration (1 %) 20 ml hb 15:55 fentaNYL (PF) IVP 25 mcg hb 15:54 Tetanus-Diphtheria Toxoid IM Adult 0.5 ml hb Principal [employer]: [employer]; Exp: Sat Jan 01 2025; Lot #: [id number]; Series: 1 of 1; Patient Consent: Obtained; Date/Time: ; Source Name: Catie Ojeda; Source Relationship: Self; Address Information: [address] [place] [id number]; ; Education: Provided; VIS Presented Date: ; VIS Publication: Tetanus/Diphtheria (Td) Vaccine VIS 11/19/2016 (historic) 14:54 fentaNYL (PF) IVP 25 mcg ko1 14:54 ceFAZolin IVPB 1 grams ko1 14:50 Ondansetron IVP 4 mg ko1 - Immunization history:: Adult Immunizations unknown. - Social history:: Smoking status: Patient denies any tobacco usage or history of. Screenin:59 [facility] ED Fall Risk Assessment (Adult) Score/Fall Risk Level 3 or more points = High hb Risk Oriented to surroundings, Maintained a safe environment, Educated pt \T\ family on fall prevention, incl call for assistance when getting out of bed. Abuse screen: Denies threats or abuse. Denies injuries from another. Nutritional screening: No deficits noted. Tuberculosis screening: No symptoms or risk factors identified. Assessment: 14:15 General: Appears in no apparent distress. Behavior is calm, cooperative. Pain: Pain hb currently is 9 out of 10 on a pain scale. 14:15 Neuro: Level of Consciousness is awake, alert, obeys commands, Oriented to person, hb place, time, situation. Cardiovascular: Patient's skin is warm and dry. Respiratory: Respiratory effort is even, unlabored, Respiratory pattern is regular, symmetrical. GI: No signs and/or symptoms were reported involving the gastrointestinal system. : No signs and/or symptoms were reported regarding the genitourinary system. EENT: No signs and/or symptoms were reported regarding the EENT system. Derm: Skin is pink, warm \T\ dry. Wound noted left arm. Musculoskeletal: Reports pain in left arm and right hip. Vital Signs: 14:07 BP 125 / 64; Pulse 92; Resp 16; Temp 98; Pulse Ox 97% ; ko1 15:17 BP 108 / 66; Pulse 86; Resp 18; Pulse Ox 98% ; ko1 17:44 BP 112 / 74; Pulse 80; Pulse Ox 99% ; ko1 ED Course: 14:06 Patient arrived in ED. ko1 14:10 Triage completed. ko1 14:10 Arm band placed on right wrist. Patient placed in an exam room, on a stretcher, on ko1 pulse oximetry, Patient notified of wait time. 14:11 Marlena Uriostegui FNP [facility] 14:11 Kevyn Landaverde MD is Attending Physician. jh7 14:49 Inserted saline lock: 24 gauge in right forearm, using aseptic technique. mb4 14:59 Patient has correct armband on for positive identification. Provided Education on: hb medications, tests, result times. 15:10 CT Traumagram (Head C Spine CAP wo con) In Process Unspecified. EDMS 15:17 Client placed on continuous cardiac and pulse oximetry monitoring. NIBP monitoring ko1 applied. awake overnight monitor on. Door closed. Noise minimized. Warm blanket given. 15:23 XRAY Forearm LEFT In Process Unspecified. EDMS 15:23 XRAY Wrist LEFT 3 view In Process Unspecified. EDMS 15:42 Sanaz Azul, RN is Primary Nurse. ko1 16:57 Assist provider with laceration repair Set up tray. Performed by Marlena CAGE. mb4 17:44 IV discontinued, intact, bleeding controlled, No redness/swelling at site. Pressure ko1 dressing applied. Administered Medications: 14:50 Drug: Ondansetron IVP 4 mg IVP once; over 2 minutes Route: IVP; Site: right forearm; ko1 15:55 Follow up: Response: No adverse reaction hb 14:54 Drug: fentaNYL (PF) IVP 25 mcg IVP once Route: IVP; Site: right forearm; ko1 15:30 Follow up: Response: No adverse reaction hb 14:54 Drug: ceFAZolin IVPB 1 grams IVPB once Route: IVPB; Site: right forearm; ko1 15:54 Drug: Tetanus-Diphtheria Toxoid IM Adult 0.5 ml IM once; Provide Vaccine Information hb Statement (VIS). {Principal Engineer: [employer]; Exp: Sat Jan 01 2025; Lot #: [id number]; Series: 1 of 1; Patient Consent: Obtained; Date/Time: ; Source Name: Catie Ojeda; Source Relationship: Self; Address Information: [address] [place] [id number]; ; Education: Provided; VIS Presented Date: ; VIS Publication: Tetanus/Diphtheria (Td) Vaccine VIS 11/19/2016 (historic)} Route: IM; Site: right deltoid; 15:55 Drug: fentaNYL (PF) IVP 25 mcg IVP once Route: IVP; Site: right antecubital; hb 16:03 Drug: Lidocaine Infiltration (1 %) 20 ml 20 ml Infiltration once; to bedside Volume: 20 hb ml; Route: Infiltration; Medication: 17:44 VIS not applicable for this client. ko1 Outcome: 17:15 Discharge ordered by MD. pollack 17:44 Discharged to home via wheelchair, with family, ko1 17:44 Condition: stable 17:44 Discharge instructions given to patient, family, Instructed on discharge instructions, follow up and referral plans. medication usage, wound care, Demonstrated understanding of instructions, follow-up care, medications, wound care, Prescriptions given X 1, 17:46 Patient left the ED. ko1 Signatures: Dispatcher [employer] EDTemitope Ramirez, RN ALEXIS Denice Ruth 4 Marlena Uriostegui, [place] [id number] Sanaz Azul RN RN ko1
[2023-06-28 17:59] VITALS: TEMP 98
[2023-06-28 18:02] VITALS: BP 112/74; O2SAT 99
== END 2023-06-28 17:46 | disposition home or self-care (01) ==
LOC: ER 14:01
PROC: 0HQEXZZ Repair Left Lower Arm Skin, External Approach (ICD-10-PCS; principal; 2023-06-28)
DX: S51.812A Laceration without foreign body of left forearm, initial encounter (principal); W18.30XA Fall on same level, unspecified, initial encounter; M25.551 Pain in right hip; Z23 Encounter for immunization; Z96.641 Presence of right artificial hip joint; I10 Essential (primary) hypertension
CPT/HCPCS: 70450; 71250; 72125; 73090; 73110; 90471; 99285; 12004; J2001; J3010 ×2; J2405; J0690

== ENCOUNTER → 2023-10-21 | Emergency (ER) | payer OTHER, BC ==
[~2023-10-21] MED LIST: CEFTRIAXONE 1000 MG/VIAL ONE; HYDROCOD 2.5mg-ACETAMIN 108mg/5mL Soln ONE; LIDOCAINE 1% MPF 2 ML AMPULE ONE; LIDOCAINE VISCOUS 2% 10ML ORAL SOLN ONE; NA CHLORIDE 0.9% 500 ML ONE
[2023-10-21 17:11] LABS: Absolute Eosinophils 0.1 K/uL (0-0.5); Absolute Lymphocytes (CBC) 2.1 K/uL (0.7-4.9); Basophils % 0.6 % (0-1.3); Eosinophils % 1.9 % (0-4.4); Hematocrit 41.9 % (36.0-45.0); Hemoglobin 13.9 g/dL (12.0-15.0); Lymphocytes % 29.8 % (15.3-44.8); MCV 95.6 fL (80-100); MPV 7.7 fL (7.6-11.3); Platelets 342 thou/uL (152-406); RBC Red Blood Cell Count 4.38 M/uL (3.86-4.86)
[2023-10-21 17:18] LABS: Albumin 3.9 g/dL (3.4-5.0); Albumin/Globulin Ratio 1.1 (1.1-1.8); Anion Gap 8.8 mEq/L (5.0-15.0); Bilirubin Total 0.6 mg/dL (0.2-1.0); Globulin 3.7 g/dL (2.3-3.5); Protein, Total 7.6 g/dL (6.4-8.2)
[2023-10-21 17:19] LABS: Potassium 5.8 mEq/L (3.5-5.1)
[2023-10-21 17:24] LABS: SARS-CoV-2 Antigen Rapid Res Negative (Negative)
[2023-10-21 18:17] LABS: Specific Gravity 1.008 (1.005-1.030); Urine Bacteria <20 /HPF (<20); Urine Bilirubin NEGATIVE (Negative); Urine Blood Negative (Negative); Urine Clarity Extremely Turbid (Clear); Urine Color Light-Yellow (Yellow); Urine Crystals Unidentified Few /HPF (None Seen); Urine Glucose NEGATIVE (Negative); Urine Mucus Slight /HPF (None Seen); Urine Protein NEGATIVE (Negative); Urine RBC <5 /HPF (None Seen); Urine Urobilinogen Normal (Normal); Urine Yeast (Budding) Occasional /HPF (None Seen); Urine pH 6.5 (5.0-7.0)
--- NOTE | 2023-10-21 19:06 | RAD REPORT ---
EXAM DESCRIPTION: CT - Abdomen Pelvis Wo Contrast - 10/21/2023 6:59 pm CLINICAL HISTORY: Abdominal pain. ABD PAIN COMPARISON: No comparisons TECHNIQUE: CT imaging of the abdomen and pelvis was performed without contrast. Solid organ, bowel a nd vascular assessment is limited due to lack of IV and oral contrast. All CT scans are performed using dose optimization technique as appropriate and may include automated exposure control or mA/KV adjustment according to patient size. FINDINGS: Mild linear atelectasis in both lung bases.Significant gallbladder distension. The liver, spleen, pancreas, adrenal glands and kidneys are within normal limits for a limited non-co ntrast examination. No bowel obstruction, free air, free fluid or abscess. Moderate stool is present throughout the colo n. Mild diverticulosis coli. Full assessment of the rectum is limited by streak artifact. Bilateral hip arthroplasties. IMPRESSION: No acute intra-abdominal or pelvic findings. Moderate stool is present throughout the colon. Gallbladder distension. Gallbladder ultrasound may be helpful for further evaluation. A limited non-contrast examination was performed as detailed.
--- NOTE | 2023-10-21 21:05 | RAD REPORT ---
EXAM DESCRIPTION: US - Abdomen Exam Limited - 10/21/2023 8:51 pm CLINICAL HISTORY: ABD PAIN COMPARISON: No comparisons FINDINGS: The gallbladder demonstrates no gallstones. No pericholecystic fluid or gallbladder wall t hickening. The common bile duct is normal measuring 3 mm. The liver demonstrates no findings of intrahepatic biliary dilatation. IMPRESSION: Unremarkable examination.
--- NOTE | 2023-10-21 21:27 | EDPHYS ---
Physician Documentation [facility] Name: Catie Ojeda Age: 78 yrs Sex: Female : 1945 Arrival Date: 10/21/2023 Time: 15:46 Bed 10 Private MD: Eliud [facility] ED Physician Cameron Hubbard HPI: 10/20 16:15 This 78 yrs old Female presents to ER via Ambulatory with complaints of Sick. cp 16:15 The patient presents with abdominal pain mid and upper abdomen constipation. cp 16:15 Onset: The symptoms/episode began/occurred 3 day(s) ago. cp 16:15 The symptoms do not radiate. Associated signs and symptoms: Pertinent positives: left cp side lower jaw and neck pain for several weeks. scheduled to have salivary gland removed by DR Diego, Pertinent negatives: blood in stools, chest pain, diarrhea, dysuria, fever, palpitations, shortness of breath, vomiting. Historical: - Allergies: 16:02 No Known Allergies; ld1 - PMHx: 16:02 Chronic pain; GERD; Hyperlipidemia; Hypertension; ld1 - PSHx: 16:02 Right hip replacement (en); ld1 - Immunization history:: Adult Immunizations up to date. - Social history:: Smoking status: Patient denies any tobacco usage or history of. Patient/guardian denies using alcohol. ROS: 16:20 Constitutional: Negative for body aches, chills, fever, poor PO intake, cp 16:20 Eyes: Negative for injury, pain, redness, and discharge, cp 16:20 ENT: Positive for left lower jaw and left side neck pain, Negative for drainage from ear(s), ear pain, 16:20 Cardiovascular: Negative for chest pain, edema, palpitations, 16:20 Respiratory: Negative for cough, shortness of breath, wheezing, 16:20 Abdomen/GI: Positive for abdominal pain, constipation, Negative for vomiting, diarrhea, anorexia, black/tarry stool, rectal bleeding, 16:20 Back: Negative for pain at rest, pain with movement, 16:20 Neuro: Negative for altered mental status, dizziness, headache, syncope, weakness, 16:20 All other systems are negative, Exam: 16:25 Constitutional: The patient appears in no acute distress, alert, awake, cp non-diaphoretic, non-toxic, well developed, well nourished, 16:25 Head/face: Noted is swelling, that is mild, of the left jaw, tenderness, that is cp moderate, of the left jaw, 16:25 Eyes: Periorbital structures: appear normal, Pupils: equal, round, and reactive to light and accomodation, Extraocular movements: intact throughout, Conjunctiva: normal, no exudate, no injection, Sclera: no appreciated abnormality, Lids and lashes: appear normal, bilaterally, 16:25 ENT: External ear(s): are unremarkable, Nose: is normal, Mouth: Lips: moist, Oral mucosa: pink and intact, moist, Posterior pharynx: Airway: no evidence of obstruction, patent, erythema, is not appreciated, exudate, is not appreciated, 16:25 Neck: ROM/movement: is normal, is supple, without pain, no range of motions limitations, no meningismus, no nuchal rigidity, 16:25 Chest/axilla: Inspection: normal, 16:25 Cardiovascular: Rate: normal, Rhythm: regular, 16:25 Respiratory: the patient does not display signs of respiratory distress, Respirations: normal, no use of accessory muscles, no retractions, labored breathing, is not present, Breath sounds: are clear throughout, no decreased breath sounds, no stridor, no wheezing, 16:25 Abdomen/GI: Inspection: abdomen appears normal, Bowel sounds: active, all quadrants, Palpation: soft, in all quadrants, mild abdominal tenderness, in the epigastric area, right upper quadrant and left upper quadrant, rebound tenderness, is not appreciated, involuntary guarding, is not appreciated, 16:25 Back: CVA tenderness, is absent, 16:25 Neuro: Orientation: to person, place \T\ time. Mentation: is normal, Motor: moves all fours, strength is normal, 17:33 ECG was reviewed by the Attending Physician. cp Vital Signs: 16:01 BP 131 / 68; Pulse 92; Resp 18; Temp 97.8(TE); Pulse Ox 98% on R/A; Weight 72.12 kg; ld1 Height 5 ft. 3 in. ; Pain 7/10; 18:28 BP 156 / 89; Pulse 74; Resp 18; Pulse Ox 100% on R/A; mb9 19:38 BP 142 / 78; Pulse 70; Resp 16; Pulse Ox 100% on R/A; mb9 21:14 BP 133 / 78; Pulse 74; Resp 16; Pulse Ox 100% on R/A; mb9 16:01 Body Mass Index 28.17 (72.12 kg, 160.02 cm) ld1 16:01 Pain Scale: Adult ld1 MDM: 16:05 Patient medically screened. cp 10/20 16:07 Order name: CBC with Diff cp 10/20 16:07 Order name: Urinalysis w/ reflexes; Complete Time: 20:02 cp 10/20 20:03 Interpretation: Normal except: [facility] Extremely Turbid; UESTR 500; UWBC 10-20; BYST cp Occasional. 10/20 16:07 Order name: Strep cp 10/20 16:07 Order name: SARS RAPID cp 10/20 17:18 Order name: CBC with Automated Diff; Complete Time: 17:27 EDMS 10/20 17:19 Order name: Comprehensive Metabolic Panel; Complete Time: 17:27 EDMS 10/20 17:28 Interpretation: Normal except: NA 133; K 5.8; CRE 1.06; GFR 54; AST 43; GLOB 3.7. cp 10/20 17:19 Order name: Lipase; Complete Time: 17:27 EDMS 10/20 17:24 Order name: SARS-COV-2 Antigen Rapid; Complete Time: 17:27 EDMS 10/20 17:30 Order name: Potassium; Complete Time: 18:18 cp 10/20 18:19 Interpretation: Reviewed. 10/20 17:36 Order name: [place] Screen; Complete Time: 18:18 EDAR 10/20 17:45 Order name: Influenza Screen (A ; Complete Time: 18:18 EDMS 10/20 17:46 Order name: Throat Culture EDAR 10/20 17:53 Order name: Throat Culture EDAR 10/20 18:21 Order name: Urine Culture EDAR 10/20 18:19 Order name: CT Abd/Pelvis - Without Contrast; Complete Time: 20:02 cp 10/20 20:04 Order name: US Abdomen Limited: gallbladder; Complete Time: 21:09 cp 10/20 21:09 Interpretation: Report reviewed. cp 03 17:30 Order name: EKG; Complete Time: 17:30 cp 10/20 16:07 Order name: IV Saline Lock; Complete Time: 19:06 cp 10/20 16:07 Order name: Labs collected and sent; Complete Time: 16:44 cp 10/20 17:30 Order name: EKG - Nurse/Tech; Complete Time: 17:31 cp EC:33 Rate is 62 beats/min. Rhythm is regular. OR interval is normal. QRS interval is normal. cp QT interval is normal. T waves are Inverted in leads aVL, aVR. Interpreted by me. Reviewed by me. Administered Medications: 19:06 Not Given (Patient Refused): ns 0.9% 500 ml IV at 500 ml/hr continuous mb9 20:15 Drug: Lortab PO Liquid 10 ml PO once Route: PO; mb9 21:21 Follow up: Response: No adverse reaction mb9 20:15 Drug: Viscous Lidocaine Mucous Membrane Liquid (4 %) 5 ml Mucous Membrane once Route: mb9 Mucous Membrane; 21:21 Not Given (Physician Discretion): rocephin1 grams IV at calculated rate once; Given mb9 slow IV push per pharmacy instructions 21:21 Drug: Rocephin (cefTRIAXone) IM 1 grams IM once Route: IM; Site: right gluteus; mb9 Disposition Summary: 10/21/23 21:27 Discharge Ordered Notes: Location: Home cp Problem: new cp Symptoms: have improved cp Condition: Stable cp Diagnosis - Constipation cp - Jaw pain cp - Abdominal pain, unspecified cp Followup: cp - With: Private Physician - When: 2 - 3 days - Reason: Recheck today's complaints Discharge Instructions: - Discharge Summary Sheet cp - Abdominal Pain, Adult cp - Constipation, Adult cp Forms: - Medication Reconciliation Form cp - Thank You Letter cp - Antibiotic Education cp - Prescription Opioid Use cp - Patient Portal Instructions cp - Leadership Thank You Letter cp Prescriptions: - Golytely [id number] -5.86 gram Oral Recon Soln - take 240 milliliter ORAL route every 1-2 hours As needed until bowel movement; cp 2000 milliliter; Refills: 0, Product Selection Permitted - Lidocaine Viscous - take 5 milliliter ORAL route every 4-6 hours As needed; 250 milliliter; cp Refills: 0, Product Selection Permitted Signatures: Dispatcher [employer] EDMS Kevyn Villarreal PA PA cp Miroslava Do RN RN ld1 Roseanne Alejandro RN RN mb9 Corrections: (The following items were deleted from the chart) 18:39 17:11 MONO SCREEN PROFILE+I.LAB.BRZ ordered. EDMS EDMS 18:39 17:11 Influenza Screen (A \T\ B)+BA.LAB.BRZ ordered. EDMS EDMS 18:40 17:11 COMPREHENSIVE METABOLIC PANEL+C.LAB.BRZ ordered. EDMS EDMS 18:40 17:11 LIPASE+C.LAB.BRZ ordered. EDMS EDMS
--- NOTE | 2023-10-21 21:27 | ER ---
Nurse's Notes [facility] Name: Catie Ojeda Age: 78 yrs Sex: Female : 1945 Arrival Date: 10/21/2023 Time: 15:46 Bed 10 Private MD: Priyank Kline Diagnosis: Constipation;Jaw pain;Abdominal pain, unspecified Presentation: 10/20 16:01 Chief complaint: Patient states: Pain to left side of mouth, nausea, constipation. ld1 Coronavirus screen: At this time, the client does not indicate any symptoms associated with coronavirus-19. Ebola Screen: No symptoms or risks identified at this time. Initial Sepsis Screen: Does the patient meet any 2 criteria? No. Patient's initial sepsis screen is negative. Does the patient have a suspected source of infection? No. Patient's initial sepsis screen is negative. Risk Assessment: Do you want to hurt yourself or someone else? Patient reports no desire to harm self or others. Onset of symptoms was October 21, 2023. 16:01 Method Of Arrival: Ambulatory ld1 16:01 Acuity: SAMANTHA 3 ld1 Triage Assessment: 16:02 General: Appears in no apparent distress. comfortable, Behavior is calm, cooperative, ld1 appropriate for age. Pain: Complains of pain in epigastric area Pain does not radiate. Pain currently is 8 out of 10 on a pain scale. Quality of pain is described as throbbing, Pain began suddenly, Is continuous. EENT: No signs and/or symptoms were reported regarding the EENT system. Neuro: Level of Consciousness is awake, alert, obeys commands, Oriented to person, place, time, situation. Cardiovascular: Capillary refill < 3 seconds Patient's skin is warm and dry. Respiratory: Airway is patent Respiratory effort is even, unlabored. GI: Abdomen is round non-distended, Reports constipation, nausea. : No signs and/or symptoms were reported regarding the genitourinary system. Historical: - Allergies: 16:02 No Known Allergies; ld1 - PMHx: 16:02 Chronic pain; GERD; Hyperlipidemia; Hypertension; ld1 - PSHx: 16:02 Right hip replacement (en); ld1 - Immunization history:: Adult Immunizations up to date. - Social history:: Smoking status: Patient denies any tobacco usage or history of. Patient/guardian denies using alcohol. Screenin:45 [facility] ED Fall Risk Assessment (Adult) History of falling in the last 3 months, mb9 including since admission No falls in past 3 months (0 pts) Confusion or Disorientation No (0 pts) Intoxicated or Sedated No (0 pts) Impaired Gait No (0 pts) Mobility Assist Device Used No (0 pt) Altered Elimination No (0 pt) Score/Fall Risk Level 0 - 2 = Low Risk Oriented to surroundings, Maintained a safe environment, Educated pt \T\ family on fall prevention, incl call for assistance when getting out of bed. Abuse screen: Denies threats or abuse. Nutritional screening: No deficits noted. Tuberculosis screening: No symptoms or risk factors identified. Assessment: 16:44 General: Appears in no apparent distress. Behavior is calm, cooperative. Pain: mb9 Complains of pain in throat. Neuro: Cordon Agitation-Sedation Scale (RASS): 0 - Alert and Calm Level of Consciousness is awake, alert, obeys commands, Oriented to person, place, time, situation, Appropriate for age. Cardiovascular: Heart tones S1 S2 present Patient's skin is warm and dry. Respiratory: Airway is patent Respiratory effort is even, unlabored, Respiratory pattern is regular, symmetrical. GI: Abdomen is flat, non-distended, Bowel sounds present X 4 quads. Abd is soft and non tender X 4 quads. Reports nausea. : No signs and/or symptoms were reported regarding the genitourinary system. EENT: No signs and/or symptoms were reported regarding the EENT system. Derm: Skin is pink, warm \T\ dry. Musculoskeletal: Range of motion: intact in all extremities. 18:19 Reassessment: Patient appears in no apparent distress at this time. pt declined IV iw placement, pt is drinking fluids without vomiting, Kevyn LOPES notified, agrees to hold IV insertion at this time. 18:28 Reassessment: No changes from previously documented assessment. Patient and/or family mb9 updated on plan of care and expected duration. Pain level reassessed. Patient is alert, oriented x 3, equal unlabored respirations, skin warm/dry/pink. 19:38 Reassessment: No changes from previously documented assessment. Patient and/or family mb9 updated on plan of care and expected duration. Pain level reassessed. Patient is alert, oriented x 3, equal unlabored respirations, skin warm/dry/pink. 20:25 Reassessment: No changes from previously documented assessment. Patient and/or family mb9 updated on plan of care and expected duration. Pain level reassessed. Patient is alert, oriented x 3, equal unlabored respirations, skin warm/dry/pink. Vital Signs: 16:01 BP 131 / 68; Pulse 92; Resp 18; Temp 97.8(TE); Pulse Ox 98% on R/A; Weight 72.12 kg; ld1 Height 5 ft. 3 in. ; Pain 7/10; 18:28 BP 156 / 89; Pulse 74; Resp 18; Pulse Ox 100% on R/A; mb9 19:38 BP 142 / 78; Pulse 70; Resp 16; Pulse Ox 100% on R/A; mb9 21:14 BP 133 / 78; Pulse 74; Resp 16; Pulse Ox 100% on R/A; mb9 16:01 Body Mass Index 28.17 (72.12 kg, 160.02 cm) ld1 16:01 Pain Scale: Adult ld1 ED Course: 15:47 Patient arrived in ED. rg4 15:48 Priyank Kline DO is Private Physician. rg4 15:59 Kevyn Villarreal PA is [facility]. cp 16:00 Cameron Hubbard MD is Attending Physician. cp 16:02 Triage completed. ld1 16:02 Arm band placed on right wrist. ld1 16:28 Roseanne Alejandro, RN is Primary Nurse. mb9 16:44 Missed attempt(s): 22 gauge in right forearm. Bleeding controlled, band aid applied, mb9 catheter tip intact. 16:45 Placed in gown. Bed in low position. Call light in reach. Side rails up X 1. Client mb9 placed on continuous cardiac and pulse oximetry monitoring. NIBP monitoring applied. 16:46 No provider procedures requiring assistance completed. mb9 17:51 Missed attempt(s): 22 gauge in left antecubital area. Bleeding controlled, band aid mb9 applied, catheter tip intact. 17:51 EKG done, by ED staff, reviewed by Kevyn LOPES. mb9 18:[address] via wheelchair. mb9 19:00 CT Abd/Pelvis - Without Contrast In Process Unspecified. EDMS 20:53 US Abdomen Limited: gallbladder In Process Unspecified. EDMS 21:33 Patient did not have IV access during this emergency room visit. mb9 Administered Medications: 19:06 Not Given (Patient Refused): ns 0.9% 500 ml IV at 500 ml/hr continuous mb9 20:15 Drug: Lortab PO Liquid 10 ml PO once Route: PO; mb9 21:21 Follow up: Response: No adverse reaction mb9 20:15 Drug: Viscous Lidocaine Mucous Membrane Liquid (4 %) 5 ml Mucous Membrane once Route: mb9 Mucous Membrane; 21:21 Not Given (Physician Discretion): rocephin1 grams IV at calculated rate once; Given mb9 slow IV push per pharmacy instructions 21:21 Drug: Rocephin (cefTRIAXone) IM 1 grams IM once Route: IM; Site: right gluteus; mb9 Medication: 16:45 VIS not applicable for this client. mb9 Outcome: 21:27 Discharge ordered by MD. spencer 21:34 Discharged to home ambulatory, with family, mb9 21:34 Condition: stable 21:34 Discharge instructions given to patient, family, Instructed on discharge instructions, follow up and referral plans. Demonstrated understanding of instructions, follow-up care, medications, Prescriptions given X 2, 21:34 Patient left the ED. mb9 Signatures: Dispatcher [employer] EDMS Taylor Greer, RN RN Kevyn Sheffield PA PA cp Garcia, Rubi rg4 Miroslava Do RN RN ld1 Roseanne Alejandro RN RN mb9
[2023-10-21 21:56] VITALS: BP 133/78; TEMP 97.8; O2SAT 100
== END ==
LOC: ER 15:46
DX: K59.00 Constipation, unspecified (principal); R68.84 Jaw pain; G89.29 Other chronic pain; I10 Essential (primary) hypertension; Z11.52 Encounter for screening for COVID-19; Z96.641 Presence of right artificial hip joint
CPT/HCPCS: 87070; 87088; 85025; 81001; 87086; 36415; 86308; 84132; 87081; 83690; 80053; 87804 ×2; 74176; 76705; 87811; J7040; J0696

== ENCOUNTER 2023-10-30 11:48 | Observation (INO) | payer OTHER, BC ==
[2023-10-30] MEDS ORDERED: CEFTRIAXONE 1000 MG/VIAL ONE (12:27)
[2023-10-30] MEDS ORDERED: NA CHLORIDE 0.9% 1,000 ML ONE (12:28)
[2023-10-30] MEDS ORDERED: NA CHLORIDE 0.9% 500 ML ONE (12:28)
[2023-10-30] MEDS ORDERED: ONDANSETRON 4 MG/2 ML VIAL ONE ×2 (12:28→14:28)
[2023-10-30 12:50] LABS: Absolute Eosinophils 0.1 K/uL (0-0.5); Absolute Monocytes 0.6 K/uL (0.1-1.3); Absolute Neutrophil 3.4 K/uL (1.8-8.0); Basophils % 0.4 % (0-1.3); Eosinophils % 1.8 % (0-4.4); Hematocrit 40.3 % (36.0-45.0); Hemoglobin 13.5 g/dL (12.0-15.0); MCH 31.7 pg (27.0-35.0); MCHC 33.4 g/dL (32.0-36.0); MCV 94.9 fL (80-100); MPV 7.5 fL (7.6-11.3); Monocytes % 8.9 % (3.3-12.3); Neutrophils % 55.9 % (41.7-73.7); Nucleated Red Blood Cells % 0.1 % (0-0); Platelets 333 thou/uL (152-406); RBC Red Blood Cell Count 4.24 M/uL (3.86-4.86); Red Cell Distribution Width 14.7 % (12.1-15.2)
[2023-10-30 13:02] LABS: Specific Gravity 1.011 (1.005-1.030); Urine Bacteria None Seen /HPF (<20); Urine Bilirubin NEGATIVE (Negative); Urine Blood Negative (Negative); Urine Clarity Extremely Turbid (Clear); Urine Color Yellow (Yellow); Urine Culture Reflex Order REFLEXED; Urine Glucose NEGATIVE (Negative); Urine Ketones 1+ (Negative); Urine Microscopic Reflex YN ORDER UMIC; Urine Mucus Slight /HPF (None Seen); Urine Nitrite NEGATIVE (Negative); Urine Protein NEGATIVE (Negative); Urine RBC None Seen /HPF (None Seen); Urine Urobilinogen Normal (Normal); Urine Yeast (Budding) Trace /HPF (None Seen); Urine pH 6.5 (5.0-7.0)
[2023-10-30 13:12] LABS: Albumin 4.2 g/dL (3.4-5.0); Albumin/Globulin Ratio 1.2 (1.1-1.8); Anion Gap 7.9 mEq/L (5.0-15.0); Bilirubin Direct 0.2 mg/dL (0-0.2); Bilirubin Indirect, Calculated 0.5 mg/dL (0.2-0.8); Bilirubin Total 0.7 mg/dL (0.2-1.0); Globulin 3.4 g/dL (2.3-3.5); Magnesium 2.3 mg/dL (1.6-2.4); Potassium 3.9 mEq/L (3.5-5.1); Protein, Total 7.6 g/dL (6.4-8.2); Troponin High Sensitivity 4.8 pg/mL (<58.9)
--- NOTE | 2023-10-30 13:40 | RAD REPORT ---
EXAM DESCRIPTION: Quinn Single View10/30/2023 1:24 pm CLINICAL HISTORY: Cough COMPARISON: 2022 FINDINGS: A few areas scarring within the lungs The lungs appear clear of acute infiltrate. Heart is normal size
[2023-10-30 13:41] LABS: PT Prothrombin Time 11.4 SECONDS (9.5-12.5); Protime INR 1.04
[2023-10-30] MEDS ORDERED: MORPHINE 4 MG/ML SYR ONE (14:28)
--- NOTE | 2023-10-30 15:44 | EDPHYS ---
Physician Documentation [facility] Name: Catie Ojeda Age: 78 yrs Sex: Female : 1945 Arrival Date: 10/30/2023 Time: 11:48 Bed 16 Private MD: ED Physician Kevyn Landaverde HPI: 10/29 15:28 This 78 yrs old Female presents to ER via Wheelchair with complaints of jamison Dizziness, General Weakness, Nausea/Vomiting. 15:28 The patient presents with dizziness, generalized weakness, lightheadedness. Onset: The jamison symptoms/episode began/occurred 2 week(s) ago. Context: occurred at an unknown location. Modifying factors: The symptoms are alleviated by nothing, the symptoms are aggravated by nothing. Associated signs and symptoms: Pertinent positives: nausea, vomiting. Severity of symptoms: At their worst the symptoms were mild moderate in the emergency department the symptoms have improved mildly. Patient's baseline: Neuro: alert and fully oriented. The patient has experienced similar episodes in the past, several times. Historical: - Allergies: 12:06 No Known Allergies; mb9 - PMHx: 12:06 Chronic pain; GERD; Hyperlipidemia; Hypertension; mb9 - PSHx: 12:06 Right hip replacement; mb9 - Immunization history:: Adult Immunizations up to date. - Social history:: Smoking status: Patient denies any tobacco usage or history of. - Family history:: not pertinent. ROS: 15:28 Constitutional: Negative for fever, chills, and weight loss, Eyes: Negative for injury, jamison pain, redness, and discharge, ENT: Negative for injury, pain, and discharge, Neck: Negative for injury, pain, and swelling, Cardiovascular: Negative for chest pain, palpitations, and edema, Respiratory: Negative for shortness of breath, cough, wheezing, and pleuritic chest pain, Back: Negative for injury and pain, : Negative for injury, bleeding, discharge, and swelling, MS/Extremity: Negative for injury and deformity, Skin: Negative for injury, rash, and discoloration, Psych: Negative for depression, anxiety, suicide ideation, homicidal ideation, and hallucinations, Allergy/Immunology: Negative for hives, rash, and allergies, Endocrine: Negative for neck swelling, polydipsia, polyuria, polyphagia, and marked weight changes, Hematologic/Lymphatic: Negative for swollen nodes, abnormal bleeding, and unusual bruising, 15:28 Abdomen/GI: Positive for abdominal pain, nausea and vomiting, abdominal cramps, 15:28 Neuro: Positive for dizziness, weakness, Exam: 15:33 Constitutional: This is a well developed, well nourished patient who is awake, alert, jamison and in no acute distress. Head/Face: Normocephalic, atraumatic. Eyes: Pupils equal round and reactive to light, extra-ocular motions intact. Lids and lashes normal. Conjunctiva and sclera are non-icteric and not injected. Cornea within normal limits. Periorbital areas with no swelling, redness, or edema. ENT: Nares patent. No nasal discharge, no septal abnormalities noted. Tympanic membranes are normal and external auditory canals are clear. Oropharynx with no redness, swelling, or masses, exudates, or evidence of obstruction, uvula midline. Mucous membranes moist. Neck: Trachea midline, no thyromegaly or masses palpated, and no cervical lymphadenopathy. Supple, full range of motion without nuchal rigidity, or vertebral point tenderness. No Meningismus. Chest/axilla: Normal chest wall appearance and motion. Nontender with no deformity. No lesions are appreciated. Cardiovascular: Regular rate and rhythm with a normal S1 and S2. No gallops, murmurs, or rubs. Normal PMI, no JVD. No pulse deficits. Respiratory: Lungs have equal breath sounds bilaterally, clear to auscultation and percussion. No rales, rhonchi or wheezes noted. No increased work of breathing, no retractions or nasal flaring. Back: No spinal tenderness. No costovertebral tenderness. Full range of motion. Female : Normal external genitalia. Skin: Warm, dry with normal turgor. Normal color with no rashes, no lesions, and no evidence of cellulitis. MS/ Extremity: Pulses equal, no cyanosis. Neurovascular intact. Full, normal range of motion. Psych: Awake, alert, with orientation to person, place and time. Behavior, mood, and affect are within normal limits. 15:33 ECG was reviewed by the Attending Physician. 15:33 Abdomen/GI: Inspection: distension, Bowel sounds: active, all quadrants, Palpation: mild abdominal tenderness, in all quadrants, Liver: no appreciated palpable abnormalities, Hernia: not appreciated, Vital Signs: 12:06 Pulse 89; Resp 18; Temp 97.9; Pulse Ox 93% on R/A; Weight 63.5 kg; Height 5 ft. 3 in. ; mb9 Pain 6/10; 12:07 BP 171 / 93; Pulse 94; Resp 20; Temp 97.9; Pulse Ox 95% on R/A; aw1 13:00 BP 150 / 69; Pulse 83; Resp 18; Pulse Ox 100% on R/A; me1 14:00 BP 135 / 97; Pulse 76; Resp 18; Pulse Ox 99% on R/A; me1 15:00 BP 139 / 97; Pulse 88; Resp 17; Pulse Ox 99% on R/A; me1 16:10 BP 149 / 106; Pulse 88; Resp 16; Pulse Ox 99% ; Pain 10/10; me1 17:00 BP 165 / 69; Pulse 84; Resp 17; Pulse Ox 98% on R/A; me1 17:30 BP 152 / 76; Pulse 89; Resp 16; Pulse Ox 100% on R/A; me1 18:00 BP 138 / 84; Pulse 76; Resp 16; Pulse Ox 97% on R/A; me1 12:06 Body Mass Index 24.80 (63.50 kg, 160.02 cm) mb9 12:06 Pain Scale: Adult mb9 16:10 Pain Scale: Adult me1 NIH Stroke Scale Scores: 15:33 NIHSS Score: 0 jamison Ihsan Coma Score: 15:33 Eye Response: spontaneous(4). Motor Response: obeys commands(6). Verbal Response: jamison oriented(5). Total: 15. MDM: 12:02 Patient medically screened. jamison 15:37 Differential diagnosis: cardiac arrhythmia, CVA, generalized weakness, hypovolemia, jamison idiopathic dizziness, near-syncope, TIA, vertigo. Data reviewed: vital signs, nurses notes, lab test result(s), EKG, radiologic studies, CT scan, plain films. Consideration of Admission/Observation Patient was admitted/placed on observation. Escalation of care including admission/observation considered. I considered the following discharge prescriptions or medication management in the emergency department Medications were administered in the Emergency Department. See MAR. Independent interpretation of the following test(s) in the Emergency Department EKG: See my EKG interpretation above. Test considered but Not performed: Ultrasound NO ABD USG. Historians other than the Patient: EMS: EMS WELL INFORMED. Care significantly affected by the following chronic conditions: Hypertension, HYPERLIPIDEMIA,CHRONIC PAIN. 10/29 12:05 Order name: Basic Metabolic Panel; Complete Time: 15:[address] [facility] 10/29 12:05 Order name: CBC with Diff; Complete Time: 15:[address] [facility] 10/29 12:05 Order name: LFT's; Complete Time: 15:[address] [facility] 10/29 12:05 Order name: Magnesium; Complete Time: 15:[address] [facility] 10/29 12:05 Order name: NT PRO-BNP; Complete Time: 15:[address] [facility] 10/29 12:05 Order name: PT-INR; Complete Time: 15:[address] [facility] 10/29 12:05 Order name: Troponin HS; Complete Time: 15:[address] [facility] 10/29 12:05 Order name: Lipase; Complete Time: 15:[address] [facility] 10/29 12:05 Order name: Urinalysis w/ reflexes; Complete Time: 15:[address] [facility] 10/29 12:05 Order name: Blood Culture Adult (2) [facility] 10/29 12:05 Order name: Lactate w/ 2H reflex if indic.; Complete Time: 15:[address] [facility] 10/29 13:10 Order name: Urine Culture EDTX 10/29 16:30 Order name: Urinalysis w/ reflexes EDMS 10/29 16:30 Order name: Basic Metabolic Panel EDTX 10/29 16:30 Order name: Basic Metabolic Panel EDTX 10/29 16:30 Order name: CBC with Automated Diff EDTX 10/29 16:30 Order name: CBC with Automated Diff EDMS 10/29 12:05 Order name: XRAY Chest (1 view); Complete Time: 15:[address] [facility] 10/29 15:27 Order name: CT Head Brain wo Cont 10/29 15:27 Order name: CT Chest, Abdomen, Pelvis - W/Contrast 10/29 12:05 Order name: EKG; Complete Time: 12:[address] [facility] 10/29 12:05 Order name: Cardiac monitoring; Complete Time: 12:[address] [facility] 10/29 12:05 Order name: EKG - Nurse/Tech; Complete Time: 12:[address] [facility] 10/29 12:05 Order name: IV Saline Lock; Complete Time: 12:[address] [facility] 10/29 12:05 Order name: Labs collected and sent; Complete Time: 12:[address] [facility] 10/29 12:05 Order name: O2 Per Protocol; Complete Time: 12:[address] [facility] 10/29 12:05 Order name: O2 Sat Monitoring; Complete Time: 12:[address] [facility] 10/29 12:53 Order name: Labs - recollect needed: blue top; Complete Time: 14:24 ds4 EC:33 Rate is 70 beats/min. Rhythm is regular. QRS [place] is Normal. AL interval is normal. QRS jamison interval is normal. QT interval is normal. No Q waves. T waves are Normal. No ST changes noted. Clinical impression: Normal ECG and No evidence of ischemia. Interpreted by me. Reviewed by me. Administered Medications: 12:50 Drug: NS 0.9% IV 500 ml IV at bolus once Route: IV; Rate: bolus; Site: right me1 antecubital; 13:53 Follow up: IV Status: Completed infusion; IV Intake: 500ml me1 13:53 Follow up: Response: No adverse reaction me1 12:50 Drug: NS 0.9% IV 1000 ml IV at 125 ml/hr continuous Route: IV; Rate: 125 ml/hr; Site: mi1 right antecubital; 17:44 Follow up: IV Status: Infusion continued upon admission me1 12:50 Drug: Ondansetron IVP 4 mg IVP once; over 2 minutes Route: IVP; Site: right antecubital;me1 13:53 Follow up: Response: No adverse reaction; Nausea is decreased me1 13:10 Drug: Rocephin IV 1 grams IV at per protocol once; Given slow IV push per pharmacy me1 instructions Route: IV; Rate: per protocol; Site: right antecubital; 13:11 Follow up: Response: No adverse reaction; IV Status: Completed infusion me1 14:31 Drug: morphine IVP or IV 2 mg IVP once over 4 mins Route: IVP; Infused Over: 4 mins; mi1 Site: right antecubital; 16:01 Follow up: Response: No adverse reaction; Pain is decreased me1 14:31 Drug: Ondansetron IVP 4 mg IVP once; over 2 minutes Route: IVP; Site: right antecubital;me1 16:01 Follow up: Response: No adverse reaction; Nausea is decreased me1 16:44 Drug: HYDROmorphone IVP 0.5 mg IVP once Route: IVP; Site: right antecubital; me1 17:41 Follow up: Response: No adverse reaction; Pain is decreased me1 Disposition Summary: 10/30/23 15:44 Hospitalization Ordered Notes: Hospitalization Status: Observation jamison Provider: Gay Kat cha Location: Telemetry/MedSurg (observation) jamison Condition: Fair jamison Problem: new jamison Symptoms: have improved jamison Bed/Room Type: Standard [facility] Room Assignment: 407(10/30/23 17:02) kb3 Diagnosis - Nausea jamison - Vomiting jamison - Weakness jamison - UTI/ Urinary tract infection, site not specified jamison - Dehydration jamison - Chronic pain, not elsewhere classified jamison - Dizziness and giddiness jamison Forms: - Medication Reconciliation Form jamison - SBAR form jamison - Leadership Thank You Letter jamison NIH Stroke Scale - NIH Stroke Score Date: 10/30/2023 Time: 15:33 Total Score = 0 10. Dysarthria (speech clarity - read or repeat words) - 0(Normal) 11. Extinction and Inattention (visual/tactile/auditory/spatial/personal) - 0(No abnormality) 1a. Level of Consciousness (LOC) - 0(Alert) 1b. Level of Consciousness (LOC) (Month \T\ Age) - 0(Both) 1c. LOC Commands (Open \T\ Closes Eyes/Chute Operator) - 0(Both) 2. Best Gaze (Lateral Gaze Paresis) - 0(Normal) 3. Visual Field Loss - 0(No visual loss) 4. Facial Palsy - 0(Normal) 5a. Left Arm: Motor (10-second hold) - 0(No drift) 5b. Right Arm: Motor (10-second hold) - 0(No drift) 6a. Left Leg: Motor (5-second hold - always test supine) - 0(No drift) 6b. Right Leg: Motor (5-second hold - always test supine) - 0(No drift) 7. Limb Ataxia (finger/nose \T\ heel/ga - test with eyes open) - 0(Absent) 8. Sensory Loss (pinprick arms/legs/face) - 0(Normal) 9. Best Language: Aphasia (description/naming/reading) - 0(No aphasia) Initials: jamison Signatures: Dispatcher [employer] EDKevyn Victoria MD MD cha Swanson, Donovan ds4 Kristin Linares, RN RN kb3 Roseanne Alejandro, RN RN mb9 Lizzy Marino RN RN me1 Corrections: (The following items were deleted from the chart) 17:02 15:44 jamison [email or web address]
--- NOTE | 2023-10-30 15:44 | ER ---
Nurse's Notes [facility] Name: Catie Ojeda Age: 78 yrs Sex: Female : 1945 Arrival Date: 10/30/2023 Time: 11:48 Bed 16 Private MD: Diagnosis: Nausea;Vomiting;Weakness;UTI/ Urinary tract infection, site not specified;Dehydration;Chronic pain, not elsewhere classified;Dizziness and giddiness Presentation: 10/29 12:06 Chief complaint: Patient states: "I've had generalized weakness, N/V, and dizziness for mb9 the past 2 weeks. Nothing is helping me.". Coronavirus screen: Vaccine status: Patient reports receiving the 2nd dose of the covid vaccine. Ebola Screen: No symptoms or risks identified at this time. Initial Sepsis Screen: Does the patient meet any 2 criteria? No. Patient's initial sepsis screen is negative. Does the patient have a suspected source of infection? No. Patient's initial sepsis screen is negative. Risk Assessment: Do you want to hurt yourself or someone else? Patient reports no desire to harm self or others. Onset of symptoms was 2023. 12:06 Method Of Arrival: Wheelchair mb9 12:06 Acuity: SAMANTHA 3 mb9 Historical: - Allergies: 12:06 No Known Allergies; mb9 - PMHx: 12:06 Chronic pain; GERD; Hyperlipidemia; Hypertension; mb9 - PSHx: 12:06 Right hip replacement; mb9 - Immunization history:: Adult Immunizations up to date. - Social history:: Smoking status: Patient denies any tobacco usage or history of. - Family history:: not pertinent. Screenin:57 [facility] ED Fall Risk Assessment (Adult) History of falling in the last 3 months, me1 including since admission No falls in past 3 months (0 pts) Confusion or Disorientation No (0 pts) Intoxicated or Sedated No (0 pts) Impaired Gait No (0 pts) Mobility Assist Device Used No (0 pt) Altered Elimination No (0 pt) Score/Fall Risk Level 0 - 2 = Low Risk Oriented to surroundings, Provided non-skid footwear, Hourly rounding (assess needs \\T\\ fall precautionary measures) done. Abuse screen: Denies threats or abuse. Nutritional screening: No deficits noted. Tuberculosis screening: No symptoms or risk factors identified. Assessment: 12:57 General: Appears uncomfortable, well groomed, well developed, well nourished, Behavior me1 is calm, cooperative, appropriate for age, Reports generalized weakness, n/v and some dizziness for the past two weeks. Reports having a UTI that she got an injection for a few weeks back. Pain: Denies pain. Neuro: Level of Consciousness is awake, alert, obeys commands, Oriented to person, place, time, situation, Appropriate for age Ep Specialist are equal bilaterally Moves all extremities. Full function Gait is steady, Speech is normal, Facial symmetry appears normal, Pupils are PERRLA, Intact Reports dizziness, since intermittent for the past two weeks. Cardiovascular: Capillary refill < 3 seconds Patient's skin is warm and dry. Respiratory: Airway is patent Trachea midline Respiratory effort is even, unlabored, Respiratory pattern is regular, symmetrical. GI: Abdomen is non-distended, Reports nausea, vomiting, since past two weeks. 14:00 Reassessment: No changes from previously documented assessment. Patient and/or family me1 updated on plan of care and expected duration. Pain level reassessed. 15:00 Reassessment: No changes from previously documented assessment. Patient and/or family me1 updated on plan of care and expected duration. Pain level reassessed. 16:00 Reassessment: No changes from previously documented assessment. Patient and/or family me1 updated on plan of care and expected duration. Pain level reassessed. 17:00 Reassessment: No changes from previously documented assessment. Patient and/or family me1 updated on plan of care and expected duration. Pain level reassessed. 18:00 Reassessment: No changes from previously documented assessment. Patient and/or family me1 updated on plan of care and expected duration. Pain level reassessed. 18:00 Reassessment: No changes from previously documented assessment. Patient and/or family me1 updated on plan of care and expected duration. Pain level reassessed. 19:02 Reassessment: Patient and/or family updated on plan of care and expected duration. Pain me1 level reassessed. Patient is alert, oriented x 3, equal unlabored respirations, skin warm/dry/pink. Vital Signs: 12:06 Pulse 89; Resp 18; Temp 97.9; Pulse Ox 93% on R/A; Weight 63.5 kg; Height 5 ft. 3 in. ; mb9 Pain 6/10; 12:07 BP 171 / 93; Pulse 94; Resp 20; Temp 97.9; Pulse Ox 95% on R/A; aw1 13:00 BP 150 / 69; Pulse 83; Resp 18; Pulse Ox 100% on R/A; me1 14:00 BP 135 / 97; Pulse 76; Resp 18; Pulse Ox 99% on R/A; me1 15:00 BP 139 / 97; Pulse 88; Resp 17; Pulse Ox 99% on R/A; me1 16:10 BP 149 / 106; Pulse 88; Resp 16; Pulse Ox 99% ; Pain 10/10; me1 17:00 BP 165 / 69; Pulse 84; Resp 17; Pulse Ox 98% on R/A; me1 17:30 BP 152 / 76; Pulse 89; Resp 16; Pulse Ox 100% on R/A; me1 18:00 BP 138 / 84; Pulse 76; Resp 16; Pulse Ox 97% on R/A; me1 12:06 Body Mass Index 24.80 (63.50 kg, 160.02 cm) mb9 12:06 Pain Scale: Adult mb9 16:10 Pain Scale: Adult me1 Ihsan Coma Score: 15:33 Eye Response: spontaneous(4). Motor Response: obeys commands(6). Verbal Response: jamison oriented(5). Total: 15. NIH Stroke Scale Scores: 15:33 NIHSS Score: 0 jamison ED Course: 11:51 Patient arrived in ED. im 12:02 Kevyn Landaverde MD is Attending Physician. jamison 12:06 Arm band placed on. mb9 12:07 Bed in low position. Call light in reach. Side rails up X 1. Door closed. Lights aw1 dimmed. Warm blanket given. 12:08 Triage completed. mb9 12:24 Lizzy Marino, RN is Primary Nurse. me1 12:35 Initial lab(s) drawn, by md, sent to lab. First set of blood cultures drawn by md, EKG aw1 done, by ED staff. 12:39 Basic Metabolic Panel Sent. me1 12:39 CBC with Diff Sent. me1 12:39 LFT's Sent. me1 12:39 Magnesium Sent. me1 12:39 NT PRO-BNP Sent. me1 12:39 PT-INR Sent. me1 12:39 Troponin HS Sent. me1 12:39 Lactate w/ 2H reflex if indic. Sent. me1 12:40 Client placed on continuous cardiac and pulse oximetry monitoring. NIBP monitoring me1 applied. bus monitor on. Pulse ox on. NIBP on. 12:40 Lipase Sent. me1 12:40 No provider procedures requiring assistance completed. me1 12:40 Initial lab(s) drawn, by ED staff, sent to lab. EKG done, by ED staff. me1 12:44 Inserted saline lock: 22 gauge in right antecubital area, using aseptic technique. aw1 12:57 Provided Education on: POC. Verbalized understanding. . me1 13:04 Second set of blood cultures drawn by me. aw1 13:25 XRAY Chest (1 view) In Process Unspecified. EDMS 14:15 Patient requests pain medication. me1 15:01 Patient requests pain medication. me1 15:20 Warm blanket given. bc6 15:42 Gay Kat MD is Hospitalizing Provider. [facility] 16:00 CT Head Brain wo Cont In Process Unspecified. EDMS 16:01 CT Chest, Abdomen, Pelvis - W/Contrast In Process Unspecified. EDMS 17:44 Patient admitted, IV remains in place. me1 Administered Medications: 12:50 Drug: NS 0.9% IV 500 ml IV at bolus once Route: IV; Rate: bolus; Site: right md1 antecubital; 13:53 Follow up: IV Status: Completed infusion; IV Intake: 500ml me1 13:53 Follow up: Response: No adverse reaction me1 12:50 Drug: NS 0.9% IV 1000 ml IV at 125 ml/hr continuous Route: IV; Rate: 125 ml/hr; Site: [facility] right antecubital; 17:44 Follow up: IV Status: Infusion continued upon admission me1 12:50 Drug: Ondansetron IVP 4 mg IVP once; over 2 minutes Route: IVP; Site: right antecubital;me1 13:53 Follow up: Response: No adverse reaction; Nausea is decreased me1 13:10 Drug: Rocephin IV 1 grams IV at per protocol once; Given slow IV push per pharmacy me1 instructions Route: IV; Rate: per protocol; Site: right antecubital; 13:11 Follow up: Response: No adverse reaction; IV Status: Completed infusion me1 14:31 Drug: morphine IVP or IV 2 mg IVP once over 4 mins Route: IVP; Infused Over: 4 mins; me1 Site: right antecubital; 16:01 Follow up: Response: No adverse reaction; Pain is decreased me1 14:31 Drug: Ondansetron IVP 4 mg IVP once; over 2 minutes Route: IVP; Site: right antecubital;me1 16:01 Follow up: Response: No adverse reaction; Nausea is decreased me1 16:44 Drug: HYDROmorphone IVP 0.5 mg IVP once Route: IVP; Site: right antecubital; me1 17:41 Follow up: Response: No adverse reaction; Pain is decreased me1 Medication: 12:57 VIS not applicable for this client. me1 Intake: 13:53 IV: 500ml; Total: 500ml. me1 Outcome: 15:44 Decision to Hospitalize by Provider. jamison 17:43 Admitted to Tele accompanied by tech, via wheelchair, room 401, with chart, Report me1 called to faxed to 4th floor, receipt confirmed with Bridget at 17:42. 17:44 Condition: stable me1 17:44 Instructed on the need for admit, 19:11 Patient left the ED. me1 NIH Stroke Scale - NIH Stroke Score Date: 10/30/2023 Time: 15:33 Total Score = 0 10. Dysarthria (speech clarity - read or repeat words) - 0(Normal) 11. Extinction and Inattention (visual/tactile/auditory/spatial/personal) - 0(No abnormality) 1a. Level of Consciousness (LOC) - 0(Alert) 1b. Level of Consciousness (LOC) (Month \\T\\ Age) - 0(Both) 1c. LOC Commands (Open \\T\\ Closes Eyes/Central Communications Specialist) - 0(Both) 2. Best Gaze (Lateral Gaze Paresis) - 0(Normal) 3. Visual Field Loss - 0(No visual loss) 4. Facial Palsy - 0(Normal) 5a. Left Arm: Motor (10-second hold) - 0(No drift) 5b. Right Arm: Motor (10-second hold) - 0(No drift) 6a. Left Leg: Motor (5-second hold - always test supine) - 0(No drift) 6b. Right Leg: Motor (5-second hold - always test supine) - 0(No drift) 7. Limb Ataxia (finger/nose \\T\\ heel/ga - test with eyes open) - 0(Absent) 8. Sensory Loss (pinprick arms/legs/face) - 0(Normal) 9. Best Language: Aphasia (description/naming/reading) - 0(No aphasia) Initials: jamison Signatures: Dispatcher [employer] Kevyn Donato MD MD cha Breneman, Roseanne Phan RN RN mb9 Gisela Sparks 6 Lizzy Leos Alyssa aw1 Lizzy Marino RN RN me1 Corrections: (The following items were deleted from the chart) 12:24 12:06 Chief complaint: Patient states: "I've had generalized weakness, N/V, and me1 dizziness for the past 2 weeks. Nothing is helping me." mb9 16:46 16:46 BP 149 / 106; Pulse 88bpm; Resp 16bpm; Pulse Ox 99%; Pain 10/10, Adult; me1 me1
[2023-10-30] MEDS ORDERED: ALBUTEROL 2.5 MG/3 ML NEB SOL NEB PRN (16:24)
--- NOTE | 2023-10-30 16:26 | RAD REPORT ---
EXAM DESCRIPTION: CT - Chest Abdomen Pelvis W Cont - 10/30/2023 3:59 pm CLINICAL HISTORY: Chest and abdominal pain COMPARISON: October 2023 CT abdomen TECHNIQUE: Computed axial tomography of the chest, abdomen and pelvis was obtained. 100 cc Isovue-30 0 was administered intravenously. Oral contrast was not requested. This limits evaluation of bowel. All CT scans are performed using dose optimization technique as appropriate and may include automated exposure control or mA/KV adjustment according to patient size. FINDINGS: A few areas scarring are present within the lungs. No mediastinal or hilar lymphadenopathy. No pleural effusion. No pericardial effusion. Hepatic low-density lesions are too small to characterize but probably benign. Spleen, pancreas, adrenals and kidneys unremarkable No evidence of diverticulitis. 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 It is unchanged since the prior exam. Cortical irregularity superior vertebral endplate S1 unchanged. Postsurgical changes left hemipelvis. Mild gallbladder distention IMPRESSION: Mild gallbladder distention unchanged from the prior exam Postsurgical changes L5-S1 with disc material protruding upon the spinal canal. It is unchanged since the prior exam. Cortical irregularity superior vertebral endplate S1 unchanged.
--- NOTE | 2023-10-30 16:29 | RAD REPORT ---
EXAM DESCRIPTION: CT - Head Brain Wo Cont - 10/30/2023 3:59 pm CLINICAL HISTORY: Headache and dizziness COMPARISON: None TECHNIQUE: Computed axial tomography of the head was obtained. IV contrast was not requested. All CT scans are performed using dose optimization technique as appropriate and may include automated exposure control or mA/KV adjustment according to patient size. FINDINGS: An intracranial bleed is not seen The ventricles are normal in caliber No extra-axial fluid collection is noted. Mild low-density areas within periventricular, deep and subcortical white matter likely represent isc hemic changes secondary to small vessel disease. Small amount of fluid within the the sphenoid sinus IMPRESSION: No acute intracranial abnormality is seen Small amount of fluid sphenoid sinus may indicate acute sinusitis If patient's symptoms persist MRI of the brain would be recommended
[2023-10-30] MEDS: INSULIN REGULAR (HUMAN) 100 UNIT/ML SQ SCH (16:30)
--- NOTE | 2023-10-30 16:31 | P.HP ---
Patient History Date of Service: 10/30/23 Reason for admission: weakness, nausea and vomiting. History of Present Illness: Pt is a 78 yo female with past medical history of Chronic pain, GERD, Hyperlipidemia, and Hypertension who presents with dizziness, nausea, vomiting, and weakness. The symptoms started 2 weeks ago and progressively worsened. This made pt to come to the ER for evaluation. On admission, lab studies show wbc 6.2, Hgb 13.5, K 3.9 and Cr 1.07. Urinalysis is positive for UTI. At bedside, pt is in NAD. She denies any fever, chills, chest pain, SOB, or leg edema but reports diffuse body ache, nausea, vomiting, weakness and dizziness. Allergies No Known Allergies Allergy (Verified 02/23/22 03:16) Home Medications: Alprazolam 0.5 tab PO TID 02/24/22 Omeprazole [Prilosec] 40 mg PO ACB 02/24/22 Oxycodone HCl/Acetaminophen [Oxycodone-Acetaminophn 7.5-325] 1 tab PO TIDP PRN 02/24/22 Rosuvastatin Calcium 20 mg PO DAILY 02/24/22 Zolpidem Tartrate 5 mg PO BEDTIME 02/24/22 Bisacodyl [Dulcolax] 1 tab PO BEDTIME 02/25/22 Escitalopram [Lexapro*] 10 mg PO DAILY tab 03/02/22 Losartan Potassium [Cozaar*] 50 mg PO BID tablet 03/02/22 - Past Medical/Surgical History Diabetic: No -: arthritis -: htn -: fall -: left shoulder arthroplasty - Social History Alcohol use: No Review of Systems General: Weakness Eyes: Unremarkable ENT: Unremarkable Respiratory: Unremarkable Cardiovascular: Unremarkable Gastrointestinal: Nausea, Vomiting, Abdominal Pain Genitourinary: Unremarkable Musculoskeletal: Unremarkable Integumentary: Unremarkable Neurological: Unremarkable Lymphatics: Unremarkable Physical Examination - Physical Exam General: Alert, In no apparent distress, Oriented x3 HEENT: Atraumatic, Normocephalic, PERRLA Neck: Supple, 2+ carotid pulse no bruit Respiratory: Clear to auscultation bilaterally, Normal air movement Cardiovascular: No edema, Normal pulses, Regular rate/rhythm, Normal S1 S2 Capillary refill: <2 Seconds Gastrointestinal: Normal bowel sounds, Hypoactive, Soft and benign Musculoskeletal: No clubbing, No swelling Integumentary: No rashes, No breakdown, No significant lesion Neurological: Normal gait, Normal speech, Normal strength at 5/5 x4 extr Lymphatics: No axilla or inguinal lymphadenopathy - Studies Laboratory Data (last 24 hrs) 10/30/23 10/30/23 10/30/23 13:21 12:35 12:35 WBC 6.20 Hgb 13.5 Hct 40.3 Plt Count 333 PT 11.4 INR 1.04 Sodium 138 Potassium 3.9 BUN 12 Creatinine 1.07 H Glucose 87 Magnesium 2.3 Total Bilirubin 0.7 AST 16 ALT 21 Alkaline Phosphatase 74 Lipase 12 L Assessment and Plan - Plan UTI: Will continue rocephin and follow urine cx. Htn: Continue home med HLD: ststain Nausea and vomiting: Will continue IVF and prn antiemetic Chronic pain: Will continue prn norco. Weakness: Due to UTI. Will continue iv abx. Consulted PT. DVT ppx: heparin Code: full Discharge Plan: Home Plan to discharge in: 48 Hours - Advance Directives Does patient have a Living Will: No Does patient have a Durable POA for Healthcare: No
[2023-10-30] MEDS ORDERED: HYDROMORPHONE HCL 0.5 MG/0.5 ML INJ ONE (16:43)
[2023-10-30] MEDS: HEPARIN 5000 UNIT/ML 1 ML VIAL SQ SCH (17:00)
[2023-10-30] MEDS ORDERED: ONDANSETRON 4 MG/2 ML VIAL IV PRN (17:24)
[2023-10-30] MEDS: NA CHLORIDE 0.9% 1,000 ML IV SCH (18:00)
[2023-10-30 19:35] VITALS: O2SAT 97
[2023-10-30] MEDS: HYDROCODONE/APAP 5/325 MG TAB PO PRN (20:08)
[2023-10-30 21:03] VITALS: BMI 24.7
[2023-10-30] MEDS ORDERED: Oxycodone HCl/Acetaminophen 5/325 MG TAB PO PRN ×2 (22:02→22:11)
[2023-10-30] MEDS ORDERED: OXYCODONE HCL 5 MG TAB PO PRN ×2 (22:03→22:12)
[2023-10-30] MEDS: OXYCODONE HCL 5 MG TAB PO PRN (23:04)
[2023-10-30] MEDS: MIRTAZAPINE 15 MG TAB PO SCH (23:05)
[2023-10-30] MEDS: Oxycodone HCl/Acetaminophen 5/325 MG TAB PO PRN (23:05)
[2023-10-30] MEDS: ZOLPIDEM TARTRATE 5 MG TABLET PO SCH (23:05)
[2023-10-31] MEDS: ACETAMINOPHEN 325 MG TABLET PO PRN (06:20)
[2023-10-31 07:19] LABS: Absolute Eosinophils 0.2 K/uL (0-0.5); Absolute Lymphocytes (CBC) 1.9 K/uL (0.7-4.9); Absolute Monocytes 0.5 K/uL (0.1-1.3); Absolute Neutrophil 2.4 K/uL (1.8-8.0); Basophils % 0.8 % (0-1.3); Eosinophils % 3.7 % (0-4.4); Hematocrit 38.7 % (36.0-45.0); Lymphocytes % 37.8 % (15.3-44.8); MCH 32.3 pg (27.0-35.0); MCHC 33.6 g/dL (32.0-36.0); MCV 96.1 fL (80-100); MPV 7.6 fL (7.6-11.3); Monocytes % 9.3 % (3.3-12.3); Neutrophils % 48.4 % (41.7-73.7); Platelets 299 thou/uL (152-406); RBC Red Blood Cell Count 4.03 M/uL (3.86-4.86); Red Cell Distribution Width 14.2 % (12.1-15.2)
[2023-10-31 07:32] LABS: Anion Gap 10.9 mEq/L (5.0-15.0); Potassium 3.9 mEq/L (3.5-5.1)
[2023-10-31] MEDS: DULOXETINE 30 MG CAP PO SCH (08:12)
[2023-10-31] MEDS: HYDROCODONE/APAP 5/325 MG TAB PO PRN (08:12)
[2023-10-31] MEDS: ALPRAZOLAM 0.5 MG TABLET PO SCH (08:13)
[2023-10-31] MEDS: LOSARTAN POTASSIUM 50 MG TABLET PO SCH (08:13)
[2023-10-31] MEDS: BUSPIRONE HCL 5 MG TABLET PO SCH (08:13)
[2023-10-31] MEDS: PANTOPRAZOLE 40MG TABLET PO SCH (08:13)
[2023-10-31] MEDS: AMLODIPINE 10 MG TAB PO SCH (08:13)
[2023-10-31] MEDS: TIZANIDINE 4 MG TABLET PO SCH (08:20)
[2023-10-31] MEDS: CEFTRIAXONE 1,000 MG in NA CHLORIDE 0.9% 50 ML IVPB SCH (08:20)
--- NOTE | 2023-10-31 10:21 | P.PN ---
Subjective Date of Service: 10/31/23 Chief Complaint: weakness, nausea and vomiting. Pt is resting comfortably in bed. She is feeling better. Pt denies any nausea or vomiting. No other complaints overnight. Review of Systems General: Unremarkable Eyes: Unremarkable ENT: Unremarkable Respiratory: Unremarkable Cardiovascular: Unremarkable Gastrointestinal: Unremarkable Genitourinary: Unremarkable Musculoskeletal: Unremarkable Integumentary: Unremarkable Neurological: Unremarkable Lymphatics: Unremarkable Physical Examination - Vital Signs Temperature: 97.9 F Blood Pressure: 133/75 Pulse: 84 Respirations: 18 Pulse Ox (%): 94 - Physical Exam General: Alert, In no apparent distress, Oriented x3 HEENT: Atraumatic, Normocephalic Neck: Supple, 2+ carotid pulse no bruit Respiratory: Clear to auscultation bilaterally, Normal air movement Cardiovascular: No edema, Normal pulses, Regular rate/rhythm, Normal S1 S2 Capillary refill: <2 Seconds Gastrointestinal: Normal bowel sounds, Soft and benign, Non-distended Musculoskeletal: No clubbing, No swelling, No contractures Integumentary: No rashes, No breakdown Neurological: Normal gait, Normal speech, Normal strength at 5/5 x4 extr, Sensation intact Lymphatics: No axilla or inguinal lymphadenopathy - Studies Laboratory Data (last 24 hrs) 10/30/23 10/30/23 10/30/23 13:21 12:35 12:35 WBC 6.20 Hgb 13.5 Hct 40.3 Plt Count 333 PT 11.4 INR 1.04 Sodium 138 Potassium 3.9 BUN 12 Creatinine 1.07 H Glucose 87 Magnesium 2.3 Total Bilirubin 0.7 AST 16 ALT 21 Alkaline Phosphatase 74 Lipase 12 L Assessment And Plan - Plan UTI: Will continue rocephin and follow urine cx. Htn: Continue home med HLD: statin Nausea and vomiting: Will continue IVF and prn antiemetic Chronic pain: Will continue prn norco. Weakness: Due to UTI. Will continue iv abx. Consulted PT. DVT ppx: heparin Code: full Dispo: Pending hospital course.
[2023-10-31] MEDS ORDERED: ALBUTEROL 2.5 MG/3 ML NEB SOL NEB PRN (18:19)
[2023-10-31] MEDS: POLYETHYL GLY 3350 17 GM/DOSE PO PRN (21:08)
[2023-10-31] MEDS: ROSUVASTATIN 10 MG TAB PO SCH (21:09)
[2023-11-01 04:31] LABS: Absolute Eosinophils 0.3 K/uL (0-0.5); Absolute Lymphocytes (CBC) 2.2 K/uL (0.7-4.9); Absolute Monocytes 0.6 K/uL (0.1-1.3); Absolute Neutrophil 3.7 K/uL (1.8-8.0); Basophils % 0.7 % (0-1.3); Eosinophils % 4.2 % (0-4.4); Hematocrit 36.5 % (36.0-45.0); Hemoglobin 12.3 g/dL (12.0-15.0); Lymphocytes % 32.6 % (15.3-44.8); MCH 31.9 pg (27.0-35.0); MCHC 33.6 g/dL (32.0-36.0); MCV 94.9 fL (80-100); MPV 7.7 fL (7.6-11.3); Monocytes % 8.2 % (3.3-12.3); Neutrophils % 54.3 % (41.7-73.7); Nucleated Red Blood Cells % 0.1 % (0-0); Platelets 315 thou/uL (152-406); RBC Red Blood Cell Count 3.84 M/uL (3.86-4.86); Red Cell Distribution Width 14.3 % (12.1-15.2)
[2023-11-01 04:44] LABS: Anion Gap 8.7 mEq/L (5.0-15.0); Potassium 3.7 mEq/L (3.5-5.1)
[2023-11-01] MEDS: POTASSIUM CL SA 10 MEQ TAB PO ONE (08:45)
[2023-11-01 08:59] VITALS: BP 121/72
[2023-11-01 09:24] VITALS: TEMP 98.5
--- NOTE | 2023-11-01 11:16 | P.DS ---
Admission Date: 10/30/23 Discharge Date: 11/01/23 Disposition: ROUTINE DISCHARGE Discharge Condition: GOOD Reason for Admission: weakness, nausea and vomiting. Brief History of Present Illness: Pt is a 78 yo female with past medical history of Chronic pain, GERD, Hyperlipidemia, and Hypertension who presents with dizziness, nausea, vomiting, and weakness. The symptoms started 2 weeks ago and progressively worsened. This made pt to come to the ER for evaluation. On admission, lab studies show wbc 6.2, Hgb 13.5, K 3.9 and Cr 1.07. Urinalysis is positive for UTI. At bedside, pt is in NAD. She denies any fever, chills, chest pain, SOB, or leg edema but reports diffuse body ache, nausea, vomiting, weakness and dizziness. Hospital Course: Pt is a 78 yo female with past medical history of Chronic pain, GERD, Hyperlipidemia, and Hypertension who presented with dizziness, nausea, vomiting, and weakness. The symptoms started 2 weeks ago and progressively worsened. This made pt to come to the ER for evaluation. On admission, lab studies showed wbc 6.2, Hgb 13.5, K 3.9 and Cr 1.07. Urinalysis was positive for UTI. We admitted pt and gave rocephin for the UTI. We also gave prn antiemetic for nausea and vomiting. The symptoms resolved and pt requested to be discharged. We continued home med for other chronic medical problems. Pt was in NAD prior to discharge. Vital Signs/Physical Exam: Temp Pulse Resp BP Pulse Ox 98.5 F 96 H 16 121/72 92 11/01/23 08:00 11/01/23 08:45 11/01/23 08:00 11/01/23 08:45 11/01/23 08:00 Laboratory Data at Discharge: WBC 6.70 thou/uL (4.3-10.9) 11/01/23 03:18 Hgb 12.3 g/dL (12.0-15.0) 11/01/23 03:18 Hct 36.5 % (36.0-45.0) 11/01/23 03:18 Plt Count 315 thou/uL (152-406) 11/01/23 03:18 PT 11.4 SECONDS (9.5-12.5) 10/30/23 13:21 INR 1.04 10/30/23 13:21 Sodium 143 mEq/L (136-145) 11/01/23 03:18 Potassium 3.7 mEq/L (3.5-5.1) 11/01/23 03:18 BUN 11 mg/dL (7-18) 11/01/23 03:18 Creatinine 0.91 mg/dL (0.55-1.02) 11/01/23 03:18 Glucose 117 mg/dL (74-106) H 11/01/23 03:18 Magnesium 2.3 mg/dL (1.6-2.4) 10/30/23 12:35 Total Bilirubin 0.7 mg/dL (0.2-1.0) 10/30/23 12:35 AST 16 U/L (15-37) 10/30/23 12:35 ALT 21 U/L (13-56) 10/30/23 12:35 Alkaline Phosphatase 74 U/L (45-117) 10/30/23 12:35 Lipase 12 U/L (13-75) L 10/30/23 12:35 Home Medications: Alprazolam 0.5 mg PO TID 02/24/22 Omeprazole [Prilosec] 40 mg PO ACB 02/24/22 Rosuvastatin Calcium 20 mg PO BEDTIME 02/24/22 Zolpidem Tartrate 12.5 mg PO BEDTIME 02/24/22 Amlodipine [Norvasc*] 10 mg PO DAILY 10/30/23 Buspirone HCl 7.5 mg PO BID 10/30/23 Duloxetine HCl [Cymbalta] 120 mg PO DAILY 10/30/23 Losartan Potassium [Cozaar*] 100 mg PO BID 10/30/23 Mirtazapine [Remeron*] 15 mg PO BEDTIME 10/30/23 Oxycodone HCl/Acetaminophen [Oxycodone-Acetaminophen 10-325] 1 tab PO TID PRN 10/30/23 Tizanidine [Zanaflex*] 4 mg PO TID 10/30/23 Cephalexin [Keflex] 500 mg PO TID 3 Days #9 cap 11/01/23 New Medications: Cephalexin [Keflex] 500 mg PO TID 3 Days #9 cap Physician Discharge Instructions: Continue ad shyla activity. Take keflex 500mg po TID for 3 days. Follow up with PCP within 1 week. Diet: AHA Activity: Ad shyla Followup: Priyank Kline, [Primary Care Provider] -
--- NOTE | 2023-11-03 14:31 | EKG ---
Test Date: 2023-10-30 Test Time: 12:07:36 Egg Tester: MARGARETTE MEASUREMENT RESULTS: Intervals: Rate: 70 KY: 158 QRSD: 82 QT: 384 QTc: 414 Tonasket: P: 57 KY: 158 QRS: -21 T: 54 INTERPRETIVE STATEMENTS: Normal sinus rhythm Normal ECG Compared to ECG 10/21/2023 17:26:43 Left-axis deviation no longer present Electronically Signed On 11-03-23 14:18:05 CDT by Raul Cristina
== END 2023-11-01 14:10 | disposition home or self-care (01) ==
LOC: ER 11:48 → ERHOLD 16:24 → 4TH 17:27
PROVIDERS: ADMIT Emergency Medicine; ATTEND Hospitalist
DX: N39.0 Urinary tract infection, site not specified (principal); R53.1 Weakness; R11.2 Nausea with vomiting, unspecified; E78.5 Hyperlipidemia, unspecified; K21.9 Gastro-esophageal reflux disease without esophagitis; G89.29 Other chronic pain; I10 Essential (primary) hypertension; R42 Dizziness and giddiness
CPT/HCPCS: 96361; 93005; 87040 ×2; 87088; 85025 ×3; 81001; 87086; 80048 ×3; 36415 ×2; 83735; 85610; 82947 ×5; 80076; 83605; 84484; 83690; 83880; 70450; 71260; 74177; 71045; 97116; 97161; 97530; 96375; 96374; 99285; Q9967; J1644 ×3; J1170; J2405 ×2; J7040; J7030 ×4; J0696 ×3; G0378

== ENCOUNTER 2023-11-06 07:06 | Day surgery (SDC) | payer OTHER, BC ==
[2023-11-06] MEDS: Ringers Lactate 1,000 ML IV ONE (07:40)
[2023-11-06] MEDS: CEFAZOLIN SODIUM 1 GM/VIAL ONE (09:06)
[2023-11-06] MEDS: LIDOCAINE HCL/EPINEPHRINE 20 ML MDV ONE (09:06)
[2023-11-06] MEDS ORDERED: GLYCOPYRROLATE 0.2 MG/ML SYR ONE (09:15)
[2023-11-06] MEDS ORDERED: ONDANSETRON 4 MG/2 ML VIAL ONE (09:15)
[2023-11-06] MEDS ORDERED: LIDOCAINE 2% MPF 5 ML VIAL ONE (09:15)
[2023-11-06] MEDS ORDERED: NEOSTIGMINE 1 MG/ML -10 ML VIAL ONE (09:15)
[2023-11-06] MEDS ORDERED: ROCURONIUM 50 MG/5 ML VIAL IV ONE (09:16)
[2023-11-06] MEDS ORDERED: propofoL 200 MG/20 ML VIAL IV ONE (09:16)
[2023-11-06] MEDS ORDERED: FENTANYL CITR 100 MCG/2 ML ONE (09:16)
[2023-11-06] MEDS ORDERED: MIDAZOLAM HCL 2 MG/2 ML INJ ONE (09:16)
[2023-11-06] MEDS ORDERED: LANO/MINERAL OIL/PETRO 3.5 GM ONE (09:45)
[2023-11-06] MEDS ORDERED: BSS OPTHALMIC SOL 15 ML OPTH ONE (09:46)
[2023-11-06] MEDS ORDERED: dexAMETHasone 4 MG/ML VIAL ONE ×2 (09:50)
[2023-11-06] MEDS ORDERED: SUGAMMADEX SODIUM 200 MG/2 ML VIAL IV ONE (10:27)
[2023-11-06] MEDS ORDERED: Mastisol Adhesive Liq ONE (10:32)
[2023-11-06] MEDS: HYDROMORPHONE HCL 1 MG/ML INJ ONE (11:14)
[2023-11-06 12:53] VITALS: BP 142/66; TEMP 98; O2SAT 95
--- NOTE | 2023-11-07 00:27 | OP ---
Date of Procedure: 11/06/2023 Surgeon: PATI PALACIO Primary Care Physician: Ramon Kline D.O. 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 2.Severe neck pain involving left level 1 neck. Procedure: Excision of left submandibular gland. Anesthesia: General endotracheal anesthesia was administered. I also infiltrated approximately 10 m L of 1% lidocaine with 1:100,000 epinephrine at the left upper neck incision site. Estimated Blood Loss: Scant, less than 2 mL. Specimens: Obtained from the left level 1 neck space and submitted to pathology for evaluation. Findings: Enlarged left submandibular gland and on the anterior edge, it was indurated and friable. Complications: None. Disposition: Stable. The patient tolerated the procedure well. Indication For Procedure: The patient is a pleasant 78-year-old female who presented to my outpatien t clinic with severe left upper neck pain. I palpated a small nodule in the area of the left level [address] scan of the soft tissue neck revealed an area either anterior to the submandibular gland o r part of the submandibular gland itself that was asymmetrical from the rest of the gland. She was e xquisitely tender in this area. Thus, these were indications to bring the patient to the operative s uite for the above-mentioned procedure. She understood. All questions were answered. Risks versus benefits and complications were explained in detail and a consent form was signed, which was placed i n the chart. Description Of Procedure: The patient was transferred from the preoperative holding area to the oper ative suite, provided by Department of Anesthesia, placed on the operating table supine, sedated, int ubated in normal fashion. Approximately 10 mL of 1% lidocaine with 1:100,000 epinephrine was infiltr ated at the incision site. The patient was then sterilely prepped and draped. A horizontal incision was made approximately 1 cm off the midline on the left upper neck approximately 2 fingerbreadths be low the mandible through the skin, down the subcutaneous tissue with a #15 blade scalpel. I then dis sected to the subplatysmal area utilizing monopolar electrocautery on the setting of 20 for coagulati on 1 of cutting. Once at the subplatysmal level, we were able to retract the tissues with the self-r etaining retractor and Dary retractors. Dissection was done with DeBakey long hemostat and LigaSure. Once down to the inferior edge of the gland, I was able to delineate what the most likely problem w as. On the anterior edge of her left submandibular gland, there was an area of induration that was m ore nodular and it was deep and medial to the remaining submandibular gland. I believe this is what was giving her discomfort. I was able to dissect all the way around the gland utilizing the LigaSure . We had to clamp, cut, and ligate the facial vein utilizing 3-0 stick ties. I was able to clamp, c ut, and ligated Caldwell duct with a stick ties as well. I dissected all the way around the gland and once it was excised, it was handed off the field. I then utilized suction Bovie cautery on a settin g of 20 for coagulation for hemostasis. I inserted Avitene into the wound bed after ascertaining kristal t there was no active bleeding and this was done after irrigating out the wound cavity. I then reapp roximated the platysma with 3-0 Vicryl suture in a simple interrupted fashion followed by subcutaneou s closure with 4-0 Monocryl in a simple interrupted fashion. I then reapproximated the dermis and ep idermis in a subcuticular fashion with 4-0 Monocryl suture. Mastisol, Steri-Strips, and pressure lydia ssing were then placed. The patient tolerated the procedure well. She was transferred back to the [facility] and then subsequently PACU and then discharged home on antibiotic medication. Patient currently is on chronic medications. Patient is chronically on oxycodone and acetaminophen for pain, so we will have her continue that and then we will see her back in 1 week or sooner if needed. LILIYA/SYDNEY Voice ID: [id number] Report ID: [id number]
== END 2023-11-06 12:10 | disposition home or self-care (01) ==
LOC: OR 07:06
PROVIDERS: ATTEND Otolaryngology Facial Plastic Surgery
PROC: 0CBH0ZZ Excision of Left Submaxillary Gland, Open Approach (ICD-10-PCS; principal; 2023-11-06 08:15)
DX: K11.20 Sialoadenitis, unspecified (principal); M54.2 Cervicalgia
CPT/HCPCS: 42440; 88307; J2704; J1100 ×2; J2710; J2001; J3010; J1170; J2405; J7120; J0690; 88304; J2250

== ENCOUNTER 2023-11-20 16:55 | Emergency (ER) | payer OTHER, BC ==
--- NOTE | 2023-11-20 18:15 | RAD REPORT ---
EXAM DESCRIPTION: RAD - Shoulder Left 2 View - 11/20/2023 6:05 pm CLINICAL HISTORY: PAIN COMPARISON: No comparisons FINDINGS/IMPRESSION: Status post left shoulder arthroplasty. No hardware complication. No acute frac ture. No dislocation.
--- NOTE | 2023-11-20 18:16 | RAD REPORT ---
EXAM DESCRIPTION: RAD - Hip Left 2 View - 11/20/2023 6:05 pm CLINICAL HISTORY: PAIN COMPARISON: Hip Left 2 View dated 01/21/2021 FINDINGS/IMPRESSION: Intact left hip arthroplasty without evidence of hardware complication. No disl ocation. Screws traverse the SI joint. No acute fracture.
--- NOTE | 2023-11-20 18:18 | RAD REPORT ---
EXAM DESCRIPTION: RAD - Foot Left 3 View - 11/20/2023 6:06 pm CLINICAL HISTORY: PAIN COMPARISON: Foot Left 3 View dated 02/26/2022; Foot Left 3 View dated 02/22/2022; Hip Left 2 View date d 11/20/2023; Shoulder Left 2 View dated 11/20/2023 FINDINGS/IMPRESSION: No acute fracture. Overlap of the third middle phalanx with regard to the proxi mal phalanx. This could be projectional however cannot exclude a dislocation. Suggest clinical correl ation.
[2023-11-20] MEDS ORDERED: ONDANSETRON 4 MG (ODT) TAB ONE (18:42)
[2023-11-20] MEDS ORDERED: HYDROCODONE/APAP 5/325 MG TAB ONE (18:43)
[2023-11-20] MEDS ORDERED: GABAPENTIN 300 MG CAP ONE (18:52)
[2023-11-20 19:50] LABS: Specific Gravity 1.014 (1.005-1.030); Urine Bacteria <20 /HPF (<20); Urine Bilirubin NEGATIVE (Negative); Urine Blood Negative (Negative); Urine Clarity Extremely Turbid (Clear); Urine Color Yellow (Yellow); Urine Culture Reflex Order NOT NEEDED; Urine Glucose NEGATIVE (Negative); Urine Ketones NEGATIVE (Negative); Urine Micro Reflex YN NO BILL MICROSCOPIC; Urine Mucus Slight /HPF (None Seen); Urine Nitrite NEGATIVE (Negative); Urine Protein NEGATIVE (Negative); Urine RBC <5 /HPF (None Seen); Urine Urobilinogen Normal (Normal); Urine pH 5.5 (5.0-7.0)
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
[2023-11-20 22:42] VITALS: BP 118/78; TEMP 97.6; O2SAT 99
== END 2023-11-20 19:59 | disposition home or self-care (01) ==
LOC: ER 16:55
DX: M25.512 Pain in left shoulder (principal); M25.552 Pain in left hip; M79.672 Pain in left foot; W18.30XA Fall on same level, unspecified, initial encounter; Z96.641 Presence of right artificial hip joint
CPT/HCPCS: 81001; 73502; 73630; 73030; 99283; Q0162

== ENCOUNTER 2024-03-20 06:33 | Inpatient (IN) | payer OTHER, BC ==
[2024-03-20 06:55] LABS: Absolute Eosinophils 0.2 K/uL (0-0.5); Absolute Lymphocytes (CBC) 1.8 K/uL (0.7-4.9); Absolute Monocytes 0.8 K/uL (0.1-1.3); Basophils % 0.4 % (0-1.3); Eosinophils % 2.2 % (0-4.4); Hematocrit 35.8 % (36.0-45.0); Hemoglobin 11.8 g/dL (12.0-15.0); Lymphocytes % 23.7 % (15.3-44.8); MCH 31.9 pg (27.0-35.0); MCV 96.7 fL (80-100); MPV 7.2 fL (7.6-11.3); Monocytes % 9.7 % (3.3-12.3); Nucleated Red Blood Cells % 0.2 % (0-0); Platelets 396 thou/uL (152-406); RBC Red Blood Cell Count 3.71 M/uL (3.86-4.86); Red Cell Distribution Width 13.4 % (12.1-15.2)
[2024-03-20 07:15] LABS: ALT/SGPT 19 U/L (13-56); AST/SGOT 19 U/L (15-37); Albumin 3.8 g/dL (3.4-5.0); Albumin/Globulin Ratio 1.2 (1.1-1.8); Alkaline Phosphatase 79 U/L (45-117); Anion Gap 12.4 mEq/L (5.0-15.0); BUN Blood Urea Nitrogen 24 mg/dL (7-18); Bicarbonate 21 mEq/L (21-32); Bilirubin Total 0.3 mg/dL (0.2-1.0); Globulin 3.1 g/dL (2.3-3.5); Glomerular Filtration Rate 43 ml/min (=/>90); Glucose Level 127 mg/dL (74-106); Potassium 3.4 mEq/L (3.5-5.1); Protein, Total 6.9 g/dL (6.4-8.2); Sodium Level 138 mEq/L (136-145); Troponin High Sensitivity 5.9 pg/mL (<58.9)
[2024-03-20 07:16] LABS: Bilirubin Direct < 0.2 mg/dL (0-0.2); Bilirubin Indirect, Calculated 0.1 mg/dL (0.2-0.8)
[2024-03-20 07:23] LABS: PT Prothrombin Time 10.8 SECONDS (9.4-12.5); PTT, Activated Partial Thromb 32.2 SECONDS (24.3-36.9); Protime INR 0.96
[2024-03-20] MEDS ORDERED: THIAMINE 200 MG/2 ML INJ ONE (07:34)
[2024-03-20] MEDS ORDERED: MULTIVITAMINS 10 ML VIAL (INJ) IV ONE (07:35)
[2024-03-20] MEDS ORDERED: FAMOTIDINE 20 MG/2 ML VIAL IV ONE (07:35)
[2024-03-20] MEDS ORDERED: FOLIC ACID 5 MG/ML VIAL ONE (07:36)
[2024-03-20] MEDS ORDERED: NA CHLORIDE 0.9% 1,000 ML ONE ×2 (07:36→07:41)
--- NOTE | 2024-03-20 07:37 | EDPHYS ---
Physician Documentation [facility] Name: Catie Ojeda Age: 78 yrs Sex: Female : 1945 Arrival Date: 03/20/2024 Time: 06:33 Bed 3 Private MD: ED Physician Kevyn Landaverde HPI: 03/20 07:26 This 78 yrs old Female presents to ER via EMS with complaints of Altered jamison Mental Status. 07:26 The patient presents with confusion, decreased mental status, trouble concentrating. jamison Onset: The symptoms/episode began/occurred 1 day(s) ago. Possible causes: CVA or TIA, head injury, low blood sugar, seizure, sepsis. Associated signs and symptoms: Pertinent positives: confusion. Current symptoms: In the emergency department the patient's symptoms have improved, moderately. Patient's baseline: Neuro: alert and fully oriented. The patient has experienced similar episodes in the past, several times. Historical: - Allergies: 06:46 No Known Allergies; bm8 - Home Meds: 06:46 Unable to obtain [Active]; bm8 - PMHx: 06:46 Chronic pain; Hyperlipidemia; GERD; Hypertension; bm8 - PSHx: 06:46 Right hip replacement; bm8 - Immunization history:: Adult Immunizations up to date. - Infectious Disease History:: Denies. - Social history:: Smoking status: unknown. - Family history:: not pertinent. ROS: 07:26 Constitutional: Negative for fever, chills, and weight loss, Eyes: Negative for injury, jamison pain, redness, and discharge, ENT: Negative for injury, pain, and discharge, Neck: Negative for injury, pain, and swelling, Cardiovascular: Negative for chest pain, palpitations, and edema, Respiratory: Negative for shortness of breath, cough, wheezing, and pleuritic chest pain, Abdomen/GI: Negative for abdominal pain, nausea, vomiting, diarrhea, and constipation, Back: Negative for injury and pain, : Negative for injury, bleeding, discharge, and swelling, MS/Extremity: Negative for injury and deformity, Skin: Negative for injury, rash, and discoloration, Psych: Negative for depression, anxiety, suicide ideation, homicidal ideation, and hallucinations, Allergy/Immunology: Negative for hives, rash, and allergies, Endocrine: Negative for neck swelling, polydipsia, polyuria, polyphagia, and marked weight changes, Hematologic/Lymphatic: Negative for swollen nodes, abnormal bleeding, and unusual bruising, 07:26 Neuro: Positive for altered mental status, weakness, Exam: 07:26 Constitutional: This is a well developed, well nourished patient who is awake, alert, jamison and in no acute distress. Head/Face: Normocephalic, atraumatic. Eyes: Pupils equal round and reactive to light, extra-ocular motions intact. Lids and lashes normal. Conjunctiva and sclera are non-icteric and not injected. Cornea within normal limits. Periorbital areas with no swelling, redness, or edema. ENT: Nares patent. No nasal discharge, no septal abnormalities noted. Tympanic membranes are normal and external auditory canals are clear. Oropharynx with no redness, swelling, or masses, exudates, or evidence of obstruction, uvula midline. Mucous membranes moist. Neck: Trachea midline, no thyromegaly or masses palpated, and no cervical lymphadenopathy. Supple, full range of motion without nuchal rigidity, or vertebral point tenderness. No Meningismus. Chest/axilla: Normal chest wall appearance and motion. Nontender with no deformity. No lesions are appreciated. Cardiovascular: Regular rate and rhythm with a normal S1 and S2. No gallops, murmurs, or rubs. Normal PMI, no JVD. No pulse deficits. Respiratory: Lungs have equal breath sounds bilaterally, clear to auscultation and percussion. No rales, rhonchi or wheezes noted. No increased work of breathing, no retractions or nasal flaring. Abdomen/GI: Soft, non-tender, with normal bowel sounds. No distension or tympany. No guarding or rebound. No evidence of tenderness throughout. Back: No spinal tenderness. No costovertebral tenderness. Full range of motion. Female : Normal external genitalia. Skin: Warm, dry with normal turgor. Normal color with no rashes, no lesions, and no evidence of cellulitis. MS/ Extremity: Pulses equal, no cyanosis. Neurovascular intact. Full, normal range of motion. Psych: Awake, alert, with orientation to person, place and time. Behavior, mood, and affect are within normal limits. 07:26 Neuro: Orientation: Not oriented to time, situation, Mentation: slow to respond, Memory: immediate memory is impaired, Cranial nerves: grossly normal, is grossly normal based on the patient's age, no acute changes, Cerebellar function: unable to test, Motor: moves all fours, strength is normal, Sensation: no obvious gross deficits, appropriate no acute changes, Gait: not tested. Babinski testing is normal, seizure activity, is not displayed by the patient, 08:53 ECG was reviewed by the Attending Physician. jamison Vital Signs: 06:43 BP 137 / 80; Pulse 85; Resp 14; Temp 97.8; Pulse Ox 97% ; Weight 77.11 kg; Height 5 ft. bm8 6 in. ; Pain 0/10; 07:15 BP 129 / 67; Pulse 80; Resp 15; Pulse Ox 96% ; dd2 09:09 BP 150 / 86; Pulse 74; Resp 17; Pulse Ox 97% ; dd2 06:43 Body Mass Index 27.44 (77.11 kg, 167.64 cm) bm8 06:43 Pain Scale: Adult bm8 [place] Com[place] Score: 06:51 Eye Response: to voice(3). Motor Response: obeys commands(6). Verbal Response: bm8 confused(4). Total: 13. MDM: 07:14 Patient medically screened. jamison 07:31 Differential Diagnosis: CVA, electrolyte abnormality, hypoglycemia, intracranial bleed, jamison meningitis, pneumonia, seizure, sepsis, TIA, UTI, volume depletion. Data reviewed: vital signs, nurses notes, EMS record, lab test result(s), EKG, radiologic studies, CT scan, plain films. Consideration of Admission/Observation Patient was admitted/placed on observation. Escalation of care including admission/observation considered. I considered the following discharge prescriptions or medication management in the emergency department Medications were administered in the Emergency Department. See MAR. Independent interpretation of the following test(s) in the Emergency Department EKG: See my EKG interpretation above. Test considered but Not performed: MRI: no mri brain. Historians other than the Patient: EMS: ems well informed. Care significantly affected by the following chronic conditions: Hypertension, chronic pain, gerd, hypelipid. 03/20 06:40 Order name: Basic Metabolic Panel; Complete Time: 07:35 ec2 03/20 06:40 Order name: CBC with Diff; Complete Time: 07:35 ec2 03/20 06:40 Order name: Troponin HS; Complete Time: 07:35 ec2 03/20 06:40 Order name: UAM ec2 03/20 06:40 Order name: LFT's; Complete Time: 07:35 ec2 03/20 06:40 Order name: Acetaminophen; Complete Time: 07:35 ec2 03/20 06:40 Order name: ETOH Level; Complete Time: 07:35 ec2 03/20 06:40 Order name: PT-INR; Complete Time: 07:35 ec2 03/20 06:40 Order name: Ptt, Activated; Complete Time: 07:35 ec2 03/20 06:40 Order name: Salicylate; Complete Time: 07:35 ec2 03/20 06:40 Order name: Urine Drug Screen ec2 03/20 07:36 Order name: Urinalysis w/ reflexes jamison 03/20 08:42 Order name: Urinalysis w/ reflexes EDMS 03/20 09:14 Order name: Phosphorus EDMS 03/20 09:14 Order name: Magnesium EDMS 03/20 09:36 Order name: T4 Free EDMS 03/20 09:36 Order name: Thyroid Stimulating Hormone EDMS 03/20 06:40 Order name: XRAY Chest (1 view); Complete Time: 08:52 ec2 03/20 06:40 Order name: CT Head Brain wo Cont; Complete Time: 08:52 ec2 03/20 06:40 Order name: EKG; Complete Time: 06:41 ec2 03/20 08:42 Order name: Physical Therapy Consult EDMS 03/20 06:40 Order name: Cardiac monitoring; Complete Time: 06:53 ec2 03/20 06:40 Order name: EKG - Nurse/Tech; Complete Time: 06:53 ec2 03/20 06:40 Order name: IV Saline Lock; Complete Time: 06:50 ec2 03/20 06:40 Order name: Labs collected and sent; Complete Time: 06:50 ec2 03/20 06:40 Order name: O2 Per Protocol; Complete Time: 06:53 ec2 03/20 06:40 Order name: O2 Sat Monitoring; Complete Time: 06:53 ec2 EC:53 Rate is 84 beats/min. Rhythm is regular. QRS [place] is Normal. HI interval is normal. QRS jamison interval is normal. QT interval is normal. No Q waves. T waves are Normal. No ST changes noted. Clinical impression: NSR w/ Non-specific ST/T Changes and No evidence of ischemia. Administered Medications: 07:47 Drug: NS 0.9% IV 1000 ml IV at 1 bolus Per protocol; 1000 mL bolus Route: IV; Rate: 1 dd2 bolus; Site: left hand; 09:30 Follow up: Response: No adverse reaction; IV Status: Completed infusion; IV Intake: ko1 1000ml 07:47 Drug: Thiamine IV 100 mg IV at bolus once Route: IV; Rate: bolus; Site: left hand; dd2 08:02 Follow up: Response: No adverse reaction; IV Status: Completed infusion; IV Intake: [id number] 07:47 Drug: Famotidine IVP 20 mg IVP once; dilute with 10 mL 0.9% NaCl; give over 2 minutes dd2 Route: IVP; Site: left hand; 08:02 Follow up: Response: No adverse reaction ko1 07:47 Drug: Banana Bag - (Multivitamin IV 1 amp, NS 0.9% IV 1000 ml, Thiamine IV 100 mg, dd2 foLIC Acid IVPB 1 mg) IV at 125 ml/hr once Route: IV; Rate: 125 ml/hr; Site: left hand; 08:40 Drug: Rocephin IV 1 grams IV at per protocol once; Given slow IV push per pharmacy dd2 instructions Route: IV; Rate: per protocol; Site: left hand; 08:55 Follow up: Response: No adverse reaction; IV Status: Completed infusion; IV Intake: [id number] 09:00 Drug: Potassium PO Effervescent Tablet 25 mEq PO once; dissolve in 4 ounces of water or dd2 juice Route: PO; 09:30 Follow up: Response: No adverse reaction dd2 Disposition Summary: 03/20/24 07:37 Hospitalization Ordered Notes: Hospitalization Status: Observation jamison Provider: Jovan Wong cha Location: Telemetry/MedSurg (observation) jamison Condition: Stable jamison Problem: new jamison Symptoms: have improved jamison Bed/Room Type: Standard jamison Room Assignment: 411(03/20/24 09:03) sp Diagnosis - Altered mental status, unspecified jamison - Unspecified kidney failure - renal insufficency jamison Forms: - Medication Reconciliation Form jamison - SBAR form jamison - Leadership Thank You Letter jamison Signatures: Dispatcher [employer] EDMS Kevyn Landaverde MD MD cha Pinkerton, Shawna sp Corral, Edwin, MD MD ec2 Frederick Leigh, RN RN bm8 QAMAR OCONNOR RN RN dd2 Sanaz Azul RN ko1 Corrections: (The following items were deleted from the chart) 06:41 06:40 Suicide Screening ([place]) ordered. ec2 ec2 06:41 06:41 BASIC METABOLIC PANEL+C.LAB.BRZ ordered. EDMS EDMS 06:41 06:41 CBC+H.LAB.BRZ ordered. EDMS EDMS 06:41 06:41 Troponin High Sensitivity+C.LAB.BRZ ordered. EDMS EDMS 06:41 06:41 Urinalysis W/Microscopic+U.LAB.BRZ ordered. EDMS EDMS 06:41 06:41 HEPATIC FUNCTION+C.LAB.BRZ ordered. EDMS EDMS 06:41 06:41 ACETAMINOPHEN+C.LAB.BRZ ordered. EDMS EDMS 06:41 06:41 ETHANOL+C.LAB.BRZ ordered. EDMS EDMS 06:41 06:41 PROTIME (+INR)+COAG.LAB.BRZ ordered. EDMS EDMS 06:41 06:41 PTT, ACTIVATED+COAG.LAB.BRZ ordered. EDMS EDMS 06:41 06:41 SALICYLATE+C.LAB.BRZ ordered. EDMS EDMS 06:41 06:41 URINE DRUG SCREEN+UC.LAB.BRZ ordered. EDMS EDMS 06:47 06:46 Home Meds: None; bm8 bm8 07:36 07:36 Urinalysis+U.LAB.BRZ ordered. EDMS EDMS 09:03 07:37 jamison santillan
--- NOTE | 2024-03-20 07:37 | ER ---
Nurse's Notes [facility] Name: Catie Ojeda Age: 78 yrs Sex: Female : 1945 Arrival Date: 03/20/2024 Time: 06:33 Bed 3 Private MD: Diagnosis: Altered mental status, unspecified;Unspecified kidney failure-renal insufficency Presentation: 03/20 06:43 Chief complaint: EMS states: we were toned out for a life alert call. when we arrived bm8 pt was on the floor and had several medication bottles around her. we think she may have taken to much of her pain medication or alprazolam. Coronavirus screen: At this time, the client does not indicate any symptoms associated with coronavirus-19. Ebola Screen: Patient negative for fever greater than or equal to 101.5 degrees Fahrenheit, and additional compatible Ebola Virus Disease symptoms Patient denies exposure to infectious person. Patient denies travel to an Ebola-affected area in the 21 days before illness onset. No symptoms or risks identified at this time. Initial Sepsis Screen: Does the patient meet any 2 criteria? No. Patient's initial sepsis screen is negative. Does the patient have a suspected source of infection? No. Patient's initial sepsis screen is negative. Risk Assessment: Do you want to hurt yourself or someone else? Patient reports no desire to harm self or others. Onset of symptoms is unknown. 06:43 Method Of Arrival: EMS: [place] [id number] 06:43 Acuity: SAMANTHA 3 bm8 Triage Assessment: 06:46 General: Appears in no apparent distress. comfortable, Behavior is drowsy. Pain: Denies bm8 pain. EENT: No signs and/or symptoms were reported regarding the EENT system. Neuro: Level of Consciousness is obeys commands, confused, Oriented to person, Butadiene Converter Operator are equal bilaterally. Cardiovascular: Denies chest pain, Capillary refill < 3 seconds Patient's skin is warm and dry. Rhythm is sinus rhythm. Cardiovascular: Heart tones S1 S2 present. Respiratory: Airway is patent Trachea midline Respiratory effort is even, unlabored, Respiratory pattern is regular, symmetrical, Breath sounds are clear bilaterally. GI: No signs and/or symptoms were reported involving the gastrointestinal system. : No signs and/or symptoms were reported regarding the genitourinary system. Derm: No signs and/or symptoms reported regarding the dermatologic system. Musculoskeletal: No signs and/or symptoms reported regarding the musculoskeletal system. Historical: - Allergies: 06:46 No Known Allergies; bm8 - Home Meds: 06:46 Unable to obtain [Active]; bm8 - PMHx: 06:46 Chronic pain; Hyperlipidemia; GERD; Hypertension; bm8 - PSHx: 06:46 Right hip replacement; bm8 - Immunization history:: Adult Immunizations up to date. - Infectious Disease History:: Denies. - Social history:: Smoking status: unknown. - Family history:: not pertinent. Screenin:[facility] ED Fall Risk Assessment (Adult) History of falling in the last 3 months, bm8 including since admission Yes- fall prone (multiple falls) (3 pts) Confusion or Disorientation Yes (5 pts) Intoxicated or Sedated Yes (3 pts) Impaired Gait Yes (1 pt) Mobility Assist Device Used Yes (1 pt) Altered Elimination No (0 pt) Score/Fall Risk Level 3 or more points = High Risk Oriented to surroundings, Maintained a safe environment, Educated pt \T\ family on fall prevention, incl call for assistance when getting out of bed, Assessed \T\ reinforced patient's understanding of fall precautions, Hourly rounding (assess needs \T\ fall precautionary measures) done, Used ambulatory aids as needed (educated on \T\ assisted with), Used gait belt as appropriate Apply high fall risk patient identification: yellow non skid footwear/ fall signage, Offered frequent toileting (1:1 observation). Abuse screen: Denies threats or abuse. Nutritional screening: No deficits noted. Tuberculosis screening: No symptoms or risk factors identified. Assessment: 06:51 Reassessment: see triage assessment. bm8 08:58 Reassessment: Patient appears in no apparent distress at this time. Patient and/or ko1 family updated on plan of care and expected duration. Pain level reassessed. Vital Signs: 06:43 BP 137 / 80; Pulse 85; Resp 14; Temp 97.8; Pulse Ox 97% ; Weight 77.11 kg; Height 5 ft. bm8 6 in. ; Pain 0/10; 07:15 BP 129 / 67; Pulse 80; Resp 15; Pulse Ox 96% ; dd2 09:09 BP 150 / 86; Pulse 74; Resp 17; Pulse Ox 97% ; dd2 06:43 Body Mass Index 27.44 (77.11 kg, 167.64 cm) bm8 06:43 Pain Scale: Adult bm8 [place] Coma Score: 06:51 Eye Response: to voice(3). Motor Response: obeys commands(6). Verbal Response: bm8 confused(4). Total: 13. ED Course: 06:37 Patient arrived in ED. rv1 06:42 Frederick Leigh, RN is Primary Nurse. bm8 06:46 Triage completed. bm8 06:46 Arm band placed on left wrist. bm8 06:49 Inserted saline lock: 22 gauge in left forearm, using aseptic technique. Blood af3 collected. Flushed with 10 mL NS. 06:50 Acetaminophen Sent. af3 06:50 ETOH Level Sent. af3 06:50 PT-INR Sent. af3 06:50 Ptt, Activated Sent. af3 06:50 Salicylate Sent. af3 06:50 LFT's Sent. af3 06:50 Basic Metabolic Panel Sent. af3 06:50 CBC with Diff Sent. af3 06:50 Troponin HS Sent. af3 06:51 No provider procedures requiring assistance completed. bm8 06:51 Patient has correct armband on for positive identification. Call light in reach. Side bm8 rails up X2. Client placed on continuous cardiac and pulse oximetry monitoring. NIBP monitoring applied. in room dining server on. Pulse ox on. NIBP on. Door closed. Noise minimized. Warm blanket given. Pillow given. Verbal reassurance given. 06:56 Initial lab(s) drawn, by me, sent to lab. EKG done, by ED staff. bm8 06:59 XRAY Chest (1 view) In Process Unspecified. EDMS 07:04 Report given to kadie Yo. bm8 07:14 Kevyn Landaverde MD is Attending Physician. jamison 07:33 CT Head Brain wo Cont In Process Unspecified. EDMS 07:37 Jovan Wong is Hospitalizing Provider. jamison 08:48 Urinalysis w/ reflexes Sent. bc6 08:49 Urinalysis w/ reflexes Sent. bc6 08:49 Urine Drug Screen Sent. bc6 08:49 UAM Sent. bc6 08:58 Patient admitted, IV remains in place. ko1 08:58 Urine collected: clean catch specimen, cloudy. ko1 08:58 Provided Education on: meds, call light. ko1 Administered Medications: 07:47 Drug: NS 0.9% IV 1000 ml IV at 1 bolus Per protocol; 1000 mL bolus Route: IV; Rate: 1 dd2 bolus; Site: left hand; 09:30 Follow up: Response: No adverse reaction; IV Status: Completed infusion; IV Intake: ko1 1000ml 07:47 Drug: Thiamine IV 100 mg IV at bolus once Route: IV; Rate: bolus; Site: left hand; dd2 08:02 Follow up: Response: No adverse reaction; IV Status: Completed infusion; IV Intake: [id number] 07:47 Drug: Famotidine IVP 20 mg IVP once; dilute with 10 mL 0.9% NaCl; give over 2 minutes dd2 Route: IVP; Site: left hand; 08:02 Follow up: Response: No adverse reaction ko1 07:47 Drug: Banana Bag - (Multivitamin IV 1 amp, NS 0.9% IV 1000 ml, Thiamine IV 100 mg, dd2 foLIC Acid IVPB 1 mg) IV at 125 ml/hr once Route: IV; Rate: 125 ml/hr; Site: left hand; 08:40 Drug: Rocephin IV 1 grams IV at per protocol once; Given slow IV push per pharmacy dd2 instructions Route: IV; Rate: per protocol; Site: left hand; 08:55 Follow up: Response: No adverse reaction; IV Status: Completed infusion; IV Intake: [id number] 09:00 Drug: Potassium PO Effervescent Tablet 25 mEq PO once; dissolve in 4 ounces of water or dd2 juice Route: PO; 09:30 Follow up: Response: No adverse reaction dd2 Medication: 06:51 VIS not applicable for this client. bm8 Intake: 08:02 IV: 10ml; Total: 10ml. ko1 08:55 IV: 10ml; Total: 20ml. ko1 09:30 IV: 1000ml; Total: 1020ml. ko1 Outcome: 07:37 Decision to Hospitalize by Provider. jamison 08:58 Admitted to ER Hold. Please see [facility] for further documentation. ko1 08:58 Condition: stable 08:58 Instructed on the need for admit, 09:56 Patient left the ED. ko1 Signatures: Dispatcher [employer] EDKevyn Victoria MD MD cha Oliver, Kathy, RN RN ko1 Mary Mckeon rv1 Gisela Sparks 6 Frederick Leigh RN RN bm8 Annie Francois af3 QAMAR OCONNOR RN RN dd2 Corrections: (The following items were deleted from the chart) 06:47 06:46 Home Meds: None; bm8 bm8
[2024-03-20] MEDS ORDERED: CEFTRIAXONE 1000 MG/VIAL ONE (07:46)
[2024-03-20] MEDS ORDERED: POTASSIUM 25 MEQ EFFERV TAB ONE (08:06)
--- NOTE | 2024-03-20 08:26 | RAD REPORT ---
EXAM DESCRIPTION: CT - Head Brain Wo Cont - 03/20/2024 7:31 am CLINICAL HISTORY: Head injury status fall COMPARISON: October 2023 TECHNIQUE: Computed axial tomography of the head was obtained. IV contrast was not requested. All CT scans are performed using dose optimization technique as appropriate and may include automated exposure control or mA/KV adjustment according to patient size. FINDINGS: An intracranial bleed is not seen The ventricles are normal in caliber No extra-axial fluid collection is noted. Mild to moderate low-density areas within periventricular, deep and subcortical white matter likely r epresent ischemic changes secondary to small vessel disease. Fluid within the sinuses/ mastoids is not seen. IMPRESSION: No acute intracranial abnormality is seen If patient's symptoms persist MRI of the brain would be recommended
--- NOTE | 2024-03-20 08:27 | RAD REPORT ---
EXAM DESCRIPTION: [place] Single View03/20/2024 6:57 am CLINICAL HISTORY: Chest pain COMPARISON: February 2024 FINDINGS: The lungs appear clear of acute infiltrate. The heart is normal size. Chronic elevation r ight hemidiaphragm IMPRESSION: No acute abnormalities displayed
[2024-03-20] MEDS: HEPARIN 5000 UNIT/ML 1 ML VIAL SQ SCH (09:00)
--- NOTE | 2024-03-20 09:08 | P.HP ---
Certification for Inpatient Patient admitted to: Inpatient With expected LOS: >2 Midnights Practitioner: I am a practitioner with admitting privileges, knowledge of patient current condition, hospital course, and medical plan of care. Services: Services provided to patient in accordance with Admission requirements found in Title 42 Section 412.3 of the Code of Federal Regulations Patient History Date of Service: 03/20/24 Reason for admission: Toxic encephalopathy 2/2 polypharmacy History of Present Illness: Catie Ojeda is a 78 year old female with Pmhx chronic pain, GERD, hyperlipidemia, hypertension who presents to the ED with Chief complaint of AMS. Upon examination, she is very lethargic, able to report living at home alone with a necklace that she can use to call for help. She did not know she was in the hospital and does not remember events of yesterday that brought her to the ED. CT head is negative for acute finding, Chest xray reports no acute abnormalities, lab values show dehydration, toxicology screening and UA are pending results. While in the ED she was given 2 L NS, multivitamin, folic acid, Thiamine, pepcid, and rocephin. Initial vitals: BP 137 / 80; Pulse 85; Resp 14; Temp 97.8; Pulse Ox 97% Chest xray: The lungs appear clear of acute infiltrate. The heart is normal size. Chronic elevation right hemidiaphragm. IMPRESSION: No acute abnormalities displayed Head CT :An intracranial bleed is not seen. The ventricles are normal in caliber. No extra-axial fluid collection is noted. Mild to moderate low-density areas within periventricular, deep and subcortical white matter likely represent ischemic changes secondary to small vessel disease. Fluid within the sinuses/ mastoids is not seen. IMPRESSION: No acute intracranial abnormality is seen If patient's symptoms persist MRI of the brain would be recommended. Catie will be admitted to hospitalist service for further evaluation and treatment of Toxic encephalopathy 2/2 polypharmacy. Allergies No Known Allergies Allergy (Verified 11/06/23 07:57) Home Medications: Omeprazole [Prilosec] 40 mg PO ACB 02/24/22 Rosuvastatin Calcium 20 mg PO BEDTIME 02/24/22 Zolpidem Tartrate 12.5 mg PO BEDTIME 02/24/22 Amlodipine [Norvasc*] 10 mg PO DAILY 10/30/23 Buspirone HCl 7.5 mg PO BID 10/30/23 Duloxetine HCl [Cymbalta] 120 mg PO DAILY 10/30/23 Losartan Potassium [Cozaar*] 100 mg PO DAILY 10/30/23 Oxycodone HCl/Acetaminophen [Oxycodone-Acetaminophen 10-325] 1 tab PO TID PRN 10/30/23 Tizanidine [Zanaflex*] 4 mg PO TIDP PRN 10/30/23 Aspirin Chewable [Aspirin Chewable*] 81 mg PO DAILY 11/03/23 Cholecalciferol (Vitamin D3) [Vitamin D3] 50 mcg PO DAILY 11/03/23 Lactobacillus Acidophilus [Probiotic Acidophilus] 1 each PO DAILY 11/03/23 Lutein 20 mg PO DAILY 11/03/23 Melatonin [Melatonin ER] 10 mg PO BEDTIME 11/03/23 Multivit-Min/FA/Lycopen/Lutein [Complete Multivitamin Tab] 1 each PO DAILY 11/03/23 Ondansetron [Zofran] 4 mg PO Q6H PRN 11/03/23 Psyllium [Metamucil] 1 pkt PO DAILY 11/03/23 Sennosides/Docusate Sodium [Stool Softener-Stim Lax Softgl] 1 each PO DAILY 11/03/23 Alprazolam [Xanax] 0.5 mg PO TID PRN 03/20/24 - Past Medical/Surgical History Diabetic: No -: arthritis -: htn -: fall -: left shoulder arthroplasty -: ravinder hip replacement -: cataract sx ravinder - Social History Alcohol use: No CD- Drugs: No Caffeine use: Yes Review of Systems is unable to be obtained Physical Examination - Physical Exam General: Confused HEENT: Atraumatic, Normocephalic, PERRLA Neck: Supple, 2+ carotid pulse no bruit Respiratory: Clear to auscultation bilaterally, Normal air movement Cardiovascular: Normal pulses, Regular rate/rhythm, Normal S1 S2 Capillary refill: <2 Seconds Gastrointestinal: Normal bowel sounds, Soft and benign, No tenderness Musculoskeletal: No clubbing Integumentary: No rashes Neurological: Abnormal speech, Abnormal tone - Studies Laboratory Data (last 24 hrs) 03/20/24 03/20/24 03/20/24 06:46 06:46 06:46 WBC 7.80 Hgb 11.8 L Hct 35.8 L Plt Count 396 PT 10.8 INR 0.96 APTT 32.2 Sodium 138 Potassium 3.4 L BUN 24 H Creatinine 1.28 H Glucose 127 H Total Bilirubin 0.3 AST 19 ALT 19 Alkaline Phosphatase 79 Assessment and Plan - Plan Assessment and plan Toxic encephalopathy secondary to polypharmacy -Head CT report No acute intracranial abnormality -Chest xray: The lungs appear clear of acute infiltrate. The heart is normal size. Chronic elevation right hemidiaphragm. IMPRESSION: No acute abnormalities displayed -Continuous telemetry -Toxicology negative and UA revealing infectious process -bedside swallow, speech consulted -Folic acid, thiamins, multivitamin daily -Rocephin -gentle IVF -PT consult Hypokalemia -Potassium 3.4, replaced in the ED -Monitor and replete as needed HERMILA secondary to dehydration Hyperglycemia likely secondary to dehydration -Serum glucose 127, monitor in a.m. lab -BUN/creatinine 24/1.28, GFR 43 -2 L normal saline laying given in the ED -Continue gentle IV fluids History of hypertension/hyperlipidemia History of chronic pain History of GERD History of right hip replacement -Continue home medications -Supportive care -Tylenol/[place] DVT ppx heparin full code LOS 2-3 days - Advance Directives Does patient have a Living Will: No Does patient have a Durable POA for Healthcare: No
[2024-03-20 09:14] LABS: Magnesium 2.1 mg/dL (1.6-2.4); Phosphorus 3.9 mg/dL (2.5-4.9)
[2024-03-20 09:21] LABS: Specific Gravity 1.017 (1.005-1.030); Sqamous Epithelial <5 /HPF (None Seen); Urine Bacteria None Seen /HPF (<20); Urine Bilirubin NEGATIVE (Negative); Urine Blood Negative (Negative); Urine Clarity Turbid (Clear); Urine Color Light-Yellow (Yellow); Urine Crystals Unidentified Few /HPF (None Seen); Urine Culture Reflex Order NOT NEEDED; Urine Glucose NEGATIVE (Negative); Urine Ketones NEGATIVE (Negative); Urine Micro Reflex YN NO BILL MICROSCOPIC; Urine Mucus Slight /HPF (None Seen); Urine Nitrite NEGATIVE (Negative); Urine Protein NEGATIVE (Negative); Urine RBC <5 /HPF (None Seen); Urine Urobilinogen Normal (Normal); Urine pH 5.5 (5.0-7.0)
[2024-03-20 09:36] LABS: Thyroid Stimulating Hormone 0.951 uIU/mL (0.358-3.740)
[2024-03-20 09:40] LABS: Barbiturates NEGATIVE (NEGATIVE); Benzodiazepines NEGATIVE (NEGATIVE); Cocaine NEGATIVE (NEGATIVE); METHAMPHETAM NEGATIVE (NEGATIVE); Methadone NEGATIVE (NEGATIVE); Opiates NEGATIVE (NEGATIVE); Phencyclidine NEGATIVE (NEGATIVE); THC Cannibis NEGATIVE (NEGATIVE)
[2024-03-20] MEDS: NA CHLORIDE 0.9% 1,000 ML IV SCH (12:16)
[2024-03-20 16:38] VITALS: BMI 27.4
[2024-03-20] MEDS: POTASSIUM 25 MEQ EFFERV TAB PO ONE (20:25)
[2024-03-20] MEDS: HYDROCODONE/APAP 7.5/325 MG TAB PO PRN (20:26)
[2024-03-20] MEDS: CEFTRIAXONE 1,000 MG in NA CHLORIDE 0.9% 50 ML IVPB SCH (21:37)
[2024-03-20] MEDS: ZOLPIDEM TARTRATE 5 MG TABLET PO PRN (22:15)
[2024-03-21] MEDS: HYDRALAZINE HCL 20 MG/ML VIAL IV PRN (05:35)
[2024-03-21] MEDS: FOLIC ACID 1 MG TABLET PO SCH (08:54)
[2024-03-21] MEDS: THIAMINE HCL 100 MG TABLET PO SCH (08:55)
[2024-03-21] MEDS: MULTIVITAMIN TAB PO SCH (08:55)
[2024-03-21 12:35] LABS: Absolute Lymphocytes (CBC) 1.9 K/uL (0.7-4.9); Absolute Monocytes 0.9 K/uL (0.1-1.3); Absolute Neutrophil 8.7 K/uL (1.8-8.0); Basophils % 0.3 % (0-1.3); Eosinophils % 0.3 % (0-4.4); Hematocrit 39.7 % (36.0-45.0); Hemoglobin 12.7 g/dL (12.0-15.0); Lymphocytes % 16.2 % (15.3-44.8); MCH 30.9 pg (27.0-35.0); MCHC 32.1 g/dL (32.0-36.0); MCV 96.3 fL (80-100); MPV 7.7 fL (7.6-11.3); Neutrophils % 75.2 % (41.7-73.7); Platelets 436 thou/uL (152-406); RBC Red Blood Cell Count 4.12 M/uL (3.86-4.86); Red Cell Distribution Width 13.7 % (12.1-15.2)
[2024-03-21 12:52] LABS: Anion Gap 16.5 mEq/L (5.0-15.0); Magnesium 2.2 mg/dL (1.6-2.4); Phosphorus 2.3 mg/dL (2.5-4.9); Potassium 3.5 mEq/L (3.5-5.1)
[2024-03-21] MEDS: ACETAMINOPHEN 500 MG TAB PO PRN (12:59)
--- NOTE | 2024-03-21 14:24 | P.PN ---
Date of Service: 03/21/24 Subjective More alert today, confused, eating breakfast c/o being weak ROS 10 point ROS as noted above, otherwise negative Physical Exam General: Confused, awake and conversing HEENT: Atraumatic, Normocephalic, PERRLA Neck: Supple, 2+ carotid pulse no bruit Respiratory: Clear to auscultation bilaterally, Normal air movement, on RA Cardiovascular: Normal pulses, RRR, Normal S1 S2 Capillary refill: <2 Seconds Gastrointestinal: Normal bowel sounds, Soft and benign on palpation, No tenderness Musculoskeletal: No clubbing Integumentary: No rashes Neurological: Abnormal speech, Abnormal tone Vitals Reviewed Problem list Toxic encephalopathy secondary to polypharmacy [place] tract infection Hypokalemia Hypophosphatemia HERMILA secondary to dehydration Hyperglycemia likely secondary to dehydration History of hypertension/hyperlipidemia History of chronic pain History of GERD History of right hip replacement Assessment and Plan Toxic encephalopathy secondary to polypharmacy [place] tract infection -Head CT report No acute intracranial abnormality -Chest xray: The lungs appear clear of acute infiltrate. The heart is normal size. Chronic elevation right hemidiaphragm. IMPRESSION: No acute abnormalities displayed -Continuous telemetry -Toxicology negative and UA revealing infectious process -bedside swallow- passed -speech consulted -Folic acid, thiamins, multivitamin daily -Rocephin -gentle IVF -PT consult Hypokalemia Hypophosphatemia -Potassium 3.5, Phos 2.3 -Monitor and replete as needed HERMILA secondary to dehydration Hyperglycemia likely secondary to dehydration -Serum glucose 127, 98 this am 03/21 -BUN/creatinine 7/0.60- improved with IVF -Good UOP -2 L normal saline laying given in the ED -Continue gentle IV fluids History of hypertension/hyperlipidemia History of chronic pain History of GERD History of right hip replacement -Continue home medications -Supportive care -Tylenol/[place] DVT ppx heparin full code LOS 2-3 days
[2024-03-21] MEDS ORDERED: DOCUSATE NA/SENNA CONC 1 TAB PO PRN (17:12)
[2024-03-21] MEDS: MIRTAZAPINE 15 MG TAB PO SCH (19:29)
[2024-03-21] MEDS: ROSUVASTATIN 10 MG TAB PO SCH (19:29)
[2024-03-21] MEDS: BUSPIRONE HCL 15 MG TABLET PO SCH (19:30)
[2024-03-21] MEDS: PANTOPRAZOLE 40MG TABLET PO SCH (19:31)
[2024-03-21] MEDS: ALPRAZOLAM 0.5 MG TABLET PO PRN (19:34)
[2024-03-21] MEDS ORDERED: ZOLPIDEM TARTRATE 10 MG TABLET PO SCH (21:00)
[2024-03-21 21:42] VITALS: O2SAT 92
[2024-03-22 06:55] LABS: Anion Gap 11.1 mEq/L (5.0-15.0); Magnesium 1.8 mg/dL (1.6-2.4); Phosphorus 2.7 mg/dL (2.5-4.9); Potassium 3.1 mEq/L (3.5-5.1)
[2024-03-22 06:56] LABS: Absolute Eosinophils 0.1 K/uL (0-0.5); Absolute Lymphocytes (CBC) 1.8 K/uL (0.7-4.9); Absolute Monocytes 0.8 K/uL (0.1-1.3); Absolute Neutrophil 5.9 K/uL (1.8-8.0); Basophils % 0.6 % (0-1.3); Eosinophils % 1.2 % (0-4.4); Hemoglobin 11.9 g/dL (12.0-15.0); Lymphocytes % 20.9 % (15.3-44.8); MCH 32.7 pg (27.0-35.0); MCHC 33.9 g/dL (32.0-36.0); MCV 96.2 fL (80-100); MPV 7.5 fL (7.6-11.3); Monocytes % 9.4 % (3.3-12.3); Neutrophils % 67.9 % (41.7-73.7); Nucleated Red Blood Cells % 0.1 % (0-0); Platelets 398 thou/uL (152-406); RBC Red Blood Cell Count 3.64 M/uL (3.86-4.86)
[2024-03-22] MEDS: MAGNESIUM SULFATE 1 gm IVPB 1 GM/100 ML BAG IV ONE (07:53)
[2024-03-22] MEDS: POTASSIUM CL SA 10 MEQ TAB PO ONE (07:54)
[2024-03-22] MEDS: DULOXETINE 30 MG CAP PO SCH (07:54)
[2024-03-22] MEDS: METOPROLOL XL 50 MG TAB PO SCH (07:55)
[2024-03-22] MEDS: LOSARTAN POTASSIUM 50 MG TABLET PO SCH (07:56)
[2024-03-22] MEDS: AMLODIPINE 10 MG TAB PO SCH (07:56)
[2024-03-22 08:03] VITALS: BP 160/77
[2024-03-22 08:45] VITALS: TEMP 97.5
--- NOTE | 2024-03-22 09:28 | P.DS ---
Admission Date: 03/20/24 Discharge Date: 03/22/24 Disposition: ROUTINE DISCHARGE Discharge Condition: GOOD Reason for Admission: Toxic encephalopathy 2/2 polypharmacy Brief History of Present Illness: Diagnosis Toxic encephalopathy likely secondary to polypharmacy [place] tract infection Hypokalemia Hypophosphatemia HERMILA secondary to dehydration Hyperglycemia likely secondary to dehydration History of hypertension/hyperlipidemia History of chronic pain History of GERD History of right hip replacement HPI 03/20/24 Catie Ojeda is a 78 year old female with Pmhx chronic pain, GERD, hyperlipidemia, hypertension who presents to the ED with Chief complaint of AMS. Upon examination, she is very lethargic, able to report living at home alone with a necklace that she can use to call for help. She did not know she was in the hospital and does not remember events of yesterday that brought her to the ED. CT head is negative for acute finding, Chest xray reports no acute abnorma lities, lab values show dehydration, toxicology screening and UA are pending results. While in the ED she was given 2 L NS, multivitamin, folic acid, Thiamine, pepcid, and rocephin. Initial vitals: BP 137 / 80; Pulse 85; Resp 14; Temp 97.8; Pulse Ox 97% Chest xray: The lungs appear clear of acute infiltrate. The heart is normal size. Chronic elevation right hemidiaphragm. IMPRESSION: No acute abnormalities displayed Head CT :An intracranial bleed is not seen. The ventricles are normal in caliber. No extra-axial fluid collection is noted. Mild to moderate low-density areas within periventricular, deep and subcortical white matter likely represent ischemic changes secondary to small vessel disease. Fluid within the sinuses/ mastoids is not seen. IMPRESSION: No acute intracranial abnormality is seen If patient's symptoms persist MRI of the brain would be recommended. Catie will be admitted to hospitalist service for further evaluation and treatment of Toxic encephalopathy 2/2 polypharmacy. Hospital Course: Catie Ojeda is a pleasant 78 year old female with a past medical history significant for chronic pain, GERD, hyperlipidemia, hypertension who was admitted to the [facility] on 03/20/24 for toxic encephalopathy. Catie presented to the ED with Altered mental status 2/2 toxic encephalopathy likely d/t polypharmacy. She was found to have a UTI, and mild dehydration. She was unable to converse when she arrived to the ED. As the day progressed she started conversing well but remained confused, encephalopathy resolved. She has remained stable and has tolerated PO diet. She has worked with physical therapy and ambulated 250 feet. She has tolerated IV antibiotics and electrolyte replacement. On 03/22/24, Catie was seen on morning rounds and deemed medically stable for discharge. Catie was discharged with instructions to schedule follow-up appointments with PCP. Catie was provided prescriptions for nitrofurantoin. Physical Exam General: Confused, awake, oriented x 2, conversing HEENT: Atraumatic, Normocephalic, PERRLA Neck: Supple, 2+ carotid pulse no bruit Respiratory: Clear to auscultation bilaterally, Normal air movement, on RA Cardiovascular: Normal pulses, Normal sinus tach, Normal S1 S2 Capillary refill: <2 Seconds Gastrointestinal: Normal active bowel sounds, Soft on palpation, No tenderness Musculoskeletal: No clubbing Integumentary: No rashes Neurological: Abnormal speech, Abnormal tone Vital Signs/Physical Exam: Temp Pulse Resp BP Pulse Ox 97.5 F 114 H 18 160/77 H 97 03/22/24 08:00 03/22/24 08:00 03/22/24 08:00 03/22/24 08:00 03/22/24 08:00 Laboratory Data at Discharge: WBC 8.60 thou/uL (4.3-10.9) 03/22/24 06:34 Hgb 11.9 g/dL (12.0-15.0) L 03/22/24 06:34 Hct 35.0 % (36.0-45.0) L 03/22/24 06:34 Plt Count 398 thou/uL (152-406) 03/22/24 06:34 PT 10.8 SECONDS (9.4-12.5) 03/20/24 06:46 INR 0.96 03/20/24 06:46 APTT 32.2 SECONDS (24.3-36.9) 03/20/24 06:46 Sodium 143 mEq/L (136-145) 03/22/24 06:34 Potassium 3.1 mEq/L (3.5-5.1) L 03/22/24 06:34 BUN 5 mg/dL (7-18) L 03/22/24 06:34 Creatinine 0.60 mg/dL (0.55-1.02) 03/22/24 06:34 Glucose 110 mg/dL (74-106) H 03/22/24 06:34 Phosphorus 2.7 mg/dL (2.5-4.9) 03/22/24 06:34 Magnesium 1.8 mg/dL (1.6-2.4) 03/22/24 06:34 Total Bilirubin 0.3 mg/dL (0.2-1.0) 03/20/24 06:46 AST 19 U/L (15-37) 03/20/24 06:46 ALT 19 U/L (13-56) 03/20/24 06:46 Alkaline Phosphatase 79 U/L (45-117) 03/20/24 06:46 Home Medications: Omeprazole [Prilosec] 1 cap PO 30 MIN BEFORE HS 02/24/22 Rosuvastatin Calcium 20 mg PO BEDTIME 02/24/22 Zolpidem Tartrate 10 mg PO BEDTIME 02/24/22 Amlodipine [Norvasc*] 1 tab PO DAILY 10/30/23 Buspirone HCl 7.5 mg PO BID 10/30/23 Duloxetine HCl [Cymbalta] 2 tab PO DAILY 10/30/23 Losartan Potassium [Cozaar*] 2 tab PO DAILY 10/30/23 Oxycodone HCl/Acetaminophen [Oxycodone-Acetaminophen 10-325] 1 tab PO TID PRN 10/30/23 Cholecalciferol (Vitamin D3) [Vitamin D3] 50 mcg PO DAILY 11/03/23 Lactobacillus Acidophilus [Probiotic Acidophilus] 1 each PO DAILY 11/03/23 Sennosides/Docusate Sodium [Stool Softener-Stim Lax Softgl] 1 each PO DAILY PRN 11/03/23 Alprazolam [Xanax] 0.5 mg PO TID PRN 03/20/24 Alprazolam [Xanax] 1 tab PO PRN PRN 03/21/24 Metoprolol Succinate [Toprol Xl*] 50 mg PO DAILY 03/21/24 Mirtazapine 15 mg PO BEDTIME 03/21/24 Zolpidem Tartrate [Ambien] 10 mg PO BEDTIME 03/21/24 Nitrofurantoin Monohyd/M-Cryst [Macrobid 100 mg Capsule] 100 mg PO BID 5 Days #10 cap 03/22/24 New Medications: Nitrofurantoin Monohyd/M-Cryst [Macrobid 100 mg Capsule] 100 mg PO BID 5 Days #10 cap Physician Discharge Instructions: Catie Ojeda was treated for a UTI and dehydration. Lethargy has resolved. Continue encouraging proper nutrition, Follow up you her PCP for evaluation of increased confusion, likely she will need adjustments to her medication. 1. Please call and schedule a follow-up appointment with your PCP in 3-5 days - Please follow-up with your PCP for medication refills/adjustments 2. Continue regular diet 3. activity restrictions, fall precautions 4. Return to the ED if symptoms worsen New medications Nitrofurantoin 100mg PO twice daily x 5 days Followup: Priyank Kline, [Primary Care Provider] - 1-2 Weeks
--- NOTE | 2024-03-22 13:51 | EKG ---
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
== END 2024-03-22 11:39 | disposition home or self-care (01) | DRG 92 ==
LOC: ER 06:33 → ERHOLD 08:34 → 4TH 09:23
PROVIDERS: ADMIT Internal Medicine; ATTEND Internal Medicine
PROC: 0T9B70Z Drainage of Bladder with Drainage Device, Via Natural or Artificial Opening (ICD-10-PCS; principal; 2024-03-20)
PROC: 5A09457 Assistance with Respiratory Ventilation, 24-96 Consecutive Hours, Continuous Positive Airway Pressure (ICD-10-PCS; 2024-03-20)
DX: G92.8 Other toxic encephalopathy (principal); N17.9 Acute kidney failure, unspecified; N39.0 Urinary tract infection, site not specified; E87.6 Hypokalemia; I10 Essential (primary) hypertension; E78.5 Hyperlipidemia, unspecified; G89.29 Other chronic pain; E86.0 Dehydration; E83.39 Other disorders of phosphorus metabolism; K21.9 Gastro-esophageal reflux disease without esophagitis; T50.915A Adverse effect of multiple unspecified drugs, medicaments and biological substances, initial encounter; R73.9 Hyperglycemia, unspecified; Z60.2 Problems related to living alone; Z79.82 Long term (current) use of aspirin; Z79.01 Long term (current) use of anticoagulants; Z96.641 Presence of right artificial hip joint; Z79.899 Other long term (current) drug therapy
CPT/HCPCS: 36415; 70450; 71045; 80048; 80076; 80143; 80179; 80307; 81001; 82077; 83605; 83735; 84100; 84439; 84443; 84484; 85025; 85610; 85730; 93005; 94660; 96361; 96374; 96375; 97116; 97161; 97530; 99285; J0360; J0696; J1644; J3411; J3475; J7030

== ENCOUNTER 2024-04-13 14:13 | Observation (INO) | payer OTHER, BC ==
[2024-04-13] MEDS ORDERED: ASPIRIN 81 MG CHEWABLE TABLET ONE (15:38)
[2024-04-13 15:45] LABS: Absolute Lymphocytes (CBC) 0.9 K/uL (0.7-4.9); Absolute Monocytes 0.1 K/uL (0.1-1.3); Absolute Neutrophil 5.8 K/uL (1.8-8.0); Basophils % 0.3 % (0-1.3); Eosinophils % 0.3 % (0-4.4); Hematocrit 39.8 % (36.0-45.0); Hemoglobin 12.7 g/dL (12.0-15.0); Lymphocytes % 12.6 % (15.3-44.8); MPV 8.1 fL (7.6-11.3); Monocytes % 1.4 % (3.3-12.3); Neutrophils % 85.4 % (41.7-73.7); Platelets 347 thou/uL (152-406); Red Cell Distribution Width 14.5 % (12.1-15.2)
--- NOTE | 2024-04-13 16:12 | RAD REPORT ---
EXAM DESCRIPTION: RAD - Chest Single View - 04/13/2024 3:59 pm CLINICAL HISTORY: CHEST PAIN Chest pain. COMPARISON: <Comparisons> FINDINGS: Portable technique limits examination quality. The lungs are grossly clear. The heart is normal in size. No displaced fractures.Right clavicle hardw are plate. Left total shoulder arthroplasty. IMPRESSION: No acute intrathoracic process suspected.
[2024-04-13 16:49] LABS: ALT/SGPT 23 U/L (13-56); AST/SGOT 20 U/L (15-37); Albumin 3.9 g/dL (3.4-5.0); Alkaline Phosphatase 92 U/L (45-117); Anion Gap 9.6 mEq/L (5.0-15.0); BUN Blood Urea Nitrogen 13 mg/dL (7-18); Bicarbonate 25 mEq/L (21-32); Bilirubin Total 0.4 mg/dL (0.2-1.0); Globulin 3.8 g/dL (2.3-3.5); Glomerular Filtration Rate 70 ml/min (=/>90); Glucose Level 149 mg/dL (74-106); Magnesium 2.1 mg/dL (1.6-2.4); Potassium 4.6 mEq/L (3.5-5.1); Protein, Total 7.7 g/dL (6.4-8.2); Sodium Level 137 mEq/L (136-145); Troponin High Sensitivity 4.7 pg/mL (<58.9)
[2024-04-13 16:50] LABS: Bilirubin Direct < 0.2 mg/dL (0-0.2); Bilirubin Indirect, Calculated 0.2 mg/dL (0.2-0.8)
[2024-04-13 17:25] LABS: Blood Morphology Comment NOT SEEN (NOT SEEN); Platelet Estimate ADEQ; White Blood Cell Scan OK (OK)
--- NOTE | 2024-04-13 18:10 | EDPHYS ---
Physician Documentation [facility] Name: Catie Ojeda Age: 79 yrs Sex: Female : 1945 Arrival Date: 04/13/2024 Time: 14:13 Bed 13 Private MD: ED Physician Alan Phillips HPI: 04/13 15:05 This 79 yrs old Female presents to ER via Ambulatory with complaints of Chest Pain. rt 15:05 Patient presents to the ED with nausea, chest pain starting this morning. Pain is been rt waxing waning in intensity. States it is only mild currently. Denies other acute complaints at this time, symptoms are moderate in severity, no other aggravating or alleviating factors.. Historical: - Allergies: 14:28 No Known Allergies; iw - PMHx: 14:27 Chronic pain; GERD; Hyperlipidemia; Hypertension; iw - PSHx: 14:27 Right hip replacement; iw - Immunization history:: Adult Immunizations up to date. - Infectious Disease History:: Denies. - Family history:: not pertinent. - Social history:: Smoking status: Patient denies any tobacco usage or history of. ROS: 15:05 Constitutional: Negative for fever, chills, and weight loss, Respiratory: Negative for rt shortness of breath, cough, wheezing, and pleuritic chest pain, MS/Extremity: Negative for injury and deformity, Skin: Negative for injury, rash, and discoloration, Neuro: Negative for headache, weakness, numbness, tingling, and seizure, 15:05 Cardiovascular: Positive for chest pain, Negative for edema, 15:05 Abdomen/GI: Positive for nausea, Negative for abdominal pain, Exam: 15:05 Constitutional: This is a well developed, well nourished patient who is awake, alert, rt and in no acute distress. Head/Face: Normocephalic, atraumatic. Chest/axilla: Normal chest wall appearance and motion. Nontender with no deformity. No lesions are appreciated. Cardiovascular: Regular rate and rhythm with a normal S1 and S2. No gallops, murmurs, or rubs. Normal PMI, no JVD. No pulse deficits. Respiratory: Lungs have equal breath sounds bilaterally, clear to auscultation and percussion. No rales, rhonchi or wheezes noted. No increased work of breathing, no retractions or nasal flaring. Abdomen/GI: Soft, non-tender, with normal bowel sounds. No distension or tympany. No guarding or rebound. No evidence of tenderness throughout. Skin: Warm, dry with normal turgor. Normal color with no rashes, no lesions, and no evidence of cellulitis. MS/ Extremity: Pulses equal, no cyanosis. Neurovascular intact. Full, normal range of motion. Neuro: Awake and alert, GCS 15, oriented to person, place, time, and situation. Cranial nerves II-XII grossly intact. Motor strength 5/5 in all extremities. Sensory grossly intact. Cerebellar exam normal. Normal gait. 15:05 ECG was reviewed by the Attending Physician. Vital Signs: 14:30 BP 146 / 92; Pulse 91; Resp 18; Temp 98.7; Pulse Ox 97% ; Weight 68.04 kg; Height 5 ft. db 3 in. ; 16:00 BP 147 / 88; Pulse 82; Resp 17; Pulse Ox 95% on R/A; me1 17:00 BP 145 / 77; Pulse 80; Resp 13; Pulse Ox 96% on R/A; me1 18:00 BP 166 / 86; Pulse 84; Resp 14; Pulse Ox 97% on R/A; me1 19:31 BP 133 / 77; Pulse 87; Resp 20 S; Pulse Ox 97% on R/A; Pain 3/10; lg3 14:30 Body Mass Index 26.57 (68.04 kg, 160.02 cm) db 19:31 Pain Scale: Adult lg3 MDM: 14:30 Patient medically screened. rt 18:09 Differential diagnosis: CAD, nonspecific chest pain, pneumonia, pneumothorax. HEART rt Score: History: Moderately Suspicious (1), ECG: Non specific repolarization disturbance / LBTB / PM (1), Age: > or = 65 years (2), Risk Factors: > or = 3 Risk factors for atherosclerotic disease (2), Troponin: < or = 1 x Normal Limit (0), Total Score = 6. The patient was given aspirin in the Emergency Department. Data reviewed: vital signs, nurses notes, lab test result(s), EKG, radiologic studies. Consideration of Admission/Observation Patient was admitted/placed on observation. Management of patient was discussed with the following: Hospitalist: Agrees to admit. I considered the following discharge prescriptions or medication management in the emergency department Medications were administered in the Emergency Department. See MAR. Independent interpretation of the following test(s) in the Emergency Department X-Ray: My interpretation is No consolidation seen on my interpretation of x-ray images. Test considered but Not performed: CT: Low suspicion for pulmonary embolus, CT angiogram not indicated. Care significantly affected by the following chronic conditions: CAD, hypertension. Counseling: I had a detailed discussion with the patient and/or guardian regarding the historical points, exam findings, and any diagnostic results supporting the discharge/admit diagnosis, lab results, radiology results, the need for further work-up and treatment in the hospital. Response to treatment: the patient's symptoms have markedly improved after treatment. 04/13 14:31 Order name: Basic Metabolic Panel; Complete Time: 16:56 rt 04/13 14:31 Order name: CBC with Diff; Complete Time: 17:28 rt 04/13 14:31 Order name: LFT's; Complete Time: 16:56 rt 04/13 14:31 Order name: Magnesium; Complete Time: 16:56 rt 04/13 14:31 Order name: Troponin HS; Complete Time: 16:56 rt 04/13 17:25 Order name: CBC Smear Scan; Complete Time: 17:28 [facility] 04/13 19:55 Order name: Lipid Profile [facility] 04/13 19:55 Order name: Lipid Profile [facility] 04/13 19:55 Order name: Troponin High Sensitivity [facility] 04/13 19:55 Order name: Troponin High Sensitivity [facility] 04/13 19:55 Order name: Troponin High Sensitivity [facility] 04/13 19:55 Order name: Troponin High Sensitivity [facility] 04/13 19:55 Order name: Troponin High Sensitivity [facility] 04/13 14:31 Order name: XRAY Chest (1 view); Complete Time: 16:13 rt 04/13 19:55 Order name: Echo with Doppler [facility] 04/13 14:31 Order name: EKG; Complete Time: 14:31 rt 04/13 14:31 Order name: Cardiac monitoring; Complete Time: 15:12 rt 04/13 14:31 Order name: EKG - Nurse/Tech; Complete Time: 15:12 rt 04/13 14:31 Order name: IV Saline Lock; Complete Time: 15:39 rt 04/13 14:31 Order name: Labs collected and sent; Complete Time: 15:39 rt 04/13 14:31 Order name: O2 Per Protocol; Complete Time: 15:12 rt 04/13 14:31 Order name: O2 Sat Monitoring; Complete Time: 15:12 rt EC:05 Rate is 92 beats/min. Rhythm is regular, Normal Sinus Rhythm with No ectopy, LAFB. Left rt axis deviation noted. VA interval is normal. QRS interval is normal. QT interval is normal. No Q waves. No ST changes noted. Interpreted by me. Administered Medications: 15:42 Drug: Aspirin PO Chewable Tablet 324 mg PO once; 81 mg tablets x 4 Route: PO; me1 16:18 Follow up: Response: No adverse reaction me1 18:16 Drug: HYDROcodone-acetaminophen PO 5 mg-325 mg 1 tabs PO once Route: PO; me1 18:41 Follow up: Response: No adverse reaction me1 Disposition Summary: 04/13/24 18:09 Hospitalization Ordered Notes: Hospitalization Status: Observation rt Provider: Marixa Giordano rt Location: Telemetry/MedSurg (observation) rt Condition: Stable rt Problem: new rt Symptoms: have improved rt Bed/Room Type: Standard rt Room Assignment: 209(04/13/24 20:10) [id number] Diagnosis - Chest pain, unspecified rt Forms: - Medication Reconciliation Form rt - SBAR form rt - Leadership Thank You Letter rt Signatures: Dispatcher [employer] Taylor Euceda RN RN iw Javi Alicia RN RN [id number] Alan Phillips MD MD rt Lizzy Marion RN RN me1 Corrections: (The following items were deleted from the chart) 14:31 14:31 BASIC METABOLIC PANEL+C.LAB.BRZ ordered. EDMS EDMS 14:31 14:31 CBC+H.LAB.BRZ ordered. EDMS EDMS 14:31 14:31 HEPATIC FUNCTION+C.LAB.BRZ ordered. EDMS EDMS 14:31 14:31 MAGNESIUM+C.LAB.BRZ ordered. EDMS EDMS 14:31 14:31 Troponin High Sensitivity+C.LAB.BRZ ordered. EDMS EDMS 20:10 18:09 rt [id number]
--- NOTE | 2024-04-13 18:10 | ER ---
Nurse's Notes [facility] Name: Catie Ojeda Age: 79 yrs Sex: Female : 1945 Arrival Date: 04/13/2024 Time: 14:13 Bed 13 Private MD: Diagnosis: Chest pain, unspecified Presentation: 04/13 14:27 Chief complaint: Patient states: dizziness, nausea, chest pain since this morning. iw Coronavirus screen: At this time, the client does not indicate any symptoms associated with coronavirus-19. Ebola Screen: No symptoms or risks identified at this time. Risk Assessment: Do you want to hurt yourself or someone else? Patient reports no desire to harm self or others. Onset of symptoms was April 13, 2024. 14:27 Method Of Arrival: Ambulatory iw 14:27 Acuity: SAMANTHA 3 iw 14:30 Initial Sepsis Screen: Does the patient meet any 2 criteria? No. Patient's initial db sepsis screen is negative. Does the patient have a suspected source of infection? No. Patient's initial sepsis screen is negative. Triage Assessment: 14:31 General: Appears in no apparent distress. comfortable, Behavior is calm, cooperative. db Pain: Complains of pain in chest. Pain: Pain currently is 5 out of 10 on a pain scale. Quality of pain is described as. Neuro: Level of Consciousness is awake, alert, obeys commands, Oriented to person, place, time, situation. Cardiovascular: Reports chest pain, Capillary refill < 3 seconds. Respiratory: Airway is patent Respiratory effort is even, unlabored, Respiratory pattern is regular, symmetrical. Historical: - Allergies: 14:28 No Known Allergies; iw - PMHx: 14:27 Chronic pain; GERD; Hyperlipidemia; Hypertension; iw - PSHx: 14:27 Right hip replacement; iw - Immunization history:: Adult Immunizations up to date. - Infectious Disease History:: Denies. - Family history:: not pertinent. - Social history:: Smoking status: Patient denies any tobacco usage or history of. Screenin:00 [facility] ED Fall Risk Assessment (Adult) History of falling in the last 3 months, me1 including since admission No falls in past 3 months (0 pts) Confusion or Disorientation No (0 pts) Intoxicated or Sedated No (0 pts) Impaired Gait Yes (1 pt) Mobility Assist Device Used Yes (1 pt) Altered Elimination No (0 pt) Score/Fall Risk Level 0 - 2 = Low Risk Maintained a safe environment, Provided non-skid footwear, Hourly rounding (assess needs \T\ fall precautionary measures) done. Abuse screen: Denies threats or abuse. Nutritional screening: No deficits noted. Tuberculosis screening: No symptoms or risk factors identified. Assessment: 15:00 General: Appears comfortable, well groomed, well developed, well nourished, Behavior is me1 calm, cooperative, appropriate for age, Reports dizziness, nausea, chest pain since this morning. Pain: Complains of pain in chest Pain does not radiate. Pain currently is 4 out of 10 on a pain scale. Quality of pain is described as sharp, Pain began suddenly, Is continuous. Neuro: Level of Consciousness is awake, alert, obeys commands, Oriented to person, place, time, situation, Appropriate for age. Neuro: Reports dizziness. Cardiovascular: Patient's skin is warm and dry. Respiratory: Airway is patent Respiratory effort is even, unlabored, Respiratory pattern is regular, symmetrical. GI: Reports nausea. : No signs and/or symptoms were reported regarding the genitourinary system. EENT: No signs and/or symptoms were reported regarding the EENT system. Derm: Skin is intact, is healthy with good turgor, Skin is pink, warm \T\ dry. Musculoskeletal: No signs and/or symptoms reported regarding the musculoskeletal system. 19:31 General: Appears in no apparent distress. comfortable, Behavior is calm, cooperative. lg3 Pain: Complains of pain in chest Pain does not radiate. Pain currently is 3 out of 10 on a pain scale. Quality of pain is described as pressure. Neuro: No deficits noted. Cordon Agitation-Sedation Scale (RASS): 0 - Alert and Calm Level of Consciousness is awake, alert, obeys commands, Oriented to person, place, time, situation. Cardiovascular: No deficits noted. Capillary refill < 3 seconds Clubbing of nail beds is absent JVD is absent Patient's skin is warm and dry. Respiratory: No deficits noted. Airway is patent Respiratory effort is even, unlabored, Respiratory pattern is regular, symmetrical. GI: No deficits noted. No signs and/or symptoms were reported involving the gastrointestinal system. : No deficits noted. No signs and/or symptoms were reported regarding the genitourinary system. EENT: Oral mucosa is moist. recent oral surgery with facial swelling noted. Derm: No deficits noted. No signs and/or symptoms reported regarding the dermatologic system. Skin is intact, is healthy with good turgor, Skin is dry, Skin is normal. Musculoskeletal: No signs and/or symptoms reported regarding the musculoskeletal system. Circulation, motion, and sensation intact. Range of motion: intact in all extremities. 20:18 Reassessment: report faxed. tm6 Vital Signs: 14:30 BP 146 / 92; Pulse 91; Resp 18; Temp 98.7; Pulse Ox 97% ; Weight 68.04 kg; Height 5 ft. db 3 in. ; 16:00 BP 147 / 88; Pulse 82; Resp 17; Pulse Ox 95% on R/A; me1 17:00 BP 145 / 77; Pulse 80; Resp 13; Pulse Ox 96% on R/A; me1 18:00 BP 166 / 86; Pulse 84; Resp 14; Pulse Ox 97% on R/A; me1 19:31 BP 133 / 77; Pulse 87; Resp 20 S; Pulse Ox 97% on R/A; Pain 3/10; lg3 14:30 Body Mass Index 26.57 (68.04 kg, 160.02 cm) db 19:31 Pain Scale: Adult lg3 ED Course: 14:16 Patient arrived in ED. mg5 14:24 Alan Phillips MD is Attending Physician. rt 14:27 Triage completed. iw 14:31 Arm band placed on right wrist. Patient placed in waiting room. db 15:00 Patient has correct armband on for positive identification. Bed in low position. Call me1 light in reach. Side rails up X2. Provided Education on: POC. Verbalized understanding. . Client placed on continuous cardiac and pulse oximetry monitoring. NIBP monitoring applied. monitoring and evaluation advisor on. Pulse ox on. NIBP on. 15:00 No provider procedures requiring assistance completed. Patient maintains SpO2 me1 saturation greater than 95% on room air. 15:14 Lizzy Marino, RN is Primary Nurse. me1 15:27 EKG done, by ED staff, reviewed by Alan Phillips MD. me1 15:39 Basic Metabolic Panel Sent. me1 15:39 CBC with Diff Sent. me1 15:39 LFT's Sent. me1 15:39 Magnesium Sent. me1 15:39 Troponin HS Sent. me1 15:39 Initial lab(s) drawn, by me, sent to lab. Inserted saline lock: 22 gauge in right me1 antecubital area, using aseptic technique. 16:00 XRAY Chest (1 view) In Process Unspecified. EDMS 18:09 Marixa Giordano MD is Hospitalizing Provider. rt 19:31 Door closed. Noise minimized. Warm blanket given. lg3 19:31 IV is patent, with good blood return. lg3 21:35 Patient admitted, IV remains in place. lg3 Administered Medications: 15:42 Drug: Aspirin PO Chewable Tablet 324 mg PO once; 81 mg tablets x 4 Route: PO; me1 16:18 Follow up: Response: No adverse reaction me1 18:16 Drug: HYDROcodone-acetaminophen PO 5 mg-325 mg 1 tabs PO once Route: PO; me1 18:41 Follow up: Response: No adverse reaction me1 Medication: 15:00 VIS not applicable for this client. ar1 Outcome: 18:09 Decision to Hospitalize by Provider. rt 21:34 Admitted to Med/surg accompanied by tech, via stretcher, room 209, lg3 21:34 Condition: stable 21:34 Instructed on the need for admit, Demonstrated understanding of instructions, 21:35 Patient left the ED. lg3 Signatures: Dispatcher [employer] Taylor Euceda, RN ALEXIS iw Jennifer Kemp RN RN lg3 Maria C Cheung, RN ALEXIS db Alan Phillips MD MD rt Lizzy Marino RN RN me1 Ada Jones mg5 Geraldo Stewart RN RN tm6 Corrections: (The following items were deleted from the chart) 18:26 14:27 Chief complaint: Patient states: dizziness, nausea, chest pain since this morning me1 iw
[2024-04-13] MEDS ORDERED: HYDROCODONE/APAP 5/325 MG TAB ONE (18:12)
--- NOTE | 2024-04-13 18:40 | P.HP ---
Certification for Inpatient Patient admitted to: Observation With expected LOS: <2 Midnights Practitioner: I am a practitioner with admitting privileges, knowledge of patient current condition, hospital course, and medical plan of care. Services: Services provided to patient in accordance with Admission requirements found in Title 42 Section 412.3 of the Code of Federal Regulations Patient History Date of Service: 04/14/24 Reason for admission: chest pain History of Present Illness: 79 yo F presenting with chest pain. reports onset at 9 AM . while sitting in chair. reports she was driving with niece. notes feeling some anxiety reports having chronic neck and shoulder pain. states has some SOB onset several months ago. denies fevers, chills, or cough reports having a stress test 11 months ago prior to orthopedic surgery In the ED ekg and cxr done reports history of HTN, denies DM or tobacco use history Allergies No Known Allergies Allergy (Verified 04/13/24 21:56) Home Medications: Omeprazole [Prilosec] 1 cap PO 30 MIN BEFORE HS 02/24/22 Rosuvastatin Calcium 20 mg PO BEDTIME 02/24/22 Zolpidem Tartrate 10 mg PO BEDTIME 02/24/22 Amlodipine [Norvasc*] 1 tab PO DAILY 10/30/23 Buspirone HCl 7.5 mg PO BID 10/30/23 Duloxetine HCl [Cymbalta] 2 tab PO DAILY 10/30/23 Losartan Potassium [Cozaar*] 2 tab PO DAILY 10/30/23 Oxycodone HCl/Acetaminophen [Oxycodone-Acetaminophen 10-325] 1 tab PO TID PRN 10/30/23 Cholecalciferol (Vitamin D3) [Vitamin D3] 50 mcg PO DAILY 11/03/23 Lactobacillus Acidophilus [Probiotic Acidophilus] 1 each PO DAILY 11/03/23 Sennosides/Docusate Sodium [Stool Softener-Stim Lax Softgl] 1 each PO DAILY PRN 11/03/23 Alprazolam [Xanax] 0.5 mg PO TID PRN 03/20/24 Alprazolam [Xanax] 1 tab PO PRN PRN 03/21/24 Metoprolol Succinate [Toprol Xl*] 50 mg PO DAILY 03/21/24 Mirtazapine 15 mg PO BEDTIME 03/21/24 Zolpidem Tartrate [Ambien] 10 mg PO BEDTIME 03/21/24 Nitrofurantoin Monohyd/M-Cryst [Macrobid 100 mg Capsule] 100 mg PO BID 5 Days #10 cap 03/22/24 - Past Medical/Surgical History Diabetic: No -: arthritis -: htn -: fall -: left shoulder arthroplasty -: ravinder hip replacement -: cataract sx ravinder - Social History Alcohol use: No CD- Drugs: No Caffeine use: Yes Review of Systems 10-point ROS is otherwise unremarkable General: Unremarkable Eyes: Unremarkable ENT: Unremarkable Respiratory: Unremarkable Cardiovascular: Chest Pain, Light Headedness Gastrointestinal: Unremarkable Genitourinary: Unremarkable Musculoskeletal: Unremarkable Neurological: Unremarkable Physical Examination - Physical Exam General: Alert, Oriented x3 HEENT: Atraumatic Neck: Supple Respiratory: Clear to auscultation bilaterally, Normal air movement Cardiovascular: Normal pulses, Regular rate/rhythm Capillary refill: <2 Seconds Gastrointestinal: Normal bowel sounds, Soft and benign Musculoskeletal: No clubbing, No swelling Integumentary: No rashes - Studies Laboratory Data (last 24 hrs) 04/13/24 04/13/24 16:22 15:36 WBC 6.80 Hgb 12.7 Hct 39.8 Plt Count 347 Sodium 137 Potassium 4.6 BUN 13 Creatinine 0.85 Glucose 149 H Magnesium 2.1 Total Bilirubin 0.4 AST 20 ALT 23 Alkaline Phosphatase 92 Assessment and Plan - Problems (Diagnosis) (1) Chest pain Current Visit: Yes Status: Acute (2) Hypertension Current Visit: Yes Status: Acute (3) Osteoarthritis Current Visit: Yes Status: Acute - Plan 79 yo F with pmh of HTN, OA presents with chest pain #chest pain #HTN #OA 1. admit for observation with telemetry 2. serial cardiac enzymes 3. ECHO 4. consider stress test and cardiology consult 5. NPO after midnight 6. restart home medications when med rec completed DVT: Lovenox Code:full - Advance Directives Does patient have a Living Will: No Does patient have a Durable POA for Healthcare: No
[2024-04-13] MEDS ORDERED: ACETAMINOPHEN 500 MG TAB PO PRN (19:49)
[2024-04-13 21:48] VITALS: BMI 29.4
[2024-04-13 22:02] VITALS: O2SAT 97
[2024-04-13] MEDS: HYDROCODONE/APAP 5/325 MG TAB PO PRN (22:59)
[2024-04-13] MEDS: ZOLPIDEM TARTRATE 5 MG TABLET PO PRN (23:52)
[2024-04-13] MEDS: BISACODYL E.C. 5 MG TAB PO ONE (23:52)
[2024-04-13] MEDS: DOCUSATE NA 100 MG CAP PO ONE (23:52)
[2024-04-14 00:59] LABS: Troponin High Sensitivity 5.1 pg/mL (<58.9)
[2024-04-14] MEDS: ALPRAZOLAM 0.5 MG TABLET PO PRN (02:03)
--- NOTE | 2024-04-14 08:19 | P.DS ---
Admission Date: 04/13/24 Discharge Date: 04/14/24 Disposition: ROUTINE DISCHARGE Discharge Condition: FAIR Reason for Admission: chest pain - Problems (1) Anxiety Status: Acute (2) Chest pain Status: Acute (3) Hypertension Status: Acute Brief History of Present Illness: 79-year-old woman with a history of hypertension presented to the emergency department with a complaint of chest pain which occurred at rest, nonradiating, no relieving or aggravating factors. Patient reported feeling anxious prior to the onset of the chest pain. She has a history of chronic neck and shoulder pain. She also reported a negative stress test prior to her orthopedic surgery about 1 year ago In the ED ekg done showed no ischemic changes and chest x-ray was unremarkable unremarkable. Patient was hospitalized for ACS rule out. Hospital Course: Patient was placed under observation on the medical floor, troponin trended negative. Patient noted to have reproducible chest wall pain on palpation. Patient chest pain. Atypical and associated with anxiety. Patient seen and evaluated by cardiology. Patient stated she prefers to continue cardiac workup as outpatient. 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 Vital Signs/Physical Exam: Temp Pulse Resp BP Pulse Ox 97.8 F 83 16 157/75 H 95 04/14/24 04:00 04/14/24 04:00 04/14/24 04:00 04/14/24 04:00 04/14/24 04:00 General: Alert, In no apparent distress, Oriented x3 HEENT: Mucous membr. moist/pink Neck: Supple, JVD not distended Respiratory: Clear to auscultation bilaterally, Normal air movement Cardiovascular: No edema, Regular rate/rhythm, Normal S1 S2 Gastrointestinal: Normal bowel sounds, Soft and benign, Non-distended, No tenderness Musculoskeletal: No swelling Integumentary: No rashes, No cyanosis Neurological: Normal speech, Normal strength at 5/5 x4 extr Laboratory Data at Discharge: WBC 6.80 thou/uL (4.3-10.9) 04/13/24 15:36 Hgb 12.7 g/dL (12.0-15.0) 04/13/24 15:36 Hct 39.8 % (36.0-45.0) 04/13/24 15:36 Plt Count 347 thou/uL (152-406) 09/03/24 15:36 Sodium 137 mEq/L (136-145) 04/13/24 16:22 Potassium 4.6 mEq/L (3.5-5.1) 04/13/24 16:22 BUN 13 mg/dL (7-18) 04/13/24 16:22 Creatinine 0.85 mg/dL (0.55-1.02) 04/13/24 16:22 Glucose 149 mg/dL (74-106) H 04/13/24 16:22 Magnesium 2.1 mg/dL (1.6-2.4) 04/13/24 16:22 Total Bilirubin 0.4 mg/dL (0.2-1.0) 04/13/24 16:22 AST 20 U/L (15-37) 04/13/24 16:22 ALT 23 U/L (13-56) 04/13/24 16:22 Alkaline Phosphatase 92 U/L (45-117) 04/13/24 16:22 Triglycerides 72 mg/dL (<150) 04/14/24 00:30 Cholesterol 199 mg/dL (<200) 04/14/24 00:30 HDL Cholesterol 85 mg/dL (40-60) H 04/14/24 00:30 Cholesterol/HDL Ratio 2.34 04/14/24 00:30 Home Medications: Omeprazole [Prilosec] 1 cap PO 30 MIN BEFORE HS 02/24/22 Rosuvastatin Calcium 20 mg PO BEDTIME 02/24/22 Amlodipine [Norvasc*] 1 tab PO DAILY 10/30/23 Buspirone HCl 7.5 mg PO BID 10/30/23 Duloxetine HCl [Cymbalta] 2 tab PO DAILY 10/30/23 Losartan Potassium [Cozaar*] 2 tab PO DAILY 10/30/23 Oxycodone HCl/Acetaminophen [Oxycodone-Acetaminophen 10-325] 1 tab PO TID PRN 10/30/23 Cholecalciferol (Vitamin D3) [Vitamin D3] 50 mcg PO DAILY 11/03/23 Lactobacillus Acidophilus [Probiotic Acidophilus] 1 each PO DAILY 11/03/23 Sennosides/Docusate Sodium [Stool Softener-Stim Lax Softgl] 1 each PO DAILY PRN 11/03/23 Alprazolam [Xanax] 0.5 mg PO TID PRN 03/20/24 Alprazolam [Xanax] 1 tab PO PRN PRN 03/21/24 Metoprolol Succinate [Toprol Xl*] 50 mg PO DAILY 03/21/24 Mirtazapine 15 mg PO BEDTIME 03/21/24 Aspirin [Aspirin EC 81 MG] 81 mg PO DAILY #30 tab 04/14/24 New Medications: Aspirin [Aspirin EC 81 MG] 81 mg PO DAILY #30 tab Diet: AHA Activity: Fall precautions Followup: Priyank Kline DO [Primary Care Provider] - Catrachito Pat MD [ACTIVE - CAN ADMIT] - 1 Week (For chest pain work up) Time spent managing pt's care (in minutes): 27
[2024-04-14] MEDS: DOCUSATE NA 100 MG CAP PO SCH (08:56)
[2024-04-14] MEDS: ENOXAPARIN 40 MG/0.4 ML SQ SCH (08:56)
[2024-04-14] MEDS: ASPIRIN EC 81 MG TAB PO SCH (08:56)
[2024-04-14 09:54] VITALS: BP 143/65; TEMP 97.6
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
--- NOTE | 2024-04-14 12:09 | EKG ---
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
== END 2024-04-14 10:57 | disposition home or self-care (01) ==
LOC: ER 14:13 → 2ND 21:06
PROVIDERS: ADMIT Internal Medicine; ATTEND Internal Medicine
DX: F41.9 Anxiety disorder, unspecified (principal); R07.89 Other chest pain; M54.2 Cervicalgia; I10 Essential (primary) hypertension; M19.90 Unspecified osteoarthritis, unspecified site
CPT/HCPCS: 93005; 85025; 80048; 36415; 83735; 80061; 82947 ×2; 80076; 84484 ×3; 71045; 99285; J1650; G0378

== ENCOUNTER 2024-09-25 19:29 | Inpatient (IN) | payer OTHER, MEDICARE ==
[2024-09-25] MEDS ORDERED: ALBUTEROL 2.5 MG/3 ML NEB SOL ONE ×2 (19:41→19:49)
[2024-09-25] MEDS ORDERED: ACETAMINOPHEN 500 MG TAB ONE (19:42)
[2024-09-25] MEDS ORDERED: IPRATROPIUM BROM 0.5MG/2.5ML ONE ×2 (19:42→19:49)
[2024-09-25 20:05] LABS: Absolute Eosinophils 0.1 K/uL (0-0.5); Absolute Lymphocytes (CBC) 0.3 K/uL (0.7-4.9); Absolute Monocytes 0.6 K/uL (0.1-1.3); Absolute Neutrophil 6.8 K/uL (1.8-8.0); Basophils % 0.2 % (0-1.3); Eosinophils % 0.9 % (0-4.4); Hematocrit 37.8 % (36.0-45.0); Hemoglobin 12.5 g/dL (12.0-15.0); Lymphocytes % 3.9 % (15.3-44.8); MCH 32.4 pg (27.0-35.0); MCHC 33.1 g/dL (32.0-36.0); MCV 97.8 fL (80-100); MPV 7.6 fL (7.6-11.3); Monocytes % 8.1 % (3.3-12.3); Neutrophils % 86.9 % (41.7-73.7); Nucleated Red Blood Cells % 0.1 % (0-0); Platelets 199 thou/uL (152-406); RBC Red Blood Cell Count 3.87 M/uL (3.86-4.86)
[2024-09-25 20:14] LABS: PT Prothrombin Time 10.9 SECONDS (9.4-12.5); PTT, Activated Partial Thromb 34.2 SECONDS (24.3-36.9); Protime INR 1.04
[2024-09-25 20:25] LABS: Albumin 3.6 g/dL (3.4-5.0); Albumin/Globulin Ratio 0.9 (1.1-1.8); Anion Gap 9.6 mEq/L (5.0-15.0); Bilirubin Total 0.5 mg/dL (0.2-1.0); Globulin 3.9 g/dL (2.3-3.5); Potassium 3.6 mEq/L (3.5-5.1); Protein, Total 7.5 g/dL (6.4-8.2)
[2024-09-25 20:52] LABS: SARS-CoV-2 Antigen CONTROL BLUE LINE VIS/BG OK; SARS-CoV-2 Antigen Rapid Res Negative (Negative)
[2024-09-25] MEDS ORDERED: OSELTAMIVIR 75 MG CAP PO ONE (21:07)
[2024-09-25 21:14] LABS: Band Neutrophils 19 % (0-1); Differential Total Cells Count 100; Lymphocytes 8 % (15-42); Monocytes 3 % (0-10); Segmented Neutrophils 69 % (40-80)
[2024-09-25 21:15] LABS: Blood Morphology Comment NOT SEEN (NOT SEEN); Platelet Estimate ADEQ
--- NOTE | 2024-09-25 21:17 | ER ---
Nurse's Notes [facility] Name: Catie Ojeda Age: 79 yrs Sex: Female : 1945 Arrival Date: 09/25/2024 Time: 19:29 Bed 4 Private MD: Diagnosis: Influenza due to identified novel influenza A virus;Hypoxemia Presentation: 09/25 19:32 Chief complaint: Patient states: c/o SOB, CP, back pain, cough, nasal congestion and al5 drainage since yesterday. Coronavirus screen: congestion, cough unrelated to allergies, runny nose, shortness of breath. Ebola Screen: No symptoms or risks identified at this time. Initial Sepsis Screen: Does the patient meet any 2 criteria? HR > 90 bpm. No. Patient's initial sepsis screen is negative. Does the patient have a suspected source of infection? No. Patient's initial sepsis screen is negative. Risk Assessment: Do you want to hurt yourself or someone else? Patient reports no desire to harm self or others. Note niece just returned from a cruise and came back with same exact symptoms, niece was cleaning her house yesterday. Onset of symptoms was September 24, 2024. Care prior to arrival: 4L nasal cannula. 19:32 Method Of Arrival: EMS: [facility] al5 19:32 Acuity: SAMANTHA 2 al5 Triage Assessment: 19:36 General: Appears in no apparent distress. comfortable, Behavior is calm, cooperative. al5 Pain: Complains of pain in back and chest. EENT: No signs and/or symptoms were reported regarding the EENT system. Neuro: Level of Consciousness is awake, alert, obeys commands, Oriented to person, place, time, situation. Cardiovascular: Capillary refill < 3 seconds Patient's skin is warm and dry. Rhythm is sinus tachycardia. Respiratory: Airway is patent Respiratory effort is even, unlabored, Respiratory pattern is regular, symmetrical, Breath sounds are clear bilaterally. GI: No signs and/or symptoms were reported involving the gastrointestinal system. Abdomen is flat, non-distended. : No signs and/or symptoms were reported regarding the genitourinary system. Derm: Skin is intact, Skin is pink, warm \T\ dry. normal. Musculoskeletal: No signs and/or symptoms reported regarding the musculoskeletal system. Historical: - Allergies: 19:35 No Known Allergies; al5 - PMHx: 19:35 Chronic pain; GERD; Hyperlipidemia; Hypertension; al5 - PSHx: 19:35 Right hip replacement; al5 - Immunization history:: Adult Immunizations up to date. - Infectious Disease History:: Denies. - Social history:: Smoking status: Patient denies any tobacco usage or history of. Screenin:36 [facility] ED Fall Risk Assessment (Adult) History of falling in the last 3 months, al5 including since admission No falls in past 3 months (0 pts) Confusion or Disorientation No (0 pts) Intoxicated or Sedated No (0 pts) Impaired Gait No (0 pts) Mobility Assist Device Used No (0 pt) Altered Elimination No (0 pt) Score/Fall Risk Level 0 - 2 = Low Risk Oriented to surroundings, Maintained a safe environment, Hourly rounding (assess needs \T\ fall precautionary measures) done. Abuse screen: Denies threats or abuse. Denies injuries from another. Nutritional screening: No deficits noted. Tuberculosis screening: No symptoms or risk factors identified. Assessment: 19:39 Reassessment: see triage assessment. al5 19:40 Pain: Pain does not radiate. Pain began 1 day ago. al5 21:01 Reassessment: Patient appears in no apparent distress at this time. Patient and/or bm8 family updated on plan of care and expected duration. Pain level reassessed. Patient is alert, oriented x 3, equal unlabored respirations, skin warm/dry/pink. Patient states feeling better. Patient states symptoms have improved. 21:59 Reassessment: No changes from previously documented assessment. Patient and/or family bm8 updated on plan of care and expected duration. Pain level reassessed. Patient is alert, oriented x 3, equal unlabored respirations, skin warm/dry/pink. Patient states feeling better. Patient states symptoms have improved. Vital Signs: 19:32 BP 139 / 73; Pulse 115; Resp 20; Temp 99.3; Pulse Ox 92% on R/A; Weight 70.31 kg; al5 Height 5 ft. 6 in. ; 20:55 BP 135 / 69; Pulse 124; Resp 18; Pulse Ox 96% 2 lpm ; oh1 21:59 BP 133 / 73; Pulse 77; Resp 18; Temp 99.3; Pulse Ox 96% on 2 lpm NC; Pain 0/10; bm8 19:32 Body Mass Index 25.02 (70.31 kg, 167.64 cm) al5 21:59 Pain Scale: Adult bm8 [place] Coma Score: 21:01 Eye Response: spontaneous(4). Motor Response: obeys commands(6). Verbal Response: bm8 oriented(5). Total: 15. 21:59 Eye Response: spontaneous(4). Motor Response: obeys commands(6). Verbal Response: bm8 oriented(5). Total: 15. ED Course: 19:31 Patient arrived in ED. al5 19:33 Yuli Ojeda PA-C is PHCP. sb4 19:33 Kevyn Landaverde MD is Attending Physician. sb4 19:35 Triage completed. al5 19:35 EKG done, by ED staff, reviewed by Yuli Ojeda PA-C. oh1 19:35 Arm band placed on right wrist. Patient placed in the treatment room, on a stretcher, al5 in view of staff members, on oxygen, on site monitor, on pulse oximetry. 19:36 No provider procedures requiring assistance completed. Inserted saline lock: 20 gauge al5 in right antecubital area, using aseptic technique. Blood collected. Flushed with 10 mL NS. Oxygen administration via nasal cannula. 19:38 Frederick Leigh, RN is Primary Nurse. bm8 19:39 Patient has correct armband on for positive identification. Bed in low position. Call al5 light in reach. Side rails up X2. Provided Education on: plan of care. Client placed on continuous cardiac and pulse oximetry monitoring. NIBP monitoring applied. shelter monitor on. 19:45 Initial lab(s) drawn, by ne, sent to lab. First set of blood cultures drawn by me, oh1 Second set of blood cultures drawn by ne. 20:32 RSV Sent. oh1 20:32 Flu Sent. oh1 20:32 SARS RAPID Sent. oh1 20:32 Blood Culture Adult (2) Sent. oh1 20:32 CBC with Diff Sent. oh1 20:57 Manual Differential Sent. oh1 21:13 Prince Liu MD is Hospitalizing Provider. sb4 21:18 Chest Single View XRAY In Process Unspecified. EDMS 22:34 Patient admitted, IV remains in place. bm8 22:34 Provided Education on: need for admission. bm8 Administered Medications: 19:50 Drug: Acetaminophen PO 1000 mg PO once Route: PO; bm8 21:01 Follow up: Response: No adverse reaction bm8 19:50 Drug: DuoNeb Nebulize (3:1) (2.5 mg - 0.5 mg) 3 ml Nebulizer once Route: Nebulizer; bm8 21:01 Follow up: Response: No adverse reaction bm8 21:11 Drug: Oseltamivir PO 75 mg PO once Route: PO; bm8 21:59 Follow up: Response: No adverse reaction bm8 21:41 Drug: NS 0.9% IV 1000 ml IV at 1000 ml once; to be given as a bolus over 60 minutes bm8 Route: IV; Rate: 1000 ml; Site: right antecubital; 22:34 Follow up: Response: No adverse reaction; IV Status: Completed infusion; IV Intake: bm8 1000ml 21:58 Drug: AZITHromycin IVPB 500 mg IVPB once over 1 hrs; (mix in 250 mL NS) Route: IVPB; bm8 Infused Over: 1 hrs; Site: right antecubital; 22:34 Follow up: Response: No adverse reaction; IV Status: Infusion continued upon admission bm8 21:58 Drug: Rocephin IV 1 grams IV at calculated rate once; Given slow IV push per pharmacy bm8 instructions Route: IV; Rate: calculated rate; Site: right antecubital; 22:34 Follow up: Response: No adverse reaction; IV Status: Completed infusion bm8 Medication: 19:36 VIS not applicable for this client. al5 Intake: 22:34 IV: 1000ml; Total: 1000ml. bm8 Outcome: 21:14 Decision to Hospitalize by Provider. sb4 22:33 Admitted to Med/surg accompanied by nurse, accompanied by tech, via stretcher, room bm8 220, with oxygen, 22:33 Condition: stable 22:33 Instructed on follow up and referral plans. the need for admit, no drinking with medication, no driving heavy equipment, medication usage, safety practices, Demonstrated understanding of instructions, follow-up care, medications, 22:35 Patient left the ED. bm8 Signatures: Dispatcher [employer] EDYuli June PA-C PAWendy sb4 Frederick Leigh RN RN bm8 Michelle Lozano RN RN al5 Jessica Peck oh1 Corrections: (The following items were deleted from the chart) 21:58 Rocephin IV 1 grams IV at calculated rate in right forearm bm8 bm8 :59 21:41 NS 0.9% IV 1000 ml IV at 1000 ml in right forearm bm8 bm8
--- NOTE | 2024-09-25 21:17 | EDPHYS ---
Physician Documentation [facility] Name: Catie Ojeda Age: 79 yrs Sex: Female : 1945 Arrival Date: 09/25/2024 Time: 19:29 Bed 4 Private MD: ED Physician Kevyn Landaverde HPI: 09/25 19:57 This 79 yrs old Female presents to ER via EMS with complaints of Flu Symptoms, Chest sb4 Pain, Shortness Of Breath. 19:57 flu like symptoms began yesterday after being exposed to flu- painful cough, sb4 congestion, shortness of breath. started feeling worse today so called EMS, was found to be hypoxic and placed on O2. denies any respiratory disease. Historical: - Allergies: 19:35 No Known Allergies; al5 - PMHx: 19:35 Chronic pain; GERD; Hyperlipidemia; Hypertension; al5 - PSHx: 19:35 Right hip replacement; al5 - Immunization history:: Adult Immunizations up to date. - Infectious Disease History:: Denies. - Social history:: Smoking status: Patient denies any tobacco usage or history of. ROS: 20:00 Abdomen/GI: Negative for abdominal pain, nausea, vomiting, diarrhea, and constipation, sb4 20:00 Constitutional: Positive for fatigue, fever, malaise, 20:00 Cardiovascular: Positive for chest pain, 20:00 Respiratory: Positive for shortness of breath, 20:00 All other systems are negative, Exam: 20:00 Head/Face: Normocephalic, atraumatic. Eyes: Extra-ocular motions intact. Periorbital sb4 areas with no swelling, redness, or edema. ENT: Mucous membranes moist. Cardiovascular: Regular rate and rhythm with a normal S1 and S2. Respiratory: No increased work of breathing, no retractions or nasal flaring. Abdomen/GI: Soft, non-tender, no distension. Skin: Warm, dry with normal turgor. Normal color with no rashes, no lesions, and no evidence of cellulitis. 20:00 Constitutional: The patient appears alert, awake, uncomfortable, 20:00 Respiratory: Breath sounds: are clear throughout, Vital Signs: 19:32 BP 139 / 73; Pulse 115; Resp 20; Temp 99.3; Pulse Ox 92% on R/A; Weight 70.31 kg; al5 Height 5 ft. 6 in. ; 20:55 BP 135 / 69; Pulse 124; Resp 18; Pulse Ox 96% 2 lpm ; oh1 21:59 BP 133 / 73; Pulse 77; Resp 18; Temp 99.3; Pulse Ox 96% on 2 lpm NC; Pain 0/10; bm8 19:32 Body Mass Index 25.02 (70.31 kg, 167.64 cm) al5 21:59 Pain Scale: Adult bm8 [place] Coma Score: 21:01 Eye Response: spontaneous(4). Motor Response: obeys commands(6). Verbal Response: bm8 oriented(5). Total: 15. 21:59 Eye Response: spontaneous(4). Motor Response: obeys commands(6). Verbal Response: bm8 oriented(5). Total: 15. MDM: 19:33 Medical Screening Exam initiated sb4 21:13 Data reviewed: vital signs, nurses notes, EMS record, lab test result(s), EKG, sb4 radiologic studies, and as a result, I will admit patient. Consideration of Admission/Observation Patient was admitted/placed on observation. Counseling: I had a detailed discussion with the patient and/or guardian regarding the historical points, exam findings, and any diagnostic results supporting the discharge/admit diagnosis, lab results, radiology results, the need for further work-up and treatment in the hospital. 09/25 19:37 Order name: Blood Culture Adult (2) 4 09/25 19:37 Order name: CBC with Diff; Complete Time: 21:20 4 09/25 19:37 Order name: CMP; Complete Time: 20:30 4 09/25 19:37 Order name: Lactate w/ 2H reflex if indic.; Complete Time: 20:21 4 09/25 19:37 Order name: Protime (+inr); Complete Time: 20:19 sb4 09/25 19:37 Order name: Ptt, Activated; Complete Time: 20:19 sb4 09/25 19:37 Order name: SARS RAPID; Complete Time: 20:54 sb4 09/25 19:37 Order name: Flu; Complete Time: 20:54 4 09/25 19:37 Order name: RSV; Complete Time: 20:54 [facility] 09/25 20:17 Order name: Manual Differential; Complete Time: 21:20 EDMS 09/25 21:28 Order name: Lactate w/ 2H reflex if indic. EDMS 09/25 21:28 Order name: Magnesium EDDC 09/25 21:28 Order name: NT PRO-BNP EDDC 09/25 21:28 Order name: Phosphorus EDDC 09/25 21:28 Order name: Urinalysis w/ reflexes EDMS 09/25 21:28 Order name: Basic Metabolic Panel EDDC 09/25 21:28 Order name: Basic Metabolic Panel EDDC 09/25 21:28 Order name: CBC with Automated Diff EDMS 09/25 21:28 Order name: CBC with Automated Diff EDMS 09/25 21:28 Order name: Lipid Profile EDDC 09/25 21:28 Order name: Lipid Profile EDDC 09/25 21:28 Order name: Troponin High Sensitivity EDDC 09/25 21:28 Order name: Troponin High Sensitivity EDDC 09/25 21:28 Order name: Troponin High Sensitivity EDDC 09/25 21:28 Order name: Troponin High Sensitivity EDDC 09/25 21:36 Order name: D-Dimer EDDC 09/25 19:37 Order name: Chest Single View XRAY; Complete Time: 21:40 sb4 09/25 19:37 Order name: Cardiac monitoring; Complete Time: 19:40 sb4 09/25 19:37 Order name: EKG - Nurse/Tech; Complete Time: 19:40 sb4 09/25 19:37 Order name: IV Saline Lock - Large Bore; Complete Time: 19:40 sb4 09/25 19:37 Order name: Labs collected and sent; Complete Time: 19:40 sb4 09/25 19:37 Order name: O2 Per Protocol; Complete Time: 19:40 sb4 09/25 19:37 Order name: O2 Sat Monitoring; Complete Time: 19:40 sb4 09/25 19:37 Order name: Vital Signs; Complete Time: 19:51 sb4 EC:38 Rate is 116 beats/min. Rhythm is regular, Sinus tachycardia. Left axis deviation noted. sb4 ND interval is normal at 170 msec. QRS interval is normal at 82 msec. QT interval is normal at 318 msec. No Q waves. T waves are Normal. No ST changes noted. Clinical impression: No evidence of ischemia. Administered Medications: 19:50 Drug: Acetaminophen PO 1000 mg PO once Route: PO; bm8 21:01 Follow up: Response: No adverse reaction bm8 19:50 Drug: DuoNeb Nebulize (3:1) (2.5 mg - 0.5 mg) 3 ml Nebulizer once Route: Nebulizer; bm8 21:01 Follow up: Response: No adverse reaction bm8 21:11 Drug: Oseltamivir PO 75 mg PO once Route: PO; bm8 21:59 Follow up: Response: No adverse reaction bm8 21:41 Drug: NS 0.9% IV 1000 ml IV at 1000 ml once; to be given as a bolus over 60 minutes bm8 Route: IV; Rate: 1000 ml; Site: right antecubital; 22:34 Follow up: Response: No adverse reaction; IV Status: Completed infusion; IV Intake: bm8 1000ml 21:58 Drug: AZITHromycin IVPB 500 mg IVPB once over 1 hrs; (mix in 250 mL NS) Route: IVPB; bm8 Infused Over: 1 hrs; Site: right antecubital; 22:34 Follow up: Response: No adverse reaction; IV Status: Infusion continued upon admission bm8 21:58 Drug: Rocephin IV 1 grams IV at calculated rate once; Given slow IV push per pharmacy bm8 instructions Route: IV; Rate: calculated rate; Site: right antecubital; 22:34 Follow up: Response: No adverse reaction; IV Status: Completed infusion bm8 Disposition: 09/26 08:45 Co-signature as Attending Physician, Kevyn Landaverde MD I agree with the assessment and jamison plan of care. Disposition Summary: 09/25/24 21:14 Hospitalization Ordered Notes: Hospitalization Status: Inpatient Admission sb4 Provider: Prince Alexa [facility] sb4 Condition: Fair sb4 Problem: new sb4 Symptoms: are unchanged sb4 Bed/Room Type: Standard sb4 Room Assignment: 220(09/25/24 21:58) vk Diagnosis - Influenza due to identified novel influenza A virus sb4 - Hypoxemia sb4 Forms: - Medication Reconciliation Form sb4 - SBAR form sb4 - Leadership Thank You Letter sb4 Signatures: Dispatcher [employer] Kevyn Donato MD MD cha Brown, Sophia, PA-C PA-C sb4 Love Darling Brad, RN RN bm8 Michelle Lozano RN RN al5 Corrections: (The following items were deleted from the chart) 09/25 19:38 19:37 Yanira ordered. sb4 bm8 21:58 21:14 sb4 vk
--- NOTE | 2024-09-25 21:30 | P.HP ---
Certification for Inpatient Patient admitted to: Inpatient With expected LOS: >2 Midnights Practitioner: I am a practitioner with admitting privileges, knowledge of patient current condition, hospital course, and medical plan of care. Services: Services provided to patient in accordance with Admission requirements found in Title 42 Section 412.3 of the Code of Federal Regulations Patient History Date of Service: 09/25/24 Reason for admission: Shortness of breath History of Present Illness: Patient is a 79 year old female with a PMH of HTN. She presents with flu-like symptoms manifested by chest pain and shortness of breath. She tested positive for Influenza A. She also reports pleuritic chest pain and chest congestion. She called EMS as her symptoms worsen. She arrived hypoxic in the ER. CXR showed LLL infiltrations. She is on 2L of supplemental O2. Allergies No Known Allergies Allergy (Verified 04/13/24 21:56) Home Medications: Omeprazole [Prilosec] 1 cap PO 30 MIN BEFORE HS 02/24/22 Rosuvastatin Calcium 20 mg PO BEDTIME 02/24/22 Amlodipine [Norvasc*] 1 tab PO DAILY 10/30/23 Buspirone HCl 7.5 mg PO BID 10/30/23 Duloxetine HCl [Cymbalta] 2 tab PO DAILY 10/30/23 Losartan Potassium [Cozaar*] 2 tab PO DAILY 10/30/23 Oxycodone HCl/Acetaminophen [Oxycodone-Acetaminophen 10-325] 1 tab PO TID PRN 0 10/30/23 Cholecalciferol (Vitamin D3) [Vitamin D3] 50 mcg PO DAILY 11/03/23 Lactobacillus Acidophilus [Probiotic Acidophilus] 1 each PO DAILY 11/03/23 Sennosides/Docusate Sodium [Stool Softener-Stim Lax Softgl] 1 each PO DAILY PRN 11/03/23 Alprazolam [Xanax] 0.5 mg PO TID PRN 03/20/24 Alprazolam [Xanax] 1 tab PO PRN PRN 03/21/24 Metoprolol Succinate [Toprol Xl*] 50 mg PO DAILY 03/21/24 Mirtazapine 15 mg PO BEDTIME 03/21/24 Aspirin [Aspirin EC 81 MG] 81 mg PO DAILY #30 tab 04/14/24 - Past Medical/Surgical History Diabetic: No -: arthritis -: htn -: fall -: left shoulder arthroplasty -: ravinder hip replacement -: cataract sx ravinder - Social History Alcohol use: No CD- Drugs: No Caffeine use: Yes Physical Examination - Physical Exam General: Acute distress HEENT: Atraumatic, Normocephalic Respiratory: Diminished Cardiovascular: No edema, Normal pulses, Regular rate/rhythm Neurological: Normal speech - Studies Laboratory Data (last 24 hrs) 09/25/24 09/25/24 09/25/24 19:30 19:30 19:30 WBC 7.80 Hgb 12.5 Hct 37.8 Plt Count 199 PT 10.9 INR 1.04 APTT 34.2 Sodium 137 Potassium 3.6 BUN 14 Creatinine 1.04 H Glucose 111 H Total Bilirubin 0.5 AST 29 ALT 25 Alkaline Phosphatase 96 Microbiology Data (last 24 hrs): 09/25/24 19:45 Nasopharnyx Influenza Type A Antigen Screen - Final 09/25/24 19:45 Nasopharnyx Influenza Type B Antigen Screen - Final 09/25/24 19:45 Nasopharnyx Respiratory Syncytial Virus Ag Scrn - Final Assessment and Plan - Problems (Diagnosis) (1) Acute hypoxemic respiratory failure Current Visit: Yes Status: Acute (2) Influenza A Current Visit: Yes Status: Acute (3) Anxiety Current Visit: No Status: Acute (4) Generalized weakness Current Visit: No Status: Acute (5) Hypertension Current Visit: No Status: Acute - Plan Assessment Patient is a 79 year old female with a PMH of HTN and anxiety. She is being admitted after she presented with pleuritic chest pain, chest congestion, cough and fever. Patient is hypoxic. She tested for influenza A. Acute hypoxic respiratory failure Community acquired PNA Influenza A HTN Anxiety PLAN: Admit inpatient with telemetry Started on tamiflu, Ceftriaxone and Azithromycin Anti-tussives D-dimer pending Supportive care Resume rest of home medications upon reconciliation - Advance Directives Does patient have a Living Will: No Does patient have a Durable POA for Healthcare: No
--- NOTE | 2024-09-25 21:38 | RAD REPORT ---
EXAMINATION: ONE VIEW CHEST XR CLINICAL INDICATION: Chest pain;Cough TECHNIQUE: Frontal chest projection is submitted. Examination is limited by patient positioning and t echnique. COMPARISON: 04/13/2024 FINDINGS: Emphysematous changes are seen with linear atelectasis in both lung bases. Early infiltrate is possib le left base. The heart is normal in size. Hardware noted in both shoulders. IMPRESSION: Early pneumonia is possible the left base.
[2024-09-25] MEDS ORDERED: NA CHLORIDE 0.9% 1,000 ML ONE (21:39)
[2024-09-25] MEDS ORDERED: SODIUM CHLORIDE 0.9% 10ML INJ IV PRN (21:41)
[2024-09-25] MEDS ORDERED: AZITHROMYCIN 500 MG INJ IVPB ONE (21:52)
[2024-09-25] MEDS ORDERED: CEFTRIAXONE 1000 MG/VIAL ONE (21:52)
[2024-09-25] MEDS ORDERED: ONDANSETRON 4 MG/2 ML VIAL ONE (22:01)
[2024-09-25] MEDS: AZITHROMYCIN IV 500 MG in NA CHLORIDE 0.9% 250 ML IVPB SCH (22:02)
[2024-09-25] MEDS: CEFTRIAXONE 1,000 MG in NA CHLORIDE 0.9% 50 ML IVPB SCH (22:02)
[2024-09-25 23:23] VITALS: BMI 27.4
[2024-09-25] MEDS: NA CHLORIDE 0.9% 1,000 ML IV SCH (23:23)
[2024-09-25] MEDS: BENZONATATE 100 MG CAP PO SCH (23:24)
[2024-09-25] MEDS: PANTOPRAZOLE 40 MG INJ IVP SCH (23:24)
[2024-09-25] MEDS: GUAIFENESIN 600 MG SA TAB PO SCH (23:24)
[2024-09-25] MEDS: OSELTAMIVIR 75 MG CAP PO ONE (23:25)
[2024-09-26 00:09] LABS: Magnesium 1.9 mg/dL (1.6-2.4)
[2024-09-26] MEDS: NA CHLORIDE 0.9% 500 ML IV ONE (01:32)
[2024-09-26 03:52] LABS: Absolute Lymphocytes (CBC) 0.4 K/uL (0.7-4.9); Absolute Monocytes 0.5 K/uL (0.1-1.3); Absolute Neutrophil 5.1 K/uL (1.8-8.0); Basophils % 0.2 % (0-1.3); Hematocrit 31.8 % (36.0-45.0); Hemoglobin 10.5 g/dL (12.0-15.0); Lymphocytes % 6.3 % (15.3-44.8); MCH 32.6 pg (27.0-35.0); MCV 98.9 fL (80-100); MPV 7.8 fL (7.6-11.3); Platelets 175 thou/uL (152-406); RBC Red Blood Cell Count 3.21 M/uL (3.86-4.86); Red Cell Distribution Width 14.8 % (12.1-15.2)
[2024-09-26 03:55] LABS: Neutrophils % 85.5 % (41.7-73.7)
[2024-09-26 04:08] LABS: Anion Gap 8.7 mEq/L (5.0-15.0); Potassium 3.7 mEq/L (3.5-5.1); Troponin High Sensitivity 12.8 pg/mL (<58.9)
[2024-09-26 05:41] LABS: Specific Gravity 1.014 (1.005-1.030); Sqamous Epithelial <5 /HPF (None Seen); Urine Bacteria None Seen /HPF (<20); Urine Bilirubin NEGATIVE (Negative); Urine Blood Negative (Negative); Urine Clarity Turbid (Clear); Urine Color Light-Yellow (Yellow); Urine Culture Reflex Order NOT NEEDED; Urine Glucose NEGATIVE (Negative); Urine Ketones TRACE (Negative); Urine Microscopic Reflex YN ORDER UMIC; Urine Mucus Slight /HPF (None Seen); Urine Nitrite NEGATIVE (Negative); Urine Protein TRACE (Negative); Urine RBC None Seen /HPF (None Seen); Urine Urobilinogen Normal (Normal); Urine WBC <5 /HPF (<5)
[2024-09-26] MEDS: ALBUTEROL 2.5 MG/3 ML NEB SOL NEB PRN (05:55)
[2024-09-26] MEDS: IPRATROPIUM BROM 0.5MG/2.5ML NEB PRN (05:55)
[2024-09-26] MEDS: HYDROMORPHONE HCL 1 MG/ML INJ IV ONE (06:07)
[2024-09-26] MEDS ORDERED: OSELTAMIVIR 75 MG CAP PO SCH (09:00)
[2024-09-26] MEDS: ACETAMINOPHEN 500 MG TAB PO PRN (09:25)
[2024-09-26] MEDS: ENOXAPARIN 40 MG/0.4 ML SQ SCH (09:28)
[2024-09-26] MEDS: OSELTAMIVIR 30 MG CAP PO SCH (09:29)
[2024-09-26] MEDS ORDERED: ALPRAZOLAM 0.5 MG TABLET PO PRN (11:39)
--- NOTE | 2024-09-26 11:45 | P.PN ---
Subjective Date of Service: 09/26/24 Chief Complaint: Influenza A infection Patient is not doing well she has been complaining of shortness of breath cough congestion the past 2 days Review of Systems General: Weakness Respiratory: Cough, Shortness of Breath Physical Examination - Vital Signs Temperature: 98.3 F Blood Pressure: 150/81 Pulse: 109 Respirations: 16 Pulse Ox (%): 90 - Physical Exam General: Alert, Oriented x3 Respiratory: Clear to auscultation bilaterally Cardiovascular: No edema, Regular rate/rhythm, Normal S1 S2 Gastrointestinal: Normal bowel sounds, Soft and benign - Studies Laboratory Data (last 24 hrs) 09/25/24 09/25/24 09/25/24 19:30 19:30 19:30 WBC 7.80 Hgb 12.5 Hct 37.8 Plt Count 199 PT 10.9 INR 1.04 APTT 34.2 Sodium 137 Potassium 3.6 BUN 14 Creatinine 1.04 H Glucose 111 H Total Bilirubin 0.5 AST 29 ALT 25 Alkaline Phosphatase 96 Microbiology Data (last 24 hrs): 09/25/24 19:45 Nasopharnyx Influenza Type A Antigen Screen - Final 09/25/24 19:45 Nasopharnyx Influenza Type B Antigen Screen - Final 09/25/24 19:45 Nasopharnyx Respiratory Syncytial Virus Ag Scrn - Final Assessment And Plan - Current Problems (Diagnosis) (1) Influenza A Current Visit: Yes Status: Acute Plan: Patient is 79 years of age has a history of hypertension admitted with acute onset of illness shortness of breath cough congestion smoke no prior history of cardiopulmonary problems toxic current steroids patient is on Tamiflu bronchodilators to p.o. doxycycline continue to monitor labs reviewed
[2024-09-26] MEDS: BUSPIRONE HCL 15 MG TABLET PO SCH (12:52)
[2024-09-26] MEDS: predniSONE 20 MG TAB PO SCH (12:53)
[2024-09-26] MEDS: IPRATROPIUM BROM 0.5MG/2.5ML NEB SCH (13:03)
[2024-09-26] MEDS: ARFORMOTEROL TARTRATE 15 MCG/2 ML VIAL.NEB NEB SCH (13:03)
[2024-09-26] MEDS: Oxycodone HCl/Acetaminophen 5/325 MG TAB PO PRN (14:02)
[2024-09-26] MEDS: MIRTAZAPINE 15 MG TAB PO SCH (20:08)
[2024-09-26] MEDS: ZOLPIDEM TARTRATE 10 MG TABLET PO PRN (20:08)
[2024-09-26] MEDS: AMOX/K CLAV 875 MG TAB PO SCH (20:08)
[2024-09-26] MEDS: ONDANSETRON 4 MG/2 ML VIAL IV PRN (21:17)
[2024-09-27] MEDS: IPRATROPIUM BROM 0.5MG/2.5ML ONE ×2 (01:31→20:31)
[2024-09-27 05:33] LABS: Absolute Lymphocytes (CBC) 1.1 K/uL (0.7-4.9); Absolute Monocytes 0.4 K/uL (0.1-1.3); Absolute Neutrophil 4.2 K/uL (1.8-8.0); Basophils % 0.3 % (0-1.3); Hematocrit 34.6 % (36.0-45.0); Hemoglobin 11.5 g/dL (12.0-15.0); Lymphocytes % 19.9 % (15.3-44.8); MCH 32.7 pg (27.0-35.0); MCHC 33.3 g/dL (32.0-36.0); MCV 98.4 fL (80-100); MPV 7.8 fL (7.6-11.3); Monocytes % 6.1 % (3.3-12.3); Neutrophils % 73.7 % (41.7-73.7); Nucleated Red Blood Cells % 0.1 % (0-0); Platelets 211 thou/uL (152-406); RBC Red Blood Cell Count 3.51 M/uL (3.86-4.86); Red Cell Distribution Width 14.8 % (12.1-15.2)
--- NOTE | 2024-09-27 08:18 | RAD REPORT ---
EXAMINATION: ONE VIEW CHEST XR CLINICAL INDICATION: Female, 79 years old.,Influenza infection TECHNIQUE: Frontal chest projection is submitted. Examination is limited by patient positioning and t echnique. COMPARISON: 09/25/2024 FINDINGS: The lungs are well inflated and clear. No pneumothorax or sizable effusion. The heart is normal in s ize. Mediastinal contours are unremarkable. IMPRESSION: No acute intrathoracic abnormalities.
[2024-09-27] MEDS: ASPIRIN EC 81 MG TAB PO SCH (08:41)
[2024-09-27] MEDS: LOSARTAN POTASSIUM 50 MG TABLET PO SCH (08:42)
[2024-09-27] MEDS: DULOXETINE 30 MG CAP PO SCH (08:42)
[2024-09-27] MEDS: AMLODIPINE 10 MG TAB PO SCH (08:42)
[2024-09-27] MEDS: METOPROLOL XL 50 MG TAB PO SCH (08:42)
[2024-09-27] MEDS: ARFORMOTEROL TARTRATE 15 MCG/2 ML VIAL.NEB ONE (20:31)
[2024-09-27] MEDS: METOCLOPRAMIDE 10 MG/2mL INJ IV ONE (21:57)
[2024-09-28] MEDS: HYDRALAZINE HCL 20 MG/ML VIAL IV PRN (05:33)
[2024-09-28 09:16] VITALS: O2SAT 96
[2024-09-28 12:14] VITALS: BP 142/82; TEMP 97.4
--- NOTE | 2024-10-04 12:41 | EKG ---
Test Date: 2024-09-25 Test Time: 19:33:34 [employer]: FAISAL MEASUREMENT RESULTS: Intervals: Rate: 116 MI: 170 QRSD: 82 QT: 318 QTc: 442 [place]: P: 67 MI: 170 QRS: -44 T: 71 INTERPRETIVE STATEMENTS: Sinus tachycardia Left axis deviation Low voltage QRS Possible Lateral infarct, age undetermined Abnormal ECG Compared to ECG 04/13/2024 14:25:59 Left-axis deviation now present Myocardial infarct finding now present Sinus rhythm no longer present Left anterior fascicular block no longer present Electronically Signed On 10-04-24 12:22:07 [employer] by Catrachito Pat
--- NOTE | 2024-10-21 14:21 | P.PN ---
Subjective Date of Service: 09/27/24 Patient respiratory status is improved. Denies any new complaints. Review of Systems 10-point ROS is otherwise unremarkable Physical Examination - Vital Signs Temperature: 97.4 F Blood Pressure: 142/82 Pulse: 78 Respirations: 16 Pulse Ox (%): 96 - Physical Exam General: Alert, In no apparent distress, Oriented x3 Respiratory: Diminished, Expiratory wheezes Cardiovascular: Regular rate/rhythm, Normal S1 S2, No murmurs Gastrointestinal: Normal bowel sounds, Soft and benign, Non-distended, No tenderness Neurological: Sensation intact, Cranial nerves 3-12 intact - Studies Medications List Reviewed: Yes Assessment & Plan - Problems (Diagnosis) (1) Acute hypoxemic respiratory failure Status: Acute (2) Hypertension Status: Acute (3) Influenza A Status: Acute - Plan Plan: 1. Continue with Tamiflu and neb treatments. Continue with steroids as needed 2. Antitussives 3. O2 per protocol 4. GI DVT prophylaxis Discharge Plan: Home Plan to discharge in: Greater than 2 days - Advance Directives Does patient have a Living Will: No Does patient have a Durable POA for Healthcare: No - Code Status/Comfort Care Code Status Assessed: Yes Code Status: Full Code Critical Care: No Time Spent Managing PTS Care (In Minutes): 35
--- NOTE | 2024-10-21 14:22 | P.DS ---
Discharge Date: 09/28/24 Disposition: ROUTINE DISCHARGE Discharge Condition: GOOD Reason for Admission: Influenza A infection - Problems (1) Acute hypoxemic respiratory failure Status: Acute (2) Hypertension Status: Acute (3) Influenza A Status: Acute Brief History of Present Illness: Patient is a 79 year old female with a PMH of HTN. She presents with flu-like symptoms manifested by chest pain and shortness of breath. She tested positive for Influenza A. She also reports pleuritic chest pain and chest congestion. She called EMS as her symptoms worsen. She arrived hypoxic in the ER. CXR showed LLL infiltrations. She is on 2L of supplemental O2. Hospital Course: Patient doing well. Patient denies any new complaints. Respiratory status has improved. At this time, patient is stable for discharge home. Vital Signs/Physical Exam: Temp Pulse Resp BP Pulse Ox 97.4 F 78 16 142/82 H 96 10/21/24 14:21 10/21/24 14:21 10/21/24 14:21 10/21/24 14:21 10/21/24 14:21 General: Alert, In no apparent distress, Oriented x3 Laboratory Data at Discharge: WBC 5.70 thou/uL (4.3-10.9) 09/27/24 05:02 Hgb 11.5 g/dL (12.0-15.0) L D 09/27/24 05:02 Hct 34.6 % (36.0-45.0) L 09/27/24 05:02 Plt Count 211 thou/uL (152-406) 09/27/24 05:02 PT 10.9 SECONDS (9.4-12.5) 09/25/24 19:30 INR 1.04 09/25/24 19:30 APTT 34.2 SECONDS (24.3-36.9) 09/25/24 19:30 Sodium 141 mEq/L (136-145) 09/26/24 03:05 Potassium 3.7 mEq/L (3.5-5.1) 09/28/24 08:46 BUN 12 mg/dL (7-18) 09/26/24 03:05 Creatinine 0.89 mg/dL (0.55-1.02) 09/26/24 03:05 Glucose 118 mg/dL (74-106) H 09/26/24 03:05 Phosphorus 4.0 mg/dL (2.5-4.9) 09/25/24 23:23 Magnesium 1.9 mg/dL (1.6-2.4) 09/25/24 23:23 Total Bilirubin 0.5 mg/dL (0.2-1.0) 09/25/24 19:30 AST 29 U/L (15-37) 09/25/24 19:30 ALT 25 U/L (13-56) 09/25/24 19:30 Alkaline Phosphatase 96 U/L (45-117) 09/25/24 19:30 Triglycerides 54 mg/dL (<150) 09/26/24 03:05 Cholesterol 157 mg/dL (<200) 09/26/24 03:05 HDL Cholesterol 82 mg/dL (40-60) H 09/26/24 03:05 Cholesterol/HDL Ratio 1.91 09/26/24 03:05 Home Medications: Omeprazole [Prilosec] 1 cap PO 30 MIN BEFORE HS 02/24/22 Rosuvastatin Calcium 20 mg PO BEDTIME 02/24/22 Amlodipine [Norvasc*] 1 tab PO DAILY 10/30/23 Buspirone HCl 7.5 mg PO TID 10/30/23 Duloxetine HCl [Cymbalta] 2 tab PO DAILY 10/30/23 Losartan Potassium [Cozaar*] 2 tab PO DAILY 10/30/23 Oxycodone HCl/Acetaminophen [Oxycodone-Acetaminophen 10-325] 1 tab PO TID PRN 10/30/23 Cholecalciferol (Vitamin D3) [Vitamin D3] 50 mcg PO DAILY 11/03/23 Lactobacillus Acidophilus [Probiotic Acidophilus] 1 each PO DAILY 11/03/23 Sennosides/Docusate Sodium [Stool Softener-Stim Lax Softgl] 1 each PO DAILY PRN 11/03/23 Alprazolam [Xanax] 0.5 mg PO TID PRN 03/20/24 Metoprolol Succinate [Toprol Xl*] 50 mg PO DAILY 03/21/24 Mirtazapine 15 mg PO BEDTIME 03/21/24 Aspirin [Aspirin EC 81 MG] 81 mg PO DAILY #30 tab 04/14/24 Zolpidem Tartrate [Ambien] 10 mg PO 09/26/24 Amox/Clavulanate [Augmentin 875-125 Tab*] 875 mg PO BID #14 tab 09/28/24 Arformoterol Tartrate [Brovana] 15 mcg NEB BIDRESP #60 vial.neb 09/28/24 Ipratropium Neb [Atrovent*] 0.5 mg NEB Q12HR #60 amp 09/28/24 Oseltamivir Phosphate [Tamiflu] 30 mg PO BID #6 cap 09/28/24 predniSONE [Prednisone*] 20 mg PO BID #11 tab 09/28/24 New Medications: Ipratropium Neb [Atrovent*] 0.5 mg NEB Q12HR #60 amp Amox/Clavulanate [Augmentin 875-125 Tab*] 875 mg PO BID #14 tab Arformoterol Tartrate [Brovana] 15 mcg NEB BIDRESP #60 vial.neb predniSONE [Prednisone*] 20 mg PO BID #11 tab Oseltamivir Phosphate [Tamiflu] 30 mg PO BID #6 cap Physician Discharge Instructions: -DC IV and DC home -Follow-up with PCP in 1 to 2 weeks -Follow-up with Pulmonary in 1 to 2 weeks -Please call Dr. Vega at [phone] if any questions regarding hospital stay -Please call nursing station at [phone] if any nursing or medication questions -Return to the emergency room if symptoms worsen Diet: AHA Activity: Fall precautions Followup: Judah Laura MD [Primary Care Provider] - Time spent managing pt's care (in minutes): 35
== END 2024-09-28 16:17 | disposition home or self-care (01) | DRG 871 ==
LOC: ER 19:29 → 2ND 21:24
PROVIDERS: ADMIT Internal Medicine; ATTEND Hospitalist
DX: A41.89 Other specified sepsis (principal); J10.00 Influenza due to other identified influenza virus with unspecified type of pneumonia; J96.00 Acute respiratory failure, unspecified whether with hypoxia or hypercapnia; J96.01 Acute respiratory failure with hypoxia; E87.21 Acute metabolic acidosis; N17.9 Acute kidney failure, unspecified; R65.20 Severe sepsis without septic shock; G89.4 Chronic pain syndrome; E78.5 Hyperlipidemia, unspecified; M19.90 Unspecified osteoarthritis, unspecified site; I10 Essential (primary) hypertension; F41.9 Anxiety disorder, unspecified; R53.1 Weakness
CPT/HCPCS: 36415; 71045; 80048; 80053; 80061; 81001; 82947; 83605; 83735; 83880; 84100; 84132; 84145; 84484; 85025; 85379; 85610; 85730; 87040; 87804; 87807; 87811; 93005; 94640; 96365; 96368; 97116; 97161; 97165; 97530; 99285; J0360; J0696; J1171; J1650; J2405; J2470; J2765; J7030; J7050; J7512; J7605; J7613; J7644

== ENCOUNTER 2024-10-01 02:16 | Emergency (ER) | payer OTHER, MEDICARE ==
[2024-10-01 04:18] LABS: PT Prothrombin Time 9.4 SECONDS (9.4-12.5); Protime INR 0.89
[2024-10-01 04:27] LABS: Absolute Lymphocytes (CBC) 1.1 K/uL (0.7-4.9); Absolute Neutrophil 7.1 K/uL (1.8-8.0); Basophils % 0.2 % (0-1.3); Eosinophils % 0.1 % (0-4.4); Hematocrit 36.1 % (36.0-45.0); Lymphocytes % 11.9 % (15.3-44.8); MCH 32.7 pg (27.0-35.0); MCHC 33.3 g/dL (32.0-36.0); MCV 98.1 fL (80-100); MPV 8.2 fL (7.6-11.3); Monocytes % 10.7 % (3.3-12.3); Neutrophils % 77.1 % (41.7-73.7); Nucleated Red Blood Cells % 0.2 % (0-0); Platelets 230 thou/uL (152-406); RBC Red Blood Cell Count 3.68 M/uL (3.86-4.86); Red Cell Distribution Width 14.4 % (12.1-15.2)
[2024-10-01 04:43] LABS: Albumin 3.1 g/dL (3.4-5.0); Albumin/Globulin Ratio 0.8 (1.1-1.8); Anion Gap 9.8 mEq/L (5.0-15.0); Bilirubin Total 0.4 mg/dL (0.2-1.0); C-Reactive Protein 5.82 mg/L (<3.00); Protein, Total 7.1 g/dL (6.4-8.2); Thyroid Stimulating Hormone 0.284 uIU/mL (0.358-3.740)
[2024-10-01 04:50] LABS: Potassium 3.8 mEq/L (3.5-5.1)
[2024-10-01] MEDS ORDERED: LEVETIRACETAM 500 MG/5 ML VIAL IV ONE (05:45)
[2024-10-01] MEDS ORDERED: NA CHLORIDE 0.9% 1,000 ML ONE (05:46)
[2024-10-01] MEDS ORDERED: NA CHLORIDE 0.9% 100 ML ONE (05:46)
--- NOTE | 2024-10-01 06:03 | ER ---
Nurse's Notes [facility] Name: Catie Ojeda Age: 79 yrs Sex: Female : 1945 Arrival Date: 10/01/2024 Time: 02:16 Bed 16 Private MD: Diagnosis: Traumatic subarachnoid hemorrhage;Acute left frontal hemorrhagic contusion, left periorbital contusion, acute traumatic subarachnoid hemorrhage,;Intramuscular hematoma - subcostal right lateral abdominal muscle ;Acute fall at home;Acute hypoactive delirium Presentation: 10/01 02:23 Chief complaint: Patient states: S/P FALL UNWITNESSED....PT CALLED 911 VIA ALERT br2 [place]. ON EMS ARRIVAL PT WAS FOUND ON THE FLOOR IN THE GARAGE. PT HAS HEMATOMA TO LEFT FOREHEAD, PT ORIENTED TO PERSON ONLY. Coronavirus screen: Client denies travel out of the [place] in the last 14 days. Ebola Screen: Patient denies exposure to infectious person. Initial Sepsis Screen: Does the patient meet any 2 criteria? RR > 20 per min. Does the patient have a suspected source of infection? No. Patient's initial sepsis screen is negative. Risk Assessment: Do you want to hurt yourself or someone else? Patient reports no desire to harm self or others. Onset of symptoms is unknown. 02:23 Method Of Arrival: EMS: [facility] br2 02:23 Acuity: SAMANTHA 3 br2 02:30 Mechanism of Injury: Fall. 5 02:30 Care prior to arrival: None. Trauma event details: Injury occurred in the [address], Injury occurred: at home. Injury occurred: October 01, 2024. Historical: - PMHx: 02:25 Chronic pain; GERD; Hyperlipidemia; Hypertension; br2 - PSHx: 02:25 Right hip replacement; br2 - Immunization history:: PT AMS. - Immunization history: Last tetanus immunization: unknown. - Family history:: not pertinent. Screenin:30 Abuse screen: Denies threats or abuse. Tuberculosis screening: No symptoms or risk [facility] factors identified. 04:[address] [facility] ED Fall Risk Assessment (Adult) History of falling in the last 3 months, rg5 including since admission Yes- single mechanical fall (1 pt) Confusion or Disorientation Yes (5 pts) Intoxicated or Sedated No (0 pts) Impaired Gait Yes (1 pt) Mobility Assist Device Used Yes (1 pt) Altered Elimination Score/Fall Risk Level 3 or more points = High Risk Oriented to surroundings, Maintained a safe environment, Provided non-skid footwear, Hourly rounding (assess needs \T\ fall precautionary measures) done. Nutritional screening: No deficits noted. Primary Survey: 02:30 NO uncontrolled hemorrhage observed. A: The client is awake and alert. The airway is rg5 patent. Breathing/Chest: Spontaneous respiratory effort, equal unlabored respirations, breath sounds clear bilaterally, regular pattern, symmetrical chest rise and fall. Circulation: No external hemorrhage present. Regular and strong central pulse, skin warm/dry/normal color. Disability Client is alert. 05:00 Exposure/Environment: There is evidence of uncontrolled external hemorrhage. Provider rg5 notified immediately. Methods to control bleeding applied. Reassessment Alertness and Airway: Awake and alert. The airway is patent. Breathing:. 05:00 Reassessment Alertness and Airway: Awake and alert. The airway is patent. Breathing: rg5 Spontaneous respiratory effort, equal unlabored respirations, breath sounds clear bilaterally, regular pattern with symmetrical chest rise and fall. Circulation: No external hemorrhage noted. Regular and strong central pulse, skin warm/dry/normal color. Heart rhythm Sinus rhythm. Assessment: 02:30 General: Appears uncomfortable, Behavior is calm, cooperative, appropriate for age. rg5 Pain: Complains of pain in head Pain currently is 5 out of 10 on a pain scale. Quality of pain is described as aching. Neuro: Level of Consciousness is awake, alert, obeys commands, Oriented to person, place. EENT: No deficits noted. Cardiovascular: Patient's skin is warm and dry. Respiratory: Airway is patent Trachea midline Respiratory effort is even, unlabored. GI: Abdomen is round non-distended, Abd is soft and non tender. : No signs and/or symptoms were reported regarding the genitourinary system. Derm: Skin is fragile, Skin is dry, Skin is normal, Skin temperature is warm. Musculoskeletal: Circulation, motion, and sensation intact. Range of motion: intact in all extremities. 03:15 Reassessment: No changes from previously documented assessment. Patient and/or family rg5 updated on plan of care and expected duration. Pain level reassessed. 04:00 Reassessment: No changes from previously documented assessment. Patient and/or family rg5 updated on plan of care and expected duration. Pain level reassessed. 05:30 Reassessment: No changes from previously documented assessment. Patient and/or family rg5 updated on plan of care and expected duration. Pain level reassessed. 06:20 Reassessment: No changes from previously documented assessment. Patient and/or family rg5 updated on plan of care and expected duration. Pain level reassessed. Vital Signs: 02:23 BP 122 / 77; Pulse 93; Resp 24 S; Temp 97.4(TE); Weight 68.04 kg; Height 5 ft. 3 in. ; br2 03:45 BP 122 / 95; Pulse 88; Resp 18; Pulse Ox 99% on R/A; rg5 04:26 BP 122 / 88; Pulse 85; Resp 18; Pulse Ox 99% on R/A; Pain 0/10; rg5 05:37 BP 123 / 97; Pulse 84; Resp 18; Pulse Ox 99% on R/A; Pain 0/10; rg5 06:17 BP 125 / 94; Pulse 87; Resp 18; Pulse Ox 99% on R/A; Pain 0/10; rg5 02:23 Body Mass Index 26.57 (68.04 kg, 160.02 cm) br2 04:26 Pain Scale: Adult rg5 05:37 Pain Scale: Adult rg5 06:17 Pain Scale: Adult rg5 Ihsan Coma Score: 02:30 Eye Response: spontaneous(4). Motor Response: obeys commands(6). Verbal Response: rg5 oriented(5). Total: 15. 06:03 Eye Response: to voice(3). Motor Response: obeys commands(6). Verbal Response: sp4 confused(4). Total: 13. Trauma Score (Adult): 02:30 Eye Response: spontaneous(1); Verbal Response: oriented(1); Motor Response: obeys rg5 commands(2); Systolic BP: > 89 mm Hg(4); Respiratory Rate: 10 to 29 per min(4); [place] Score: 15; Trauma Score: 12 NIH Stroke Scale Scores: 06:03 NIHSS Score: 1 sp4 ED Course: 02:22 Patient arrived in ED. br2 02:25 Triage completed. br2 02:30 Patient maintains SpO2 saturation greater than 95% on room air. rg5 02:30 Patient has correct armband on for positive identification. Bed in low position. Call rg5 light in reach. Side rails up X2. Patient maintains SpO2 saturation greater than 95% on room air. 02:44 Maxime Suresh MD is Attending Physician. sp4 03:19 Chau Hemphill, ALEXIS is Primary Nurse. rg5 03:52 CBC with Diff Sent. mm11 03:53 CMP Sent. mm11 03:53 Lipase Sent. mm11 03:53 Troponin High Sensitivity Sent. mm11 03:53 BNP Sent. mm11 03:53 CRP Sent. mm11 03:53 TSH Sent. mm11 03:53 T4 Free Sent. mm11 03:53 Blood Culture Adult (2) Sent. mm11 03:53 Lactate w/ 2H reflex if indic. Sent. mm11 03:53 PT-INR Sent. mm11 03:53 Inserted saline lock: 22 gauge in right antecubital area, using aseptic technique. mm11 Blood collected. Flushed with 10 mL NS. 04:06 No provider procedures requiring assistance completed. rg5 04:11 CT Head C Spine In Process Unspecified. EDMS 04:11 CT Chest Abdomen Pelvis W/O Contrast In Process Unspecified. EDMS 05:57 Tranfer initiated \T\0536, Pt accepted \T\ [facility] \T\[address] Addy Urias. Report called to [phone]. [facility] to transport. 06:23 Provided Education on:. rg5 06:30 Patient transferred, IV remains in place. intact, No redness/swelling at site. Pressure rg5 dressing applied. Administered Medications: 06:08 Drug: Keppra IV 1000 mg IV at bolus once Route: IV; Rate: bolus; Site: right rg5 antecubital; 06:16 Follow up: IV Status: Completed infusion rg5 06:08 Drug: NS 0.9% IV 1000 ml IV at 100 ml/hr Per protocol; to be given as a bolus over 60 rg5 minutes Route: IV; Rate: 100 ml/hr; Site: right antecubital; Medication: 06:33 VIS not applicable for this client. rg5 Intake: 02:30 PO: 0ml; Total: 0ml. rg5 Outcome: 06:03 ER care complete, transfer ordered by . sp4 06:[address] [facility], rg5 06:29 Condition: stable 06:29 Instructed on the need for transfer, 06:33 Patient left the ED. rg5 NIH Stroke Scale - NIH Stroke Score Date: 10/01/2024 Time: 06:03 Total Score = 1 10. Dysarthria (speech clarity - read or repeat words) - 0(Normal) 11. Extinction and Inattention (visual/tactile/auditory/spatial/personal) - 0(No abnormality) 1a. Level of Consciousness (LOC) - 0(Alert) 1b. Level of Consciousness (LOC) (Month \T\ Age) - 1(One) 1c. LOC Commands (Open \T\ Closes Eyes/Remelt Pan Tank Operator) - 0(Both) 2. Best Gaze (Lateral Gaze Paresis) - 0(Normal) 3. Visual Field Loss - 0(No visual loss) 4. Facial Palsy - 0(Normal) 5a. Left Arm: Motor (10-second hold) - 0(No drift) 5b. Right Arm: Motor (10-second hold) - 0(No drift) 6a. Left Leg: Motor (5-second hold - always test supine) - 0(No drift) 6b. Right Leg: Motor (5-second hold - always test supine) - 0(No drift) 7. Limb Ataxia (finger/nose \T\ heel/ga - test with eyes open) - 0(Absent) 8. Sensory Loss (pinprick arms/legs/face) - 0(Normal) 9. Best Language: Aphasia (description/naming/reading) - 0(No aphasia) Initials: sp4 Signatures: Dispatcher [employer] Maxime Cox MD MD sp4 Chau Hemphill RN RN rg5 hSanita Amezquita RN RN br2 Adrianna Schwab raghav ren mm11
--- NOTE | 2024-10-01 06:03 | EDPHYS ---
Physician Documentation [facility] Name: Catie Ojeda Age: 79 yrs Sex: Female : 1945 Arrival Date: 10/01/2024 Time: 02:16 Bed 16 Private MD: ED Physician Maxime Suresh HPI: 10/01 02:44 This 79 yrs old Female presents to ER via EMS with complaints of Fall Injury. sp4 05:50 79-year-old female presents with acute fall at home associated with left-sided head sp4 periorbital contusion. EMS reported patient was confused. Patient's medications include omeprazole, rosuvastatin, amlodipine, buspirone, duloxetine, losartan, oxycodone as needed, cholecalciferol, lactobacillus, docusate as needed, alprazolam as needed, metoprolol daily, mirtazapine 15 mg bedtime, aspirin 81 mg daily. Patient's medical history includes hypertension, anxiety, restless leg syndrome, recent admission for pneumonia 09/25/2024. Additional past medical history includes arthritis, hypertension, multiple falls, left shoulder arthroplasty, bilateral hip replacement, cataract surgery bilateral.. Historical: - PMHx: 02:25 Chronic pain; GERD; Hyperlipidemia; Hypertension; br2 - PSHx: 02:25 Right hip replacement; br2 - Immunization history:: PT AMS. - Immunization history: Last tetanus immunization: unknown. - Family history:: not pertinent. ROS: 06:03 Constitutional: Negative for fever, chills, and weight loss, sp4 06:03 All other systems are negative, Exam: 06:03 Constitutional: Frail elderly female, acute left periorbital contusion with abrasion. sp4 Confusion on arrival Head/Face: Normocephalic, there is left periorbital contusion with left lateral periorbital abrasion Eyes: Pupils equal round and reactive to light, extra-ocular motions intact. Lids and lashes normal. Conjunctiva and sclera are not injected. Cornea within normal limits. Periorbital areas with no swelling, redness, or edema. ENT: Nares patent. No nasal discharge, no septal abnormalities noted. Tympanic membranes are normal and external auditory canals are clear. Oropharynx with no redness, swelling, or masses, exudates, or evidence of obstruction, uvula midline. Mucous membranes moist. Neck: Trachea midline, no thyromegaly or masses palpated, and no cervical lymphadenopathy. Supple, full range of motion without nuchal rigidity, or vertebral point tenderness. Chest/axilla: Normal chest wall appearance and motion. Nontender with no deformity. No lesions are appreciated. Cardiovascular: Regular rate and rhythm with a normal S1 and S2. No gallops, murmurs, or rubs. Normal PMI, no JVD. No pulse deficits. Respiratory: Lungs have equal breath sounds bilaterally, clear to auscultation and percussion. No rales, rhonchi or wheezes noted. No increased work of breathing, no retractions or nasal flaring. Abdomen/GI: Soft, with normal bowel sounds. No distension or tympany. No guarding or rebound. No evidence of tenderness throughout. Back: No spinal tenderness. No costovertebral tenderness. Skin: Warm, dry with normal turgor. Normal color with no rashes, no lesions, and no evidence of cellulitis. MS/ Extremity: Pulses equal, no cyanosis. Neurovascular intact. Full, normal range of motion. Neuro: Awake and alert,oriented to person, Cranial nerves II-XII grossly intact. Motor strength 5/5 in all extremities. Sensory grossly intact. 06:05 ECG was reviewed by the Attending Physician. EKG at 0 421 normal sinus rhythm, sp4 borderline EKG rate 87. An electrocardiogram was deferred on this patient Vital Signs: 02:23 BP 122 / 77; Pulse 93; Resp 24 S; Temp 97.4(TE); Weight 68.04 kg; Height 5 ft. 3 in. ; br2 03:45 BP 122 / 95; Pulse 88; Resp 18; Pulse Ox 99% on R/A; rg5 04:26 BP 122 / 88; Pulse 85; Resp 18; Pulse Ox 99% on R/A; Pain 0/10; rg5 05:37 BP 123 / 97; Pulse 84; Resp 18; Pulse Ox 99% on R/A; Pain 0/10; rg5 06:17 BP 125 / 94; Pulse 87; Resp 18; Pulse Ox 99% on R/A; Pain 0/10; rg5 02:23 Body Mass Index 26.57 (68.04 kg, 160.02 cm) br2 04:26 Pain Scale: Adult rg5 05:37 Pain Scale: Adult rg5 06:17 Pain Scale: Adult rg5 NIH Stroke Scale Scores: 06:03 NIHSS Score: 1 sp4 Ihsan Coma Score: 02:30 Eye Response: spontaneous(4). Motor Response: obeys commands(6). Verbal Response: rg5 oriented(5). Total: 15. 06:03 Eye Response: to voice(3). Motor Response: obeys commands(6). Verbal Response: sp4 confused(4). Total: 13. Trauma Score (Adult): 02:30 Eye Response: spontaneous(1); Verbal Response: oriented(1); Motor Response: obeys rg5 commands(2); Systolic BP: > 89 mm Hg(4); Respiratory Rate: 10 to 29 per min(4); Ihsan Score: 15; Trauma Score: 12 MDM: 02:46 Medical Screening Exam initiated sp4 05:53 ED course: IMPRESSION: CT Chest, Abdomen and Pelvis Without: 1. Homogenously sp4 hyperattenuating ovoid mass within the subcostal right lateral abdominal muscle, measuring 3.7 x 2.4 x 2.6 cm, favoring an intramuscular hematoma. Recommend comparison with recent prior imaging to ensure acuity, or follow-up imaging to ensure resolution. 2. No additional acute abnormality within the chest, abdomen, or pelvis. 3. Near complete collapse of the trachea, measuring up to 0.3 cm AP diameter, consistent with tracheomalacia. 4. Pelvic floor laxity with mild urinary bladder, vaginal, and rectal prolapse noted. 5. Additional nonacute findings as above. CT Head and Cervical Spine Without. 1. 1.1 cm of focal hemorrhagic contusion demonstrated in the left frontal lobe with additional areas of acute subarachnoid hemorrhage demonstrated within the left greater than right frontal and left temporoparietal sulci. 2. Chronic and senescent changes with no additional acute intracranial abnormality. 3. Moderate-sized lateral left frontal and supraorbital scalp contusion. 4. Degenerative changes with no acute cervical spine fracture or subluxation. Dr. Magana discussed these critical findings regarding acute intracranial hemorrhage and right abdominal Kika Suresh MD via telephone at approximately 06:23 hours EST on 10/01/2024. . ED course: CT fulll report - COMPARISON: No relevant prior studies available. FINDINGS: BRAIN: 1.1 cm of focal hemorrhagic contusion demonstrated in the left frontal lobe with additional areas of acute subarachnoid hemorrhage demonstrated within the left greater than right frontal and left temporoparietal sulci. 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 Mild bilateral periventricular and deep white matter microangiopathy changes. No acute focal mcintyre-white matter differentiation abnormality. MIDLINE SHIFT: No midline shift. VENTRICLES: No ventriculomegaly. No intraventricular hemorrhage. SKULL: No acute fracture. SINUSES: Unremarkable as visualized. No acute sinusitis. MASTOID AIR CELLS: Unremarkable as visualized. No mastoid effusion. ORBITS: Bilateral globes and orbits are intact with no abnormal intraorbital mass, collection, or foreign body. VERTEBRAE: Multilevel cervical spondylosis. Allowing for patient motion, no acute fracture or acute vertebral body height loss. Minimal degenerative grade 1 retrolisthesis of C2 on C3. No significant subluxation. DISCS/SPINAL CANAL/NEURAL FORAMINA: No acute findings. No no transtentorial herniation. No significant bony spinal canal stenosis. OTHER BONES/JOINTS: Hardware fixation of right clavicle fracture demonstrated. SOFT TISSUES: Moderate-sized lateral left frontal and supraorbital scalp contusion. No abnormal prevertebral soft tissue swelling. TRACHEA: Tracheomalacia with near complete AP collapse of the visualized trachea. OTHER FINDINGS: Dens is intact. No dislocation. Craniocervical orientation is normal. * A single impression for all exams can be found at the end of this report. 06:05 Differential diagnosis: abrasion, closed head injury, contusion, fracture, laceration, sp4 multiple trauma, sprain, strain. Data reviewed: vital signs, nurses notes, EMS record, old medical records, lab test result(s), EKG, radiologic studies, CT scan. Consideration of Admission/Observation Escalation of care including admission/observation considered. Management of patient was discussed with the following: Running Rigger: Neurosurgery consulted.. ED course: Patient will be transferred with aeromedical transport.. 10/01 02:52 Order name: CBC with Diff; Complete Time: 05:36 sp4 10/01 02:52 Order name: CMP; Complete Time: 05:36 sp4 10/01 02:52 Order name: Lipase; Complete Time: 05:36 sp4 10/01 02:52 Order name: Troponin High Sensitivity; Complete Time: 05:36 sp4 10/01 02:52 Order name: BNP; Complete Time: 05:36 sp4 10/01 02:52 Order name: CRP; Complete Time: 05:36 sp4 10/01 02:52 Order name: TSH; Complete Time: 05:36 sp4 10/01 02:52 Order name: T4 Free; Complete Time: 05:36 sp4 10/01 02:53 Order name: Blood Culture Adult (2) sp4 10/01 02:53 Order name: Lactate w/ 2H reflex if indic.; Complete Time: 05:36 sp4 10/01 02:53 Order name: PT-INR; Complete Time: 05:36 sp4 10/01 04:45 Order name: Ghost Lactate-NO COLLECT Timer; Complete Time: 06:32 EDMS 10/01 02:51 Order name: CT Head C Spine sp4 10/01 02:52 Order name: CT Chest Abdomen Pelvis W/O Contrast sp4 10/01 02:52 Order name: IV Saline Lock; Complete Time: 03:52 sp4 10/01 02:52 Order name: Labs collected and sent; Complete Time: 03:52 sp4 10/01 02:52 Order name: EKG - Nurse/Tech; Complete Time: 04:44 sp4 10/01 05:37 Order name: NPO; Complete Time: 06:08 sp4 EC:21 Rate is 87 beats/min. Rhythm is regular, Normal Sinus Rhythm. QRS Ione is Normal. TN sp4 interval is normal. QRS interval is normal. QT interval is normal. No Q waves. T waves are Normal. No ST changes noted. Clinical impression: No evidence of ischemia. Interpreted by me. Reviewed by me. Administered Medications: 06:08 Drug: Keppra IV 1000 mg IV at bolus once Route: IV; Rate: bolus; Site: right rg5 antecubital; 06:16 Follow up: IV Status: Completed infusion rg5 06:08 Drug: NS 0.9% IV 1000 ml IV at 100 ml/hr Per protocol; to be given as a bolus over 60 rg5 minutes Route: IV; Rate: 100 ml/hr; Site: right antecubital; Disposition Summary: 10/01/24 06:03 Transfer Ordered Notes: Transfer Location: [facility] sp4 Reason: Higher level of care sp4 Condition: Stable sp4 Problem: new sp4 Symptoms: have improved sp4 Accepting Physician: accepting physician at [facility](10/01/24 06:33) rg5 Diagnosis - Traumatic subarachnoid hemorrhage sp4 - Acute left frontal hemorrhagic contusion, left periorbital contusion, acute sp4 traumatic subarachnoid hemorrhage, - Intramuscular hematoma - subcostal right lateral abdominal muscle sp4 - Acute fall at home sp4 - Acute hypoactive delirium sp4 Discharge Instructions: - Discharge Summary Sheet Forms: - Medication Reconciliation Form sp4 - SBAR form Critical care time excluding procedures: 06:00 Critical care time: Bedside Care: 36 minutes, Consultation: 12 minutes, Family sp4 Intervention: 12 minutes. Total time: 60 minutes NIH Stroke Scale - NIH Stroke Score Date: 10/01/2024 Time: 06:03 Total Score = 1 10. Dysarthria (speech clarity - read or repeat words) - 0(Normal) 11. Extinction and Inattention (visual/tactile/auditory/spatial/personal) - 0(No abnormality) 1a. Level of Consciousness (LOC) - 0(Alert) 1b. Level of Consciousness (LOC) (Month \T\ Age) - 1(One) 1c. LOC Commands (Open \T\ Closes Eyes/Building Inspector) - 0(Both) 2. Best Gaze (Lateral Gaze Paresis) - 0(Normal) 3. Visual Field Loss - 0(No visual loss) 4. Facial Palsy - 0(Normal) 5a. Left Arm: Motor (10-second hold) - 0(No drift) 5b. Right Arm: Motor (10-second hold) - 0(No drift) 6a. Left Leg: Motor (5-second hold - always test supine) - 0(No drift) 6b. Right Leg: Motor (5-second hold - always test supine) - 0(No drift) 7. Limb Ataxia (finger/nose \T\ heel/ga - test with eyes open) - 0(Absent) 8. Sensory Loss (pinprick arms/legs/face) - 0(Normal) 9. Best Language: Aphasia (description/naming/reading) - 0(No aphasia) Initials: sp4 Signatures: Dispatcher [employer] EDMS Maxime Suresh MD MD sp4 Chau Hemphill RN RN rg5 Shanita Amezquita RN RN br2 Corrections: (The following items were deleted from the chart) 02:53 02:53 Troponin High Sensitivity+C.LAB.BRZ ordered. EDMS EDMS 02:53 02:53 PROBNP+C.LAB.BRZ ordered. EDMS EDMS 02:53 02:53 C-REACTIVE PROTEIN+C.LAB.BRZ ordered. EDMS EDMS 02:53 02:53 THYROID STIMULAT HORMONE+C.LAB.BRZ ordered. EDMS EDMS 02:53 02:53 T4 FREE+C.LAB.BRZ ordered. EDMS EDMS 02: 02:53 BLOOD CULTURE*+BA.LAB.BRZ ordered. EDMS EDMS 02:53 02:53 LACTATE+C.LAB.BRZ ordered. EDMS EDMS 02:53 02:53 PROTIME (+INR)+COAG.LAB.BRZ ordered. EDMS EDMS 06:33 06:03 accepting physician at [facility] sp4 rg5
--- NOTE | 2024-10-01 06:27 | RAD REPORT ---
PROCEDURE: CT Chest, Abdomen and Pelvis Without Intravenous Contrast CLINICAL INDICATION: The patient is 79 years old and is Female; Fall, right flank contusion. TECHNIQUE: Axial computed tomography images of the chest, abdomen and pelvis without intravenous contrast. Sag ittal and coronal reformatted images were created and reviewed. This CT exam was performed using one or more of the following dose reduction techniques: automated exposure control, adjustment of t he mA and/or kV according to patient size, and/or use of iterative reconstruction technique. COMPARISON: None. FINDINGS: CHEST: TRACHEA: Near complete collapse of the trachea, measuring up to 0.3 cm AP diameter, consistent with tracheomalacia. LUNGS: Bibasilar bandlike scarring versus subsegmental atelectasis. No mass. No additional focal consolidation. PLEURAL SPACE: Unremarkable No significant effusion. No pneumothorax. HEART: Moderate proximal LAD coronary artery calcifications. No cardiomegaly. No significant pericardial effusion. ABDOMEN: LIVER: Unremarkable GALLBLADDER AND BILE DUCTS: Unremarkable No calcified stones. No ductal dilation. PANCREAS: Unremarkable No ductal dilation. SPLEEN: Unremarkable No splenomegaly. ADRENALS: Unremarkable No mass. KIDNEYS AND URETERS: Unremarkable No obstructing stones. No hydronephrosis. STOMACH AND BOWEL: Colonic diverticulosis without evidence of acute diverticulitis. PELVIS: APPENDIX: No findings to suggest acute appendicitis. BLADDER: Pelvic floor laxity with mild urinary bladder, vaginal, and rectal prolapse noted. No stones. REPRODUCTIVE: See above. CHEST, ABDOMEN and PELVIS: INTRAPERITONEAL SPACE: Unremarkable No significant fluid collection. No free air. BONES/JOINTS: Transversely oriented left SI joint fixation screws, as well as hardware fixation of a remote right buckle fracture demonstrated. Bilateral hip replacements and a partially visualized left shoulder arthroplasty noted. Remote fracture of the right inferior pubic rami. Osteopenic appearance of the bony structures. Chronic compression deformities of the T12 and L1 vertebra. No dislocation. No definite acute osseous abnormality. SOFT TISSUES: Homogenously hyperattenuating ovoid mass within the subcostal right lateral abdominal muscle, measuring 3.7 x 2.4 x 2.6 cm, favoring an intramuscular hematoma. VASCULATURE: Moderate to severe calcified atherosclerosis of the abdominal aorta without aneurysmal dilatation. Mild calcified atherosclerosis of the thoracic aorta without aneurysmal dilatation. LYMPH NODES: Unremarkable No enlarged lymph nodes. * A single impression for all exams can be found at the end of this report PROCEDURE: CT Head and Cervical Spine Without Intravenous Contrast CLINICAL INDICATION: The patient is 79 years old and is Female; Fall, right flank contusion. TECHNIQUE: Axial computed tomography images of the head/brain and cervical spine without intravenous contrast. Sagittal and coronal reformatted images were created and reviewed. This CT exam was performed using one or more of the following dose reduction techniques: automated exposure control, adjustmen t of the mA and/or kV according to patient size, and/or use of iterative reconstruction technique. COMPARISON: No relevant prior studies available. FINDINGS: BRAIN: 1.1 cm of focal hemorrhagic contusion demonstrated in the left frontal lobe with additional areas of acute subarachnoid hemorrhage demonstrated within the left greater than right frontal and left temporoparietal sulci. 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 Mild bilateral periventricular and deep white matter microangiopathy changes. No acute focal mcintyre-white matter differentiation abnormality. MIDLINE SHIFT: No midline shift. VENTRICLES: No ventriculomegaly. No intraventricular hemorrhage. SKULL: No acute fracture. SINUSES: Unremarkable as visualized. No acute sinusitis. MASTOID AIR CELLS: Unremarkable as visualized. No mastoid effusion. ORBITS: Bilateral globes and orbits are intact with no abnormal intraorbital mass, collection, or f oreign body. VERTEBRAE: Multilevel cervical spondylosis. Allowing for patient motion, no acute fracture or acute vertebral body height loss. Minimal degenerative grade 1 retrolisthesis of C2 on C3. No significant subluxation. DISCS/SPINAL CANAL/NEURAL FORAMINA: No acute findings. No no transtentorial herniation. No significant bony spinal canal stenosis. OTHER BONES/JOINTS: Hardware fixation of right clavicle fracture demonstrated. SOFT TISSUES: Moderate-sized lateral left frontal and supraorbital scalp contusion. No abnormal prevertebral soft tissue swelling. TRACHEA: Tracheomalacia with near complete AP collapse of the visualized trachea. OTHER FINDINGS: Dens is intact. No dislocation. Craniocervical orientation is normal. * A single impression for all exams can be found at the end of this report IMPRESSION: CT Chest, Abdomen and Pelvis Without: 1. Homogenously hyperattenuating ovoid mass within the subcostal right lateral abdominal muscle, me asuring 3.7 x 2.4 x 2.6 cm, favoring an intramuscular hematoma. Recommend comparison with recent prior imaging to ensure acuity, or follow-up imaging to ensure resolution. 2. No additional acute abnormality within the chest, abdomen, or pelvis. 3. Near complete collapse of the trachea, measuring up to 0.3 cm AP diameter, consistent with trach eomalacia. 4. Pelvic floor laxity with mild urinary bladder, vaginal, and rectal prolapse noted. 5. Additional nonacute findings as above. CT Head and Cervical Spine Without. 1. 1.1 cm of focal hemorrhagic contusion demonstrated in the left frontal lobe with additional area s of acute subarachnoid hemorrhage demonstrated within the left greater than right frontal and left temporoparietal sulci. 2. Chronic and senescent changes with no additional acute intracranial abnormality. 3. Moderate-sized lateral left frontal and supraorbital scalp contusion. 4. Degenerative changes with no acute cervical spine fracture or subluxation. Dr. Maagna discussed these critical findings regarding acute intracranial hemorrhage and right abdomin al intramuSergeKika Warner MD via telephone at approximately 06:23 hours EST on 10/01/2024. Electronically signed by: Justin Magana MD 10/01/2024 05:[address] [facility] Due to temporary technical issues with the [email or web address] reporting system, reports are being luis d by the in-house radiologist without review as a courtesy to ensure prompt reporting the interpreting radiologist is fully responsible for the content of the report. Transcribed Date/Time: 10/01/2024 6:26 AM
[2024-10-02 01:01] VITALS: TEMP 97.4
[2024-10-02 01:02] VITALS: O2SAT 99
[2024-10-02 01:05] VITALS: BP 125/94
--- NOTE | 2024-10-04 12:14 | EKG ---
Test Date: 2024-10-01 Test Time: 04:21:26 [employer]: ELLEN MEASUREMENT RESULTS: Intervals: Rate: 87 TX: 144 QRSD: 84 QT: 382 QTc: 459 [place]: P: 70 TX: 144 QRS: -13 T: 61 INTERPRETIVE STATEMENTS: Normal sinus rhythm Low voltage QRS Borderline ECG Compared to ECG 09/25/2024 19:33:34 Sinus tachycardia no longer present Left-axis deviation no longer present Myocardial infarct finding no longer present Electronically Signed On 10-04-24 12:11:17 [employer] by Catrachito Pat
== END 2024-10-01 06:33 | disposition short-term general hospital (02) ==
LOC: ER 02:16
DX: S06.6X0A Traumatic subarachnoid hemorrhage without loss of consciousness, initial encounter (principal); M79.81 Nontraumatic hematoma of soft tissue; F05 Delirium due to known physiological condition; W18.30XA Fall on same level, unspecified, initial encounter; Y92.009 Unspecified place in unspecified non-institutional (private) residence as the place of occurrence of the external cause; Z96.641 Presence of right artificial hip joint
CPT/HCPCS: 93005; 87040 ×2; 85025; 36415; 85610; 83605; 84443; 84484; 84439; 83690; 80053; 83880; 86140; 70450; 71250; 72125; 74176; 96374; 99285; J1953; J7030